=== PATIENT | female | born 1940 | race Caucasian/White ===

== ENCOUNTER 2016-10-21 21:56 | Inpatient (IN) | payer BC, MEDICARE ==
[2016-10-21] MEDS ORDERED: NITROGLYCERIN OINT 1 INCH/GM PACKET TOPICAL STA (22:16)
[2016-10-21] MEDS ORDERED: ASPIRIN 81 MG PO STA (22:16)
--- NOTE | 2016-10-21 22:20 | ED ---
General Adult HPI - General Chief complaint: Chest Pain Stated complaint: Chest Pressure/SOB Time Seen by Provider: 10/21/16 22:11 Source: patient, family, RN notes reviewed Mode of arrival: ambulatory - History of Present Illness Initial comments: Patient is a pleasant 76-year-old female presenting to the emergency Department with chest discomfort. Onset was a few hours ago while at rest. Patient has tightness in her chest with radiation to the left arm. Patient does feel somewhat short of breath. No diaphoresis. No nausea. Patient does have history of cardiac disease and hypertension previously. Patient is unclear she had similar symptoms to this previously or not. Discomfort was somewhat severe however is mild at this time. - Related Data Home Medications Medication Instructions Recorded Confirmed Clopidogrel Bisulfate [Plavix] 75 mg PO DAILY 10/21/16 10/21/16 HYDROcodone/APAP 7.5-325MG [[place] 1 tab PO BID PRN 10/21/16 10/21/16 7.5-325] LORazepam [Ativan] 0.5 mg PO BID PRN 10/21/16 10/21/16 Lisinopril [Zestril] 10 mg PO DAILY PRN 10/21/16 10/21/16 Metoprolol Tartrate [Lopressor] 12.5 mg PO BID 10/21/16 10/21/16 Simvastatin [Zocor] 40 mg PO HS 10/21/16 10/21/16 Allergies Allergy/AdvReac Type Severity Reaction Status Date / Time No Known Allergies Allergy Verified 10/21/16 22:27 Review of Systems ROS Statement: Those systems with pertinent positive or pertinent negative responses have been documented in the HPI. ROS Other: All systems not noted in ROS Statement are negative. Constitutional: Denies: fever Eyes: Denies: eye pain ENT: Denies: ear pain Respiratory: Reports: dyspnea. Denies: cough Cardiovascular: Reports: chest pain Endocrine: Denies: fatigue Gastrointestinal: Denies: abdominal pain Genitourinary: Denies: dysuria Musculoskeletal: Denies: back pain Skin: Denies: rash Neurological: Denies: weakness Past Medical History Past Medical History: Hyperlipidemia, Hypertension, Myocardial Infarction ([place]) History of Any Multi-Drug Resistant Organisms: None Reported Past Surgical History: Hysterectomy Additional Past Surgical History / Comment(s): cardiac cath w/ stent Past Psychological History: No Psychological Hx Reported Smoking Status: Current every day smoker Past Alcohol Use History: None Reported Past Drug Use History: None Reported General Exam Limitations: no limitations General appearance: alert, in no apparent distress Head exam: Present: atraumatic Eye exam: Present: normal appearance, PERRL ENT exam: Present: normal oropharynx Neck exam: Present: normal inspection Respiratory exam: Present: normal lung sounds bilaterally. Absent: chest wall tenderness Cardiovascular Exam: Present: regular rate, normal rhythm Expanded Peripheral pulses: 2+: Radial (R), Radial (L), Dorsalis Pedis (R), Dorsalis Pedis (L) GI/Abdominal exam: Present: soft. Absent: tenderness Neurological exam: Present: alert Psychiatric exam: Present: normal affect, normal mood Skin exam: Present: normal color Course Vital Signs 10/21/16 10/21/16 10/21/16 22:09 22:22 22:33 Temperature 98.1 F 98.1 F Pulse Rate 81 73 77 Respiratory 18 16 18 Rate Blood Pressure 234/102 195/84 185/81 O2 Sat by Pulse 95 99 99 Oximetry - Reevaluation(s) Reevaluation #1: 10/21/16 22:[address] Fofana, who will review EKGs. 10/21/16 22:19 EKG #2 shows normal sinus rhythm at 78. IN 198. QRS 118. QT 404. QTC 460. Normal axis. Normal QRS. Borderline ST elevation in inferior. ST depression in lead aVL and V4 through V6. 10/21/16 22:24 Case again discussed with Dr. Fofana and STEMI alert was called. 10/21/16 22:28 Patient was reexamined and updated. 10/21/16 22:35 Case was discussed with practitioner Raina, who will admit for Dr. victor, covering for Dr. giron 10/21/16 22:55 Dr. Fofana is present. Patient is heading to [facility]. EKG Findings - EKG Comments: EKG Findings:: EKG shows sinus rhythm at 82. For screening AV block with a IN of 212. QRS 116. QT 394. QTC 460. Normal axis. Borderline inferior ST elevation. ST depression in lead aVL and V4 through V6. No old EKG present. Medical Decision Making - Lab Data Result diagrams: 10/21/16 20:17 09/05/17 20:17 Lab Results 10/21/16 10/21/16 10/21/16 Range/Units 20:17 20:17 20:17 WBC 8.3 (3.8-10.6) k/uL RBC 4.61 (3.80-5.40) m/uL Hgb 14.4 (11.4-16.0) gm/dL Hct 41.6 (34.0-46.0) % MCV 90.1 (80.0-100.0) fL MCH 31.2 (25.0-35.0) pg MCHC 34.6 (31.0-37.0) g/dL RDW 15.4 (11.5-15.5) % Plt Count 264 (150-450) k/uL Neutrophils % 61 % Lymphocytes % 27 % Monocytes % 4 % Eosinophils % 6 % Basophils % 1 % Neutrophils # 5.0 (1.3-7.7) k/uL Lymphocytes # 2.3 (1.0-4.8) k/uL Monocytes # 0.3 (0-1.0) k/uL Eosinophils # 0.5 (0-0.7) k/uL Basophils # 0.0 (0-0.2) k/uL PT (9.0-12.0) sec INR (<1.2) APTT (22.0-30.0) sec Sodium 141 (137-145) mmol/L Potassium 4.1 (3.5-5.1) mmol/L Chloride 106 (98-107) mmol/L Carbon Dioxide 26 (22-30) mmol/L Anion Gap 9 mmol/L BUN 13 (7-17) mg/dL Creatinine 0.72 (0.52-1.04) mg/dL Est GFR (MDRD) Af Amer >60 (>60 ml/min/1.73 sqM) Est GFR (MDRD) Non-Af >60 (>60 ml/min/1.73 sqM) Glucose 135 H (74-99) mg/dL Calcium 9.4 (8.4-10.2) mg/dL Magnesium 2.0 (1.6-2.3) mg/dL Total Bilirubin 0.4 (0.2-1.3) mg/dL AST 25 (14-36) U/L ALT 32 (9-52) U/L Alkaline Phosphatase 142 H (38-126) U/L Total Creatine Kinase 27 L (30-135) U/L CK-MB (CK-2) 0.6 (0.0-2.4) ng/mL CK-MB (CK-2) Rel Index 2.2 Troponin I 0.047 H* (0.000-0.034) ng/mL Total Protein 7.5 (6.3-8.2) g/dL Albumin 3.7 (3.5-5.0) g/dL 10/21/16 Range/Units 20:17 WBC (3.8-10.6) k/uL RBC (3.80-5.40) m/uL Hgb (11.4-16.0) gm/dL Hct (34.0-46.0) % MCV (80.0-100.0) fL MCH (25.0-35.0) pg MCHC (31.0-37.0) g/dL RDW (11.5-15.5) % Plt Count (150-450) k/uL Neutrophils % % Lymphocytes % % Monocytes % % Eosinophils % % Basophils % % Neutrophils # (1.3-7.7) k/uL Lymphocytes # (1.0-4.8) k/uL Monocytes # (0-1.0) k/uL Eosinophils # (0-0.7) k/uL Basophils # (0-0.2) k/uL PT 9.9 (9.0-12.0) sec INR 1.0 (<1.2) APTT 22.3 (22.0-30.0) sec Sodium (137-145) mmol/L Potassium (3.5-5.1) mmol/L Chloride (98-107) mmol/L Carbon Dioxide (22-30) mmol/L Anion Gap mmol/L BUN (7-17) mg/dL Creatinine (0.52-1.04) mg/dL Est GFR (MDRD) Af Amer (>60 ml/min/1.73 sqM) Est GFR (MDRD) Non-Af (>60 ml/min/1.73 sqM) Glucose (74-99) mg/dL Calcium (8.4-10.2) mg/dL Magnesium (1.6-2.3) mg/dL Total Bilirubin (0.2-1.3) mg/dL AST (14-36) U/L ALT (9-52) U/L Alkaline Phosphatase (38-126) U/L Total Creatine Kinase (30-135) U/L CK-MB (CK-2) (0.0-2.4) ng/mL CK-MB (CK-2) Rel Index Troponin I (0.000-0.034) ng/mL Total Protein (6.3-8.2) g/dL Albumin (3.5-5.0) g/dL - Radiology Data Interpreted by me: Chest x-ray shows cardiomegaly Critical Care Time Critical Care Time: Yes Total Critical Care Time: 33 Disposition Clinical Impression: ST elevation myocardial infarction (STEMI) Disposition: ADMITTED IP TO THIS HOSP Condition: Serious Referrals: Lukas Mcdaniels MD [Primary Care Provider] - 1-2 days Decision Time: 22:55
[2016-10-21 22:26] LABS: Basophils % (A) 1 %; CH 31.7; CHCM 35.4; Eosinophils # (A) 0.5 k/uL (0-0.7); Eosinophils % (A) 6 %; HCT 41.6 % (34.0-46.0); HDW 2.93; HGB 14.4 gm/dL (11.4-16.0); Luc # (Auto) 0.18; Luc % (Auto) 2; Lymphocytes # (A) 2.3 k/uL (1.0-4.8); Lymphocytes % (A) 27 %; MCH 31.2 pg (25.0-35.0); MCHC 34.6 g/dL (31.0-37.0); MCV 90.1 fL (80.0-100.0); Mean Platelet Volume 8.5; Monocytes # (A) 0.3 k/uL (0-1.0); Monocytes % (A) 4 %; Neutrophils % (A) 61 %; RBC 4.61 m/uL (3.80-5.40); RDW 15.4 % (11.5-15.5); WBC 8.3 k/uL (3.8-10.6); WBC (Perox) 8.34
[2016-10-21] MEDS ORDERED: HEPARIN SODIUM,PORCINE 5,000 UNIT/ML 1 ML VIAL IV ONE (22:27)
[2016-10-21] MEDS ORDERED: HEPARIN SODIUM,PORCINE 5,000 UNIT/ML 1 ML VIAL IV PRN (22:27)
[2016-10-21] MEDS ORDERED: HEPARIN SODIUM,PORCINE/D5W PMX 25,000 UNIT in DEXTROSE/WATER 1 500ML.BAG IV SCH (22:30)
[2016-10-21 22:35] LABS: ALT 32 U/L (9-52); AST 25 U/L (14-36); Alkaline Phosphatase 142 U/L (38-126); Anion Gap 9 mmol/L; Blood Urea Nitrogen 13 mg/dL (7-17); Calcium 9.4 mg/dL (8.4-10.2); Carbon Dioxide 26 mmol/L (22-30); Chloride 106 mmol/L (98-107); Glucose 135 mg/dL (74-99); Non-African American GFR(MDRD) >60 (>60 ml/min/1.73 sqM); Potassium 4.1 mmol/L (3.5-5.1); Sodium 141 mmol/L (137-145); Total Bilirubin 0.4 mg/dL (0.2-1.3); Total Protein 7.5 g/dL (6.3-8.2)
[2016-10-21 22:38] LABS: Partial Thromboplastin Time 22.3 sec (22.0-30.0); Prothrombin Time 9.9 sec (9.0-12.0)
[2016-10-21] MEDS ORDERED: ATORVASTATIN 80 MG TAB PO STA (22:41)
--- NOTE | 2016-10-21 22:49 | XR ---
PROCEDURE: FILM CXR 1 VIEW HISTORY: 76-year-old female with chest pain. COMPARISON: Chest radiograph 08/02/2012 TECHNIQUE: Frontal view of the chest was obtained. FINDINGS: Limited by technique. Enlarged cardiac silhouette, may be due to cardiomegaly or pericardial effusion. Pulmonary vascular congestion and mild to moderate pulmonary edema. Left basilar atelectasis/consolidation. Questionable small left pleural effusion. Dextroconvex curvature of the thoracic spine. IMPRESSION: Enlarged cardiac silhouette, may be due to cardiomegaly or pericardial effusion. Pulmonary vascular congestion and mild to moderate pulmonary edema. Left basilar atelectasis/consolidation. Questionable small left pleural effusion.
[2016-10-21 22:51] LABS: Creatine Kinase MB 0.6 ng/mL (0.0-2.4)
[2016-10-21 22:52] LABS: Troponin I 0.047 ng/mL (0.000-0.034)
[2016-10-21] MEDS ORDERED: LIDOCAINE 2% INJ 20 MG/ML (20 ML MDV) ONE (22:55)
[2016-10-21] MEDS ORDERED: IV FLUID CONTINUATION 1,000 ML IV ONE (23:03)
[2016-10-21] MEDS ORDERED: NITROGLYCERIN SL TABS 0.4 MG TAB SUBLINGUAL ONE (23:13)
[2016-10-21] MEDS ORDERED: LIDOCAINE 2% INJ 20 MG/ML SQ ONE (23:16)
[2016-10-21] MEDS ORDERED: BIVALIRUDIN BOLUS 250 MG/50 ML IV ONE (23:26)
[2016-10-21] MEDS ORDERED: BIVALIRUDIN 250 MG in SODIUM CHLORIDE 0.9% 50 ML IV ONE (23:27)
[2016-10-21] MEDS ORDERED: NITROGLYCERIN 1000MCG/10ML SYRINGE INTRACORON ONE (23:27)
[2016-10-21] MEDS ORDERED: SODIUM CHLORIDE 0.9% 1,000 ML IV SCH (23:45)
[2016-10-21] MEDS ORDERED: IOHEXOL 350 MG/ML 125ML BOTTLE INJ ONE (23:46)
[2016-10-21] MEDS ORDERED: NITROGLYCERIN SL TABS 0.4 MG TAB SUBLINGUAL PRN (23:59)
[2016-10-21] MEDS ORDERED: RX INFO: IV CONTRAST WAS GIVEN 1 EACH MISC MISCELLANE PRN (23:59)
[2016-10-21] MEDS ORDERED: ATROPINE SULFATE 0.1 MG/ML 10ML SYRINGE IV PRN (23:59)
[2016-10-21] MEDS ORDERED: MAG HYDROX/AL HYDROX/SIMETH 30 ML CUP PO PRN (23:59)
[2016-10-21] MEDS ORDERED: ZOLPIDEM 5 MG TAB PO PRN (23:59)
[2016-10-22 00:17] LABS: Glucose,Whole Blood 139 mg/dL (75-99)
[2016-10-22 00:54] VITALS: BMI 24.7
[2016-10-22 04:50] LABS: Non-African American GFR(MDRD) >60 (>60 ml/min/1.73 sqM)
[2016-10-22] MEDS: LISINOPRIL 10 MG TAB PO SCH ×2 (06:57→21:57)
--- NOTE | 2016-10-22 08:53 | CONS ---
CONSULTATION Mrs. Jarrett is a 76-year-old female, known history of coronary artery disease, history of chronic tobacco use, hypertension, who presented to the emergency room with symptoms of chest discomfort. The discomfort started after an argument with her grandson, was substernal. She was dyspneic at that time, came into the emergency room and her EKG showed mild ST elevation in the inferior leads with ST-segment depression in the lateral precordial leads. The patient has underwent percutaneous revascularization in the past. She cannot recall how long ago and has not been followed by Cardiology. She denies any recent episodes of chest pain until today. She was quite hypertensive on presentation. She has no clear PND or orthopnea, but she has peripheral edema. She has no dizziness, palpitation, or syncope. CORONARY RISK FACTORS: Her coronary risk factors are remarkable for smoking a pack and half a day, hypertension. She is nondiabetic. REVIEW OF SYSTEMS: Respiratory: She had dyspnea on exertion. Symptoms of cough. GI system: No recent GI bleed. No peptic ulcer disease. : No dysuria or hematuria. Central nervous system: No history of stroke or seizure. PHYSICAL EXAMINATION: She is a 76-year-old female, alert and oriented. No apparent distress. Blood pressure 170/90 with a heart rate in the 80s. On presentation, blood pressure was 210. HEAD: Normocephalic. Eyes sclerae anicteric. Neck: Good carotid upstroke. No bruit. LUNGS: With severe decrease in exchange bilaterally. Heart: Regular rate and rhythm, S1, S2. No S3 with soft systolic murmur. No diastolic murmur. No rub. ABDOMEN: Soft, nontender. Positive bowel sounds. No organomegaly. Extremities are +1 edema. +1 distal pulses. LAB DATA: EKG reveals sinus mechanism, rate of [address]-segment elevation in leads 2, 3, AVF with [address] depression in the Lead 2, 3 and V6. IMPRESSION: 1. Inferior wall myocardial infarction. 2. History for chronic tobacco use. 3. History of coronary artery disease. 4. Hypertension. 5. History of chronic obstructive lung disease. RECOMMENDATION: Recommend to proceed with coronary angiography to assess her status and guide her treatment. Depending on the results of testing, further recommendations will be made. Thank you for this consult. We will follow with you. MMODL / IJN: [id number] /
[2016-10-22] MEDS: HYDROCHLOROTHIAZIDE 25 MG TAB PO SCH (08:55)
[2016-10-22] MEDS: METOPROLOL TARTRATE 25 MG TAB PO SCH ×2 (08:55→21:57)
[2016-10-22] MEDS: CLOPIDOGREL 75 MG TAB PO SCH (08:55)
[2016-10-22] MEDS: ASPIRIN 81 MG PO SCH (08:55)
[2016-10-22] MEDS: SPIRONOLACTONE 25 MG TAB PO SCH (08:56)
[2016-10-22] MEDS ORDERED: LISINOPRIL 10 MG TAB PO SCH (09:00)
--- NOTE | 2016-10-22 09:11 | EEG ---
ELECTROENCEPHALOGRAM REPORT PROCEDURE: Angioplasty procedure note MMODL / IJN: [id number] /
--- NOTE | 2016-10-22 09:17 | EEG ---
Dear Dr. Mcdaniels: I had the pleasure of performing cardiac catheterization and coronary angioplasty and stenting on Mrs. Jarrett at [facility] on October 21 and a full copy of procedure note will be forwarded to you. In brief, she was found to have significant stenosis involving the mid LAD and received a drug eluting stent. At the same time, she was found to have severely impaired left ventricular systolic function with segmental wall motion abnormality involving the inferior wall suggestive of remote myocardial infarction. At this time, I will maximize her medical therapy. Depending on her progress, further recommendations will be made. Thank you again for allowing me to participate in her care. Please feel free to call for any questions. Sincerely yours, MMODL / IJN: [id number] / PAUL
--- NOTE | 2016-10-22 10:32 | CC ---
CARDIAC CATHETERIZATION REPORT Mrs. Jarrett is a 76-year-old female with known history of coronary artery disease, history of chronic tobacco use, history of hypertension, who presented to the emergency room with symptoms of chest discomfort. She had borderline EKG changes, but in view of her persistent symptoms and her history, recommendation regarding cardiac catheterization, the procedure as well as risks, and complication were discussed with the patient who is in full understanding and agreement. PROCEDURE: Patient was patient was brought to the labor and delivery nurse. She received after fentanyl and Benadryl after achieving moderate conscious sedative state. Using Xylocaine anesthesia, in the Seldinger technique, a 6-Liberian sheath was introduced in the right femoral artery. Selective right and left coronary angiography performed using 6- Liberian, 4 Bend left Valente catheter and a 4 Bend FR4 guiding catheter. After obtaining images of the coronary arteries, a 6-Liberian FR4 guiding catheter introduced in the system and angioplasty stenting of the LAD was performed. Following that, a 6- Liberian tight pigtail catheter introduced in the left left ventricle and a 30-degree PRADO view of the left ventricle was obtained. Following that catheter and sheaths were removed. Hemostasis was obtained with deployment of an Angio-Seal. There was no immediate complication. The patient was returned to her room in stable condition. FINDINGS: LEFT MAIN: This is a large-sized vessel, bifurcates in the left circumflex and left anterior descending artery. Left main coronary artery is without any obstructive coronary artery disease. LEFT ANTERIOR DESCENDING ARTERY: This is a large size vessel, reaching toward the apex with a wrap around apex segment giving rise to a large diagonal branch. The left anterior descending artery, mid segment after the takeoff of the first diagonal branch has a 70% lesion. There is another plaque of 40% to 50% distal to it. The diagonal branch has an intimal disease with area of stenosis up to 60%. The rest of the vessel has no high-degree stenosis. LEFT CIRCUMFLEX: This is a nondominant vessel giving rise to obtuse marginal branch. The proximal segment of the left circumflex is stented. It has a 40% in-stent restenosis. RIGHT CORONARY ARTERY: This is a dominant vessel, large in caliber bifurcating distally to PDA and posterolateral segment and branches. The right coronary artery mid segment has a mild intimal disease of 20% to 30%. The very distal PDA is very small in caliber and has an area of stenosis of about 95%. LEFT VENTRICULOGRAM: The left ventriculogram was performed in 30-degree PRADO view and revealed inferior wall severe hypokinesis to akinesis with a 2 to 3+ mitral regurgitation. Ejection fraction estimated at 35%. HEMODYNAMICS: There is no gradient across the aortic valve. The left ventricular end- diastolic pressure was 22 mmHg. CONCLUSION: 1. Significant stenosis in the mid left anterior descending artery. 2. Mild disease in the stented segment of the left circumflex. 3. Mild disease in the mid right coronary artery with significant stenosis in the distal segment of the right PDA. 4. Severely impaired left ventricular systolic function. RECOMMENDATION: In view of finding anatomy, I recommend proceeding with angioplasty and stenting of the LAD. The segmental wall motion of the inferior wall could represent a remote myocardial infarction. Those findings and recommendations were discussed with the patient who is in full understanding and agreement. MMMARCIANOL / KASIA: [id number] /
[2016-10-22 11:57] VITALS: RESP 18
[2016-10-22 14:44] LABS: Hemoglobin A1C 6.5 % (4.2-6.1)
--- NOTE | 2016-10-22 17:08 | LTR ---
Date: Mrs. Jarrett is 76 -year-old female who presented with symptoms of chest discomfort. She had borderline EKG changes with ST-segment depression in the lateral precordial leads with minimal ST-segment changes in the inferior leads. She underwent cardiac catheterization and was found to have significant stenosis involving the mid LAD. In view of that, recommendation was made regarding angioplasty and stenting. The procedure as well as risks and complications were discussed with the patient, who was in full understanding and agreement. DESCRIPTION OF PROCEDURE: Using 6 Tajik FR4 guiding catheter, images of the left coronary system were obtained. Following that, a 0.014 balanced medium weight J-wire was advanced across the lesion and positioned distally. Then a 2.75 x 12 mm Xience Alpine stent was deployed. It was post dilated at 14 atmospheres. After the last inflation, after appropriate wait, the balloon and the guidewire were withdrawn back into the guiding catheter. Images were obtained and repeated. Those images revealed stable successful stenting. At that point, the guiding catheter, the balloon and the guidewire were removed and a 6 Tajik FL4 guiding catheter was introduced into the left ventricle and a left ventriculogram was performed in the PRADO view. Following that, catheter and sheath were removed. Hemostasis was obtained with deployment of an Angio-Seal. There were no immediate complications. The patient was returned to her room in stable condition. Of note, the patient received Angiomax per protocol and she was continued on Plavix. She had EKG changes with the inflation but no significant chest pain. RESULTS: Successful stenting of the mid LAD with reduction of stenosis from 70% to 0%. RECOMMENDATIONS: The patient will be continued on aspirin, Plavix, beta blockers, LADI inhibitors, statin. The importance of dual antiplatelet treatment was discussed with the patient and her family, and they are in full understanding and agreement. Duration of the procedure was 30 minutes. MMODL / IJN: [id number] /
[2016-10-22] MEDS: IPRATROPIUM-ALBUTEROL 3 ML NEB INHALATION SCH ×2 (17:41→20:09)
[2016-10-22] MEDS: NICOTINE 21MG/24HR PATCH TRANSDERM SCH (18:09)
[2016-10-22] MEDS: BUDESONIDE 1 MG/2 ML NEBU INHALATION SCH (20:10)
[2016-10-22] MEDS: ATORVASTATIN 80 MG TAB PO SCH (21:57)
--- NOTE | 2016-10-22 23:19 | HP ---
HISTORY AND PHYSICAL DATE OF ADMISSION: 10/21/2016 PRESENTING COMPLAINT: Chest pain. HISTORY OF PRESENTING COMPLAINT: This is a 76-year-old patient of Dr. Mcdaniels whose chronic stable medical conditions include hyperlipidemia, hypertension, anxiety and rheumatoid arthritis. Around 8 p.m. last night the patient developed central chest pressure, shortness of breath, felt lightheaded and tired. Pain progressed. Patient presented to the ER, was felt to have acute ST-elevation myocardial infarction. She went to the cardiac lift slab operator and had a stent to the LAD. The patient is a smoker. REVIEW OF SYSTEMS: CONSTITUTIONAL: Tired. HEENT: None. RESPIRATORY: Baseline shortness of breath, wheezing. CARDIOVASCULAR: As above. GASTROINTESTINAL: None. : None. MUSCULOSKELETAL: Aches and pains in multiple joints. DERMATOLOGIC: None. HEMATOLOGIC: None. LYMPHATIC: None. PSYCHIATRY: Anxiety. NEUROLOGIC: None. PAST HISTORY: 1. Hyperlipidemia. 2. Hypertension. 3. MN. 4. Anxiety. PAST SURGICAL HISTORY: Hysterectomy. SOCIAL HISTORY: Patient lives alone. She has smoked a pack a day for over 60 years. No alcohol. FAMILY HISTORY: Reviewed; non-contributory to presentation. HOME MEDICATIONS: 1. Zestril 10 mg daily p.r.n. 2. Zocor 40 mg at bedtime. 3. Lopressor 12.5 p.o. b.i.d. 4. Ativan 0.5 mg p.o. b.i.d. p.r.n. 5. Sharon 7.5 one tablet p.o. b.i.d. p.r.n. 6. Plavix 75 mg p.o. daily. ALLERGIES: NONE. PHYSICAL EXAMINATION: Temperature 97, pulse 80, respiration 18, blood pressure 157/74, pulse ox 97% room air. GENERAL APPEARANCE: Sitting up. Not in distress. EYES: Pupils equal. Conjunctivae normal. HEENT: Oral cavity normal. NECK: JVD not raised. Mass not palpable. RESPIRATORY: Effort normal. LUNGS: Diminished breath sounds. Prolonged expiration. CARDIOVASCULAR: First and second sounds normal. No edema. ABDOMEN: Soft, non-tender. Liver and spleen not palpable. LYMPHATICS: No lymph node palpable in neck or axillae. PSYCHIATRY: Alert and oriented x3. Mood and affect slightly anxious-appearing. NEUROLOGICAL: Pupils equal. Cranial nerves grossly intact. Power and sensation grossly intact. MUSCULOSKELETAL: Ulnar division of the fingers. Prominent metacarpal/phalangeal joints and rheumatoid nodules, especially on the first MCV joint on both sides. INVESTIGATIONS: White count 8.3, hemoglobin 14.4, potassium 4.1. Troponin 0.047, 3.4 and 12.6. EKG: possible ST elevation in inferior leads. ASSESSMENT: 1. Acute ST-elevation myocardial infarction with stent to the LAD. 2. Chronic obstructive pulmonary disease in a current smoker. 3. Advanced rheumatoid arthritis, bilateral. 4. Hyperlipidemia. 5. Essential hypertension. 6. Anxiety not otherwise specified. 7. Chronic nicotine dependence. Patient is a smoker. PLAN: Patient is currently on aspirin, Plavix, Zestril, Lipitor and Aldactone. Will add DuoNeb, nicotine patch. Care was discussed with the patient. Questions were answered. MMMARCIANOL / CHIKAN: [id number] /
[2016-10-23 06:52] LABS: Anion Gap 4 mmol/L; Blood Urea Nitrogen 11 mg/dL (7-17); Calcium 9.1 mg/dL (8.4-10.2); Carbon Dioxide 28 mmol/L (22-30); Chloride 105 mmol/L (98-107); Cholesterol 149 mg/dL (<200); Glucose 93 mg/dL (74-99); HDL Cholesterol 47 mg/dL (40-60); Non-African American GFR(MDRD) >60 (>60 ml/min/1.73 sqM); Potassium 3.8 mmol/L (3.5-5.1); Sodium 137 mmol/L (137-145)
--- NOTE | 2016-10-23 07:17 | ECHOF ---
Referral Reason:cad MEASUREMENTS -------- HEIGHT: 154.9 cm WEIGHT: 54.4 kg BP: 183/81 IVSd: 1.2 cm (0.6 - 1.1) LVIDd: 5.2 cm (3.9 - 5.3) LVPWd: 1.2 cm (0.6 - 1.1) IVSs: 1.5 cm LVIDs: 4.4 cm LVPWs: 1.1 cm Ao Diam: 2.6 cm (2.0 - 3.7) AV Cusp: 1.4 cm (1.5 - 2.6) LA Diam: 3.6 cm (2.7 - 3.8) MV EXCURSION: 11.236 mm (> 18.000) MV EF SLOPE: 39 mm/s (70 - 150) EPSS: 2.3 cm MV E Cale: 1.19 m/s MV DecT: 193 ms MV A Cale: 0.78 m/s MV E/A Ratio: 1.52 AR PHT: 265 ms RAP: 5.00 mmHg RVSP: 9.06 mmHg FINDINGS -------- Sinus rhythm. This was a technically adequate study. There is mild concentric left ventricular hypertrophy. Overall left ventricular systolic function is mild-moderately impaired with, an EF between 40 - 45 %. Apical lateral LV wall motion is hypokinetic. Inferiorlateral Hypokinesis The right ventricle is normal in size and function. The left atrium is normal in size. The right atrium is normal in size. There is mild aortic regurgitation. The mitral valve leaflets are mildly thickened. Moderate mitral regurgitation is present. Mild tricuspid regurgitation present. The right ventricular systolic pressure, as measured by Doppler, is 9.06mmHg. Pulmonic valve appears structurally normal. The aortic root size is normal. The pericardium is normal. CONCLUSIONS -------- 1. Sinus rhythm. 2. The mitral valve leaflets are mildly thickened. 3. Moderate mitral regurgitation is present. 4. Mild tricuspid regurgitation present. 5. The right ventricular systolic pressure, as measured by Doppler, is 9.06mmHg. 6. Pulmonic valve appears structurally normal. 7. The aortic root size is normal. 8. The pericardium is normal. 9. This was a technically adequate study. 10. There is mild concentric left ventricular hypertrophy. 11. Apical lateral LV wall motion is hypokinetic. 12. Inferiorlateral Hypokinesis 13. The right ventricle is normal in size and function. 14. The left atrium is normal in size. 15. The right atrium is normal in size. 16. There is mild aortic regurgitation. SINGER SONGWRITER: Sapna Choi RDCS
[2016-10-23] MEDS: BUDESONIDE 1 MG/2 ML NEBU INHALATION SCH ×2 (07:55→20:41)
[2016-10-23] MEDS: IPRATROPIUM-ALBUTEROL 3 ML NEB INHALATION SCH ×4 (07:55→20:41)
[2016-10-23] MEDS: ASPIRIN 81 MG PO SCH (09:18)
[2016-10-23] MEDS: HYDROCHLOROTHIAZIDE 25 MG TAB PO SCH (09:18)
[2016-10-23] MEDS: CLOPIDOGREL 75 MG TAB PO SCH (09:18)
[2016-10-23] MEDS: METOPROLOL TARTRATE 25 MG TAB PO SCH ×2 (09:18→21:35)
[2016-10-23] MEDS: LISINOPRIL 10 MG TAB PO SCH ×2 (09:19→21:35)
[2016-10-23] MEDS: NICOTINE 21MG/24HR PATCH TRANSDERM SCH (09:19)
[2016-10-23] MEDS: SPIRONOLACTONE 25 MG TAB PO SCH (09:19)
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
--- NOTE | 2016-10-23 12:28 | P.PN ---
Progress Note - Text DATE OF SERVICE: 10/23/2016 PRESENTING COMPLAINT: Chest pain HISTORY OF PRESENT ILLNESS: 76-year-old female presented with central chest pressure shortness of breath and lightheadedness and tired. Pain increased presented with acute ST elevated PA was taken to the cardiac quality assurance lab technician and a stent to the LAD was placed. Patient is a current smoker. INTERVAL HISTORY: 10/23/2016: Lying in bed appears comfortable in good spirits. No further episodes of chest pain or pressure, no shortness of breath, ambulatory in the room and raines with no assistance. Tolerating her diet and 75% or more, last BM 10/22/2016. REVIEW OF SYSTEMS: Done for constitutional ,cardiovascular, GI, pulmonary with relevant findings as above. CURRENT MEDICATIONS Aspirin 81 mg by mouth daily, Lipitor 80 mg by mouth at at bedtime, Plavix 75 mg by mouth daily hydrochlorothiazide 25 mg by mouth daily, lisinopril 10 mg by mouth twice a day, metoprolol 25 mg by mouth twice a day, nicotine patch 21 mg daily, spironolactone 25 mg by mouth daily. PHYSICAL EXAM VITAL SIGNS: Temperature 97.0, pulse 64, respiratory rate 18, blood pressure 153/64, oxygen saturation 95% on room air. GENERAL APPEARANCE: Lying in bed, not in distress. EYES: Pupils equal. Conjunctiva normal. NECK: JVD not raised. Mass not palpable. RESPIRATORY: Respiratory effort normal. Lungs prolonged expiration. CARDIOVASCULAR: First and second sounds normal. No edema. ABDOMEN: Soft. Liver and spleen not palpable. No tenderness. No mass palpable. PSYCHIATRY: Alert and oriented x3. Mood and affect normal. MUSCULOSKELETAL: Ulnar deviation of the fingers, prominent metacarpal/don't she' ll joints rheumatoid nodules, especially on the first MCV joint on both sides. INTEGUMENT: Right groin site clean dry and intact open air INVESTIGATIONS: BMP unremarkable, triglycerides 118, cholesterol 149, LDL cholesterol 78, HDL cholesterol 47. ASSESSMENT: -Acute ST elevation PA with stent to the LAD. -Ischemic cardiomyopathy in a patient with an EF of 40-45% -Chronic obstructive pulmonary disease in a current smoker. -Advance rheumatoid arthritis, bilateral. -Hyperlipidemia. -Essential hypertension. -Anxiety not otherwise specified. -Chronic nicotine dependence. Patient is a smoker. PLAN: Continue current medication and treatment plan, possible discharge tomorrow per cardiology. Plan of care discussed with the patient she is in agreement. 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 Victor
[2016-10-23] MEDS: ATORVASTATIN 80 MG TAB PO SCH (21:35)
--- NOTE | 2016-10-23 22:02 | PN ---
PROGRESS NOTE DATE OF SERVICE: 10/23/2016 ATTENDING NOTE: This patient was seen and examined by me. I discussed with my nurse practitioner, Ms. Lynch. This is a patient who is status post cardiac catheterization. No chest pain. Breathing is stable. Up to the bathroom. PHYSICAL EXAMINATION: Blood pressure 126/58. Decreased breath sounds. CARDIOVASCULAR: First and second sounds normal. INVESTIGATIONS: Troponin peaked at 12.6. ASSESSMENT: 1. Acute ST-elevation myocardial infarction with stent to the LAD. 2. Ischemic cardiomyopathy; ejection fraction 40% to 45%. 3. Chronic obstructive pulmonary disease in a current smoker. PLAN: Care was discussed with the patient. Continue current medication and treatment plan. Will follow. MMODL / IJN: [id number] /
[2016-10-23] MEDS ORDERED: diphenhydrAMINE 25 MG CAP PO PRN (22:51)
[2016-10-24 07:17] LABS: Anion Gap 7 mmol/L; Blood Urea Nitrogen 12 mg/dL (7-17); Calcium 9.5 mg/dL (8.4-10.2); Carbon Dioxide 30 mmol/L (22-30); Chloride 104 mmol/L (98-107); Glucose 94 mg/dL (74-99); Non-African American GFR(MDRD) >60 (>60 ml/min/1.73 sqM); Potassium 4.1 mmol/L (3.5-5.1); Sodium 141 mmol/L (137-145)
[2016-10-24] MEDS: BUDESONIDE 1 MG/2 ML NEBU INHALATION SCH (09:09)
[2016-10-24] MEDS: IPRATROPIUM-ALBUTEROL 3 ML NEB INHALATION SCH (09:09)
[2016-10-24] MEDS: NICOTINE 21MG/24HR PATCH TRANSDERM SCH (09:28)
[2016-10-24] MEDS: HYDROCHLOROTHIAZIDE 25 MG TAB PO SCH (09:28)
[2016-10-24] MEDS: ASPIRIN 81 MG PO SCH (09:28)
[2016-10-24] MEDS: SPIRONOLACTONE 25 MG TAB PO SCH (09:29)
[2016-10-24] MEDS: LISINOPRIL 10 MG TAB PO SCH (09:29)
[2016-10-24] MEDS: METOPROLOL TARTRATE 25 MG TAB PO SCH (09:29)
[2016-10-24 09:39] VITALS: BP 137/72; PULSE 67; TEMP 96.7
[2016-10-24] MEDS: CLOPIDOGREL 75 MG TAB PO SCH (10:00)
--- NOTE | 2016-10-24 12:33 | P.DS ---
Providers Date of admission: 10/21/16 22:36 Expected date of discharge: 10/24/16 Attending physician: Wali Victor Consults: 10/21/16 22:36 Consult Physician Stat Consulting Provider: Dany Fofana Consult Reason/Comments: stemi Do you want consulting provider notified?: Already Contacted 10/21/16 23:59 Consult Physician Routine Consulting Provider: [facility] Consult Reason/Comments: Post Interventional patient Do you want consulting provider notified?: Already Contacted Primary care physician: [facility] Course: FINAL DIAGNOSES: -Acute ST elevation [place] with stent to the LAD. -Ischemic cardiomyopathy in a patient with an EF of 40-45% -Chronic obstructive pulmonary disease in a current smoker. -Advance rheumatoid arthritis, bilateral. -Hyperlipidemia. -Essential hypertension. -Anxiety not otherwise specified. -Chronic nicotine dependence. Patient is a smoker. HOSPTIAL COURSE: 76-year-old female who developed chest pressure shortness of breath lightheadedness and feeling tired. Pain progressed presented to the emergency department, cardiology consulted, diagnostics revealed acute ST elevation myocardial infarction, patient was taken immediately to the labor economics professor and a stent was placed to the LAD vessel. Admitted to the ICU, no further episodes of chest pain, patient's medication adjusted to include a beta cherry, antiplatelet medication for the stent, and lipid-lowering agent. Patient transferred to [address] [place] [address] and no further episodes of chest pain more had continued on current medication and treatment plan, ambulatory in the room and raines's, tolerating her diet, moving her bowels. Discussion had on multiple occasions with patient regarding smoking cessation and the need for her to quit smoking altogether. Nicotine patches provided through the course of her stay as well as education and resources on smoking cessation. Patient's anxious to go home and overall condition is stabilized and is appropriate for discharge. PHYSICAL EXAM: CARDIOVASCULAR: First and second sound noted no edema RESPIRATORY: Effort normal, transient cough production,lungs diminished bilaterally. PSYCHIATRY: Alert and oriented 3 mood and affect normal. Patient was seen and examined by nurse practitioner Raina Lynch in all elements of the case discussed with attending Dr. Victor DISPOSITION: Home to the care of her family Patient Condition at Discharge: Serious Plan - Discharge Summary New Discharge Prescriptions: New Aspirin 81 mg PO DAILY #30 Atorvastatin [Lipitor] 80 mg PO HS #30 tab Clopidogrel [Plavix] 75 mg PO DAILY tab Metoprolol Tartrate [Lopressor] 25 mg PO BID #60 tab Nicotine 21Mg/24Hr Patch [Habitrol] 1 patch TRANSDERM DAILY #30 patch Nitroglycerin Sl Tabs [Nitrostat] 0.4 mg SUBLINGUAL Q5M PRN #25 tab PRN Reason: Chest Pain Spironolactone [Aldactone] 25 mg PO DAILY #30 tab Mag Hydrox/Al Hydrox/Simeth [Maalox] 30 ml PO Q4HR PRN dose PRN Reason: Heartburn diphenhydrAMINE [Benadryl] 25 mg PO DAILY PRN cap PRN Reason: Congestion Albuterol Inhaler [Ventolin Hfa Inhaler] 1 - 2 puff INHALATION Q6HR PRN #1 inhaler PRN Reason: Shortness Of Breath Or Wheezing Continue LORazepam [Ativan] 0.5 mg PO BID PRN PRN Reason: Anxiety HYDROcodone/APAP 7.5-325MG [[place] 7.5-325] 1 tab PO BID PRN PRN Reason: Pain Lisinopril [Zestril] 10 mg PO DAILY PRN PRN Reason: Blood Pressure - High Discontinued Simvastatin [Zocor] 40 mg PO HS Metoprolol Tartrate [Lopressor] 12.5 mg PO BID Clopidogrel Bisulfate [Plavix] 75 mg PO DAILY Discharge Medication List HYDROcodone/APAP 7.5-325MG [[place] 7.5-325] 1 tab PO BID PRN 10/21/16 [History] LORazepam [Ativan] 0.5 mg PO BID PRN 10/21/16 [History] Lisinopril [Zestril] 10 mg PO DAILY PRN 10/21/16 [History] Aspirin 81 mg PO DAILY #30 10/23/16 [Rx] Atorvastatin [Lipitor] 80 mg PO HS #30 tab 10/23/16 [Rx] Clopidogrel [Plavix] 75 mg PO DAILY tab 10/23/16 [Rx] Metoprolol Tartrate [Lopressor] 25 mg PO BID #60 tab 10/23/16 [Rx] Nicotine 21Mg/24Hr Patch [Habitrol] 1 patch TRANSDERM DAILY #30 patch 10/23/16 [ Rx] Nitroglycerin Sl Tabs [Nitrostat] 0.4 mg SUBLINGUAL Q5M PRN #25 tab 10/23/16 [Rx ] Spironolactone [Aldactone] 25 mg PO DAILY #30 tab 10/23/16 [Rx] Albuterol Inhaler [Ventolin Hfa Inhaler] 1 - 2 puff INHALATION Q6HR PRN #1 inhaler 10/24/16 [Rx] Mag Hydrox/Al Hydrox/Simeth [Maalox] 30 ml PO Q4HR PRN dose 10/24/16 [Rx] diphenhydrAMINE [Benadryl] 25 mg PO DAILY PRN cap 10/24/16 [Rx] Follow up Appointment(s)/Referral(s): Dany Fofana MD [STAFF PHYSICIAN] - 10/27/16 9:00 am Lukas Mcdaniels MD [Primary Care Provider] - 11/06/16 1:20 pm () Ambulatory/Diagnostic Orders: Basic Metabolic Panel [LAB.AMB] Location: Determined By Patient Complete Blood Count w/diff [LAB.AMB] Location: Determined By Patient Patient Instructions/Handouts: *[facility] - After Heart Catheterization - Felt Coverer Instructions, How to Stop Smoking (DC), Cigarette Smoking and Your Health (GEN) Discharge Disposition: HOME SELF-CARE
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
--- NOTE | 2016-10-26 11:01 | DS ---
DISCHARGE SUMMARY ADDENDUM: DATE OF SERVICE: 10/24/2016 ATTENDING NOTE: This patient is seen and examined bye . I discussed this with my nurse practitioner Ms. Lynch. The patient was seen by me yesterday on 10/24/16. No chest pain. Doing better. Up and about. EXAM: Lungs fair air entry. Cardiovascular first and second sounds normal. Stable for DC home. Followup was arranged. Care was discussed with the patient. Questions were answered. MMODL / IJN: [id number] /
--- NOTE | 2016-10-27 14:55 | LTR ---
Date: RE: Shira Jarrett Dear Dr. Mcdaniels; I had the opportunity to perform a cardiac catheterization, coronary angioplasty and stenting on Mrs. Jarrett at [facility] on the 21 of October and a full copy of the procedure note will be forwarded to you. In brief, she was found to have a significant stenosis involving the mid LAD and received a drug eluding stent. At the same time, she was found to have severely impaired left ventricular systolic function with segmental wall motion abnormality involving the inferior wall suggestive of a remote myocardial infarction. At this time, I will maximumize her medical therapy, and depending on her progress, recommendations will be made. Thank you again for allowing me to participate in her care. Please feel free to call if you have any questions. Sincerely yours, MMKANDACE / IJN: [id number] /
== END 2016-10-24 11:30 | disposition home or self-care (01) | DRG 249 ==
LOC: EC 21:56 → 6ICU 22:36 → 6SEL 10-22 10:05
PROVIDERS: ADMIT Hospitalist; ATTEND Hospitalist
PROC: B2111ZZ Fluoroscopy of Multiple Coronary Arteries using Low Osmolar Contrast (ICD-10-PCS; 2016-10-21)
PROC: B2151ZZ Fluoroscopy of Left Heart using Low Osmolar Contrast (ICD-10-PCS; 2016-10-21)
PROC: 02703DZ Dilation of Coronary Artery, One Artery with Intraluminal Device, Percutaneous Approach (ICD-10-PCS; principal; 2016-10-21 22:56)
PROC: 4A023N7 Measurement of Cardiac Sampling and Pressure, Left Heart, Percutaneous Approach (ICD-10-PCS; 2016-10-21 22:56)
DX: I21.19 ST elevation (STEMI) myocardial infarction involving other coronary artery of inferior wall (principal); T82.855A Stenosis of coronary artery stent, initial encounter; J44.9 Chronic obstructive pulmonary disease, unspecified; I34.0 Nonrheumatic mitral (valve) insufficiency; M06.9 Rheumatoid arthritis, unspecified; I10 Essential (primary) hypertension; E78.5 Hyperlipidemia, unspecified; F17.210 Nicotine dependence, cigarettes, uncomplicated; F41.9 Anxiety disorder, unspecified; I25.10 Atherosclerotic heart disease of native coronary artery without angina pectoris; I25.2 Old myocardial infarction; I25.5 Ischemic cardiomyopathy; Z79.02 Long term (current) use of antithrombotics/antiplatelets; Z79.899 Other long term (current) drug therapy; Y71.8 Miscellaneous cardiovascular devices associated with adverse incidents, not elsewhere classified; Y92.9 Unspecified place or not applicable
CPT/HCPCS: 36415; 71010; 80048; 80053; 80061; 82550; 82553; 82565; 83036; 83735; 84484; 85025; 85610; 85730; 93005; 93306; 93458; 94640; 96374; 99291

== ENCOUNTER 2018-12-06 17:27 | Observation (INO) | payer MEDICARE ==
--- NOTE | 2018-12-06 18:30 | ED ---
Lower Extremity Injury HPI - General Chief Complaint: Neuro Symptoms/Deficit Stated Complaint: HTN Time Seen by Provider: 12/06/18 17:49 Source: EMS Mode of arrival: EMS Limitations: no limitations - History of Present Illness Initial Comments: 78-year-old with history of hypertension, coronary artery disease on plavix, rheumatoid arthritis female presenting for elevated blood pressure, weakness and sensation deficit of the left leg that has been ongoing since 3 PM. Patient states around 3 PM she felt as though she had a numb sensation tingling sens ation in the left leg. She noticed that is weaker in comparison with the right. Patient states she has never experienced this previously. Patient denies any speech changes headache nausea vomiting dizziness weakness or sensation deficits of the upper extremities or right lower extremity. Patient denies any swelling of the extremities or pain. Patient denies any visual changes or double vision she doesn't for culture articulating [place] or thoughts. Denies neck pain or recent falls/head trauma. Patient states she is compliant with her plavix. Patient denies any history of previous CVA or brain aneurysm. Patient states that she did note that her blood pressure was elevated today. Removal of systems negative. Upon arrival patient states that her symptoms seem to dissipate, at time of patient evaluation/history taking patient - Related Data Home Medications Medication Instructions Recorded Confirmed LORazepam [Ativan] 0.5 - 1 mg PO Q8H PRN 10/21/16 12/06/18 Lisinopril [Zestril] 10 mg PO DAILY 10/21/16 12/06/18 Previous Rx's Medication Instructions Recorded Aspirin 81 mg PO DAILY #30 10/23/16 Atorvastatin [Lipitor] 80 mg PO HS #30 tab 10/23/16 Clopidogrel [Plavix] 75 mg PO DAILY tab 10/23/16 Metoprolol Tartrate [Lopressor] 25 mg PO BID #60 tab 10/23/16 Nitroglycerin Sl Tabs [Nitrostat] 0.4 mg SUBLINGUAL Q5M PRN #25 tab 10/23/16 Spironolactone [Aldactone] 25 mg PO DAILY #30 tab 10/23/16 Albuterol Inhaler [Ventolin Hfa 1 - 2 puff INHALATION Q6HR PRN #1 10/24/16 Inhaler] inhaler Allergies Allergy/AdvReac Type Severity Reaction Status Date / Time No Known Allergies Allergy Verified 12/06/18 18:38 Review of Systems ROS Statement: Those systems with pertinent positive or pertinent negative responses have been documented in the HPI. ROS Other: All systems not noted in ROS Statement are negative. Past Medical History Past Medical History: Hyperlipidemia, Hypertension, Myocardial Infarction (DC) Last Myocardial Infarction Date:: 2006 History of Any Multi-Drug Resistant Organisms: None Reported Past Surgical History: Hysterectomy Additional Past Surgical History / Comment(s): cardiac cath w/ stent Past Psychological History: No Psychological Hx Reported Smoking Status: Current every day smoker Past Alcohol Use History: None Reported Past Drug Use History: None Reported General Exam - General Exam Comments Initial Comments: General: The patient is awake and alert, in no distress, and does not appear acutely ill. Eye: +3 mm pupils are equal, round and reactive to light, extra-ocular movements are intact. No nystagmus. There is normal conjunctiva bilaterally. No signs of icterus. Ears, nose, mouth and throat: There are moist mucous membranes and no oral lesions. Neck: The neck is supple, there is no tenderness or JVD. Cardiovascular: There is a regular rate and rhythm. No murmur, rub or gallop is appreciated. Respiratory: Lungs are clear to auscultation, respirations are non-labored, breath sounds are equal. No wheezes, stridor, rales, or rhonchi. Gastrointestinal: Soft, non-distended, non-tender abdomen without masses or organomegaly noted. There is no rebound or guarding present. No CVA tenderness. Bowel sounds are unremarkable. No pulsatile masses. Musculoskeletal: Normal ROM, no tenderness. Strength 5/5. Sensation intact. Radial +2 equal comparison b/l, unable to obtain DP pulses b/l however popliteal and femoral are present equal on doppler-strong. No coolness or pallor of the LE. No pain. Equal warmth capillary refill 4-5 seconds of the great toe b/l. Contracture deformity noted of the toes b/l. Neurological: A&O x 3. CN II-XII intact, speech is normal no dysarthria or aphasia noted. Patient is no pronator drift of the upper extremity bilaterally. Sensation and strength is intact and equal bilaterally. Patient has some strength against gravity of the left leg however significantly weaker than that of the right lower extremity. Patient states that the sensation appears diminished in the left leg and comparison with the right. Drift noted of the left LE. Skin: Skin is warm and dry and no rashes or lesions are noted. Psychiatric: Cooperative, appropriate mood & affect, normal judgment. NIH 3. Limitations: no limitations Course Vital Signs 12/06/18 12/06/18 12/06/18 17:36 18:28 18:30 Temperature 98.0 F 98.0 F Pulse Rate 61 63 64 Pulse Rate [ Pulse Oximetery ] Respiratory 16 16 16 Rate Blood Pressure 145/58 161/76 163/59 Blood Pressure [Left Arm] O2 Sat by Pulse 99 99 99 Oximetry 12/06/18 12/06/18 12/06/18 18:45 19:00 19:15 Temperature 98.2 F Pulse Rate 65 76 72 Pulse Rate [ Pulse Oximetery ] Respiratory 16 16 18 Rate Blood Pressure 162/67 138/69 166/66 Blood Pressure [Left Arm] O2 Sat by Pulse 99 99 97 Oximetry 12/06/18 12/06/18 12/06/18 19:30 20:00 20:30 Temperature Pulse Rate 78 74 74 Pulse Rate [ Pulse Oximetery ] Respiratory 18 19 18 Rate Blood Pressure 172/55 165/68 164/60 Blood Pressure [Left Arm] O2 Sat by Pulse 98 98 98 Oximetry 12/06/18 12/06/18 12/06/18 21:00 21:30 22:00 Temperature Pulse Rate 60 62 58 L Pulse Rate [ Pulse Oximetery ] Respiratory 17 18 17 Rate Blood Pressure 159/70 143/50 167/73 Blood Pressure [Left Arm] O2 Sat by Pulse 97 97 98 Oximetry 12/06/18 12/06/18 12/07/18 22:42 23:00 00:00 Temperature 98.4 F Pulse Rate 56 L Pulse Rate [ 68 Pulse Oximetery ] Respiratory 18 18 Rate Blood Pressure 149/50 137/43 Blood Pressure 141/53 [Left Arm] O2 Sat by Pulse 97 98 Oximetry 12/07/18 12/07/18 12/07/18 01:00 02:00 03:00 Temperature Pulse Rate Pulse Rate [ Pulse Oximetery ] Respiratory Rate Blood Pressure 136/52 141/53 134/90 Blood Pressure [Left Arm] O2 Sat by Pulse Oximetry - Reevaluation(s) Reevaluation #1: Upon reevaluation patient is able to lift the left leg high against gravity states sensation is coming back Medical Decision Making - Medical Decision Making 78-year-old female presenting for left leg weakness sensation deficit paresthesia. Immediately consulted attending Dr. Awan after evaluation of patinet. Upon arrival patient NIH3. Patient CT wo contrast (-). Patient was evaluated bedside by a chief engineering division interventional neurologist. Shared decision making with patient was utilized and it was decided given patient NIH and risk of bleeding to avoid TPA. Patient symptoms resolved during visit upon re-eev aluation. Labs drawn revealing mild elevation of troponin patient denies chest pain or SOB. EKG no ST elevation depression. Will trend. Discussed case labs with Dr. Pavon as Dr. Awan shift ended, she recommended holding heparin for serial troponins. no significant elevation of troponin on second draw. Will tend third. Patient on tele. CTA of head neck (-) for acute process, aneursym. Patient will be admitted for further medical management and evaluation. Cardiology and neurology on consultation. Dr. Pavon spoke with admitting provider. Patient remains a hold in the ER. She is agreeable with admission for further evaluation. - Lab Data Result diagrams: 12/06/18 18:38 12/06/18 18:38 Lab Results 12/06/18 12/06/18 12/06/18 Range/Units 18:38 18:38 18:38 WBC 11.2 H (3.8-10.6) k/uL RBC 3.96 (3.80-5.40) m/uL Hgb 12.0 (11.4-16.0) gm/dL Hct 36.7 (34.0-46.0) % MCV 92.8 (80.0-100.0) fL MCH 30.4 (25.0-35.0) pg MCHC 32.8 (31.0-37.0) g/dL RDW 14.6 (11.5-15.5) % Plt Count 271 (150-450) k/uL Neutrophils % 79 % Lymphocytes % 13 % Monocytes % 4 % Eosinophils % 2 % Basophils % 0 % Neutrophils # 8.9 H (1.3-7.7) k/uL Lymphocytes # 1.5 (1.0-4.8) k/uL Monocytes # 0.5 (0-1.0) k/uL Eosinophils # 0.3 (0-0.7) k/uL Basophils # 0.0 (0-0.2) k/uL PT 9.5 (9.0-12.0) sec INR 0.9 (<1.2) APTT 19.8 L (22.0-30.0) sec Sodium 136 L (137-145) mmol/L Potassium 5.0 (3.5-5.1) mmol/L Chloride 107 (98-107) mmol/L Carbon Dioxide 22 (22-30) mmol/L Anion Gap 7 mmol/L BUN 18 H (7-17) mg/dL Creatinine 0.75 (0.52-1.04) mg/dL Est GFR (CKD-EPI)AfAm 88 (>60 ml/min/1.73 sqM) Est GFR (CKD-EPI)NonAf 77 (>60 ml/min/1.73 sqM) Glucose 130 H (74-99) mg/dL Calcium 8.8 (8.4-10.2) mg/dL Total Bilirubin 0.5 (0.2-1.3) mg/dL AST 29 (14-36) U/L ALT 18 (9-52) U/L Alkaline Phosphatase 131 H (38-126) U/L Troponin I (0.000-0.034) ng/mL Total Protein 6.8 (6.3-8.2) g/dL Albumin 3.5 (3.5-5.0) g/dL 12/06/18 Range/Units 18:38 WBC (3.8-10.6) k/uL RBC (3.80-5.40) m/uL Hgb (11.4-16.0) gm/dL Hct (34.0-46.0) % MCV (80.0-100.0) fL MCH (25.0-35.0) pg MCHC (31.0-37.0) g/dL RDW (11.5-15.5) % Plt Count (150-450) k/uL Neutrophils % % Lymphocytes % % Monocytes % % Eosinophils % % Basophils % % Neutrophils # (1.3-7.7) k/uL Lymphocytes # (1.0-4.8) k/uL Monocytes # (0-1.0) k/uL Eosinophils # (0-0.7) k/uL Basophils # (0-0.2) k/uL PT (9.0-12.0) sec INR (<1.2) APTT (22.0-30.0) sec Sodium (137-145) mmol/L Potassium (3.5-5.1) mmol/L Chloride (98-107) mmol/L Carbon Dioxide (22-30) mmol/L Anion Gap mmol/L BUN (7-17) mg/dL Creatinine (0.52-1.04) mg/dL Est GFR (CKD-EPI)AfAm (>60 ml/min/1.73 sqM) Est GFR (CKD-EPI)NonAf (>60 ml/min/1.73 sqM) Glucose (74-99) mg/dL Calcium (8.4-10.2) mg/dL Total Bilirubin (0.2-1.3) mg/dL AST (14-36) U/L ALT (9-52) U/L Alkaline Phosphatase (38-126) U/L Troponin I 0.046 H* (0.000-0.034) ng/mL Total Protein (6.3-8.2) g/dL Albumin (3.5-5.0) g/dL - EKG Data EKG Comments: 78-year-old female presenting for left leg weakness and paresthesia. Ventricular rate 72 beats minute, KS interval 168 ms, QRS duration 104 ms, QT/QTc 412/451 ms. Normal sinus rhythm. Left axis noted. No ST elevation or depression. Artifact appreciated. Disposition Clinical Impression: Left leg weakness, TIA (transient ischemic attack), Elevated troponin Disposition: ADMITTED IP TO THIS HOSP Condition: Stable Is patient prescribed a controlled substance at d/c from ED?: No Time of Disposition: 22:28 Decision to Admit Reason: Admit from EC Decision Date: 12/06/18 Decision Time: 22:28
[2018-12-06 18:52] LABS: Basophils % (A) 0 %; Eosinophils # (A) 0.3 k/uL (0-0.7); Eosinophils % (A) 2 %; HCT 36.7 % (34.0-46.0); Lymphocytes # (A) 1.5 k/uL (1.0-4.8); Lymphocytes % (A) 13 %; MCH 30.4 pg (25.0-35.0); MCHC 32.8 g/dL (31.0-37.0); MCV 92.8 fL (80.0-100.0); Mean Platelet Volume 8.1; Monocytes # (A) 0.5 k/uL (0-1.0); Monocytes % (A) 4 %; Neutrophils # (A) 8.9 k/uL (1.3-7.7); Neutrophils % (A) 79 %; Platelet Count 271 k/uL (150-450); RBC 3.96 m/uL (3.80-5.40); RDW 14.6 % (11.5-15.5); WBC 11.2 k/uL (3.8-10.6)
[2018-12-06 19:03] LABS: Albumin 3.5 g/dL (3.5-5.0); Calcium 8.8 mg/dL (8.4-10.2); Total Bilirubin 0.5 mg/dL (0.2-1.3); Total Protein 6.8 g/dL (6.3-8.2)
--- NOTE | 2018-12-06 19:10 | CT ---
EXAMINATION TYPE: CT brain wo con for TPA DATE OF EXAM: 12/06/2018 COMPARISON: None INDICATION: Neuro deficits. DLP: 1099.4. mGycm, Automated exposure control for dose reduction was used. CONTRAST: None CT of the brain is performed utilizing 3 mm thick sections through the posterior fossa and 3 mm thick sections through the remaining calvarium. Study is performed within 24 hours of arrival to the hosp ital. No abnormal hyperdensity is present to suggest an acute intracranial hemorrhage. No mass lesion is evident. No acute infarcts are evident. There is some mild periventricular white matter hypodensity, likely on the basis of chronic white matter ischemic changes. Ventricles and sulci are appropriate for the patient age. Paranasal sinuses and mastoid air cells within the [id number] are clear. IMPRESSIONS: 1. Mild appearing periventricular white matter ischemic changes.
[2018-12-06 19:14] LABS: INR 0.9 (<1.2); Prothrombin Time 9.5 sec (9.0-12.0)
[2018-12-06 19:20] LABS: Partial Thromboplastin Time 19.8 sec (22.0-30.0)
--- NOTE | 2018-12-06 19:42 | CT ---
EXAMINATION TYPE: CODE STROKE: CTA head neck DATE OF EXAM: 12/06/2018 HISTORY: Neuro deficits. COMPARISON: None CT DLP: 326.3 mGycm. Automated Exposure Control for Dose Reduction was Utilized. TECHNIQUE: CTA scan of the neck is performed with IV Contrast, patient injected with 65ml mL of Isov ue 370, axial images are obtained, coronal and sagittal reformatted images are reviewed. Three-D vimal nstructed images are created on an independent workstation and reviewed. Source images are reviewed. FINDINGS: Carotid/Vascular Structures: Ascending thoracic aorta measures 3.2 cm. The main bifurcation pulmonary artery measures 2.6 cm. Common carotid arteries bifurcate into internal and external carotid arterie s. There is atheromatous plaquing present greater on the left than the right. No significant stenosis is evident. Vertebral arteries are codominant. Cervical of Ngo: Vertebral basilar system appears normal. Posterior cerebral vasculature is unrema rkable. Internal carotid arteries bifurcate normally into A1 and M1 segments. A2 segments are normal. The anterior communicating artery is patent. Left Posterior communicating artery is patent. Right po sterior communicating artery is patent. IMPRESSION: 1. Mild narrowing of less than 50% the left internal carotid artery origin due to atheromatous plaqui ng. Mild plaquing less than 50% is present in the right internal carotid artery origin. 2. Normal yocha dehe of Ngo
[2018-12-06] MEDS ORDERED: ASPIRIN 325 MG TAB PO STA (20:24)
--- NOTE | 2018-12-06 21:33 | XR ---
EXAMINATION TYPE: XR chest 2V DATE OF EXAM: 12/06/2018 COMPARISON: 10/21/2016 INDICATION: Altered mental status TECHNIQUE: Frontal and lateral views of the chest are obtained. FINDINGS: The heart size is there is mild to moderate cardiomegaly.. The pulmonary vasculature is prominent. No suspicious focal consolidations are evident.. Small posterior pleural effusions are present. IMPRESSION: 1. Clinical correlation recommended for early congestive heart failure.
[2018-12-06] MEDS: SODIUM CHLORIDE 0.9% 1,000 ML IV SCH (22:56)
[2018-12-07 03:27] VITALS: BMI 18.1
[2018-12-07 05:05] LABS: Cholesterol 121 mg/dL (<200); HDL Cholesterol 36 mg/dL (40-60); LDL Cholesterol,Calculated 70 mg/dL (0-99); Triglycerides 73 mg/dL (<150)
[2018-12-07] MEDS ORDERED: CLOPIDOGREL 75 MG TAB PO SCH (09:00)
[2018-12-07] MEDS ORDERED: ASPIRIN 81 MG PO SCH (09:00)
[2018-12-07] MEDS ORDERED: SPIRONOLACTONE 25 MG TAB PO SCH (09:00)
[2018-12-07] MEDS ORDERED: METOPROLOL TARTRATE 25 MG TAB PO SCH (09:00)
[2018-12-07] MEDS ORDERED: LISINOPRIL 20 MG TAB PO SCH (09:30)
[2018-12-07] MEDS: SODIUM CHLORIDE 0.9% 1,000 ML IV SCH (09:35)
[2018-12-07 10:14] VITALS: RESP 20; TEMP 98.7
--- NOTE | 2018-12-07 11:46 | P.CNNES ---
History of Present Illness Consult date: 12/07/18 Requesting physician: Alisia Jasmine Reason for Consult: Left leg weakness, CT negative. History of Present Illness: Patient is a 78-year-old female, who has rheumatoid arthritis, chronic tobacco user, coronary artery disease, states that yesterday at 3 PM she was laying the couch for 20 minutes. She fell pins and needle sensation in the left leg. She got up and felt weakness of the left leg. She has to hang onto the couch and the counter to walk. Patient came to the ER at 5:27 PM. Patient was noted to have left leg weakness with an NIH stroke scale of 3. There was no associated slurred speech, facial droop, visual issues, symptoms in the upper extremities or the right lower limb. TPA was considered as per ED notes, but not given because of low NIH stroke scale. Patient's symptoms subsequently resolved. Patient states by 11 to 11:30 PM, her left leg weakness has resolved. At present she denies any focal symptoms. Patient denies history of diabetes. She does have hypertension. She has marks ry artery disease, and SC 4 years ago. She has smoked 1 pack per day since age 15, currently smoking. Patient's EKG shows normal sinus rhythm. Left axis deviation. Chest x-ray showed clinical correlation for early CHF. Patient had a CTA head and neck, which was reported as mild narrowing of less than 50% stenosis of left ICA origin due to atheromatous plaquing. Mild plaquing less than 50% is present in the right internal carotid artery origin. Normal sokaogon of Ngo. Review of Systems Arthritis. Other review of systems as per HPI. All other review of systems are unremarkable. Past Medical History Past Medical History: Hyperlipidemia, Hypertension, Myocardial Infarction (SC) Last Myocardial Infarction Date:: 2006 History of Any Multi-Drug Resistant Organisms: None Reported Past Surgical History: Hysterectomy Additional Past Surgical History / Comment(s): cardiac cath w/ stent Past Psychological History: No Psychological Hx Reported Smoking Status: Current every day smoker Past Alcohol Use History: None Reported Past Drug Use History: None Reported Medications and Allergies Home Medications Medication Instructions Recorded Confirmed Type LORazepam [Ativan] 0.5 - 1 mg PO Q8H PRN 10/21/16 12/06/18 History Lisinopril [Zestril] 10 mg PO DAILY 10/21/16 12/06/18 History Aspirin 81 mg PO DAILY #30 10/23/16 12/06/18 Rx Atorvastatin [Lipitor] 80 mg PO HS #30 tab 10/23/16 12/06/18 Rx Clopidogrel [Plavix] 75 mg PO DAILY tab 10/23/16 12/06/18 Rx Metoprolol Tartrate [Lopressor] 25 mg PO BID #60 tab 10/23/16 12/06/18 Rx Nitroglycerin Sl Tabs [Nitrostat] 0.4 mg SUBLINGUAL Q5M PRN #25 tab 10/23/16 12/06/18 Rx Spironolactone [Aldactone] 25 mg PO DAILY #30 tab 10/23/16 12/06/18 Rx Albuterol Inhaler [Ventolin Hfa 1 - 2 puff INHALATION Q6HR PRN #1 10/24/16 12/06/18 Rx Inhaler] inhaler Allergies Allergy/AdvReac Type Severity Reaction Status Date / Time No Known Allergies Allergy Verified 12/06/18 18:38 Physical Examination - Vital Signs Vital Signs: Vital Signs Temp Pulse Pulse Resp BP BP Pulse Ox 12/07/18 08:00 98.7 F 70 20 163/57 95 12/07/18 04:00 98.4 F 68 18 141/53 97 12/07/18 03:00 134/90 12/07/18 02:00 141/53 12/07/18 01:00 136/52 12/07/18 00:00 137/43 12/06/18 23:00 56 L 18 149/50 98 12/06/18 22:42 98.4 F 68 18 141/53 97 12/06/18 22:00 58 L 17 167/73 98 12/06/18 21:30 62 18 143/50 97 12/06/18 21:00 60 17 159/70 97 12/06/18 20:30 74 18 164/60 98 12/06/18 20:00 74 19 165/68 98 12/06/18 19:30 78 18 172/55 98 12/06/18 19:15 98.2 F 72 18 166/66 97 12/06/18 19:00 76 16 138/69 99 12/06/18 18:45 65 16 162/67 99 12/06/18 18:30 64 16 163/59 99 12/06/18 18:28 98.0 F 63 16 161/76 99 12/06/18 17:36 98.0 F 61 16 145/58 99 Intake and Output 12/06/18 12/07/18 12/07/18 22:59 06:59 14:59 Intake Total 300 Output Total 300 Balance 0 Intake: Intake, IV Titration 300 Amount Sodium Chloride 0.9% 1, 300 000 ml @ 100 mls/hr IV . Q10H SALVATORE Rx#:[id number] Output: Urine 300 Other: # Voids 2 Weight 44.906 kg On examination patient is an elderly female very pleasant in no acute distress. Patient is alert and awake oriented times place and person. Speech and language functions are normal. Attention and concentration fund of knowledge is adequate. On cranial examination pupils are round and reactive to light, visual trevino are full on confrontation. Extra muscles are intact. Face is symmetric and tongue protrudes the midline. Palatal elevation and sensation normal. On muscle strength testing there is no pronator drift and the strength is normal in arms and legs distally and proximally including detailed testing of the left leg. Reflexes are 2+ all over and plantars are downgoing. Patient has disfigured joints of the hands and feet from rheumatoid arthritis. Sensations to touch is equal in the arms and legs. Temperature is slightly decreased in the left leg. Patient states that she walk to the bathroom and was back to normal. Results Patient's last hemoglobin A1c 6.5 on 10/22/2016. Troponin is mildly elevated 0.049. Her total cholesterol is 121, LDL 70, HDL 36. TSH normal 2.95. - Laboratory Findings CBC and BMP: 12/06/18 18:38 12/06/18 18:38 Abnormal Lab Findings: Abnormal Labs 12/06/18 12/06/18 12/06/18 18:38 18:38 18:38 WBC 11.2 H Neutrophils # 8.9 H APTT 19.8 L Sodium 136 L BUN 18 H Glucose 130 H Alkaline Phosphatase 131 H Troponin I HDL Cholesterol 12/06/18 12/06/18 12/07/18 18:38 23:04 03:05 WBC Neutrophils # APTT Sodium BUN Glucose Alkaline Phosphatase Troponin I 0.046 H* 0.049 H* HDL Cholesterol 36 L 12/07/18 03:05 WBC Neutrophils # APTT Sodium BUN Glucose Alkaline Phosphatase Troponin I 0.049 H* HDL Cholesterol Assessment and Plan Assessment: * Bubble TIA manifesting with transient weakness and numbness of the left leg, which resolved in 8 hours. At present her NIH stroke scale is 0. * Hypertension * Tobacco user of 60 pack years. * Coronary artery disease. * Borderline cardiac enzymes. Plan: * Patient had a TIA, with symptoms completely resolved now. * Patient had a 2-D echo performed, results are pending. Cardiology to evaluate for elevated cardiac enzymes. Consider KORI to rule out embolic source, as patient is already on dual antiplatelet medication, and high-dose statins. Her TIA could potentially be embolic in nature. * No significant stenosis noted on the CTA of head and neck. * Patient will be continued on aspirin 81 mg, Plavix 75 mg and Lipitor 80 mg. * Strongly recommended tobacco cessation. * We will check hemoglobin A1c. * Thank you very much for allowing me to participate in care of your patient.
--- NOTE | 2018-12-07 12:17 | P.CRDCN ---
History of Present Illness History of present illness: This is Doris Sanches PA-C dictating a consult on this patient The patient was interviewed and examined by me as well as by Dr. Romeo Case discussed with Dr. Romeo and he agrees with the plan of care IMPRESSION / ASSESSMENT: Numbness and weakness in the left leg possibly secondary to TIA Abnormal troponins, stable, likely secondary to TIA, patient completely asymptomatic, no ST or T-wave abnormalities on EKG CAD status post stenting Dyslipidemia Bilateral carotid atherosclerosis Hypertension Previous echocardiogram showed EF 40-45% PLAN: Obtain 2-D echo and Doppler to assess cardiac structure and function Monitor telemetry for atrial fibrillation Continue aspirin and atorvastatin and Plavix Continue current cardiac medications regimen HPI Patient is a 78-year-old female with a past medical history significant for hypertension, dyslipidemia and CAD status post stenting who presented with stroke like symptoms. Patient states that yesterday her left foot was numb in the morning and the numbness progressed up her left leg to her hip. She also had weakness in that leg. She has no other symptoms. no weakness in her arms, no dysarthria, no headache, no difficulty swallowing. She had no dizziness, chest pain, palpitations or shortness of breath. No syncope. No falls. No neck pain or back pain. She presented to the emergency department for further evaluation. Brain CT showed mild periventricular white matter ischemic changes, no acute infarcts evident.CTA of the neck showed mild narrowing less than 50% and bilateral internal carotid arteries. Labs are significant for borderline abnormal troponin. Chest x-ray showed small posterior pleural effusions. EKG showed sinus rhythm with no acute ST or T-wave abnormalities. Patient seen and examined resting comfortably in bed in the emergency department. States her numbness and weakness has completely resolved. Denies any chest pain, chest pressure, neck pain, back pain, shortness of breath, palpitations or dizziness. ROS: No fevers, chills or rigors, no cough, phlegm or expectoration, no nausea, vomiting or diarrhea, no hematuria, dysuria, Positive for arthritis Positive for TIA no skin lesions. EXAMINATION: Patient is afebrile, pulse 70, respirations 20, blood pressure 163/57, oxygen saturation 95% on room air Patient seen and examined resting comfortably in bed, in no acute distress Lungs clear to auscultation bilaterally Heart is regular, normal S1-S2, no murmurs noted No carotid bruits No elevated JVD No lower extremity edema She is able to move both legs REVIEW OF LABS, ECG & MEDICAL DATA WBC 11.2, hemoglobin 12, platelets 271, potassium 5, BUN 18, creatinine 0.75 LDL 70 Troponin 0.049, 0.0.9, 0.046 Echo in 2017 showed EF 40-45% Past Medical History Past Medical History: Hyperlipidemia, Hypertension, Myocardial Infarction ([place]) Last Myocardial Infarction Date:: 2006 History of Any Multi-Drug Resistant Organisms: None Reported Past Surgical History: Hysterectomy Additional Past Surgical History / Comment(s): cardiac cath w/ stent Past Psychological History: No Psychological Hx Reported Smoking Status: Current every day smoker Past Alcohol Use History: None Reported Past Drug Use History: None Reported Medications and Allergies Home Medications Medication Instructions Recorded Confirmed Type LORazepam [Ativan] 0.5 - 1 mg PO Q8H PRN 10/21/16 12/06/18 History Lisinopril [Zestril] 10 mg PO DAILY 10/21/16 12/06/18 History Aspirin 81 mg PO DAILY #30 10/23/16 12/06/18 Rx Atorvastatin [Lipitor] 80 mg PO HS #30 tab 10/23/16 12/06/18 Rx Clopidogrel [Plavix] 75 mg PO DAILY tab 10/23/16 12/06/18 Rx Metoprolol Tartrate [Lopressor] 25 mg PO BID #60 tab 10/23/16 12/06/18 Rx Nitroglycerin Sl Tabs [Nitrostat] 0.4 mg SUBLINGUAL Q5M PRN #25 tab 10/23/16 12/06/18 Rx Spironolactone [Aldactone] 25 mg PO DAILY #30 tab 10/23/16 12/06/18 Rx Albuterol Inhaler [Ventolin Hfa 1 - 2 puff INHALATION Q6HR PRN #1 10/24/16 12/06/18 Rx Inhaler] inhaler Allergies Allergy/AdvReac Type Severity Reaction Status Date / Time No Known Allergies Allergy Verified 12/06/18 18:38 Physical Exam Vitals: Vital Signs Temp Pulse Pulse Resp BP BP Pulse Ox 12/07/18 08:00 98.7 F 70 20 163/57 95 12/07/18 04:00 98.4 F 68 18 141/53 97 12/07/18 03:00 134/90 12/07/18 02:00 141/53 12/07/18 01:00 136/52 12/07/18 00:00 137/43 12/06/18 23:00 56 L 18 149/50 98 12/06/18 22:42 98.4 F 68 18 141/53 97 12/06/18 22:00 58 L 17 167/73 98 12/06/18 21:30 62 18 143/50 97 12/06/18 21:00 60 17 159/70 97 12/06/18 20:30 74 18 164/60 98 12/06/18 20:00 74 19 165/68 98 12/06/18 19:30 78 18 172/55 98 12/06/18 19:15 98.2 F 72 18 166/66 97 12/06/18 19:00 76 16 138/69 99 12/06/18 18:45 65 16 162/67 99 12/06/18 18:30 64 16 163/59 99 12/06/18 18:28 98.0 F 63 16 161/76 99 12/06/18 17:36 98.0 F 61 16 145/58 99 Intake and Output 12/06/18 12/07/18 12/07/18 22:59 06:59 14:59 Intake Total 300 Output Total 300 Balance 0 Intake: Intake, IV Titration 300 Amount Sodium Chloride 0.9% 1, 300 000 ml @ 100 mls/hr IV . Q10H [facility] Rx#:[id number] Output: Urine 300 Other: # Voids 2 Weight 44.906 kg Results 12/06/18 18:38 12/06/18 18:38 Cardiac Enzymes 12/06/18 12/06/18 12/06/18 Range/Units 18:38 18:38 23:04 AST 29 (14-36) U/L Troponin I 0.046 H* 0.049 H* (0.000-0.034) ng/mL 12/07/18 Range/Units 03:05 AST (14-36) U/L Troponin I 0.049 H* (0.000-0.034) ng/mL Coagulation 12/06/18 Range/Units 18:38 PT 9.5 (9.0-12.0) sec APTT 19.8 L (22.0-30.0) sec Lipids 12/07/18 Range/Units 03:05 Triglycerides 73 (<150) mg/dL Cholesterol 121 (<200) mg/dL HDL Cholesterol 36 L (40-60) mg/dL CBC 12/06/18 Range/Units 18:38 WBC 11.2 H (3.8-10.6) k/uL RBC 3.96 (3.80-5.40) m/uL Hgb 12.0 (11.4-16.0) gm/dL Hct 36.7 (34.0-46.0) % Plt Count 271 (150-450) k/uL Comprehensive Metabolic Panel 12/06/18 Range/Units 18:38 Sodium 136 L (137-145) mmol/L Potassium 5.0 (3.5-5.1) mmol/L Chloride 107 (98-107) mmol/L Carbon Dioxide 22 (22-30) mmol/L BUN 18 H (7-17) mg/dL Creatinine 0.75 (0.52-1.04) mg/dL Glucose 130 H (74-99) mg/dL Calcium 8.8 (8.4-10.2) mg/dL AST 29 (14-36) U/L ALT 18 (9-52) U/L Alkaline Phosphatase 131 H (38-126) U/L Total Protein 6.8 (6.3-8.2) g/dL Albumin 3.5 (3.5-5.0) g/dL Current Medications Generic Name Dose Route Start Last Admin Trade Name Freq PRN Reason Stop Dose Admin Aspirin 81 mg 12/07/18 09:00 12/07/18 09:37 Aspirin PO 81 mg DAILY [facility] Administration Atorvastatin Calcium 80 mg 12/07/18 21:00 Lipitor PO HS [facility] Clopidogrel Bisulfate 75 mg 12/07/18 09:00 12/07/18 09:37 Plavix PO 75 mg DAILY [facility] Administration Sodium Chloride 1,000 mls @ 100 mls/hr 12/06/18 22:30 12/07/18 09:35 Saline 0.9% IV 100 mls/hr .Q10H [facility] Administration Lisinopril 20 mg 12/07/18 09:30 12/07/18 10:15 Zestril PO 20 mg DAILY [facility] Administration Metoprolol Tartrate 25 mg 12/07/18 09:00 12/07/18 09:37 Lopressor PO 25 mg BID [facility] Administration Spironolactone 25 mg 12/07/18 09:00 12/07/18 09:37 Aldactone PO 25 mg DAILY [facility] Administration Intake and Output 12/06/18 12/07/18 12/07/18 22:59 06:59 14:59 Intake Total 300 Output Total 300 Balance 0 Intake: Intake, IV Titration 300 Amount Sodium Chloride 0.9% 1, 300 000 ml @ 100 mls/hr IV . Q10H [facility] Rx#:[id number] Output: Urine 300 Other: # Voids 2 Weight 44.906 kg 12/06/18 18:38 12/06/18 18:38
[2018-12-07 12:32] VITALS: BP 139/46; PULSE 60
--- NOTE | 2018-12-07 17:22 | ECHOF ---
Referral Reason:Cardiac workup MEASUREMENTS -------- HEIGHT: 157.5 cm WEIGHT: 44.9 kg BP: 141/53 RVIDd: 2.6 cm (< 3.3) IVSd: 1.2 cm (0.6 - 1.1) LVIDd: 4.8 cm (3.9 - 5.3) LVPWd: 1.1 cm (0.6 - 1.1) IVSs: 1.5 cm LVIDs: 3.0 cm LVPWs: 1.6 cm LA Diam: 3.2 cm (2.7 - 3.8) LAESV Index (A-L): 34.07 ml/m Ao Diam: 2.7 cm (2.0 - 3.7) AV Cusp: 1.6 cm (1.5 - 2.6) MV EXCURSION: 12.690 mm (> 18.000) MV EF SLOPE: 26 mm/s (70 - 150) EPSS: 0.9 cm MV E Cale: 1.30 m/s MV DecT: 464 ms MV A Cale: 0.40 m/s MV E/A Ratio: 3.25 AR PHT: 553 ms RAP: 5.00 mmHg RVSP: 43.37 mmHg FINDINGS -------- Resting bradycardia (HR<60bpm). This was a technically adequate study. The left ventricular size is normal. There is borderline concentric left ventricular hypertrophy. Overall left ventricular systolic function is low-normal with, an EF between 50 - 55 %. The right ventricle is normal in size. LA is moderately dilated 34-39 ml/m2 The right atrium is normal in size. Interatrial and interventricular septum intact. There is mild aortic valve sclerosis. There is [id number] aortic regurgitation. Mild mitral regurgitation is present. Mild tricuspid regurgitation present. There is mild pulmonary hypertension. The right ventricular systolic pressure, as measured by Doppler, is 43.37mmHg. Trace/mild (physiologic) pulmonic regurgitation. The aortic root size is normal. Normal inferior vena cava with normal inspiratory collapse consistent with estimated right atrial pre ssure of 5 mmHg. There is no pericardial effusion. CONCLUSIONS -------- 1. Resting bradycardia (HR<60bpm). 2. This was a technically adequate study. 3. The left ventricular size is normal. 4. There is borderline concentric left ventricular hypertrophy. 5. The right ventricle is normal in size. 6. LA is moderately dilated 34-39 ml/m2 7. The right atrium is normal in size. 8. Interatrial and interventricular septum intact. 9. There is mild aortic valve sclerosis. 10. There is pvra-[id number]-ppzsyzxc aortic regurgitation. 11. Mild mitral regurgitation is present. 12. Mild tricuspid regurgitation present. 13. There is mild pulmonary hypertension. 14. The right ventricular systolic pressure, as measured by Doppler, is 43.37mmHg. 15. Trace/mild (physiologic) pulmonic regurgitation. 16. The aortic root size is normal. 17. Normal inferior vena cava with normal inspiratory collapse consistent with estimated right atrial pressure of 5 mmHg. 18. There is no pericardial effusion. GLASS FINISHER: Manisha Guardado RDCS
[2018-12-07] MEDS ORDERED: ATORVASTATIN 80 MG TAB PO SCH (21:00)
[2018-12-07] MEDS ORDERED: ASPIRIN 325 MG TAB PO SCH (22:26)
--- NOTE | 2018-12-12 01:23 | P.HPIM ---
History of Present Illness H&P Date: 12/07/18 Chief Complaint: Left leg weakness History of present complaint: This is a pleasant 78-year-old patient of Dr. Mcdaniels. Chronic stable medical conditions include hypertension, hyperlipidemia, coronary artery disease with stent. History being she lying in the couch. They noticed numbness tingling of the left leg. That became rather weak. Patient's symptoms last for good every 4-5 hours. Does no back pain. She had no central symptoms. No dizziness no lightheadedness, no change in vision or speech or swallowing. Symptoms better normal following day. No chest pain or shortness of breath. No chills. Denied any back injury. Review of systems: GEN.: None EYES: None HEENT: None NECK: None RESPIRATORY: None CARDIOVASCULAR: None GASTROINTESTINAL: None GENITOURINARY: None MUSCULOSKELETAL: None LYMPHATICS: None HEMATOLOGICAL: None PSYCHIATRY: None NEUROLOGICAL: As above Past medical history to include: Hypertension, hyperlipidemia, coronary artery disease with stent Social history: Patient smoker. Lives alone. Family history: Reviewed, noncontributory to presentation Physical examination: VITAL SIGNS: 98, 61, 16, 145/58, 99% room air] GENERAL: BMI 18.1, laying in bed comfortable. EYES: Pupils equal. Conjunctiva normal. HEENT: External appearance of nose and ears normal, oral cavity grossly normal. NECK: JVD not raised; masses not palpable. HEART: First and second heart sounds are normal; no edema. LUNGS: Respiratory rate normal; clear to auscultation. ABDOMEN: Soft, nontender, liver spleen not palpable, no masses palpable. PSYCH: Alert and oriented x3; mood and affect normal. NEUROLOGICAL: Cranial nerves grossly intact; no facial asymmetry, power and sensation grossly intact. LYMPHATICS: No lymph nodes palpable in the axilla and neck INVESTIGATIONS, reviewed in the clinical context:: White count 7.2 hemoglobin 12 pressure 5 bun 18 creatinine 0.75 Troponin I 0.046, 0.049, 0.049 and LDL 70 TSH normal EKG tracing personally reviewed by me-some Q waves in 1 aVL and V6 Chest x-ray film personally reviewed by me-questionable vascular problems CT angiogram of the head and neck-no significant stenosis Assessment: -Possible TIA affecting the left leg for about 6 hours, likely ischemic in nature -Positive troponin, with no cardiac symptoms,. -Essential hypertension -Hyperlipidemia -Coronary artery disease with stent Plan: Cardiology and neurology were consulted. Neuro checks were done. Home medications were resumed. Patient is on antiplatelet agents. Past Medical History Past Medical History: Hyperlipidemia, Hypertension, Myocardial Infarction ([place]) Last Myocardial Infarction Date:: 2006 History of Any Multi-Drug Resistant Organisms: None Reported Past Surgical History: Hysterectomy Additional Past Surgical History / Comment(s): cardiac cath w/ stent Past Psychological History: No Psychological Hx Reported Smoking Status: Current every day smoker Past Alcohol Use History: None Reported Past Drug Use History: None Reported Medications and Allergies Home Medications Medication Instructions Recorded Confirmed Type LORazepam [Ativan] 0.5 - 1 mg PO Q8H PRN 10/21/16 12/06/18 History Aspirin 81 mg PO DAILY #30 10/23/16 12/06/18 Rx Atorvastatin [Lipitor] 80 mg PO HS #30 tab 10/23/16 12/06/18 Rx Clopidogrel [Plavix] 75 mg PO DAILY tab 10/23/16 12/06/18 Rx Metoprolol Tartrate [Lopressor] 25 mg PO BID #60 tab 10/23/16 12/06/18 Rx Nitroglycerin Sl Tabs [Nitrostat] 0.4 mg SUBLINGUAL Q5M PRN #25 tab 10/23/16 12/06/18 Rx Spironolactone [Aldactone] 25 mg PO DAILY #30 tab 10/23/16 12/06/18 Rx Albuterol Inhaler [Ventolin Hfa 1 - 2 puff INHALATION Q6HR PRN #1 10/24/16 12/06/18 Rx Inhaler] inhaler Lisinopril-Hctz 10-12.5 mg 1 tab PO BID #60 tab 12/07/18 Rx [Zestoretic 10-12.5] Allergies Allergy/AdvReac Type Severity Reaction Status Date / Time No Known Allergies Allergy Verified 12/06/18 18:38 Physical Exam Vitals: Vital Signs Temp Pulse Pulse Resp BP BP Pulse Ox 12/07/18 08:00 98.7 F 70 20 163/57 95 12/07/18 04:00 98.4 F 68 18 141/53 97 12/07/18 03:00 134/90 12/07/18 02:00 141/53 12/07/18 01:00 136/52 12/07/18 00:00 137/43 12/06/18 23:00 56 L 18 149/50 98 12/06/18 22:42 98.4 F 68 18 141/53 97 12/06/18 22:00 58 L 17 167/73 98 12/06/18 21:30 62 18 143/50 97 12/06/18 21:00 60 17 159/70 97 12/06/18 20:30 74 18 164/60 98 12/06/18 20:00 74 19 165/68 98 12/06/18 19:30 78 18 172/55 98 12/06/18 19:15 98.2 F 72 18 166/66 97 12/06/18 19:00 76 16 138/69 99 12/06/18 18:45 65 16 162/67 99 12/06/18 18:30 64 16 163/59 99 12/06/18 18:28 98.0 F 63 16 161/76 99 12/06/18 17:36 98.0 F 61 16 145/58 99 Intake and Output 12/06/18 12/07/18 12/07/18 22:59 06:59 14:59 Intake Total 300 Output Total 300 Balance 0 Intake: Intake, IV Titration 300 Amount Sodium Chloride 0.9% 1, 300 000 ml @ 100 mls/hr IV . Q10H [facility] Rx#:[id number] Output: Urine 300 Other: # Voids 2 Weight 44.906 kg Results CBC & Chem 7: 12/06/18 18:38 12/06/18 18:38 Labs: Abnormal Lab Results - Last 24 Hours (Table) 12/06/18 12/06/18 12/06/18 Range/Units 18:38 18:38 18:38 WBC 11.2 H (3.8-10.6) k/uL Neutrophils # 8.9 H (1.3-7.7) k/uL APTT 19.8 L (22.0-30.0) sec Sodium 136 L (137-145) mmol/L BUN 18 H (7-17) mg/dL Glucose 130 H (74-99) mg/dL Alkaline Phosphatase 131 H (38-126) U/L Troponin I (0.000-0.034) ng/mL HDL Cholesterol (40-60) mg/dL 12/06/18 12/06/1819 Range/Units 18:38 23:04 03:05 WBC (3.8-10.6) k/uL Neutrophils # (1.3-7.7) k/uL APTT (22.0-30.0) sec Sodium (137-145) mmol/L BUN (7-17) mg/dL Glucose (74-99) mg/dL Alkaline Phosphatase (38-126) U/L Troponin I 0.046 H* 0.049 H* (0.000-0.034) ng/mL HDL Cholesterol 36 L (40-60) mg/dL 12/07/18 Range/Units 03:05 WBC (3.8-10.6) k/uL Neutrophils # (1.3-7.7) k/uL APTT (22.0-30.0) sec Sodium (137-145) mmol/L BUN (7-17) mg/dL Glucose (74-99) mg/dL Alkaline Phosphatase (38-126) U/L Troponin I 0.049 H* (0.000-0.034) ng/mL HDL Cholesterol (40-60) mg/dL
--- NOTE | 2018-12-12 01:26 | P.DS ---
Providers Date of admission: 12/06/18 22:28 Expected date of discharge: 12/07/18 Attending physician: Wali Victor Consults: 12/06/18 22:25 Consult Physician Routine Consulting Provider: Remington Mike Consult Reason/Comments: elevated trop Do you want consulting provider notified?: Yes Consult Physician Urgent Consulting Provider: Chetan Meraz Consult Reason/Comments: left leg weakness, (-) CT Do you want consulting provider notified?: Yes Primary care physician: Josias Mcdaniels [facility] Course: Chief Complaint: Left leg weakness Hospital course: This is a pleasant 78-year-old patient of Dr. Mcdaniels. Chronic stable medical conditions include hypertension, hyperlipidemia, coronary artery disease with stent. History being she lying in the couch. They noticed numbness tingling of the left leg. That became rather weak. Patient's symptoms last for good every 4-5 hours. Does no back pain. She had no central symptoms. No dizziness no lightheadedness, no change in vision or speech or swallowing. Symptoms better normal following day. No chest pain or shortness of breath. No chills. Denied any back injury. [place] to be TIA. CT angiogram head and neck was negative. Also seen by cardiology. Okay to be discharged. Consultation: Dr. Segovia from neurology Dr. Fercho Romeo from cardiology Physical examination: VITAL SIGNS: 76, 16, 138/69, 99% room air GENERAL: Sitting up, comfortable EYES: Pupils equal. Conjunctiva normal. HEENT: External appearance of nose and ears normal, oral cavity grossly normal. NECK: JVD not raised; masses not palpable. HEART: First and second heart sounds are normal; no edema. LUNGS: Respiratory rate normal; clear to auscultation. ABDOMEN: Soft, nontender, liver spleen not palpable, no masses palpable. PSYCH: Alert and oriented x3; mood and affect normal. NEUROLOGICAL: Cranial nerves grossly intact; no facial asymmetry, power and sensation grossly intact. INVESTIGATIONS, reviewed in the clinical context:: White count 7.2 hemoglobin 12 pressure 5 bun 18 creatinine 0.75 Troponin I 0.046, 0.049, 0.049 and LDL 70 TSH normal EKG tracing personally reviewed by me-some Q waves in 1 aVL and V6 Chest x-ray film personally reviewed by me-questionable vascular problems CT angiogram of the head and neck-no significant stenosis 2-D echo-no wall motion abnormality reported Assessment: -Possible TIA affecting the left leg for about 6 hours, likely ischemic in nature -Positive troponin, with no cardiac symptoms,. -Essential hypertension -Hyperlipidemia -Coronary artery disease with stent Plan: Discharged home Patient Condition at Discharge: Stable Plan - Discharge Summary Discharge Rx Participant: No New Discharge Prescriptions: New Lisinopril-Hctz 10-12.5 mg [Zestoretic 10-12.5] 1 tab PO BID #60 tab Continue LORazepam [Ativan] 0.5 - 1 mg PO Q8H PRN PRN Reason: Anxiety Aspirin 81 mg PO DAILY #30 Atorvastatin [Lipitor] 80 mg PO HS #30 tab Clopidogrel [Plavix] 75 mg PO DAILY tab Metoprolol Tartrate [Lopressor] 25 mg PO BID #60 tab Nitroglycerin Sl Tabs [Nitrostat] 0.4 mg SUBLINGUAL Q5M PRN #25 tab PRN Reason: Chest Pain Spironolactone [Aldactone] 25 mg PO DAILY #30 tab Albuterol Inhaler [Ventolin Hfa Inhaler] 1 - 2 puff INHALATION Q6HR PRN #1 inhaler PRN Reason: Shortness Of Breath Or Wheezing Discontinued Lisinopril [Zestril] 10 mg PO DAILY Discharge Medication List LORazepam [Ativan] 0.5 - 1 mg PO Q8H PRN 10/21/16 [History] Aspirin 81 mg PO DAILY #30 10/23/16 [Rx] Atorvastatin [Lipitor] 80 mg PO HS #30 tab 10/23/16 [Rx] Clopidogrel [Plavix] 75 mg PO DAILY tab 10/23/16 [Rx] Metoprolol Tartrate [Lopressor] 25 mg PO BID #60 tab 10/23/16 [Rx] Nitroglycerin Sl Tabs [Nitrostat] 0.4 mg SUBLINGUAL Q5M PRN #25 tab 10/23/16 [Rx] Spironolactone [Aldactone] 25 mg PO DAILY #30 tab 10/23/16 [Rx] Albuterol Inhaler [Ventolin Hfa Inhaler] 1 - 2 puff INHALATION Q6HR PRN #1 inhaler 10/24/16 [Rx] Lisinopril-Hctz 10-12.5 mg [Zestoretic 10-12.5] 1 tab PO BID #60 tab 12/07/18 [Rx] Follow up Appointment(s)/Referral(s): Jairo Romeo MD [STAFF PHYSICIAN] - 2 Weeks Lukas Mcdaniels MD [Primary Care Provider] - 1 Week Patient Instructions/Handouts: Transient Ischemic Attack (ED), Ischemic Stroke (DC), Stroke (DC) Activity/Diet/Wound Care/Special Instructions: dc if ok with cardiology Discharge Disposition: Left Against Medical Advice
== END 2018-12-07 17:30 | disposition left against medical advice (07) ==
LOC: EC 17:27 → 3SCARD 22:28
PROVIDERS: ADMIT Hospitalist; ATTEND Hospitalist
DX: R53.1 Weakness (principal); R79.89 Other specified abnormal findings of blood chemistry; R20.0 Anesthesia of skin; R20.2 Paresthesia of skin; I65.23 Occlusion and stenosis of bilateral carotid arteries; F17.210 Nicotine dependence, cigarettes, uncomplicated; I10 Essential (primary) hypertension; E78.5 Hyperlipidemia, unspecified; M06.9 Rheumatoid arthritis, unspecified; I25.10 Atherosclerotic heart disease of native coronary artery without angina pectoris; Z79.82 Long term (current) use of aspirin; Z79.899 Other long term (current) drug therapy; Z79.02 Long term (current) use of antithrombotics/antiplatelets; I25.2 Old myocardial infarction; Z95.5 Presence of coronary angioplasty implant and graft; Z90.710 Acquired absence of both cervix and uterus
CPT/HCPCS: 36415; 93005; 93306; 80061; 80053; 84443; 84484 ×2; 85025; 85610; 85730; 71046; 70496; 70450; 70498; G0378 ×2; Q9967

== ENCOUNTER 2018-12-16 10:12 | Inpatient (IN) | payer MEDICARE ==
[2018-12-16] MEDS ORDERED: Acetaminophen-Codeine 300-30mg TAB PO STA (10:36)
--- NOTE | 2018-12-16 10:50 | ED ---
Fall HPI <Adeel Leon - Last Filed: 12/16/18 14:54> - General Source: patient, EMS Mode of arrival: EMS <Basil Simons - Last Filed: 12/16/18 20:56> - General Chief Complaint: Fall Stated Complaint: weakness & leg pain Time Seen by Provider: 12/16/18 10:28 - History of Present Illness Initial Comments: Patient is a 78-year-old female with history of anxiety, myocardial infarction and hyperlipidemia is presenting to the emergency department with chief complaint of leg pain and generalized weakness. Patient reports last night she was attempting to grab her cane when she tripped and injured her left leg. Patient reports pain in the left foot that is radiating to the knee. Patient reports the leg pain started about a week ago and it gradually resolved however this started again after she fell last night. Her daughter reports the patient was in the ED last week with similar symptoms and she was evaluated for a stroke. The patient was admitted however she signed AGAINST MEDICAL ADVICE because her leg pain was not addressed. Patient reports changes in her temperature but denies any changes in skin color. Patient is a smoker. Patient is also complaining of generalized weakness that is normal for the last 2-3 days. Patient does report increased frequency and urgency but denies any dysuria. Patient denies any lightheadedness dizziness or headaches chest pain or shortness of breath. (Basil Simons) - Related Data Home Medications Medication Instructions Recorded Confirmed LORazepam [Ativan] 0.5 - 1 mg PO Q8H PRN 10/21/16 12/16/18 Acetaminophen-Codeine 300-30mg 1 tab PO Q6H PRN 12/16/18 12/16/18 [Tylenol w/codeine #3] Albuterol Inhaler [Ventolin Hfa 2 puff INHALATION RT-Q6H PRN 12/16/18 12/16/18 Inhaler] Biotin 5,000 mcg PO DAILY 12/16/18 12/16/18 Ipratropium/Albuterol Sulfate 1 puff INHALATION RT-DAILY 12/16/18 12/16/18 [Combivent Respimat Inhaler] Naproxen Sodium [Aleve] 220 mg PO BID PRN 12/16/18 12/16/18 Pnv No.95/Ferrous Fum/Folic AC 1 tab PO DAILY 12/16/18 12/16/18 [ Multivitamin Tablet] diphenhydrAMINE [Benadryl] 25 mg PO HS PRN 12/16/18 12/16/18 Previous Rx's Medication Instructions Recorded Aspirin 81 mg PO DAILY #30 10/23/16 Atorvastatin [Lipitor] 80 mg PO HS #30 tab 10/23/16 Clopidogrel [Plavix] 75 mg PO DAILY tab 10/23/16 Metoprolol Tartrate [Lopressor] 25 mg PO BID #60 tab 10/23/16 Nitroglycerin Sl Tabs [Nitrostat] 0.4 mg SUBLINGUAL Q5M PRN #25 tab 10/23/16 Spironolactone [Aldactone] 25 mg PO DAILY #30 tab 10/23/16 Lisinopril-Hctz 10-12.5 mg 1 tab PO BID #60 tab 12/07/18 [Zestoretic 10-12.5] Allergies Allergy/AdvReac Type Severity Reaction Status Date / Time No Known Allergies Allergy Verified 12/16/18 10:35 Review of Systems ROS Other: All systems not noted in ROS Statement are negative. <Adeel Leon - Last Filed: 12/16/18 14:54> ROS Other: All systems not noted in ROS Statement are negative. <Basil Simons - Last Filed: 12/16/18 20:56> ROS Statement: Those systems with pertinent positive or pertinent negative responses have been documented in the HPI. Past Medical History Past Medical History: CVA/TIA, Hyperlipidemia, Hypertension, Myocardial Infarction ([place]) Last Myocardial Infarction Date:: 2006 History of Any Multi-Drug Resistant Organisms: None Reported Past Surgical History: Hysterectomy Additional Past Surgical History / Comment(s): cardiac cath w/ stent Past Psychological History: No Psychological Hx Reported Smoking Status: Current some day smoker Past Alcohol Use History: None Reported Past Drug Use History: None Reported <Basil Simons - Last Filed: 12/16/18 20:56> General Exam Limitations: no limitations General appearance: alert, in no apparent distress Head exam: Present: atraumatic, normocephalic, normal inspection Eye exam: Present: normal appearance Pupils: Present: normal accommodation ENT exam: Present: normal exam, mucous membranes moist, normal external ear exam Neck exam: Present: normal inspection, full ROM Respiratory exam: Present: normal lung sounds bilaterally Cardiovascular Exam: Present: regular rate, normal rhythm, normal heart sounds Extremities exam: Present: full ROM, tenderness, other (Unable to detect pulses on the left foot with ultrasound.). Absent: normal inspection (Mild skin pallor from the midfoot distally. Temperature difference left versus right foot. Callus formation on the plantar aspect of left foot.), pedal edema, joint swell ing Back exam: Present: normal inspection, full ROM Neurological exam: Present: alert, oriented X3 Psychiatric exam: Present: normal affect, normal mood Skin exam: Present: warm, intact, normal color <Basil Simons - Last Filed: 12/16/18 20:56> Course Vital Signs 12/16/18 12/16/18 12/16/18 10:20 10:21 11:00 Temperature 98.3 F Pulse Rate 80 84 Respiratory 20 18 Rate Blood Pressure 167/99 187/72 O2 Sat by Pulse 86 L 99 100 Oximetry 12/16/18 12/16/18 12/16/18 12:00 12:18 13:00 Temperature Pulse Rate 85 64 Respiratory 16 16 18 Rate Blood Pressure 179/72 120/68 142/61 O2 Sat by Pulse 98 98 Oximetry 12/16/18 14:00 Temperature Pulse Rate 71 Respiratory 18 Rate Blood Pressure 167/70 O2 Sat by Pulse 97 Oximetry Medical Decision Making - Lab Data Result diagrams: 12/16/18 10:35 12/16/18 10:35 <Adeel Leon - Last Filed: 12/16/18 14:54> - Lab Data Result diagrams: 12/16/18 10:35 12/16/18 10:35 <Basil Simons - Last Filed: 12/16/18 20:56> - Medical Decision Making PA attestation: I, Dr. Adeel Leon, personally saw and examined the patient. I have reviewed and agree with the resident/PA findings, including all diagnostic interpretations and treatment plans as written unless otherwise stated. I was present for the watts portions of any procedures performed and inclusive time noted for any critical care statement. Discussed patient case in depth with Dr. Evans Alvarado. They monitored in abdominal aortic CT to be added to her CT angios the leg. They report that there is no acute emergency to perform surgical intervention at this time. They do recommend doing half dose of heparin bolus and started heparin drip. There is findings for possible surgical intervention tomorrow. They requested patient be admitted to medicine. (Adeel Leon) - Lab Data Lab Results 12/16/18 12/16/18 12/16/18 Range/Units 10:35 10:35 10:35 WBC 20.7 H (3.8-10.6) k/uL RBC 3.67 L (3.80-5.40) m/uL Hgb 11.6 (11.4-16.0) gm/dL Hct 32.3 L (34.0-46.0) % MCV 87.9 (80.0-100.0) fL MCH 31.5 (25.0-35.0) pg MCHC 35.8 (31.0-37.0) g/dL RDW 14.0 (11.5-15.5) % Plt Count 338 (150-450) k/uL Neutrophils % 87 % Lymphocytes % 5 % Monocytes % 6 % Eosinophils % 0 % Basophils % 0 % Neutrophils # 18.0 H (1.3-7.7) k/uL Lymphocytes # 1.1 (1.0-4.8) k/uL Monocytes # 1.2 H (0-1.0) k/uL Eosinophils # 0.1 (0-0.7) k/uL Basophils # 0.0 (0-0.2) k/uL PT (9.0-12.0) sec INR (<1.2) APTT (22.0-30.0) sec Sodium 123 L (137-145) mmol/L Potassium 4.2 (3.5-5.1) mmol/L Chloride 87 L (98-107) mmol/L Carbon Dioxide 22 (22-30) mmol/L Anion Gap 14 mmol/L BUN 19 H (7-17) mg/dL Creatinine 0.68 (0.52-1.04) mg/dL Est GFR (CKD-EPI)AfAm >90 (>60 ml/min/1.73 sqM) Est GFR (CKD-EPI)NonAf 84 (>60 ml/min/1.73 sqM) Glucose 145 H (74-99) mg/dL Lactic Ac Sepsis Rflx Plasma Lactic Acid Jonnie (0.7-2.0) mmol/L Calcium 9.2 (8.4-10.2) mg/dL Total Bilirubin 1.0 (0.2-1.3) mg/dL AST 77 H (14-36) U/L ALT 27 (9-52) U/L Alkaline Phosphatase 169 H (38-126) U/L Total Protein 7.7 (6.3-8.2) g/dL Albumin 3.6 (3.5-5.0) g/dL Urine Color Urine Appearance (Clear) Urine pH (5.0-8.0) Ur Specific [place] (1.001-1.035) Urine Protein (Negative) Urine Glucose (UA) (Negative) Urine Ketones (Negative) Urine Blood (Negative) Urine Nitrite (Negative) Urine Bilirubin (Negative) Urine Urobilinogen (<2.0) mg/dL Ur Leukocyte Esterase (Negative) Urine RBC (0-5) /hpf Urine WBC (0-5) /hpf Hyaline Casts (0-2) /lpf Urine Mucus (None) /hpf Blood Type O Negative Blood Type Confirm Blood Type Recheck No Previous Record Bld Type Recheck Status CABO Indicated Antibody Screen NEGATIVE Spec Expiration Date 12/19/2018 - 233412/16/18 12/16/18 12/16/18 Range/Units 10:35 10:35 12:06 WBC (3.8-10.6) k/uL RBC (3.80-5.40) m/uL Hgb (11.4-16.0) gm/dL Hct (34.0-46.0) % MCV (80.0-100.0) fL MCH (25.0-35.0) pg MCHC (31.0-37.0) g/dL RDW (11.5-15.5) % Plt Count (150-450) k/uL Neutrophils % % Lymphocytes % % Monocytes % % Eosinophils % % Basophils % % Neutrophils # (1.3-7.7) k/uL Lymphocytes # (1.0-4.8) k/uL Monocytes # (0-1.0) k/uL Eosinophils # (0-0.7) k/uL Basophils # (0-0.2) k/uL PT 9.7 (9.0-12.0) sec INR 0.9 (<1.2) APTT 23.9 (22.0-30.0) sec Sodium (137-145) mmol/L Potassium (3.5-5.1) mmol/L Chloride (98-107) mmol/L Carbon Dioxide (22-30) mmol/L Anion Gap mmol/L BUN (7-17) mg/dL Creatinine (0.52-1.04) mg/dL Est GFR (CKD-EPI)AfAm (>60 ml/min/1.73 sqM) Est GFR (CKD-EPI)NonAf (>60 ml/min/1.73 sqM) Glucose (74-99) mg/dL Lactic Ac Sepsis Rflx Plasma Lactic Acid Jonnie 3.0 H* (0.7-2.0) mmol/L Calcium (8.4-10.2) mg/dL Total Bilirubin (0.2-1.3) mg/dL AST (14-36) U/L ALT (9-52) U/L Alkaline Phosphatase (38-126) U/L Total Protein (6.3-8.2) g/dL Albumin (3.5-5.0) g/dL Urine Color Yellow Urine Appearance Clear (Clear) Urine pH 6.5 (5.0-8.0) Ur Specific [place] 1.047 H (1.001-1.035) Urine Protein 1+ H (Negative) Urine Glucose (UA) Negative (Negative) Urine Ketones 2+ H (Negative) Urine Blood Trace H (Negative) Urine Nitrite Negative (Negative) Urine Bilirubin Negative (Negative) Urine Urobilinogen <2.0 (<2.0) mg/dL Ur Leukocyte Esterase Negative (Negative) Urine RBC 4 (0-5) /hpf Urine WBC 1 (0-5) /hpf Hyaline Casts 3 H (0-2) /lpf Urine Mucus Rare H (None) /hpf Blood Type Blood Type Confirm Blood Type Recheck Bld Type Recheck Status Antibody Screen Spec Expiration Date 12/16/18 12/16/18 Range/Units 12:36 13:35 WBC (3.8-10.6) k/uL RBC (3.80-5.40) m/uL Hgb (11.4-16.0) gm/dL Hct (34.0-46.0) % MCV (80.0-100.0) fL MCH (25.0-35.0) pg MCHC (31.0-37.0) g/dL RDW (11.5-15.5) % Plt Count (150-450) k/uL Neutrophils % % Lymphocytes % % Monocytes % % Eosinophils % % Basophils % % Neutrophils # (1.3-7.7) k/uL Lymphocytes # (1.0-4.8) k/uL Monocytes # (0-1.0) k/uL Eosinophils # (0-0.7) k/uL Basophils # (0-0.2) k/uL PT (9.0-12.0) sec INR (<1.2) APTT (22.0-30.0) sec Sodium (137-145) mmol/L Potassium (3.5-5.1) mmol/L Chloride (98-107) mmol/L Carbon Dioxide (22-30) mmol/L Anion Gap mmol/L BUN (7-17) mg/dL Creatinine (0.52-1.04) mg/dL Est GFR (CKD-EPI)AfAm (>60 ml/min/1.73 sqM) Est GFR (CKD-EPI)NonAf (>60 ml/min/1.73 sqM) Glucose (74-99) mg/dL Lactic Ac Sepsis Rflx Y Plasma Lactic Acid Jonnie (0.7-2.0) mmol/L Calcium (8.4-10.2) mg/dL Total Bilirubin (0.2-1.3) mg/dL AST (14-36) U/L ALT (9-52) U/L Alkaline Phosphatase (38-126) U/L Total Protein (6.3-8.2) g/dL Albumin (3.5-5.0) g/dL Urine Color Urine Appearance (Clear) Urine pH (5.0-8.0) Ur Specific [place] (1.001-1.035) Urine Protein (Negative) Urine Glucose (UA) (Negative) Urine Ketones (Negative) Urine Blood (Negative) Urine Nitrite (Negative) Urine Bilirubin (Negative) Urine Urobilinogen (<2.0) mg/dL Ur Leukocyte Esterase (Negative) Urine RBC (0-5) /hpf Urine WBC (0-5) /hpf Hyaline Casts (0-2) /lpf Urine Mucus (None) /hpf Blood Type Blood Type Confirm O Negative Blood Type Recheck Bld Type Recheck Status Antibody Screen Spec Expiration Date Disposition <Adeel Leon - Last Filed: 12/16/18 14:54> Is patient prescribed a controlled substance at d/c from ED?: No Time of Disposition: 20:56 <Basil Simons - Last Filed: 12/16/18 20:56> Clinical Impression: PVD (peripheral vascular disease), Fall Disposition: ADMITTED IP TO THIS HOSP Condition: Stable
[2018-12-16] MEDS ORDERED: METOPROLOL TARTRATE 25 MG TAB PO STA (10:53)
[2018-12-16 11:25] LABS: African American GFR (CKD) >90 (>60 ml/min/1.73 sqM); Albumin 3.6 g/dL (3.5-5.0); Anion Gap 14 mmol/L; Basophils % (A) 0 %; Blood Urea Nitrogen 19 mg/dL (7-17); Calcium 9.2 mg/dL (8.4-10.2); Carbon Dioxide 22 mmol/L (22-30); Chloride 87 mmol/L (98-107); Eosinophils # (A) 0.1 k/uL (0-0.7); Eosinophils % (A) 0 %; Glucose 145 mg/dL (74-99); HCT 32.3 % (34.0-46.0); HGB 11.6 gm/dL (11.4-16.0); Lymphocytes # (A) 1.1 k/uL (1.0-4.8); Lymphocytes % (A) 5 %; MCH 31.5 pg (25.0-35.0); MCHC 35.8 g/dL (31.0-37.0); MCV 87.9 fL (80.0-100.0); Mean Platelet Volume 7.8; Monocytes # (A) 1.2 k/uL (0-1.0); Monocytes % (A) 6 %; Neutrophils % (A) 87 %; Platelet Count 338 k/uL (150-450); RBC 3.67 m/uL (3.80-5.40); Sodium 123 mmol/L (137-145); Total Protein 7.7 g/dL (6.3-8.2); WBC 20.7 k/uL (3.8-10.6)
[2018-12-16 11:31] LABS: AST 77 U/L (14-36); Potassium 4.2 mmol/L (3.5-5.1)
[2018-12-16 11:32] LABS: ALT 27 U/L (9-52); Alkaline Phosphatase 169 U/L (38-126)
[2018-12-16] MEDS ORDERED: MORPHINE SULFATE 4 MG/ML SYRINGE IVP STA (12:19)
[2018-12-16] MEDS ORDERED: HYDROcodone/APAP 5-325MG 1 EACH TAB PO STA (12:22)
[2018-12-16 12:33] LABS: Appearance,Urine Clear (Clear); Bilirubin,Urine Negative (Negative); Blood,Urine Trace (Negative); Color,Urine Yellow; Glucose,Urine (UA) Negative (Negative); Hyaline Casts,Urine 3 /lpf (0-2); Ketones,Urine 2+ (Negative); Leukocyte Esterase,Urine Negative (Negative); Mucus,Urine Rare /hpf; Nitrite,Urine Negative (Negative); PH, Urine 6.5 (5.0-8.0); Protein,Urine 1+ (Negative); RBC,Urine 4 /hpf (0-5); Specific Gravity,Urine 1.047 (1.001-1.035); Urobilinogen,Urine <2.0 mg/dL (<2.0)
[2018-12-16] MEDS ORDERED: SODIUM CHLORIDE 0.9% 1,000 ML IV STA (12:36)
--- NOTE | 2018-12-16 13:19 | CT ---
EXAMINATION TYPE: CT angio lower extremity LT DATE OF EXAM: 12/16/2018 COMPARISON: None HISTORY: Lt leg pain, swelling CT DLP: 383.4 mGycm CONTRAST: CTA lower extremity with 3-D reconstruction is performed and with IV Contrast, patient injected with 100 mL of Isovue 300. Contrast CTA of the distal abdominal aorta with runoff of the left lower extremity arterial system wa s performed through the ankles and feet. 3-D reconstruction imaging obtained at a separate workstatio n. The distal abdominal aorta is imaged to the level of the bifurcation. Distal abdominal aorta demonstrates atheromatous plaque. There is occlusion of the left common iliac artery with the right common iliac artery being patent. There is also occlusion of the left external iliac artery. The Left internal iliac artery reconstitutes from collaterals. There is reconstitution at the level of the left common femoral artery/superficial femoral artery. The left superficial femo ral artery demonstrates multifocal disease with severe stenosis distally estimated at greater than 90 %. Popliteal artery demonstrates multifocal disease as well with the degree of stenosis less than 50% . Mild disease is seen at the tibial peroneal trunk with the posterior tibial artery, peroneal artery and inferior tibial artery being diminutive in size with limited distal filling. Osseous structures are intact. No evidence for fracture or dislocation. No soft tissue masses seen. IMPRESSION- 1. Occlusion of the left common iliac artery as well as the left external iliac artery with reconstit ution at the level of the left common femoral artery/superficial femoral artery. This is indeterminan t. 2. Multifocal disease involving the superficial femoral artery with distal stenosis estimated at leas t 90%. 3. Vessels below the knee are limited although the tibioperoneal trunk as well as the tibial arteries and peroneal arteries are diminutive in size with limited distal flow.
[2018-12-16] MEDS ORDERED: NALOXONE 0.4 MG/ML 1 ML VIAL IV PRN (13:32)
[2018-12-16] MEDS ORDERED: IBUPROFEN 400 MG TAB PO PRN (13:32)
[2018-12-16] MEDS ORDERED: ACETAMINOPHEN TAB 325 MG TAB PO PRN (13:32)
[2018-12-16 14:05] LABS: INR 0.9 (<1.2); Partial Thromboplastin Time 23.9 sec (22.0-30.0); Prothrombin Time 9.7 sec (9.0-12.0)
[2018-12-16] MEDS: SODIUM CHLORIDE 0.9% 1,000 ML IV SCH ×2 (14:23→16:31)
[2018-12-16] MEDS ORDERED: HEPARIN SODIUM,PORCINE 5,000 UNIT/ML 1 ML VIAL IV PRN (14:53)
[2018-12-16] MEDS ORDERED: HEPARIN SODIUM,PORCINE 5,000 UNIT/ML 1 ML VIAL IV ONE (14:53)
[2018-12-16] MEDS ORDERED: HEPARIN SOD,PORK IN 0.45% NACL 25,000 UNIT in 0.45% NACL 1 250ML.BAG IV SCH (15:00)
--- NOTE | 2018-12-16 15:24 | P.PN ---
Subjective Progress Note Date: 12/16/18 Principal diagnosis: Left leg pain The patient tells me that she has had pain in her left leg off and on for months. The worst is been the last several weeks. She was seen in the ER a week or so ago but left AGAINST MEDICAL ADVICE. She says her pain comes and goes on a daily basis. Significant comorbidities include: #1 arthritis, for which he takes Aleve #2 atherosclerotic heart disease, status post stent, currently on Plavix which she took yesterday. #3 ongoing cigarette smoker Objective - Vital Signs Vital signs: Vital Signs Temp 98.3 F 12/16/18 10:21 Pulse 71 12/16/18 14:00 Resp 18 12/16/18 14:00 BP 167/70 12/16/18 14:00 Pulse Ox 97 12/16/18 14:00 Intake & Output 12/15/18 12/16/18 12/16/18 18:59 06:59 18:59 Weight 44.906 kg - Constitutional General appearance: Present: average body habitus - Respiratory Respiratory: bilateral: CTA - Cardiovascular Rhythm: regular - Gastrointestinal General gastrointestinal: Present: soft - Musculoskeletal Musculoskeletal Comment(s): Left leg slightly cyanotic but has normal motor function compared to the right. - Additional findings Additional findings: She has a bounding right femoral pulse with no pulses distinct Bobby below. She has no pulse in the left femoral or below. - Labs CBC & Chem 7: 12/16/18 10:35 12/16/18 10:35 Labs: Abnormal Lab Results - Last 24 Hours (Table) 12/16/18 12/16/18 12/16/18 Range/Units 10:35 10:35 10:35 WBC 20.7 H (3.8-10.6) k/uL RBC 3.67 L (3.80-5.40) m/uL Hct 32.3 L (34.0-46.0) % Neutrophils # 18.0 H (1.3-7.7) k/uL Monocytes # 1.2 H (0-1.0) k/uL Sodium 123 L (137-145) mmol/L Chloride 87 L (98-107) mmol/L BUN 19 H (7-17) mg/dL Glucose 145 H (74-99) mg/dL Plasma Lactic Acid Jonnie 3.0 H* (0.7-2.0) mmol/L AST 77 H (14-36) U/L Alkaline Phosphatase 169 H (38-126) U/L Ur Specific [place] (1.001-1.035) Urine Protein (Negative) Urine Ketones (Negative) Urine Blood (Negative) Hyaline Casts (0-2) /lpf Urine Mucus (None) /hpf 12/16/18 Range/Units 12:06 WBC (3.8-10.6) k/uL RBC (3.80-5.40) m/uL Hct (34.0-46.0) % Neutrophils # (1.3-7.7) k/uL Monocytes # (0-1.0) k/uL Sodium (137-145) mmol/L Chloride (98-107) mmol/L BUN (7-17) mg/dL Glucose (74-99) mg/dL Plasma Lactic Acid Jonnie (0.7-2.0) mmol/L AST (14-36) U/L Alkaline Phosphatase (38-126) U/L Ur Specific [place] 1.047 H (1.001-1.035) Urine Protein 1+ H (Negative) Urine Ketones 2+ H (Negative) Urine Blood Trace H (Negative) Hyaline Casts 3 H (0-2) /lpf Urine Mucus Rare H (None) /hpf - Imaging and Cardiology CT angios shows total occlusion of the left proximal iliac just off the bifurcation. She reconstitutes at the distal femoral, just above the bifurcation. Assessment and Plan (1) Occlusion of left iliac artery Current Visit: Yes Status: Acute Code(s): I74.5 - EMBOLISM AND THROMBOSIS OF ILIAC ARTERY SNOMED Code(s): 547294442 (2) Atherosclerosis of [place] artery of left lower extremity with rest pain Current Visit: Yes Status: Acute Code(s): I70.222 - ATHSCL [place] ARTERIES OF EXTREMITIES W REST PAIN, LEFT LEG SNOMED Code(s): 675600032847251 Plan: I discussed the case with Dr. Martin. 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 Dr. Krueger or Dr. Rondon will be seeing the patient tomorrow with either percutaneous intervention or fem-fem bypass Thursday or Thursday. I discussed the plan with the patient and her family. I discussed the significant risks of limb loss and mortality given her general health and the extent of her occlusive disease. They verbalize an understanding of the disease process and plan as well as agreement with that.
--- NOTE | 2018-12-16 15:30 | CT ---
EXAMINATION TYPE: CT angio thor/abd pel aorta DATE OF EXAM: 12/16/2018 COMPARISON: CTA left lower extremity performed earlier in the day. HISTORY: Follow up scan CT DLP: 516.3 mGycm CONTRAST: CTA thoracic and abdominal aorta with 3-D reconstruction is performed and with IV Contrast, patient i njected with 80 mL of Isovue 370. Contrast CTA of the thoracic and abdominal aorta was performed from the lung apex through the base of the pelvis. 3-D reconstruction imaging obtained at a separate workstation. CT Chest: THORACIC AORTA: There is no evidence for aneurysm. No dissection or mediastinal hematoma. Mild ath eromatous changes are seen. LUNGS: The lungs are clear and free of infiltrate or atelectasis. No pulmonary nodule or mass is det ected. No pleural effusion or CT evidence of interstitial lung disease. MEDIASTINUM: The heart is enlarged. No evidence for mediastinal mass or adenopathy. HILAR STRUCTURES: No evidence for mass. No hilar adenopathy is appreciated. OTHER: No significant abnormality. CONTRAST CT ABDOMEN AND PELVIS ABDOMINAL AORTA: Diffuse atheromatous changes noted. No evidence for abdominal aortic aneurysm. No d issection. Occlusion left common iliac artery and left external iliac artery as described on examinat ion from earlier in the day. The right common iliac artery as well as the right internal and external iliac arteries are patent with diffuse atheromatous change noted and no significant stenosis appreci ated. LIVER/GB- No significant abnormality is seen. PANCREAS- No significant abnormality is seen. SPLEEN- No significant abnormality is seen. ADRENALS- No significant abnormality is seen. KIDNEYS/BLADDER- No significant abnormality is seen. BOWEL- No Significant abnormality GENITAL ORGANS: No gross abnormality seen. LYMPH NODES- No greater than 1cm abdominal or pelvic lymph nodes are appreciated. OSSEOUS STRUCTURES- No significant abnormality is seen. OTHER- No significant abnormality is seen. IMPRESSION- 1. No evidence for thoracoabdominal aortic aneurysm. 2. Occlusion left common iliac artery and left external iliac artery. See detailed report from prior study performed earlier in the day.
[2018-12-16] MEDS: HYDROcodone/APAP 5-325MG 1 EACH TAB PO PRN (16:29)
[2018-12-16] MEDS ORDERED: diphenhydrAMINE 25 MG CAP PO PRN (17:19)
[2018-12-16] MEDS ORDERED: NITROGLYCERIN SL TABS 0.4 MG TAB SUBLINGUAL PRN (17:19)
[2018-12-16] MEDS ORDERED: LORazepam 0.5 MG TAB PO PRN (17:19)
[2018-12-16] MEDS ORDERED: ALBUTEROL NEBULIZED 2.5 MG/3 ML INHALATION PRN (17:24)
[2018-12-16] MEDS: NICOTINE 21MG/24HR PATCH TRANSDERM SCH (18:09)
[2018-12-16] MEDS: ATORVASTATIN 80 MG TAB PO SCH (20:14)
[2018-12-16] MEDS: METOPROLOL TARTRATE 25 MG TAB PO SCH (20:14)
[2018-12-16] MEDS: LISINOPRIL-HCTZ 10-12.5 MG 1 EACH TAB PO SCH (20:14)
[2018-12-16] MEDS: MORPHINE SULFATE 4 MG/ML SYRINGE IV PRN (20:30)
--- NOTE | 2018-12-16 22:31 | P.HPIM ---
History of Present Illness H&P Date: 12/16/18 Chief Complaint: Left leg cold History of present complaint: This is a pleasant 78-year-old patient of Dr. Mcdaniels. Chronic stable medical conditions include hypertension, hyperlipidemia, coronary artery disease with stent. Patient was here in the hospital on December 07 2 diagnosis of TIA. Patient then had a CT angiogram of the head and neck that was negative. 2-D echocardiogram was unremarkable. Was felt of a diagnosis of TIA. Patient only this morning noticed some numbness in the left foot. She often does notice that. Numbness then slowly progressed to go more proximally up it came up to the hip and also the lower part of the abdomen. The leg also felt cold. The foot was painful. Patient also has a corn/callus that does bother her. There is no fever no chills. Patient presented to the ER. Restless surgery Dr. Alvarado was called. CT angiogram demonstrated acute vascular findings. Dr. Alvarado requested the patient be admitted to the medical service he does speak to Dr. Krueger from the vascular team. Patient was put on IV heparin. And adm itted to the medical floor. Review of systems: GEN.: None EYES: None HEENT: None NECK: None RESPIRATORY: None CARDIOVASCULAR: None GASTROINTESTINAL: None GENITOURINARY: None MUSCULOSKELETAL: Occasional joint pains, rest as above LYMPHATICS: None HEMATOLOGICAL: None PSYCHIATRY: None NEUROLOGICAL: As above Past medical history to include: Hypertension, hyperlipidemia, coronary artery disease with stent, TIA Social history: Patient smoker. Lives alone. Family history: Reviewed, noncontributory to presentation Physical examination: VITAL SIGNS: 98.3, 18, 20, 167/99, 99% room air GENERAL: BMI 19.3, laying in bed, not in distress EYES: Pupils equal. Conjunctiva normal. HEENT: External appearance of nose and ears normal, oral cavity grossly normal. NECK: JVD not raised; masses not palpable. HEART: First and second heart sounds are normal; no edema. LUNGS: Respiratory rate normal; clear to auscultation. ABDOMEN: Soft, nontender, liver spleen not palpable, no masses palpable. PSYCH: Alert and oriented x3; mood and affect normal. NEUROLOGICAL: Cranial nerves grossly intact; no facial asymmetry, power and sensation grossly intact. EXTREMITIES: Patient's left leg is cooler compared to the right. Absent dorsalis pedis pulse. Some discoloration of the tip of the toes. MUSCULOSKELETAL: Evidence of significant evidence of RA in the hands INVESTIGATIONS, reviewed in the clinical context:: White count 20.7 hemoglobin 11.6 sodium 123 potassium 4.2 bun 19 crit 0.68 Lactic acid 3.0 troponin I 0.[address] [place] lower extremity left leg-occlusion of the left common iliac artery with the right common iliac artery being patent. There is also occlusion of the left external iliac artery. The left and internal iliac artery reconstitutes from collaterals. There is reconstitution at the level of the left common femoral artery, superficial femoral artery. The left superficial femoral artery demonstrates multifocal disease with severe stenosis distally estimated at greater than 90%. Popliteal artery demonstrates multifocal disease as well as degree of stenosis less than 50%. Mild disease is seen at the tibial peroneal trunk with the posterior tibial artery, peroneal artery and inferior tibial artery being diminutive in size but limited distal filling. 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 Likely from hemodynamic mismatch -Lactic acidosis type II -Essential hypertension -Hyperlipidemia -Coronary artery disease with stent -IV heparin monitoring Plan: Patient was started on IV heparin the ER. Patient [facility] who did speak to Dr. Krueger. Plan is for surgical intervention tomorrow. Other home medications to continue. Care was discussed with the patient and [id number] at the bedside. Past Medical History Past Medical History: CVA/TIA, Hyperlipidemia, Hypertension, Myocardial Infarction ([place]) Last Myocardial Infarction Date:: 2006 History of Any Multi-Drug Resistant Organisms: None Reported Past Surgical History: Hysterectomy Additional Past Surgical History / Comment(s): cardiac cath w/ stent Past Psychological History: No Psychological Hx Reported Smoking Status: Current some day smoker Past Alcohol Use History: None Reported Past Drug Use History: None Reported - Past Family History Daughter(s) Family Medical History: Diabetes Mellitus Son(s) Family Medical History: Hyperlipidemia, Hypertension Medications and Allergies Home Medications Medication Instructions Recorded Confirmed Type LORazepam [Ativan] 0.5 - 1 mg PO Q8H PRN 10/21/16 12/16/18 History Aspirin 81 mg PO DAILY #30 10/23/16 12/16/18 Rx Atorvastatin [Lipitor] 80 mg PO HS #30 tab 10/23/16 12/16/18 Rx Clopidogrel [Plavix] 75 mg PO DAILY tab 10/23/16 12/16/18 Rx Metoprolol Tartrate [Lopressor] 25 mg PO BID #60 tab 10/23/16 12/16/18 Rx Nitroglycerin Sl Tabs [Nitrostat] 0.4 mg SUBLINGUAL Q5M PRN #25 tab 10/23/16 12/16/18 Rx Spironolactone [Aldactone] 25 mg PO DAILY #30 tab 10/23/16 12/16/18 Rx Lisinopril-Hctz 10-12.5 mg 1 tab PO BID #60 tab 12/07/18 12/16/18 Rx [Zestoretic 10-12.5] Acetaminophen-Codeine 300-30mg 1 tab PO Q6H PRN 12/16/18 12/16/18 History [Tylenol w/codeine #3] Albuterol Inhaler [Ventolin Hfa 2 puff INHALATION RT-Q6H PRN 12/16/18 12/16/18 History Inhaler] Biotin 5,000 mcg PO DAILY 12/16/18 12/16/18 History Ipratropium/Albuterol Sulfate 1 puff INHALATION RT-DAILY 12/16/18 12/16/18 His tory [Combivent Respimat Inhaler] Naproxen Sodium [Aleve] 220 mg PO BID PRN 12/16/18 12/16/18 History Pnv No.95/Ferrous Fum/Folic AC 1 tab PO DAILY 12/16/18 12/16/18 History [ Multivitamin Tablet] diphenhydrAMINE [Benadryl] 25 mg PO HS PRN 12/16/18 12/16/18 History Allergies Allergy/AdvReac Type Severity Reaction Status Date / Time No Known Allergies Allergy Verified 12/16/18 10:35 Physical Exam Vitals: Vital Signs Temp Pulse Pulse Resp BP BP Pulse Ox 12/16/18 15:43 97.6 F 75 17 170/71 97 12/16/18 14:00 71 18 167/70 97 12/16/18 13:00 64 18 142/61 98 12/16/18 12:18 16 120/68 12/16/18 12:00 85 16 179/72 98 12/16/18 11:00 84 18 187/72 100 12/16/18 10:21 98.3 F 80 20 167/99 99 12/16/18 10:20 86 L Intake and Output 12/16/18 12/16/18 12/16/18 06:59 14:59 22:59 Other: # Voids 2 Weight 44.906 kg Results CBC & Chem 7: 12/16/18 10:35 12/16/18 10:35 Labs: Abnormal Lab Results - Last 24 Hours (Table) 12/16/18 12/16/18 12/16/18 Range/Units 10:35 10:35 10:35 WBC 20.7 H (3.8-10.6) k/uL RBC 3.67 L (3.80-5.40) m/uL Hct 32.3 L (34.0-46.0) % Neutrophils # 18.0 H (1.3-7.7) k/uL Monocytes # 1.2 H (0-1.0) k/uL Sodium 123 L (137-145) mmol/L Chloride 87 L (98-107) mmol/L BUN 19 H (7-17) mg/dL Glucose 145 H (74-99) mg/dL Plasma Lactic Acid Jonnie 3.0 H* (0.7-2.0) mmol/L AST 77 H (14-36) U/L Alkaline Phosphatase 169 H (38-126) U/L Ur Specific [place] (1.001-1.035) Urine Protein (Negative) Urine Ketones (Negative) Urine Blood (Negative) Hyaline Casts (0-2) /lpf Urine Mucus (None) /hpf 12/16/18 Range/Units 12:06 WBC (3.8-10.6) k/uL RBC (3.80-5.40) m/uL Hct (34.0-46.0) % Neutrophils # (1.3-7.7) k/uL Monocytes # (0-1.0) k/uL Sodium (137-145) mmol/L Chloride (98-107) mmol/L BUN (7-17) mg/dL Glucose (74-99) mg/dL Plasma Lactic Acid Jonnie (0.7-2.0) mmol/L AST (14-36) U/L Alkaline Phosphatase (38-126) U/L Ur Specific [place] 1.047 H (1.001-1.035) Urine Protein 1+ H (Negative) Urine Ketones 2+ H (Negative) Urine Blood Trace H (Negative) Hyaline Casts 3 H (0-2) /lpf Urine Mucus Rare H (None) /hpf Thrombosis Risk Factor Assmnt - Choose All That Apply Any of the Below Risk Factors Present?: Yes Other Risk Factors: Yes Each Risk Factor Represents 3 Points: Age 75 years or older Thrombosis Risk Factor Assessment Total Risk Factor Score: 3 Thrombosis Risk Factor Assessment Level: Moderate Risk
[2018-12-17] MEDS: SODIUM CHLORIDE 0.9% 1,000 ML IV SCH ×4 (00:37→21:04)
[2018-12-17] MEDS: HYDROcodone/APAP 5-325MG 1 EACH TAB PO PRN ×3 (00:45→23:12)
[2018-12-17] MEDS: ASPIRIN 81 MG PO SCH (08:12)
[2018-12-17] MEDS: CLOPIDOGREL 75 MG TAB PO SCH (08:12)
[2018-12-17] MEDS: LISINOPRIL-HCTZ 10-12.5 MG 1 EACH TAB PO SCH ×2 (08:13→22:59)
[2018-12-17] MEDS: SPIRONOLACTONE 25 MG TAB PO SCH (08:13)
[2018-12-17] MEDS: METOPROLOL TARTRATE 25 MG TAB PO SCH ×3 (08:13→23:00)
[2018-12-17] MEDS: NICOTINE 21MG/24HR PATCH TRANSDERM SCH (08:13)
[2018-12-17] MEDS: IPRATROPIUM-ALBUTEROL 3 ML NEB INHALATION SCH (08:31)
[2018-12-17] MEDS: MORPHINE SULFATE 4 MG/ML SYRINGE IV PRN (08:49)
[2018-12-17 10:58] LABS: HCT 31.1 % (34.0-46.0); HGB 10.3 gm/dL (11.4-16.0); MCH 30.4 pg (25.0-35.0); MCV 92.2 fL (80.0-100.0); Mean Platelet Volume 8.8; Platelet Count 322 k/uL (150-450); RBC 3.38 m/uL (3.80-5.40); RDW 14.3 % (11.5-15.5); WBC 23.1 k/uL (3.8-10.6)
--- NOTE | 2018-12-17 11:00 | P.GSCN ---
History of Present Illness Consult date: 12/17/18 History of present illness: The patient is a 78-year-old female who came in last night with worsening pain of her left lower extremity. She states overall she's had pain in her left leg off and on for a long period of time, last week she began having significantly more pain and did bring herself to the ER. She left prior to formal treatment. She was initially seen in evaluation and imaging was performed. She was started on a heparin drip and admitted to the floor. She has never had wounds on her feet. She does have a history of peripheral arterial disease with intermittent claudication, she is not certain how long she is able to walk prior to the tiredness and cramping coming on. She denies any headaches, vision changes, fever, chills, nausea, vomiting or diarrhea. She denies any history of a head bleed or metastatic disease and she is aware of. Upon my evaluation of imaging does appear that there is some more acute appearing thrombus in the left iliac system along with acute and chronic disease in the infrapopliteal segments. Review of Systems 14 point review of systems performed. Pertinent positives and negatives per the HPI Past Medical History Past Medical History: CVA/TIA, Hyperlipidemia, Hypertension, Myocardial Infarction ([place]) Last Myocardial Infarction Date:: 2006 History of Any Multi-Drug Resistant Organisms: None Reported Past Surgical History: Hysterectomy Additional Past Surgical History / Comment(s): cardiac cath w/ stent Past Psychological History: No Psychological Hx Reported Smoking Status: Current some day smoker Past Alcohol Use History: None Reported Past Drug Use History: None Reported - Past Family History Daughter(s) Family Medical History: Diabetes Mellitus Son(s) Family Medical History: Hyperlipidemia, Hypertension Medications and Allergies Home Medications Medication Instructions Recorded Confirmed Type LORazepam [Ativan] 0.5 - 1 mg PO Q8H PRN 10/21/16 12/16/18 History Aspirin 81 mg PO DAILY #30 10/23/16 12/16/18 Rx Atorvastatin [Lipitor] 80 mg PO HS #30 tab 10/23/16 12/16/18 Rx Clopidogrel [Plavix] 75 mg PO DAILY tab 10/23/16 12/16/18 Rx Metoprolol Tartrate [Lopressor] 25 mg PO BID #60 tab 10/23/16 12/16/18 Rx Nitroglycerin Sl Tabs [Nitrostat] 0.4 mg SUBLINGUAL Q5M PRN #25 tab 10/23/16 12/16/18 Rx Spironolactone [Aldactone] 25 mg PO DAILY #30 tab 10/23/16 12/16/18 Rx Lisinopril-Hctz 10-12.5 mg 1 tab PO BID #60 tab 12/07/18 12/16/18 Rx [Zestoretic 10-12.5] Acetaminophen-Codeine 300-30mg 1 tab PO Q6H PRN 12/16/18 12/16/18 History [Tylenol w/codeine #3] Albuterol Inhaler [Ventolin Hfa 2 puff INHALATION RT-Q6H PRN 12/16/18 12/16/18 History Inhaler] Biotin 5,000 mcg PO DAILY 12/16/18 12/16/18 History Ipratropium/Albuterol Sulfate 1 puff INHALATION RT-DAILY 12/16/18 12/16/18 History [Combivent Respimat Inhaler] Naproxen Sodium [Aleve] 220 mg PO BID PRN 12/16/18 12/16/18 History Pnv No.95/Ferrous Fum/Folic AC 1 tab PO DAILY 12/16/18 12/16/18 History [ Multivitamin Tablet] diphenhydrAMINE [Benadryl] 25 mg PO HS PRN 12/16/18 12/16/18 History Allergies Allergy/AdvReac Type Severity Reaction Status Date / Time No Known Allergies Allergy Verified 12/16/18 10:35 Surgical - Exam Vital Signs Pulse Ox 86 L 12/16/18 10:20 Gen. is a pleasant cooperative thin female in no acute distress. HEENT is normal cephalic, atraumatic, excellent motion intact. Heart is regular in rate and rhythm. Lungs are clear bilaterally. Abdomen soft, nontender, appropriate previous scarring well-healed. Right lower extremity no clubbing, cyanosis or edema. Left lower extremity with pallor and mottling changes. Sensory and motor intact although diminished. Palpable radial pulses bilaterally. Palpable right femoral and popliteal pulse. Adequate capillary refill the right lower extremity. Nonpalpable left femoral pulse, no capillary refill. Normal mood and affect. Cranial nerves II through XII grossly intact. Results Computed tomography scan imaging are reviewed. There is acute on chronic changes with likely acute thrombus in the left iliac system - Labs 12/16/18 10:35 12/16/18 10:35 Abnormal Lab Results - Last 24 Hours (Table) 12/16/18 12/16/18 12/16/18 Range/Units 10:35 10:35 10:35 WBC 20.7 H (3.8-10.6) k/uL RBC 3.67 L (3.80-5.40) m/uL Hct 32.3 L (34.0-46.0) % Neutrophils # 18.0 H (1.3-7.7) k/uL Monocytes # 1.2 H (0-1.0) k/uL APTT (22.0-30.0) sec Sodium 123 L (137-145) mmol/L Chloride 87 L (98-107) mmol/L BUN 19 H (7-17) mg/dL Glucose 145 H (74-99) mg/dL Plasma Lactic Acid Jonnie 3.0 H* (0.7-2.0) mmol/L AST 77 H (14-36) U/L Alkaline Phosphatase 169 H (38-126) U/L Ur Specific [place] (1.001-1.035) Urine Protein (Negative) Urine Ketones (Negative) Urine Blood (Negative) Hyaline Casts (0-2) /lpf Urine Mucus (None) /hpf 12/16/18 12/16/18 12/17/18 Range/Units 12:06 22:30 06:47 WBC (3.8-10.6) k/uL RBC (3.80-5.40) m/uL Hct (34.0-46.0) % Neutrophils # (1.3-7.7) k/uL Monocytes # (0-1.0) k/uL APTT 39.4 H 60.4 H (22.0-30.0) sec Sodium (137-145) mmol/L Chloride (98-107) mmol/L BUN (7-17) mg/dL Glucose (74-99) mg/dL Plasma Lactic Acid Jonnie (0.7-2.0) mmol/L AST (14-36) U/L Alkaline Phosphatase (38-126) U/L Ur Specific [place] 1.047 H (1.001-1.035) Urine Protein 1+ H (Negative) Urine Ketones 2+ H (Negative) Urine Blood Trace H (Negative) Hyaline Casts 3 H (0-2) /lpf Urine Mucus Rare H (None) /hpf Diabetes panel 12/16/18 Range/Units 10:35 Sodium 123 L (137-145) mmol/L Potassium 4.2 (3.5-5.1) mmol/L Chloride 87 L (98-107) mmol/L Carbon Dioxide 22 (22-30) mmol/L BUN 19 H (7-17) mg/dL Creatinine 0.68 (0.52-1.04) mg/dL Glucose 145 H (74-99) mg/dL Calcium 9.2 (8.4-10.2) mg/dL AST 77 H (14-36) U/L ALT 27 (9-52) U/L Alkaline Phosphatase 169 H (38-126) U/L Total Protein 7.7 (6.3-8.2) g/dL Albumin 3.6 (3.5-5.0) g/dL Calcium panel 12/16/18 Range/Units 10:35 Calcium 9.2 (8.4-10.2) mg/dL Albumin 3.6 (3.5-5.0) g/dL Pituitary panel 12/16/18 Range/Units 10:35 Sodium 123 L (137-145) mmol/L Potassium 4.2 (3.5-5.1) mmol/L Chloride 87 L (98-107) mmol/L Carbon Dioxide 22 (22-30) mmol/L BUN 19 H (7-17) mg/dL Creatinine 0.68 (0.52-1.04) mg/dL Glucose 145 H (74-99) mg/dL Calcium 9.2 (8.4-10.2) mg/dL Adrenal panel 12/16/18 Range/Units 10:35 Sodium 123 L (137-145) mmol/L Potassium 4.2 (3.5-5.1) mmol/L Chloride 87 L (98-107) mmol/L Carbon Dioxide 22 (22-30) mmol/L BUN 19 H (7-17) mg/dL Creatinine 0.68 (0.52-1.04) mg/dL Glucose 145 H (74-99) mg/dL Calcium 9.2 (8.4-10.2) mg/dL Total Bilirubin 1.0 (0.2-1.3) mg/dL AST 77 H (14-36) U/L ALT 27 (9-52) U/L Alkaline Phosphatase 169 H (38-126) U/L Total Protein 7.7 (6.3-8.2) g/dL Albumin 3.6 (3.5-5.0) g/dL Assessment and Plan Assessment: #1 [place] 2a left lower extremity acute limb ischemia #2 chronic peripheral arterial disease with claudication #3 tobacco abuse #4 lactic acidosis, resolved #5 leukocytosis, likely partially reactive with limb ischemia. No obvious evidence of infectious process #6 hypertension Plan: Discussion was had with the patient and the family at the bedside regarding the need for intervention to attempt limb salvage. We will plan to take her to the [facility] today for thrombolytics, in the event that this is more of a chronic appearing picture, the patient may need a femoral to femoral bypass. We will initially attempt to obtain in-line flow. Risks and benefits of going forward with the proposed procedure were discussed including but not limited to sign ificant life-threatening bleeding, infection, injury to the vessel. The patient seemingly understands and is willing to proceed. She will be monitored in the ICU postprocedure if a family catheter is placed. I will obtain a stat CBC and fibrinogen at this time. We also discussed the threat of limb loss due to her currently inadequate blood supply. All hopes and attempts will be made for limb salvage at this time.
[2018-12-17] MEDS ORDERED: ALTEPLASE 2 MG VIAL (CATHFLO) IV STA (12:07)
[2018-12-17] MEDS ORDERED: fentaNYL (PF) 50 MCG/ML 2 ML AMP IV ONE (12:12)
[2018-12-17] MEDS ORDERED: LIDOCAINE 1% INJ 10MG/ML (20 ML MDV) SQ ONE (12:14)
[2018-12-17] MEDS ORDERED: IV FLUID CONTINUATION 800 ML IV ONE (12:18)
[2018-12-17] MEDS ORDERED: ONDANSETRON 4 MG/2 ML VIAL IVP ONE (12:18)
[2018-12-17] MEDS ORDERED: IOPAMIDOL-250 100ML BTL INTRAARTER ONE (12:44)
--- NOTE | 2018-12-17 12:57 | P.OP ---
Date of Procedure: 12/17/18 Description of Procedure: Preoperative diagnosis: Acute limb ischemia left lower extremity, [place] 2a Postoperative diagnosis: Same, left iliac occlusion, left popliteal occlusion Procedure: Ultrasound-guided right common femoral artery access, iliofemoral angiogram, second order left lower extremity angiogram, initiation of thrombolysis[] Surgeon: Nancy Pace D.O. EBL: Minimal IV fluids: []See records Urine output: [] See records Complications: []None immediately apparent Condition: []Stable, patient tolerated the procedure well. To ICU Operative indication and findings: The patient is a 78-year-old female who presented with acute worsening of her left lower extremity pain. She was found to have arterial occlusion on her left iliofemoral system with reconstitution at the femoral head. Risks and benefits going forward with thrombolytics were discussed with the patient, she seemingly understood and was willing to proceed. Procedure in detail: [The patient was taken to the procedural suite and placed in supine position. The bilateral groins are prepped and draped in usual sterile fashion. A preprocedure timeout was performed, all parties are in agreement. The ultrasound was utilized in the right common femoral artery was identified. The skin overlying was anesthetized. A micropuncture needle was utilized access the artery utilizing Seldinger technique a sheath was placed and a small gena in the skin was made and a 5-[place] catheter was then placed over the guidewire. A Glidewire was paced followed by Up & Over catheter. A iliofemoral angiogram was performed revealing occlusion of the entire iliac system with reconstitution of the common femoral artery at the inguinal ligament. Wires and catheters were utilized to cross this lesion, there was some areas of resistance but overall it traversed smoothly. A left lower extremity angiogram was performed. There was significant superficial femoral artery disease diffusely, there was occlusion of the popliteal artery at the level abductor canal with very delayed reconstitution of the anterior tibial artery and nonvisualization of other arteries. Likely due to low flow. The [place] Blazer catheter was removed, a glide advantage was placed and a 20 cm infusion catheter was placed. The sheath was sutured in place and 2 mg of TPA was initiated. The patient was sent to the ICU in stable condition having tolerated her procedure well. Serial labs will be followed.]
[2018-12-17] MEDS: SODIUM CHLORIDE 0.9% 100 ML with ALTEPLASE 10 MG IV ONE ×4 (12:58→21:05)
[2018-12-17] MEDS ORDERED: HEPARIN SOD,PORK IN 0.45% NACL 25,000 UNIT in 0.45% NACL 1 250ML.BAG IV ONE (12:59)
[2018-12-17] MEDS: HEPARIN SOD,PORK IN 0.45% NACL 25,000 UNIT in 0.45% NACL 1 250ML.BAG IV SCH (13:45)
[2018-12-17 14:06] LABS: Glucose,Whole Blood 94 mg/dL (75-99)
--- NOTE | 2018-12-17 15:16 | P.CNPUL ---
History of Present Illness Consult date: 12/17/18 Requesting physician: Wali Victor Reason for consult: other Chief complaint: Left leg numbness, and pain History of present illness: This is a 78-year-old white female patient of Dr. Mcdaniels, with past medical history of hypertension, hyperlipidemia, coronary artery disease with stent placement, previous history of TIA, chronic and ongoing history of smoking, up to a pack a day, currently down to three quarters of a pack a day, a total of 63 years. She denies any chronic lung disease, although she was prescribed Combivent and rescue inhaler which she does not use, not normally on oxygen. Patient came into the hospital on 12/16/2018 for evaluation of left leg numbness and pain from the left knee down to her foot. She complained of generalized weakness, and reports that injury to her left leg after tripping episode. Patient reports left leg pain starting a week ago and getting progressively worse. Patient had previously been in the ED last week with similar symptoms she was evaluated for stroke however she had signed out AGAINST MEDICAL ADVICE that this her left leg pain was not addressed. No difficulty breathing, no chest pain. Physical exam revealed slightly cyanotic left leg, without palpable pulses in the left femoral artery or below. CT angiogram of the left lower extremity was completed showing occlusion of the left common iliac artery as well as the left external iliac artery with reconstitution at the level of the left common femoral artery/superficial femoral artery. There was multifocal disease involving the superficial femoral artery with distal stenosis estimated at 90%. Patient has been having pain in her left leg on and off since summer 2018. CT angios of the thoracic, femoral and pelvic aorta showed no evidence of thoracoabdominal aortic aneurysm, and showed occlusion of left common iliac artery and left external iliac artery. Patient was taken to the dental laboratory technician and right femoral sheath has been inserted, with TPA infusion. We're seeing this patient in the intensive care unit following her procedure, and we're consulted for critical care management. Review of Systems All systems: negative Constitutional: Denies chills, Denies fever Eyes: denies blurred vision, denies pain Ears, nose, mouth and throat: Denies headache, Denies sore throat Cardiovascular: Denies chest pain, Denies shortness of breath Respiratory: Denies cough Gastrointestinal: Denies abdominal pain, Denies diarrhea, Denies nausea, Denies vomiting Genitourinary: Denies dysuria, Denies hematuria Musculoskeletal: Reports leg numbness/tingling, Denies myalgias Integumentary: Denies pruritus, Denies rash Neurological: Reports tingling, Reports weakness, Denies numbness Psychiatric: Denies anxiety, Denies depression Endocrine: Denies fatigue, Denies weight change Past Medical History Past Medical History: CVA/TIA, Hyperlipidemia, Hypertension, Myocardial Infarction ([place]) Last Myocardial Infarction Date:: 2006 History of Any Multi-Drug Resistant Organisms: None Reported Past Surgical History: Hysterectomy Additional Past Surgical History / Comment(s): cardiac cath w/ stent Past Psychological History: No Psychological Hx Reported Smoking Status: Current some day smoker Past Alcohol Use History: None Reported Past Drug Use History: None Reported - Past Family History Daughter(s) Family Medical History: Diabetes Mellitus Son(s) Family Medical History: Hyperlipidemia, Hypertension Medications and Allergies Home Medications Medication Instructions Recorded Confirmed Type LORazepam [Ativan] 0.5 - 1 mg PO Q8H PRN 10/21/16 12/16/18 History Aspirin 81 mg PO DAILY #30 10/23/16 12/16/18 Rx Atorvastatin [Lipitor] 80 mg PO HS #30 tab 10/23/16 12/16/18 Rx Clopidogrel [Plavix] 75 mg PO DAILY tab 10/23/16 12/16/18 Rx Metoprolol Tartrate [Lopressor] 25 mg PO BID #60 tab 10/23/16 12/16/18 Rx Nitroglycerin Sl Tabs [Nitrostat] 0.4 mg SUBLINGUAL Q5M PRN #25 tab 10/23/16 12/16/18 Rx Spironolactone [Aldactone] 25 mg PO DAILY #30 tab 10/23/16 12/16/18 Rx Lisinopril-Hctz 10-12.5 mg 1 tab PO BID #60 tab 12/07/18 12/16/18 Rx [Zestoretic 10-12.5] Acetaminophen-Codeine 300-30mg 1 tab PO Q6H PRN 12/16/18 12/16/18 History [Tylenol w/codeine #3] Albuterol Inhaler [Ventolin Hfa 2 puff INHALATION RT-Q6H PRN 12/16/18 12/16/18 History Inhaler] Biotin 5,000 mcg PO DAILY 12/16/18 12/16/18 History Ipratropium/Albuterol Sulfate 1 puff INHALATION RT-DAILY 12/16/18 12/16/18 History [Combivent Respimat Inhaler] Naproxen Sodium [Aleve] 220 mg PO BID PRN 12/16/18 12/16/18 History Pnv No.95/Ferrous Fum/Folic AC 1 tab PO DAILY 12/16/18 12/16/18 History [ Multivitamin Tablet] diphenhydrAMINE [Benadryl] 25 mg PO HS PRN 12/16/18 12/16/18 History Allergies Allergy/AdvReac Type Severity Reaction Status Date / Time No Known Allergies Allergy Verified 12/16/18 10:35 Physical Exam Vitals: Vital Signs Temp Pulse Pulse Resp BP BP Pulse Ox 12/17/18 14:00 70 9 L 161/60 94 L 12/17/18 13:11 97.7 F 74 22 174/68 94 L 12/17/18 08:41 76 12/17/18 08:33 68 12/17/18 07:50 98.1 F 82 16 148/70 98 12/17/18 04:55 97.8 F 69 16 147/50 96 12/17/18 00:25 98.1 F 74 16 165/72 97 12/16/18 20:00 98.8 F 78 18 177/74 97 12/16/18 15:43 97.6 F 75 17 170/71 97 Intake and Output 12/16/18 12/17/18 12/17/18 22:59 06:59 14:59 Intake Total 42.843 100 Balance 42.843 100 Intake: IV 100 Intake, IV Titration 42.843 Amount Heparin Sod,Pork in 0.45% 42.843 NaCl 25,000 unit In 0.45 % NaCl 1 250ml.bag @ 12 UNITS/KG/HR 5.389 mls/hr IV .Q24H [facility] Rx#: [id number] Other: Voiding Method Toilet Toilet # Voids 2 1 1 Weight 45.8 kg GENERAL EXAM: Alert, pleasant, 70-year-old white female, with a room air pulse ox of 98%, comfortable in no apparent distress. HEAD: Normocephalic/atraumatic. EYES: Normal reaction of pupils, equal size. Conjunctiva pink, sclera white. NOSE: Clear with pink turbinates. THROAT: No erythema or exudates. NECK: No masses, no JVD, no thyroid enlargement, no adenopathy. CHEST: No chest wall deformity. Symmetrical expansion. LUNGS: Equal air entry with no crackles, wheeze, rhonchi or dullness. CVS: Regular rate and rhythm, normal S1 and S2, no gallops, no murmurs, no rubs ABDOMEN: Soft, nontender. No hepatosplenomegaly, normal bowel sounds, no guarding or rigidity. EXTREMITIES: No clubbing, no edema, cyanosis of the left lower extremity noted, with coolness to touch, no palpable pulses up to the left femoral area, right groin vascular sheath in with TPA infusion MUSCULOSKELETAL: Muscle strength and tone normal. SPINE: No scoliosis or deformity SKIN: No rashes CENTRAL NERVOUS SYSTEM: Alert and oriented -3. No focal deficits, tone is normal in all 4 extremities. PSYCHIATRIC: Alert and oriented -3. Appropriate affect. Intact judgment and insight. Results - Laboratory Findings CBC and BMP: 12/17/18 06:47 12/16/18 10:35 PT/INR, D-dimer PT 9.7 sec (9.0-12.0) 12/16/18 10:35 INR 0.9 (<1.2) 12/16/18 10:35 Abnormal lab findings: Abnormal Labs 12/16/18 12/16/18 12/16/18 10:35 10:35 10:35 WBC 20.7 H RBC 3.67 L Hgb Hct 32.3 L Neutrophils # 18.0 H Monocytes # 1.2 H APTT Fibrinogen Sodium 123 L Chloride 87 L BUN 19 H Glucose 145 H Plasma Lactic Acid Jonnie 3.0 H* AST 77 H Alkaline Phosphatase 169 H Ur Specific [place] Urine Protein Urine Ketones Urine Blood Hyaline Casts Urine Mucus 12/16/18 12/16/18 12/17/18 12:06 22:30 06:47 WBC RBC Hgb Hct Neutrophils # Monocytes # APTT 39.4 H 60.4 H Fibrinogen Sodium Chloride BUN Glucose Plasma Lactic Acid Jonnie AST Alkaline Phosphatase Ur Specific [place] 1.047 H Urine Protein 1+ H Urine Ketones 2+ H Urine Blood Trace H Hyaline Casts 3 H Urine Mucus Rare H 12/17/18 12/17/18 06:47 06:47 WBC 23.1 H RBC 3.38 L Hgb 10.3 L Hct 31.1 L Neutrophils # Monocytes # APTT Fibrinogen 999 H Sodium Chloride BUN Glucose Plasma Lactic Acid Jonnie AST Alkaline Phosphatase Ur Specific [place] Urine Protein Urine Ketones Urine Blood Hyaline Casts Urine Mucus - Diagnostic Findings Additional studies: CT of the left lower extremity, and CT of the thoracic, abdominal and pelvic aorta reviewed Assessment and Plan Plan: Assessment: #1. Acute limb ischemia involving the left lower extremity, left iliac and left popliteal occlusion, status post right femoral arterial access, iliofemoral angiogram, left lower extremity angiogram, and infusion of TPA, operative day 0 #2. Left lower extremity numbness, and pain related to the above #3. Leukocytosis likely reactive #4. Hyponatremia #5. Previous ER visit on 12/12/2018 for left leg weakness, sensation deficit and paresthesia, patient was worked up for possibility of CVA, and CT of the head and neck was negative for acute process or aneurysm. Patient's symptoms had resolved, and it was decided that this was probably related to possibility o f TIA. Patient had left the emergency department AGAINST MEDICAL ADVICE at that time. She had a mild elevation of troponins #6. Hypertension #7. Hyperlipidemia #8. Coronary artery disease with previous stenting #9. Chronic and ongoing history of smoking, 63 years, less than a pack a day, c urrently down to three quarters of a pack #10. Mild lactic acidosis, hemodynamically related to acute limb ischemia improved Plan: Patient is hemodynamically stable, TPA's infusing through the right groin sheath, no palpable pulses in left pedal or popliteal area, vascular surgery is closely monitoring. We will continue to follow with the vascular surgery. Pulmonary status is stable. Heparin and TPA per vascular surgery. Maintain pain control. Will continue to follow I performed a history & physical examination of the patient and discussed their management with my nurse practitioner, Sulma Schilling. I reviewed the nurse practitioner's note and agree with the documented findings and plan of care. Lung sounds are clear breath sounds. The findings and the impression was discussed with the patient. I attest to the documentation by the nurse practitioner. Time with Patient: Greater than 30
[2018-12-17 15:21] LABS: Basophils # (A) 0.1 k/uL (0-0.2); Basophils % (A) 0 %; Eosinophils % (A) 0 %; HCT 33.8 % (34.0-46.0); HGB 11.1 gm/dL (11.4-16.0); Lymphocytes % (A) 4 %; MCH 30.2 pg (25.0-35.0); MCHC 32.8 g/dL (31.0-37.0); Mean Platelet Volume 7.7; Monocytes # (A) 0.8 k/uL (0-1.0); Monocytes % (A) 3 %; Neutrophils % (A) 91 %; Platelet Count 328 k/uL (150-450); RBC 3.67 m/uL (3.80-5.40); RDW 14.4 % (11.5-15.5); WBC 23.2 k/uL (3.8-10.6)
[2018-12-17 15:47] LABS: INR 0.9 (<1.2); Partial Thromboplastin Time 49.4 sec (22.0-30.0)
[2018-12-17 19:41] LABS: Basophils # (A) 0.1 k/uL (0-0.2); Basophils % (A) 0 %; Eosinophils % (A) 0 %; HGB 10.8 gm/dL (11.4-16.0); Hypochromasia Slight; Lymphocytes # (A) 1.3 k/uL (1.0-4.8); Lymphocytes % (A) 6 %; MCH 30.4 pg (25.0-35.0); MCHC 32.8 g/dL (31.0-37.0); MCV 92.6 fL (80.0-100.0); Mean Platelet Volume 7.1; Monocytes # (A) 0.9 k/uL (0-1.0); Monocytes % (A) 4 %; Neutrophils # (A) 19.5 k/uL (1.3-7.7); Neutrophils % (A) 88 %; Platelet Count 343 k/uL (150-450); RBC 3.57 m/uL (3.80-5.40); RDW 14.3 % (11.5-15.5); WBC 22.1 k/uL (3.8-10.6)
--- NOTE | 2018-12-17 20:11 | P.PN ---
Progress Note - Text Progress Note Date: 12/17/18 Chief Complaint: Left leg cold History of present complaint: This is a pleasant 78-year-old patient of Dr. Mcdaniels. Chronic stable medical conditions include hypertension, hyperlipidemia, coronary artery disease with stent. Patient was here in the hospital on December 07 2 diagnosis of TIA. Patient then had a CT angiogram of the head and neck that was negative. 2-D echocardiogram was unremarkable. Was felt of a diagnosis of TIA. Patient only this morning noticed some numbness in the left foot. She often does notice that. Numbness then slowly progressed to go more proximally up it came up to the hip and also the lower part of the abdomen. The leg also felt cold. The foot was painful. Patient also has a corn/callus that does bother her. There is no fever no chills. Patient presented to the ER. Restless surgery Dr. Alvarado was called. CT angiogram demonstrated acute vascular findings. Dr. Alvarado requested the patient be admitted to the medical service he does speak to Dr. Krueger from the vascular team. Patient was put on IV heparin. And admitted to the medical floor. Today-patient had worsening sleep make changes of the left lower extremity this morning. Patient was moved to the ICU. Patient was seen by Dr. Pace from vascular. Taken down to the operating room. Intravascular thrombolysis ago started with TPA. Review of systems: Was done for constitutional, cardiovascular, GI, pulmonary. Musculoskeletal relevant finding as above Active Medications Acetaminophen (Tylenol Tab) 650 mg PO Q6HR PRN PRN Reason: Mild Pain or Fever > 100.5 Hydrocodone Bitart/Acetaminophen ([place] 5-325) 1 each PO Q4HR PRN PRN Reason: Moderate Pain Last Admin: 12/17/18 10:24 Dose: 1 each Documented by: Albuterol Sulfate (Ventolin Nebulized) 2.5 mg INHALATION RT-Q6H PRN PRN Reason: Shortness Of Breath Albuterol/Ipratropium (Duoneb 0.5 Mg-3 Mg/3 Ml Soln) 3 ml INHALATION RT-DAILY [facility] Last Admin: 12/17/18 08:31 Dose: 3 ml Documented by: Aspirin (Aspirin) 81 mg PO DAILY [facility] Last Admin: 12/17/18 08:12 Dose: 81 mg Documented by: Atorvastatin Calcium (Lipitor) 80 mg PO HS [facility] Last Admin: 12/16/18 20:14 Dose: 80 mg Documented by: Clopidogrel Bisulfate (Plavix) 75 mg PO DAILY [facility] Last Admin: 12/17/18 08:12 Dose: 75 mg Documented by: Diphenhydramine HCl (Benadryl) 25 mg PO HS PRN PRN Reason: Nasal Congestion Lisinopril/HCTZ (Zestoretic 10-12.5) 1 each PO BID [facility] Last Admin: 12/17/18 08:13 Dose: 1 each Documented by: Sodium Chloride (Saline 0.9%) 1,000 mls @ 100 mls/hr IV .Q10H [facility] Last Admin: 12/17/18 10:28 Dose: 100 mls/hr Documented by: Alteplase, Recombinant 10 mg/ (Sodium Chloride) 100 mls @ 10 mls/hr IV .Q10H ONE Stop: 12/17/18 22:44 Last Admin: 12/17/18 12:58 Dose: 0 mls Documented by: Heparin Sodium/Sodium Chloride (25,000 unit/ Sodium Chloride) 250 mls @ 5 mls/hr IV .Q24H [facility]; Protocol Last Admin: 12/17/18 13:45 Dose: 5 ml/hr, 5 mls/hr Documented by: Ibuprofen (Motrin) 400 mg PO Q6HR PRN PRN Reason: Mild Pain or Fever > 100.5 Lorazepam (Ativan) 0.5 mg PO Q8H PRN PRN Reason: Anxiety Metoprolol Tartrate (Lopressor) 25 mg PO TID [facility] Last Admin: 12/17/18 15:24 Dose: 25 mg Documented by: Morphine Sulfate (Morphine Sulfate (Inj)) 4 mg IV Q4HR PRN PRN Reason: Severe Pain Last Admin: 12/17/18 08:49 Dose: 4 mg Documented by: Naloxone HCl (Narcan) 0.2 mg IV Q2M PRN PRN Reason: Opioid Reversal Nicotine (Habitrol 21mg/24hr Patch) 1 patch TRANSDERM DAILY [facility] Last Admin: 12/17/18 08:13 Dose: 1 patch Documented by: Nitroglycerin (Nitrostat) 0.4 mg SUBLINGUAL Q5M PRN PRN Reason: Chest Pain Spironolactone (Aldactone) 25 mg PO DAILY [facility] Last Admin: 12/17/18 08:13 Dose: 25 mg Documented by: Physical examination: VITAL SIGNS: 97.7, 74, 22, 174/68, 94% GENERAL: Laying in bed, tired EYES: Pupils equal. Conjunctiva normal. HEENT: External appearance of nose and ears normal, oral cavity grossly normal. NECK: JVD not raised; masses not palpable. HEART: First and second heart sounds are normal; no edema. LUNGS: Respiratory rate normal; clear to auscultation. ABDOMEN: Soft, nontender, liver spleen not palpable, no masses palpable. PSYCH: Tired, answering questions. EXTREMITIES: Patient's left leg is cooler compared to the right. Absent dorsalis pedis pulse. Some discoloration of the tip of the toes. MUSCULOSKELETAL: Evidence of significant evidence of RA in the hands INVESTIGATIONS, reviewed in the clinical context:: White count 23.1 hemoglobin 10.3 Previous testing White count 20.7 hemoglobin 11.6 sodium 123 potassium 4.2 bun 19 crit 0.68 Lactic acid 3.0 troponin I 0.[address] [place] lower extremity left leg-occlusion of the left common iliac artery with the right common iliac artery being patent. There is also occlusion of the left external iliac artery. The left and internal iliac artery reconstitutes from collaterals. There is reconstitution at the level of the left common femoral artery, superficial femoral artery. The left superficial femoral artery demonstrates multifocal disease with severe stenosis distally estimated at greater than 90%. Popliteal artery demonstrates multifocal disease as well as degree of stenosis less than 50%. Mild disease is seen at the tibial peroneal trunk with the posterior tibial artery, peroneal artery and inferior tibial artery being diminutive in size but limited distal filling. 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 Likely from hemodynamic mismatch -Lactic acidosis type II -Essential hypertension, uncontrolled -Hyperlipidemia -Coronary artery disease with stent -IV heparin monitoring Plan: Jonatan this patient earlier today patient is getting IV thrombolysis. In the ICU. We'll increase the Lopressor to 25 mg 3 times a day. Other medications to continue. Patient had earlier gone to the operating room. Process guarded follow with restless surgery. Wheel And Caster Repairer Dr. Arce was consulted.
[2018-12-17 20:12] LABS: INR 0.9 (<1.2); Partial Thromboplastin Time 49.1 sec (22.0-30.0); Prothrombin Time 9.9 sec (9.0-12.0)
[2018-12-17 22:56] LABS: Basophils # (A) 0.1 k/uL (0-0.2); Basophils % (A) 0 %; Eosinophils # (A) 0.1 k/uL (0-0.7); Eosinophils % (A) 0 %; HCT 31.4 % (34.0-46.0); HGB 10.5 gm/dL (11.4-16.0); Lymphocytes # (A) 1.7 k/uL (1.0-4.8); Lymphocytes % (A) 8 %; MCH 30.2 pg (25.0-35.0); MCHC 33.4 g/dL (31.0-37.0); MCV 90.6 fL (80.0-100.0); Mean Platelet Volume 7.7; Monocytes # (A) 1.1 k/uL (0-1.0); Monocytes % (A) 5 %; Neutrophils # (A) 18.7 k/uL (1.3-7.7); Neutrophils % (A) 85 %; Platelet Count 341 k/uL (150-450); RBC 3.46 m/uL (3.80-5.40); RDW 14.4 % (11.5-15.5); WBC 22.1 k/uL (3.8-10.6)
[2018-12-17] MEDS: ATORVASTATIN 80 MG TAB PO SCH (22:59)
[2018-12-17 23:10] LABS: Partial Thromboplastin Time 39.8 sec (22.0-30.0)
[2018-12-17 23:49] LABS: African American GFR (CKD) >90 (>60 ml/min/1.73 sqM); Anion Gap 12 mmol/L; Blood Urea Nitrogen 11 mg/dL (7-17); Calcium 8.8 mg/dL (8.4-10.2); Carbon Dioxide 18 mmol/L (22-30); Chloride 100 mmol/L (98-107); Glucose 79 mg/dL (74-99); Potassium 4.2 mmol/L (3.5-5.1); Sodium 130 mmol/L (137-145)
[2018-12-18 03:20] LABS: Basophils # (A) 0.1 k/uL (0-0.2); Basophils % (A) 0 %; Eosinophils % (A) 0 %; HCT 29.6 % (34.0-46.0); Lymphocytes # (A) 1.6 k/uL (1.0-4.8); Lymphocytes % (A) 7 %; MCH 30.9 pg (25.0-35.0); MCHC 33.8 g/dL (31.0-37.0); MCV 91.3 fL (80.0-100.0); Mean Platelet Volume 7.1; Monocytes # (A) 1.1 k/uL (0-1.0); Monocytes % (A) 5 %; Neutrophils # (A) 20.1 k/uL (1.3-7.7); Neutrophils % (A) 86 %; Platelet Count 342 k/uL (150-450); RBC 3.24 m/uL (3.80-5.40); RDW 14.3 % (11.5-15.5); WBC 23.4 k/uL (3.8-10.6)
[2018-12-18 03:26] LABS: Prothrombin Time 10.4 sec (9.0-12.0)
[2018-12-18] MEDS: HYDROcodone/APAP 5-325MG 1 EACH TAB PO PRN (04:21)
[2018-12-18] MEDS ORDERED: LORazepam 1 MG TAB PO PRN (04:48)
[2018-12-18] MEDS ORDERED: SODIUM CHLORIDE 0.9% 100 ML with ALTEPLASE 10 MG IV ONE ×4 (05:00→06:00)
[2018-12-18] MEDS: MORPHINE SULFATE 2 MG/ML SYRINGE IVP PRN ×4 (05:00→23:24)
[2018-12-18 07:08] LABS: Basophils # (A) 0.1 k/uL (0-0.2); Basophils % (A) 0 %; Eosinophils % (A) 0 %; HCT 27.4 % (34.0-46.0); Lymphocytes # (A) 1.4 k/uL (1.0-4.8); Lymphocytes % (A) 6 %; MCH 30.3 pg (25.0-35.0); MCHC 32.9 g/dL (31.0-37.0); Mean Platelet Volume 8.5; Monocytes # (A) 0.9 k/uL (0-1.0); Monocytes % (A) 4 %; Neutrophils # (A) 23.3 k/uL (1.3-7.7); Neutrophils % (A) 89 %; Platelet Count 361 k/uL (150-450); RBC 2.98 m/uL (3.80-5.40); RDW 14.6 % (11.5-15.5); WBC 26.2 k/uL (3.8-10.6)
[2018-12-18] MEDS: SODIUM CHLORIDE 0.9% 1,000 ML IV SCH ×4 (07:09→23:00)
[2018-12-18] MEDS: HEPARIN SOD,PORK IN 0.45% NACL 25,000 UNIT in 0.45% NACL 1 250ML.BAG IV SCH ×2 (07:10→17:14)
[2018-12-18 07:16] LABS: Prothrombin Time 10.6 sec (9.0-12.0)
[2018-12-18] MEDS: IPRATROPIUM-ALBUTEROL 3 ML NEB INHALATION SCH (07:54)
[2018-12-18] MEDS: SPIRONOLACTONE 25 MG TAB PO SCH (08:30)
[2018-12-18] MEDS: LISINOPRIL-HCTZ 10-12.5 MG 1 EACH TAB PO SCH ×2 (08:30→21:30)
[2018-12-18] MEDS: NICOTINE 21MG/24HR PATCH TRANSDERM SCH (08:30)
[2018-12-18] MEDS: METOPROLOL TARTRATE 25 MG TAB PO SCH ×3 (08:30→22:13)
[2018-12-18] MEDS: ASPIRIN 81 MG PO SCH (08:30)
[2018-12-18] MEDS: CLOPIDOGREL 75 MG TAB PO SCH (08:30)
--- NOTE | 2018-12-18 09:30 | P.PN ---
Subjective Progress Note Date: 12/18/18 Principal diagnosis: Left leg pain and numbness This is a 78-year-old white female patient of Dr. Mcdaniels, with past medical history of hypertension, hyperlipidemia, coronary artery disease with stent placement, previous history of TIA, chronic and ongoing history of smoking, up to a pack a day, currently down to three quarters of a pack a day, a total of 63 years. She denies any chronic lung disease, although she was prescribed Combivent and rescue inhaler which she does not use, not normally on oxygen. Patient came into the hospital on 12/16/2018 for evaluation of left leg numbness and pain from the left knee down to her foot. She complained of generalized weakness, and reports that injury to her left leg after tripping episode. Patient reports left leg pain starting a week ago and getting progressively worse. Patient had previously been in the ED last week with similar symptoms she was evaluated for stroke however she had signed out AGAINST MEDICAL ADVICE t hat this her left leg pain was not addressed. No difficulty breathing, no chest pain. Physical exam revealed slightly cyanotic left leg, without palpable pulses in the left femoral artery or below. CT angiogram of the left lower extremity was completed showing occlusion of the left common iliac artery as well as the left external iliac artery with reconstitution at the level of the left common femoral artery/superficial femoral artery. There was multifocal disease involving the superficial femoral artery with distal stenosis estimated at 90%. Patient has been having pain in her left leg on and off since summer 2018. CT angios of the thoracic, femoral and pelvic aorta showed no evidence of thoracoabdominal aortic aneurysm, and showed occlusion of left common iliac artery and left external iliac artery. Patient was taken to the laboratory chemist and right femoral sheath has been inserted, with TPA infusion. We're seeing this patient in the intensive care unit following her procedure, and we're consulted for critical care management. The patient is seen today 12/18/2018 in follow-up in the intensive care unit. She is currently awake and alert in no acute distress. She's on room air and maintaining O2 saturation in the 90s. She is still having ongoing left lower extremity pain and numbness. She is receiving heparin at 500 units per hour. TPA is infusing into the right groin catheter at 1 mg per hour. There is a hematoma around the catheter site. There is no pulse in the left lower extremity. The leg is mottled. Plan is to return to surgery with vascular surgeon today. Objective - Vital Signs Vital signs: Vital Signs Temp 97.7 F 12/18/18 04:00 Pulse 92 12/18/18 08:08 Resp 12 12/18/18 07:00 BP 146/49 12/18/18 07:00 Pulse Ox 97 12/18/18 07:00 Intake & Output 12/17/18 12/18/18 12/18/18 18:59 06:59 18:59 Intake Total 1025 1231.25 165.833 Output Total 320 560 45 Balance 705 671.25 120.833 Weight 47 kg Intake: IV 100 Intake, IV Titration 525 1231.25 165.833 Amount Heparin Sod,Pork in 0.45% 500 100 NaCl 25,000 unit In 0.45 % NaCl 1 250ml.bag @ 0 mls/hr IV .[facility] Rx #:[id number] Heparin Sod,Pork in 0.45% 25 41.25 55.833 NaCl 25,000 unit In 0.45 % NaCl 1 250ml.bag @ 5 mls/hr IV .Q24H [facility] Rx#: [id number] Sodium Chloride 0.9% 1, 1000 100 000 ml @ 100 mls/hr IV . Q10H [facility] Rx#:[id number] Sodium Chloride 0.9% 100 90 10 ml @ 1 MG/HR 10 mls/hr IV .Q10H ONE with Alteplase 10 mg Rx#:[id number] Oral 400 Output: Urine 320 560 45 Other: Voiding Method Indwelling Catheter Indwelling Catheter # Voids 1 - Exam GENERAL EXAM: Alert, pleasant, 78-year-old female patient, with a room air pulse ox of 97%, comfortable in no apparent distress. HEAD: Normocephalic/atraumatic. EYES: Normal reaction of pupils, equal size. Conjunctiva pink, sclera white. NOSE: Clear with pink turbinates. THROAT: No erythema or exudates. NECK: No masses, no JVD, no thyroid enlargement, no adenopathy. CHEST: No chest wall deformity. Symmetrical expansion. LUNGS: Equal air entry with no crackles, wheeze, rhonchi or dullness. CVS: Regular rate and rhythm, normal S1 and S2, no gallops, no murmurs, no rubs ABDOMEN: Soft, nontender. No hepatosplenomegaly, normal bowel sounds, no guarding or rigidity. EXTREMITIES: No clubbing, no edema, cyanosis of the left lower extremity noted, with coolness to touch, no palpable pulses up to the left femoral area, right groin vascular sheath in with TPA infusion MUSCULOSKELETAL: Muscle strength and tone normal. SPINE: No scoliosis or deformity SKIN: No rashes CENTRAL NERVOUS SYSTEM: No focal deficits, tone is normal in all 4 extremities. PSYCHIATRIC: Alert and oriented -3. Appropriate affect. Intact judgment and i nsight. - Labs CBC & Chem 7: 12/18/18 06:10 12/17/18 22:47 Labs: Abnormal Lab Results - Last 24 Hours (Table) 12/17/18 12/17/18 12/17/18 Range/Units 06:47 06:47 15:00 WBC 23.1 H 23.2 H (3.8-10.6) k/uL RBC 3.38 L 3.67 L (3.80-5.40) m/uL Hgb 10.3 L 11.1 L (11.4-16.0) gm/dL Hct 31.1 L 33.8 L (34.0-46.0) % Neutrophils # 21.0 H (1.3-7.7) k/uL Monocytes # (0-1.0) k/uL APTT (22.0-30.0) sec Fibrinogen 999 H (200-500) mg/dL Sodium (137-145) mmol/L Carbon Dioxide (22-30) mmol/L 12/17/18 12/17/18 12/17/18 Range/Units 15:00 18:53 18:53 WBC 22.1 H (3.8-10.6) k/uL RBC 3.57 L (3.80-5.40) m/uL Hgb 10.8 L (11.4-16.0) gm/dL Hct 33.0 L (34.0-46.0) % Neutrophils # 19.5 H (1.3-7.7) k/uL Monocytes # (0-1.0) k/uL APTT 49.4 H 49.1 H (22.0-30.0) sec Fibrinogen 1117 H 1007 H (200-500) mg/dL Sodium (137-145) mmol/L Carbon Dioxide (22-30) mmol/L 12/17/18 12/17/18 12/17/18 Range/Units 22:47 22:47 22:47 WBC 22.1 H (3.8-10.6) k/uL RBC 3.46 L (3.80-5.40) m/uL Hgb 10.5 L (11.4-16.0) gm/dL Hct 31.4 L (34.0-46.0) % Neutrophils # 18.7 H (1.3-7.7) k/uL Monocytes # 1.1 H (0-1.0) k/uL APTT 39.8 H (22.0-30.0) sec Fibrinogen 1015 H (200-500) mg/dL Sodium 130 L (137-145) mmol/L Carbon Dioxide 18 L (22-30) mmol/L 12/18/18 12/18/18 12/18/18 Range/Units 02:47 02:47 06:10 WBC 23.4 H (3.8-10.6) k/uL RBC 3.24 L (3.80-5.40) m/uL Hgb 10.0 L (11.4-16.0) gm/dL Hct 29.6 L (34.0-46.0) % Neutrophils # 20.1 H (1.3-7.7) k/uL Monocytes # 1.1 H (0-1.0) k/uL APTT 46.0 H 36.0 H (22.0-30.0) sec Fibrinogen 902 H 896 H (200-500) mg/dL Sodium (137-145) mmol/L Carbon Dioxide (22-30) mmol/L 12/18/18 Range/Units 06:10 WBC 26.2 H (3.8-10.6) k/uL RBC 2.98 L (3.80-5.40) m/uL Hgb 9.0 L (11.4-16.0) gm/dL Hct 27.4 L (34.0-46.0) % Neutrophils # 23.3 H (1.3-7.7) k/uL Monocytes # (0-1.0) k/uL APTT (22.0-30.0) sec Fibrinogen (200-500) mg/dL Sodium (137-145) mmol/L Carbon Dioxide (22-30) mmol/L Assessment and Plan Assessment: Assessment: #1. Acute limb ischemia involving the left lower extremity, left iliac and left popliteal occlusion, status post right femoral arterial access, iliofemoral angiogram, left lower extremity angiogram, and infusion of TPA, operative day 1 #2. Left lower extremity numbness, and pain related to the above #3. Leukocytosis likely reactive #4. Hyponatremia #5. Previous ER visit on 12/12/2018 for left leg weakness, sensation deficit and paresthesia, patient was worked up for possibility of CVA, and CT of the head and neck was negative for acute process or aneurysm. Patient's symptoms had resolved, and it was decided that this was probably related to possibility of TIA. Patient had left the emergency department AGAINST MEDICAL ADVICE at that time. She had a mild elevation of troponins #6. Hypertension #7. Hyperlipidemia #8. Coronary artery disease with previous stenting #9. Chronic and ongoing history of smoking, 63 years, less than a pack a day, currently down to three quarters of a pack #10. Mild lactic acidosis, hemodynamically related to acute limb ischemia improved Plan: The patient was seen and evaluated by Dr. Galicia. Left lower extremity remains cool, mottled, pulseless. TPA is infusing via right groin catheter. Hematoma noted. The plan is to return to surgery with vascular surgeon today. We'll continue to follow make further recommendations based on her clinical status. I, the cosigning physician, performed a history & physical examination of the patient. Lungs sounds are clear. Maintaining good O2 saturations in the 90s on room air. I discussed the assessment and plan of care with my nurse practitioner, Mary Blake. I attest to the above note as dictated by her.
--- NOTE | 2018-12-18 10:48 | P.PN ---
Progress Note - Text Progress Note Date: 12/18/18 Patient seen and examined the bedside. I reviewed overnight notes as well as evaluations throughout the night and this morning. Patient started to develop a hematoma last night and pressure was placed on the right groin. After that time she was having some increase blood flow to the left lower leg per the notes she had a thready PT signal. She then developed a worsening expanding hematoma the right groin around 4 AM at which point the surgeon on-call held the TPA. Within the next hour per the nurse the left leg became more mottled and patient was having difficulty moving her foot. The surgeon on-call was once again informed at this time the TPA was reinstated at the previous dosage. Since that time the left leg at the thigh has been somewhat warm according to the nurse but the lower leg is still cool and mottling extends from the toes to the thigh. At this time patient states her leg is insensate at the calf and foot. She is able to bend her knee but cannot wiggle her toes or move her left foot. There is no tenderness to palpation at the cath. Her right femoral sheath is intact with a large hematoma which is soft surrounding the sheath. Upon physical examination there is no palpable femoral, popliteal, DP or PT pulses in the left lower extremity. She does have flow to the right lower extremity. Her left thigh is warm to the touch but mottled and her left calf is cool as well as her foot. No femoral, popliteal, DP or PT signals noted. Family is at bedside and a long discussion was had about possibility for revascularization of the left lower extremity. Due to the sudden change and mottling of the left lower extremity she will be taken to the Angio-[facility] suite for an angiogram and possible thrombectomy. I did discuss with them the risk and benefits as well as possibility of patient needing further surgery including an open thrombectomy, bypass and ultimately if unable to reinstitute blood flow possible amputation. Patient as well as the family are in full understanding and are agreeable to attempt at revascularization as well as to fem-fem bypass and all other bypasses required.
[2018-12-18] MEDS ORDERED: SODIUM CHLORIDE 0.9% 1,000 ML IV ONE ×2 (10:59→18:35)
[2018-12-18] MEDS ORDERED: HEPARIN SODIUM 1,000 UN/ML (10ML VL) IV ONE ×2 (11:42→12:12)
[2018-12-18 11:44] LABS: African American GFR (CKD) >90 (>60 ml/min/1.73 sqM); Anion Gap 17 mmol/L; Blood Urea Nitrogen 14 mg/dL (7-17); Calcium 8.6 mg/dL (8.4-10.2); Carbon Dioxide 14 mmol/L (22-30); Chloride 100 mmol/L (98-107); Glucose 108 mg/dL (74-99); Potassium 4.3 mmol/L (3.5-5.1); Sodium 131 mmol/L (137-145)
[2018-12-18] MEDS ORDERED: IOPAMIDOL-250 100ML BTL INTRAARTER ONE ×2 (11:48→12:46)
[2018-12-18] MEDS ORDERED: NITROGLYCERIN 1000MCG/10ML SYRINGE INTRAARTER ONE ×2 (11:52→12:07)
--- NOTE | 2018-12-18 13:14 | P.OP ---
Description of Procedure: Indications: 78-year-old female initially presented to the hospital secondary to left lower extremity pain and weakness. Was diagnosed with critical limb ischemia of the left lower extremity and was taken yesterday to the [facility] Supervisor for initiation of thrombolysis. Patient underwent thrombolytic therapy overnight and developed a hematoma of the right groin area around the sheath. At that time the TPA was discontinued and her left lower extremity became mottled and cold. She presents today for reevaluation and left lower extremity angiogram with possible percutaneous thrombectomy, balloon angioplasty and stenting. Patient was unable to move her left lower extremity below the knee. She did have some movement at the knee and her thigh was warmer than her lower leg. Preoperative diagnosis: 1. Left lower extremity critical limb ischemia with occlusion of the left common and external iliac artery. 2. Focal occlusion of popliteal artery and tibioperoneal trunk. 3. Multiple areas of stenosis with worse stenosis measuring approximately 90% of the superficial femoral artery. 4. Anterior tibial, posterior tibial and peroneal artery occlusions just after takeoff. 5. Right groin hematoma Postoperative diagnosis: 1. Left lower extremity critical limb ischemia with resolved occlusion of the left common and external iliac artery status post stenting 2. Resolved left popliteal artery and tibioperoneal trunk occlusion status post balloon angioplasty 3. One-vessel (peroneal artery ) runoff to the ankle. 4. Anterior tibial and posterior tibial artery occlusions at the mid tibial region. 5. Right groin hematoma- stable Procedure: 1. Left lower extremity selective iliofemoral angiogram via existing sheath 2. Aortoiliac angiogram 3. Selective left femoral popliteal, tibial peroneal angiogram 4. Percutaneous transluminal balloon angioplasty of the left common iliac artery with 7 x 80 mm Spencer balloon 5. Percutaneous transluminal balloon angioplasty of the left popliteal artery with a 4 x 80 mm Spencer balloon 6. Percutaneous transluminal balloon angioplasty of the left tibioperoneal trunk with 2.5 x 20 mm Trek balloon 7. Percutaneous transluminal balloon angioplasty of the left superficial femoral artery with 4 x 80 mm Spencer balloon times multiple 8. Percutaneous transluminal balloon angioplasty of the left external iliac artery with 4 x 80 mm Spencer balloon. 9. Infusion of thrombolytic therapy utilizing 4 mg of TPA of the left femoral popliteal and tibioperoneal arterial system. 10. Percutaneous transluminal balloon expandable stent placement across the common iliac artery on the left utilizing a 7 x 39 mm Omnilink stent. 11. Placement of 6-Cameroonian Angio-Seal in the right common femoral artery. Surgeon: Nela Estimated blood loss: 20 mL Contrast: 110 mL of Isovue 250 Complications: None Condition: Stable Disposition: Palpable femoral, popliteal pulse on the left with multiphasic signal of the popliteal artery. Operative narrative: After written informed consent was obtained the patient and her daughters the patient was brought to the [facility] Services Supervisor and laid in a supine posi tion. The area of the existing sheath was prepped and draped in usual sterile fashion. Utilizing the existing unit diffuse catheter left lower extremity angiogram was obtained demonstrating significant narrowing of the common iliac artery as well as multiple areas of narrowing in the external iliac, superficial femoral artery. 035 Glidewire was then placed across the lesion and a balloon angioplasty with a 7 x 80 mm Spencer balloon was performed at the common iliac after patient was administered heparin. Once improved blood flow was noted at the common iliac artery distal angiograms were obtained demonstrating occlusions of the distal SFA and popliteal artery as well as the tibioperoneal trunk. Utilizing 035 Glidewire and quick cross catheter both lesions were crossed and distal angiograms were obtained demonstrating good intraluminal crossing. 014 wires were then placed and balloon angioplasty was performed of the tibioperoneal trunk with a 2.5 x 20 mm balloon. A 4 x 80 mm Spencer balloon was then placed in the distal popliteal above the tibioperoneal trunk and balloon angioplasty was performed at this site as well as the proximal popliteal artery and superficial femoral artery. Multiple angiograms were obtained throughout the entirety of this procedure demonstrating good improvement of the flow to the ankle. A further angioplasties were then performed at the SFA as well as the external iliac artery. Brisk flow was noted to the peroneal vessel and therefore attention was then placed to the common iliac artery stenting. A 7 x 39 mm Omnilink stent was then placed at the common iliac artery. Final angiogram was obtained demonstrating resolution of the stenosis and occlusion of the common iliac artery on the left with improved brisk blood flow down the entirety of the leg as well as greater than 6070% improvement of stenosis at the external iliac, distal superficial femoral, popliteal and tibial peroneal trunk on the left. There was one-vessel runoff to the ankle which was brisk. Patient's leg was improving mottling was resolved and the thigh was warm extending down to the knee and lower leg. All sheaths and guidewires were removed and a 6-Cam[place]onian Angio-Seal was placed in the right common femoral artery. Pressure dressing was then placed and patient was sent back to the ICU for recovery. Patient tolerated procedure well and had a palpable femoral pulses bilaterally, popliteal pulse on the left with multiphasic signal of the popliteal artery on the left.
[2018-12-18 14:10] LABS: Glucose,Whole Blood 191 mg/dL (75-99)
--- NOTE | 2018-12-18 14:20 | CT ---
EXAMINATION TYPE: CT brain wo con DATE OF EXAM: 12/18/2018 COMPARISON: 12/06/2018 HISTORY: confusion CT DLP: 1072.4 mGycm Automated exposure control for dose reduction was used. FINDINGS: There is cerebral cortical atrophy. There is no mass effect nor midline shift. There is no sign of in tracranial hemorrhage. The calvarium is intact. IMPRESSION: CEREBRAL ATROPHY. NO ACUTE INTRACRANIAL ABNORMALITY. NO CHANGE.
[2018-12-18 14:55] LABS: HCT 26.5 % (34.0-46.0); HGB 8.2 gm/dL (11.4-16.0); Hypochromasia Marked; MCH 30.5 pg (25.0-35.0); MCHC 30.9 g/dL (31.0-37.0); Mean Platelet Volume 7.9; Platelet Count 306 k/uL (150-450); RBC 2.69 m/uL (3.80-5.40); RDW 14.6 % (11.5-15.5); WBC 29.1 k/uL (3.8-10.6)
[2018-12-18 14:57] LABS: MCV 98.7 fL (80.0-100.0)
[2018-12-18 15:02] LABS: INR 1.1 (<1.2); Prothrombin Time 11.9 sec (9.0-12.0)
[2018-12-18] MEDS: NITROGLYCERIN 0.4MG/HR PATCH TRANSDERM SCH (15:36)
[2018-12-18] MEDS ORDERED: HEPARIN SODIUM,PORCINE 5,000 UNIT/ML 1 ML VIAL IV PRN (15:43)
[2018-12-18] MEDS ORDERED: HEPARIN SODIUM,PORCINE 10,000 UNIT/ML 1 ML VIAL IV ONE (16:00)
[2018-12-18] MEDS ORDERED: HEPARIN SODIUM,PORCINE 5,000 UNIT/ML 1 ML VIAL IV ONE (16:15)
[2018-12-18 20:55] LABS: HCT 20.3 % (34.0-46.0); Hypochromasia Slight; MCH 30.7 pg (25.0-35.0); MCHC 32.4 g/dL (31.0-37.0); MCV 94.7 fL (80.0-100.0); Mean Platelet Volume 7.4; Platelet Count 280 k/uL (150-450); RBC 2.14 m/uL (3.80-5.40); RDW 14.4 % (11.5-15.5); WBC 26.4 k/uL (3.8-10.6)
[2018-12-18 21:01] LABS: HGB 6.6 gm/dL (11.4-16.0)
[2018-12-18] MEDS: ATORVASTATIN 80 MG TAB PO SCH (21:30)
[2018-12-19] MEDS: SODIUM CHLORIDE 0.9% 1,000 ML IV SCH ×3 (02:48→14:16)
[2018-12-19 03:21] LABS: Basophils # (A) 0.1 k/uL (0-0.2); Basophils % (A) 0 %; Eosinophils % (A) 0 %; HCT 21.2 % (34.0-46.0); Lymphocytes # (A) 1.5 k/uL (1.0-4.8); Lymphocytes % (A) 7 %; MCH 30.6 pg (25.0-35.0); MCHC 33.2 g/dL (31.0-37.0); MCV 92.2 fL (80.0-100.0); Mean Platelet Volume 6.9; Monocytes # (A) 0.7 k/uL (0-1.0); Monocytes % (A) 3 %; Neutrophils # (A) 20.6 k/uL (1.3-7.7); Neutrophils % (A) 89 %; Platelet Count 213 k/uL (150-450); RDW 14.1 % (11.5-15.5); WBC 23.1 k/uL (3.8-10.6)
[2018-12-19 04:02] LABS: African American GFR (CKD) >90 (>60 ml/min/1.73 sqM); Anion Gap 5 mmol/L; Blood Urea Nitrogen 16 mg/dL (7-17); Carbon Dioxide 17 mmol/L (22-30); Chloride 113 mmol/L (98-107); Glucose 120 mg/dL (74-99); Sodium 135 mmol/L (137-145)
[2018-12-19] MEDS: IPRATROPIUM-ALBUTEROL 3 ML NEB INHALATION SCH (07:40)
--- NOTE | 2018-12-19 08:08 | P.PN ---
Subjective Progress Note Date: 12/19/18 Principal diagnosis: Left leg pain and numbness This is a 78-year-old white female patient of Dr. Mcdaniels, with past medical history of hypertension, hyperlipidemia, coronary artery disease with stent placement, previous history of TIA, chronic and ongoing history of smoking, up to a pack a day, currently down to three quarters of a pack a day, a total of 63 years. She denies any chronic lung disease, although she was prescribed Combivent and rescue inhaler which she does not use, not normally on oxygen. Patient came into the hospital on 12/16/2018 for evaluation of left leg numbness and pain from the left knee down to her foot. She complained of generalized weakness, and reports that injury to her left leg after tripping episode. Patient reports left leg pain starting a week ago and getting progressively worse. Patient had previously been in the ED last week with similar symptoms she was evaluated for stroke however she had signed out AGAINST MEDICAL ADVICE that this her left leg pain was not addressed. No difficulty breathing, no chest pain. Physical exam revealed slightly cyanotic left leg, without palpable pulses in the left femoral artery or below. CT angiogram of the left lower extremity was completed showing occlusion of the left common iliac artery as well as the left external iliac artery with reconstitution at the level of the left common femoral artery/superficial femoral artery. There was multifocal disease involving the superficial femoral artery with distal stenosis estimated at 90%. Patient has been having pain in her left leg on and off since summer 2018. CT angios of the thoracic, femoral and pelvic aorta showed no evidence of thoracoabdominal aortic aneurysm, and showed occlusion of left common iliac artery and left external iliac artery. Patient was taken to the general labor and right femoral sheath has been inserted, with TPA infusion. We're seeing this patient in the intensive care unit following her procedure, and we're consulted for critical care management. The patient is seen today 12/18/2018 in follow-up in the intensive care unit. She is currently awake and alert in no acute distress. She's on room air and maintaining O2 saturation in the 90s. She is still having ongoing left lower extremity pain and numbness. She is receiving heparin at 500 units per hour. TPA is infusing into the right groin catheter at 1 mg per hour. There is a hematoma around the catheter site. There is no pulse in the left lower extremity. The leg is mottled. Plan is to return to surgery with vascular surgeon today. On 12/19/2018 patient is seen in follow-up in the intensive care unit. Patient went back to or yesterday, and had done left lower extremity selective iliofemoral angiograms, percutaneous transluminal balloon angioplasty of the left common iliac artery, left popliteal artery, left tibial peroneal trunk and percutaneous expandable stent placement across the common iliac artery. This is postoperative day 1. Patient developed a hematoma in the right groin, which was manually controlled, and this morning right groin is bruised and swollen, however the hematoma has not expanded. TPA drip has been discontinued, patient remains on heparin drip at weight-based protocol, and IV 0.9 normal saline at a rate of 100, patient had an episode of hypotension yesterday, she was given a liter of IV fluids and boluses, and received 1 unit of packed red blood cells for hemoglobin of 6.6. 's morning's hemoglobin is 7.0, white blood cell count was 23.1, sodium is 135, potassium is 4.0, chloride is 113, CO2 17, BUN is 16, creatinine 0.57. He is awake and alert, in no acute distress, she has a Doppler left femoral pulse, however no palpable pedal or popliteal pulse, but extremity on the left is less cyanotic, still cool to touch, and patient does have paresthesias and numbness. Denies any shortness of breath, denies any chest pain, this morning his vitals are stable, she is on 4 L of oxygen with a pulse ox of 97%, blood pressures 111/49, sinus rhythm with a rate of 90, she is afebrile. Brain CT was completed for the reason of episode of confusion, and showed cerebral atrophy, no acute intracranial process. Objective - Vital Signs Vital signs: Vital Signs Temp 97.8 F 12/19/18 04:00 Pulse 100 12/19/18 07:50 Resp 16 12/19/18 06:00 BP 111/49 12/19/18 06:00 Pulse Ox 97 12/19/18 06:00 Intake & Output 12/18/18 12/19/18 12/19/18 19:59 06:59 18:59 Intake Total Output Total Balance Weight Intake: IV Intake, IV Titration Amount Sodium Chloride 0.9% 1, 000 ml @ 100 mls/hr IV . Q10H SALVATORE Rx#:[id number] Sodium Chloride 0.9% 1, 000 ml @ 999 mls/hr IV . Q1H1M ONE Rx#:[id number] Sodium Chloride 0.9% 100 ml @ 1 MG/HR 10 mls/hr IV .Q10H ONE with Alteplase 10 mg Rx#:[id number] Blood Product Rc As-1 Unit [id number] Output: Urine Other: Voiding Method - Exam GENERAL EXAM: Alert, pleasant, 70-year-old white female, with a room air pulse ox of 98%, comfortable in no apparent distress. HEAD: Normocephalic/atraumatic. EYES: Normal reaction of pupils, equal size. Conjunctiva pink, sclera white. NOSE: Clear with pink turbinates. THROAT: No erythema or exudates. NECK: No masses, no JVD, no thyroid enlargement, no adenopathy. CHEST: No chest wall deformity. Symmetrical expansion. LUNGS: Equal air entry with no crackles, wheeze, rhonchi or dullness. CVS: Regular rate and rhythm, normal S1 and S2, no gallops, no murmurs, no rubs ABDOMEN: Soft, nontender. No hepatosplenomegaly, normal bowel sounds, no guarding or rigidity. EXTREMITIES: No clubbing, no edema, cyanosis of the left lower extremity improved, with coolness to touch, no palpable pulses up to the left femoral area. Right groin hematoma, with a pressure dressing on it MUSCULOSKELETAL: Muscle strength and tone normal. SPINE: No scoliosis or deformity SKIN: No rashes CENTRAL NERVOUS SYSTEM: Alert and oriented -3. No focal deficits, tone is normal in all 4 extremities. PSYCHIATRIC: Alert and oriented -3. Appropriate affect. Intact judgment and insight. - Labs CBC & Chem 7: 12/19/18 03:06 12/19/18 03:06 Labs: Abnormal Lab Results - Last 24 Hours (Table) 12/16/18 12/18/18 12/18/18 Range/Units 10:35 06:10 13:58 WBC (3.8-10.6) k/uL RBC (3.80-5.40) m/uL Hgb (11.4-16.0) gm/dL Hct (34.0-46.0) % MCHC (31.0-37.0) g/dL Neutrophils # (1.3-7.7) k/uL APTT (22.0-30.0) sec Fibrinogen (200-500) mg/dL Sodium 131 L (137-145) mmol/L Chloride (98-107) mmol/L Carbon Dioxide 14 L (22-30) mmol/L Glucose 108 H (74-99) mg/dL POC Glucose (mg/dL) 191 H (75-99) mg/dL Calcium (8.4-10.2) mg/dL Crossmatch See Detail 12/18/18 12/18/18 12/18/18 Range/Units 14:43 14:43 14:43 WBC 29.1 H (3.8-10.6) k/uL RBC 2.69 L (3.80-5.40) m/uL Hgb 8.2 L (11.4-16.0) gm/dL Hct 26.5 L (34.0-46.0) % MCHC 30.9 L (31.0-37.0) g/dL Neutrophils # (1.3-7.7) k/uL APTT >200.0 H* (22.0-30.0) sec Fibrinogen 605 H (200-500) mg/dL Sodium (137-145) mmol/L Chloride (98-107) mmol/L Carbon Dioxide (22-30) mmol/L Glucose (74-99) mg/dL POC Glucose (mg/dL) (75-99) mg/dL Calcium (8.4-10.2) mg/dL Crossmatch 12/18/18 12/19/18 12/19/18 Range/Units 20:10 03:06 03:06 WBC 26.4 H (3.8-10.6) k/uL RBC 2.14 L (3.80-5.40) m/uL Hgb 6.6 L* D (11.4-16.0) gm/dL Hct 20.3 L (34.0-46.0) % MCHC (31.0-37.0) g/dL Neutrophils # (1.3-7.7) k/uL APTT 66.6 H (22.0-30.0) sec Fibrinogen (200-500) mg/dL Sodium 135 L (137-145) mmol/L Chloride 113 H (98-107) mmol/L Carbon Dioxide 17 L (22-30) mmol/L Glucose 120 H (74-99) mg/dL POC Glucose (mg/dL) (75-99) mg/dL Calcium 7.0 L (8.4-10.2) mg/dL Crossmatch 12/19/18 Range/Units 03:06 WBC 23.1 H (3.8-10.6) k/uL RBC 2.30 L (3.80-5.40) m/uL Hgb 7.0 L (11.4-16.0) gm/dL Hct 21.2 L (34.0-46.0) % MCHC (31.0-37.0) g/dL Neutrophils # 20.6 H (1.3-7.7) k/uL APTT (22.0-30.0) sec Fibrinogen (200-500) mg/dL Sodium (137-145) mmol/L Chloride (98-107) mmol/L Carbon Dioxide (22-30) mmol/L Glucose (74-99) mg/dL POC Glucose (mg/dL) (75-99) mg/dL Calcium (8.4-10.2) mg/dL Crossmatch Assessment and Plan Plan: Assessment: #1. Acute limb ischemia involving the left lower extremity, left iliac and left popliteal occlusion, status post right femoral arterial access, iliofemoral angiogram, left lower extremity angiogram, and infusion of TPA, operative day 2. On 12/18/2018 patient was taken back to the OR in view of absent pulses in the left extremity, and underwent percutaneous thrombectomy, balloon angioplasty and stenting. This is postoperative day one #2. Left lower extremity numbness, and pain related to the above #3. Leukocytosis likely reactive #4. Hyponatremia, improved #5. Previous ER visit on 12/12/2018 for left leg weakness, sensation deficit and paresthesia, patient was worked up for possibility of CVA, and CT of the head and neck was negative for acute process or aneurysm. Patient's symptoms had resolved, and it was decided that this was probably related to possibility of TIA. Patient had left the emergency department AGAINST MEDICAL ADVICE at that time. She had a mild elevation of troponins #6. Hypertension #7. Hyperlipidemia #8. Coronary artery disease with previous stenting #9. Chronic and ongoing history of smoking, 63 years, less than a pack a day, currently down to three quarters of a pack #10. Mild lactic acidosis, hemodynamically related to acute limb ischemia improved #11. Acute blood loss anemia, related to right groin hematoma, requiring transfusion of one unit of packed red blood cells Plan: Continue current management, this morning's hemoglobin is 7.0, patient is hemodynamically stable, nonoliguric, no altered mentation, serum sodium has improved, let us signs are stable, no difficulty breathing, no chest pain. We'll continue to follow. I performed a history & physical examination of the patient and discussed their management with my nurse practitioner, Sulma Schilling. I reviewed the nurse practitioner's note and agree with the documented findings and plan of care. Lung sounds are clear breath sounds. The findings and the impression was discussed with the patient. I attest to the documentation by the nurse practitioner. Time with Patient: Less than 30
[2018-12-19] MEDS ORDERED: NITROGLYCERIN 0.4MG/HR PATCH TRANSDERM SCH (09:00)
[2018-12-19] MEDS: NICOTINE 21MG/24HR PATCH TRANSDERM SCH (09:04)
[2018-12-19] MEDS: CLOPIDOGREL 75 MG TAB PO SCH (09:05)
[2018-12-19] MEDS: SPIRONOLACTONE 25 MG TAB PO SCH (09:05)
[2018-12-19] MEDS: NITROGLYCERIN 0.4MG/HR PATCH TRANSDERM SCH (09:05)
[2018-12-19] MEDS: METOPROLOL TARTRATE 25 MG TAB PO SCH ×3 (09:05→22:20)
[2018-12-19] MEDS: ASPIRIN 81 MG PO SCH (09:06)
[2018-12-19] MEDS: MORPHINE SULFATE 2 MG/ML SYRINGE IVP PRN ×2 (09:11→16:44)
--- NOTE | 2018-12-19 09:25 | P.PN ---
Progress Note - Text Progress Note Date: 12/19/18 Summary patient this morning for Dr. Cottrell. Patient is alert and oriented. Vital signs are stable with good urine output. Blood pressure is on the lower side with a systolic of 98 and a mean of 83. Her hemoglobin was in the sevens this morning. The right foot is somewhat cool but normal color. The left foot has duskiness of just the toes. She has a weak but audible Doppler signal at the posterior tibial on the left. She has a large area of hematoma and contusion on the right groin. Overall condition is somewhat guarded. In view of the low blood pressure I did order a unit of packed RBCs. Also ordered an ultrasound to rule out pseudoaneurysm of the right groin. Dr. Cottrell will be up later today.
--- NOTE | 2018-12-19 10:17 | US ---
EXAMINATION TYPE: US lower ext pseudo artery RT DATE OF EXAM: 12/19/2018 COMPARISON: NONE CLINICAL HISTORY: large hematoma. Patient has history of two separate arterial access procedures yest erday and has extensive bruising encompassing RLQ/ groin area. EXAM PERFORMED: Grayscale and color Doppler duplex imaging performed of the groin, SIDE PERFORMED: Right Color and Waveform Doppler performed to assess for the presence of pseudoaneurysm; Is there ultrasound evidence of a pseudoaneurysm: no Is there evidence of AV shunting: no Is there a fluid collection present: no Initial imaging was performed around compression bandage while waiting for permission for bandage to be removed. There is extensive edema noted. Pressure bandage was removed and vessels were imaged. The CFV [employer]ER are patent with doppler waveforms obtained. There is no evidence of pseudoaneurysm or of f luid collection. IMPRESSION: THERE IS NO EVIDENCE OF PSEUDOANEURYSM AT THIS TIME.
--- NOTE | 2018-12-19 12:21 | P.PN ---
Progress Note - Text Progress Note Date: 12/19/18 Patient is evaluated today status post percutaneous revascularization of the left lower extremity for critical limb ischemia. All the patient indicates she fills markedly improved and that her pain is well controlled. She is eating without issue. She denies any abdominal pain. The right groin has a area of ecchymosis. Duplex ultrasound of this performed earlier today demonstrated no evidence of pseudoaneurysm. A good femoral pulses noted on the left. The left leg is warm to the midfoot. The patient has decreased sensation of the toes on the left. Some ischemia of the toes is noted involving all 5 toes of the left foot. Patient does have movement of the forefoot. Labs are reviewed. Patient is currently scheduled for an additional one unit of packed red blood cells to be administered. We will discontinue her Pace catheter today and allow the patient to use a bedside commode. I will start administration of Neurontin. We will request physical therapy evaluation and treatment.
[2018-12-19] MEDS: LISINOPRIL-HCTZ 10-12.5 MG 1 EACH TAB PO SCH ×2 (14:16→21:21)
[2018-12-19] MEDS: GABAPENTIN 300 MG CAP PO SCH ×2 (16:46→21:23)
--- NOTE | 2018-12-19 17:46 | P.PN ---
Progress Note - Text Progress Note Date: 12/18/18 Chief Complaint: Left leg cold History of present complaint: This is a pleasant 78-year-old patient of Dr. Mcdaniels. Chronic stable medical conditions include hypertension, hyperlipidemia, coronary artery disease with stent. Patient was here in the hospital on December 07 2 diagnosis of TIA. Patient then had a CT angiogram of the head and neck that was negative. 2-D echocardiogram was unremarkable. Was felt of a diagnosis of TIA. Patient only this morning noticed some numbness in the left foot. She often does notice that. Numbness then slowly progressed to go more proximally up it came up to the hip and also the lower part of the abdomen. The leg also felt cold. The foot was painful. Patient also has a corn/callus that does bother her. There is no fever no chills. Patient presented to the ER. Restless surgery Dr. Alvarado was called. CT angiogram demonstrated acute vascular findings. Dr. Alvarado requested the patient be admitted to the medical service he does speak to Dr. Krueger from the vascular team. Patient was put on IV heparin. And admitted to the medical floor. Following morning left lower extremity was becoming more cold and mottled. Patient was moved to the ICU. Patient was seen by Dr. Pace from vascular. Taken down to the operating room. Intravascular thrombolysis ago started with TPA. Today-so the patient after she came back from the OR. Discuss results in detail with Dr. Rondon from vascular. Patient is getting IV heparin started. Family the bedside. Pains controlled. Patient also noted to have a hematoma in the right groin. Vascular surgery is following. Review of systems: Was done for constitutional, cardiovascular, GI, pulmonary. Musculoskeletal relevant finding as above Active Medications Acetaminophen (Tylenol Tab) 650 mg PO Q6HR PRN PRN Reason: Mild Pain or Fever > 100.5 Hydrocodone Bitart/Acetaminophen ([place] 5-325) 1 each PO Q4HR PRN PRN Reason: Moderate Pain Last Admin: 12/18/18 04:21 Dose: 1 each Documented by: Albuterol Sulfate (Ventolin Nebulized) 2.5 mg INHALATION RT-Q6H PRN PRN Reason: Shortness Of Breath Albuterol/Ipratropium (Duoneb 0.5 Mg-3 Mg/3 Ml Soln) 3 ml INHALATION RT-DAILY [facility] Last Admin: 12/19/18 07:40 Dose: 3 ml Documented by: Aspirin (Aspirin) 81 mg PO DAILY [facility] Last Admin: 12/19/18 09:06 Dose: 81 mg Documented by: Atorvastatin Calcium (Lipitor) 80 mg PO HS [facility] Last Admin: 12/18/18 21:30 Dose: 80 mg Documented by: Clopidogrel Bisulfate (Plavix) 75 mg PO DAILY [facility] Last Admin: 12/19/18 09:05 Dose: 75 mg Documented by: Diphenhydramine HCl (Benadryl) 25 mg PO HS PRN PRN Reason: Nasal Congestion Gabapentin (Neurontin) 300 mg PO TID [facility] Last Admin: 12/19/18 16:46 Dose: 300 mg Documented by: Lisinopril/HCTZ (Zestoretic 10-12.5) 1 each PO BID [facility] Last Admin: 12/19/18 14:16 Dose: Not Given Documented by: Heparin Sodium (Porcine) (Heparin) 0 unit IV PER PROTOCOL PRN; Protocol PRN Reason: Low PTT Heparin Sodium/Sodium Chloride (25,000 unit/ Sodium Chloride) 250 mls @ 8.46 mls/hr IV .Q24H [facility]; Protocol Last Admin: 12/18/18 17:14 Dose: 15 units/kg/hr, 7.05 mls/hr Documented by: Ibuprofen (Motrin) 400 mg PO Q6HR PRN PRN Reason: Mild Pain or Fever > 100.5 Lorazepam (Ativan) 0.5 mg PO Q8H PRN PRN Reason: Anxiety Metoprolol Tartrate (Lopressor) 25 mg PO TID [facility] Last Admin: 12/19/18 16:46 Dose: 25 mg Documented by: Morphine Sulfate (Morphine Sulfate (Inj)) 4 mg IV Q4HR PRN PRN Reason: Severe Pain Last Admin: 12/17/18 08:49 Dose: 4 mg Documented by: Morphine Sulfate (Morphine Sulfate (Inj)) 2 mg IVP Q1H PRN PRN Reason: Pain/Discomfort Last Admin: 12/19/18 16:44 Dose: 2 mg Documented by: Naloxone HCl (Narcan) 0.2 mg IV Q2M PRN PRN Reason: Opioid Reversal Nicotine (Habitrol 21mg/24hr Patch) 1 patch TRANSDERM DAILY [facility] Last Admin: 11/03/19 09:04 Dose: 1 patch Documented by: Nitroglycerin (Nitrostat) 0.4 mg SUBLINGUAL Q5M PRN PRN Reason: Chest Pain Nitroglycerin (Nitro-Dur 0.4mg/Hr Patch) 1 patch TRANSDERM DAILY [facility] Last Admin: 12/19/18 09:05 Dose: 1 patch Documented by: Spironolactone (Aldactone) 25 mg PO DAILY [facility] Last Admin: 12/19/18 09:05 Dose: 25 mg Documented by: Physical examination: VITAL SIGNS: 99, 101, 16, 11 2/42, 95% room air GENERAL: Laying in bed, awake EYES: Pupils equal. Conjunctiva normal. HEENT: External appearance of nose and ears normal, oral cavity grossly normal. NECK: JVD not raised; masses not palpable. HEART: First and second heart sounds are normal; no edema. LUNGS: Respiratory rate normal; clear to auscultation. ABDOMEN: Soft, nontender, liver spleen not palpable, no masses palpable. PSYCH: Tired, answering questions. EXTREMITIES: Patient's left leg is cooler compared to the right. Bluish discoloration of the distal toe and the plantar surface of the feet MUSCULOSKELETAL: Evidence of significant evidence of RA in the hands INVESTIGATIONS, reviewed in the clinical context:: White count was 6.2 hemoglobin 9 potassium 4.3 creatinine 0.61 Vascular procedure- Postoperative diagnosis: 1. Left lower extremity critical limb ischemia with resolved occlusion of the left common and external iliac artery status post stenting 2. Resolved left popliteal artery and tibioperoneal trunk occlusion status post balloon angioplasty 3. One-vessel (peroneal artery ) runoff to the ankle. 4. Anterior tibial and posterior tibial artery occlusions at the mid tibial region. 5. Right groin hematoma- stable Procedure: 1. Left lower extremity selective iliofemoral angiogram via existing sheath 2. Aortoiliac angiogram 3. Selective left femoral popliteal, tibial peroneal angiogram 4. Percutaneous transluminal balloon angioplasty of the left common iliac artery with 7 x 80 mm [place] balloon 5. Percutaneous transluminal balloon angioplasty of the left popliteal artery with a 4 x 80 mm [place] balloon 6. Percutaneous transluminal balloon angioplasty of the left tibioperoneal trunk with 2.5 x 20 mm [place] balloon 7. Percutaneous transluminal balloon angioplasty of the left superficial femoral artery with 4 x 80 mm [place] balloon times multiple 8. Percutaneous transluminal balloon angioplasty of the left external iliac artery with 4 x 80 mm [place] balloon. 9. Infusion of thrombolytic therapy utilizing 4 mg of TPA of the left femoral popliteal and tibioperoneal arterial system. 10. Percutaneous transluminal balloon expandable stent placement across the common iliac artery on the left utilizing a 7 x 39 mm Omnilink stent. 11. Placement of 6-[place] Angio-Seal in the right common femoral artery. Previous testing White count 20.7 hemoglobin 11.6 sodium 123 potassium 4.2 bun 19 crit 0.68 Lactic acid 3.0 troponin I 0.[address] [place] lower extremity left leg-occlusion of the left common iliac artery with the right common iliac artery being patent. There is also occlusion of the left external iliac artery. The left and internal iliac artery reconstitutes from collaterals. There is reconstitution at the level of the left common femoral artery, superficial femoral artery. The left superficial femoral artery demonstrates multifocal disease with severe stenosis distally estimated at greater than 90%. Popliteal artery demonstrates multifocal disease as well as degree of stenosis less than 50%. Mild disease is seen at the tibial peroneal trunk with the posterior tibial artery, peroneal artery and inferior tibial artery being diminutive in size but limited distal filling. Assessment: -Acute on chronic occlusive disease arterial of the left lower extremity. With multiple angioplasties and local thrombolytic therapy. -Right groin acute hematoma -Positive troponin, with no cardiac symptoms,. Likely from hemodynamic mismatch -Lactic acidosis type II -Essential hypertension, uncontrolled -Hyperlipidemia -Coronary artery disease with stent Plan: Care was discussed with Dr. Rondon at length. He also reviewed the films with me. Also spoke to the patient and the family the bedside. Patient will starting on IV heparin. Other medications to continue. Pain is controlled. Prognosis guarded. Total time spent today was 45 minutes with over 30 minutes of discussion
--- NOTE | 2018-12-19 17:55 | P.PN ---
Progress Note - Text Progress Note Date: 12/19/18 Chief Complaint: Left leg cold History of present complaint: This is a pleasant 78-year-old patient of Dr. Mcdaniels. Chronic stable medical conditions include hypertension, hyperlipidemia, coronary artery disease with stent. Patient was here in the hospital on December 07 2 diagnosis of TIA. Patient then had a CT angiogram of the head and neck that was negative. 2-D echocardiogram was unremarkable. Was felt of a diagnosis of TIA. Patient only this morning noticed some numbness in the left foot. She often does notice that. Numbness then slowly progressed to go more proximally up it came up to the hip and also the lower part of the abdomen. The leg also felt cold. The foot was painful. Patient also has a corn/callus that does bother her. There is no fever no chills. Patient presented to the ER. Restless surgery Dr. Alvarado was called. CT angiogram demonstrated acute vascular findings. Dr. Alvarado requested the patient be admitted to the medical service he does speak to Dr. Kreuger from the vascular team. Patient was put on IV heparin. And admitted to the medical floor. Following morning left lower extremity was becoming more cold and mottled. Patient was moved to the ICU. Patient was seen by Dr. Pace from vascular. Taken down to the operating room. Intravascular thrombolysis ago started with TPA. Next day on December 18-patient's left leg became mottled and patient is taking normal to ordered. Per Dr. Rondon. Several angioplasties were carried out in the left lower extremity and local thrombolytic was given. Today-yesterday after coming from the or patient was started on IV heparin. Patient hemoglobin did drop. I did order unit of blood. Did tell the nurse to call the vascular team. This morning his second unit of blood has been ordered. Laying in bed. Awake. Some discomfort in the left foot. Review of systems: Was done for constitutional, cardiovascular, GI, pulmonary. Musculoskeletal relevant finding as above Active Medications Acetaminophen (Tylenol Tab) 650 mg PO Q6HR PRN PRN Reason: Mild Pain or Fever > 100.5 Hydrocodone Bitart/Acetaminophen (Rodney 5-325) 1 each PO Q4HR PRN PRN Reason: Moderate Pain Last Admin: 12/18/18 04:21 Dose: 1 each Documented by: Albuterol Sulfate (Ventolin Nebulized) 2.5 mg INHALATION RT-Q6H PRN PRN Reason: Shortness Of Breath Albuterol/Ipratropium (Duoneb 0.5 Mg-3 Mg/3 Ml Soln) 3 ml INHALATION RT-DAILY [facility] Last Admin: 12/19/18 07:40 Dose: 3 ml Documented by: Aspirin (Aspirin) 81 mg PO DAILY [facility] Last Admin: 12/19/18 09:06 Dose: 81 mg Documented by: Atorvastatin Calcium (Lipitor) 80 mg PO HS [facility] Last Admin: 12/18/18 21:30 Dose: 80 mg Documented by: Clopidogrel Bisulfate (Plavix) 75 mg PO DAILY [facility] Last Admin: 12/19/18 09:05 Dose: 75 mg Documented by: Diphenhydramine HCl (Benadryl) 25 mg PO HS PRN PRN Reason: Nasal Congestion Gabapentin (Neurontin) 300 mg PO TID [facility] Last Admin: 12/19/18 16:46 Dose: 300 mg Documented by: Lisinopril/HCTZ (Zestoretic 10-12.5) 1 each PO BID [facility] Last Admin: 12/19/18 14:16 Dose: Not Given Documented by: Heparin Sodium (Porcine) (Heparin) 0 unit IV PER PROTOCOL PRN; Protocol PRN Reason: Low PTT Heparin Sodium/Sodium Chloride (25,000 unit/ Sodium Chloride) 250 mls @ 8.46 mls/hr IV .Q24H [facility]; Protocol Last Admin: 12/18/18 17:14 Dose: 15 units/kg/hr, 7.05 mls/hr Documented by: Ibuprofen (Motrin) 400 mg PO Q6HR PRN PRN Reason: Mild Pain or Fever > 100.5 Lorazepam (Ativan) 0.5 mg PO Q8H PRN PRN Reason: Anxiety Metoprolol Tartrate (Lopressor) 25 mg PO TID [facility] Last Admin: 12/19/18 16:46 Dose: 25 mg Documented by: Morphine Sulfate (Morphine Sulfate (Inj)) 4 mg IV Q4HR PRN PRN Reason: Severe Pain Last Admin: 12/17/18 08:49 Dose: 4 mg Documented by: Morphine Sulfate (Morphine Sulfate (Inj)) 2 mg IVP Q1H PRN PRN Reason: Pain/Discomfort Last Admin: 12/19/18 16:44 Dose: 2 mg Documented by: Naloxone HCl (Narcan) 0.2 mg IV Q2M PRN PRN Reason: Opioid Reversal Nicotine (Habitrol 21mg/24hr Patch) 1 patch TRANSDERM DAILY [facility] Last Admin: 12/19/18 09:04 Dose: 1 patch Documented by: Nitroglycerin (Nitrostat) 0.4 mg SUBLINGUAL Q5M PRN PRN Reason: Chest Pain Nitroglycerin (Nitro-Dur 0.4mg/Hr Patch) 1 patch TRANSDERM DAILY [facility] Last Admin: 12/19/18 09:05 Dose: 1 patch Documented by: Spironolactone (Aldactone) 25 mg PO DAILY [facility] Last Admin: 12/19/18 09:05 Dose: 25 mg Documented by: Physical examination: VITAL SIGNS: 99, 101, 16, 11 2/42, 95% room air GENERAL: Laying in bed, awake EYES: Pupils equal. Conjunctiva normal. HEENT: External appearance of nose and ears normal, oral cavity grossly normal. NECK: JVD not raised; masses not palpable. HEART: First and second heart sounds are normal; no edema. LUNGS: Respiratory rate normal; clear to auscultation. ABDOMEN: Soft, nontender, liver spleen not palpable, no masses palpable. PSYCH: Tired, answering questions. EXTREMITIES: Patient's left leg is cooler compared to the right. Bluish discoloration of the distal toe and the plantar surface of the feet MUSCULOSKELETAL: Evidence of significant evidence of RA in the hands INVESTIGATIONS, reviewed in the clinical context:: White count 23 hemoglobin 6.6 last night and 7 this morning, creatinine 0.57 Previous testing White count 20.7 hemoglobin 11.6 sodium 123 potassium 4.2 bun 19 crit 0.68 Lactic acid 3.0 troponin I 0.[address] [place] lower extremity left leg-occlusion of the left common iliac artery with the right common iliac artery being patent. There is also occlusion of the left external iliac artery. The left and internal iliac artery reconstitutes from collaterals. There is reconstitution at the level of the left common femoral artery, superficial femoral artery. The left superficial femoral artery demonstrates multifocal disease with severe stenosis distally estimated at greater than 90%. Popliteal artery demonstrates multifocal disease as well as degree of stenosis less than 50%. Mild disease is seen at the tibial peroneal trunk with the posterior tibial artery, peroneal artery and inferior tibial artery being diminutive in size but limited distal filling. Vascular procedure- Postoperative diagnosis: 1. Left lower extremity critical limb ischemia with resolved occlusion of the left common and external iliac artery status post stenting 2. Resolved left popliteal artery and tibioperoneal trunk occlusion status post balloon angioplasty 3. One-vessel (peroneal artery ) runoff to the ankle. 4. Anterior tibial and posterior tibial artery occlusions at the mid tibial region. 5. Right groin hematoma- stable Procedure: - Left lower extremity selective iliofemoral angiogram via existing sheath - Aortoiliac angiogram - Selective left femoral popliteal, tibial peroneal angiogram - Percutaneous transluminal balloon angioplasty of the left common iliac artery with 7 x 80 mm Rosebud balloon, left popliteal artery with a 4 x 80 mm Rosebud balloon, left tibioperoneal trunk with 2.5 x 20 mm Trek balloon the left superficial femoral artery with 4 x 80 mm Rosebud balloon times multiple the left external iliac artery with 4 x 80 mm Rosebud balloon., Infusion of thrombolytic therapy utilizing 4 mg of TPA of the left femoral popliteal and tibioperoneal arterial system. Percutaneous transluminal balloon expandable stent placement across the common iliac artery on the left utilizing a 7 x 39 mm Omnilink stent. Placement of 6-Mongolian Angio-Seal in the right common femoral artery. Assessment: -Acute on chronic occlusive disease arterial of the left lower extremity. With multiple angioplasties and local thrombolytic therapy. -Right groin acute hematoma -Acute postop blood loss anemia, as expected from surgery -Positive troponin, with no cardiac symptoms,. Likely from hemodynamic mismatch -Lactic acidosis type II -Essential hypertension, -Hyperlipidemia -Coronary artery disease with stent Plan: Family the bedside. Continue current medication treatment plan. Patient be getting a second unit of blood this morning. Keep a close and hemodynamics.
[2018-12-19 20:22] LABS: HCT 25.4 % (34.0-46.0); MCV 91.2 fL (80.0-100.0); Mean Platelet Volume 7.1; Platelet Count 210 k/uL (150-450); RBC 2.78 m/uL (3.80-5.40); RDW 14.6 % (11.5-15.5); WBC 26.6 k/uL (3.8-10.6)
[2018-12-19 20:27] LABS: HGB 8.6 gm/dL (11.4-16.0)
[2018-12-19] MEDS: ATORVASTATIN 80 MG TAB PO SCH (21:23)
[2018-12-19] MEDS: HYDROcodone/APAP 5-325MG 1 EACH TAB PO PRN (22:36)
[2018-12-20 03:35] LABS: Basophils # (A) 0.1 k/uL (0-0.2); Basophils % (A) 0 %; Eosinophils % (A) 0 %; HCT 24.6 % (34.0-46.0); HGB 8.3 gm/dL (11.4-16.0); Lymphocytes # (A) 1.8 k/uL (1.0-4.8); Lymphocytes % (A) 7 %; MCHC 33.7 g/dL (31.0-37.0); MCV 91.9 fL (80.0-100.0); Mean Platelet Volume 7.1; Monocytes # (A) 0.9 k/uL (0-1.0); Monocytes % (A) 3 %; Neutrophils # (A) 22.7 k/uL (1.3-7.7); Neutrophils % (A) 88 %; Platelet Count 202 k/uL (150-450); RBC 2.68 m/uL (3.80-5.40); RDW 14.9 % (11.5-15.5); WBC 25.7 k/uL (3.8-10.6)
[2018-12-20] MEDS: HEPARIN SOD,PORK IN 0.45% NACL 25,000 UNIT in 0.45% NACL 1 250ML.BAG IV SCH ×2 (04:14→17:09)
[2018-12-20] MEDS: ASPIRIN 81 MG PO SCH (08:14)
[2018-12-20] MEDS: METOPROLOL TARTRATE 25 MG TAB PO SCH ×3 (08:15→20:33)
[2018-12-20] MEDS: GABAPENTIN 300 MG CAP PO SCH ×3 (08:15→20:32)
[2018-12-20] MEDS: NICOTINE 21MG/24HR PATCH TRANSDERM SCH (08:15)
[2018-12-20] MEDS: SPIRONOLACTONE 25 MG TAB PO SCH (08:15)
[2018-12-20] MEDS: LISINOPRIL-HCTZ 10-12.5 MG 1 EACH TAB PO SCH ×2 (08:15→20:32)
[2018-12-20] MEDS: NITROGLYCERIN 0.4MG/HR PATCH TRANSDERM SCH (08:15)
[2018-12-20] MEDS: CLOPIDOGREL 75 MG TAB PO SCH (08:15)
[2018-12-20] MEDS: IPRATROPIUM-ALBUTEROL 3 ML NEB INHALATION SCH (08:38)
--- NOTE | 2018-12-20 11:26 | CDI ---
Yes, hematoma is a result of thrombolytic procedure. Documentation Clarification Form Date: 12/20/2018 11:16:57 AM From: Gracia Perez CCS, CCDS Admit Date: 12/16/2018 2:04:00 PM Patient Name: Betty Jarrett Visit Number: [id number] Discharge Date: ATTENTION: The Clinical Documentation Specialists (CDI) and [facility] Coding Staff appreciate your assistance in clarifying documentation. Please respond to the clarification below the line at the bottom and electronically sign. The CDI & [facility] Coding staff will review the response and follow-up if needed. Please note: Queries are made part of the Legal Health Record. If you have any questions, please contact the author of this message via ITS. Dr. Wali Victor: Per the 12/18 Vascular Surgery progress note postoperatively: "Patient started to develop a hematoma last night and pressure was placed on the right groin. After that time she was having some increase blood flow to the left lower leg per the notes she had a thread PT signal. She then developed a worsening expanding hematoma the right groin around 4 AM at which point the surgeon on-call held the TPA. Within the next hour per the nurse the left leg became more mottled and patient was having difficulty moving her foot. The surgeon on-call was once again informed at this time the TPA was reinstated at the previous dosage." Patients Postoperative Diagnosis: Left lower extremity critical limb ischemia with resolved occlusion of the left common & external iliac artery status post stenting. Resolved left popliteal artery & tibioperoneal trunk occlusion status post balloon angioplasty. One vessel peroneal artery runoff to ankle. Anterior tibial & posterior tibial artery occlusions at the mid tibial region. *Right groin hematoma stable. Procedure performed: As above. History/Risk Factors: Recent TIA, Hypertension, Hyperlipidemia, CAD with coronary stent. [place] 2007. Smoker. Clinical Indicators: Presented as above. Treatment: IV Morphine, IV fluid bolus, IV Heparin drip, TPA. In order to accurately reflect this patients severity of illness, please clarify if the patient's right groin hematoma is the result of the surgical procedure? Yes No Other, please specify Unable to determine (Last Revision: May 2017) MTDD
[2018-12-20] MEDS: HYDROcodone/APAP 5-325MG 1 EACH TAB PO PRN (12:49)
--- NOTE | 2018-12-20 14:45 | P.PN ---
Progress Note - Text Progress Note Date: 12/20/18 Patient is evaluated today status post percutaneous revascularization of the left iliofemoral and popliteal segments. The patient feels somewhat fatigued. She denies any foot pain although she states that there is some numbness of her toes and distal segment of her forefoot. Nursing reports the patient is able to eat well. She has not yet gotten out of bed. The patient remains on a heparin drip. Physical examination revealed the right femoral puncture site to be clean and dry. Resolving ecchymotic reaction is noted. Femoral and popliteal pulses are noted on the left. Modest leg edema is noted bilaterally. Ischemic changes of the all 5 digits of the left foot are identified. The toes remain relatively insensate on the left. There is no evidence of compartment syndrome either lower extremity. Impression: #1. Status post percutaneous revascularization of the left lower extremity. #2. 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 #3. Right femoral hematoma, stable to slightly improved. #4. Currently therapeutically anticoagulated. Recommendations/plan: #1. Continue anticoagulation. I believe the patient is in a position where she can be switched from IV heparin to novel oral anticoagulants such as Eliquis or Xarelto. The patient would benefit from lifetime anticoagulation. #2. Would place MITCHELL hose on both lower extremities to help control any dependent edema. #3. Begin physical therapy with nonweightbearing of the the left forefoot/toe area. #4. I believe the patient would benefit from subacute rehab. I await recommendation of physical therapy.
--- NOTE | 2018-12-20 14:54 | P.PN ---
Subjective Progress Note Date: 12/20/18 On today's evaluation of 12/20/2018 I'm seeing this patient for a follow-up. This patient has history of coronary artery disease with previous coronary stenting, hypertension, hyperlipidemia, peripheral vascular disease, and the patient came in with an ischemic left foot and the patient was found to have an acute occlusion of the left common iliac. The patient is status post percutaneous anesthetization of the left lower extremity. The patient has digital ischemic the left foot with secondary neuropathy. Note that the patient received intra-arterial thrombolytics and the patient developed a right femoral hematoma the site of the catheter insertion without evidence of any any pseudoaneurysm. Hemoglobin has been stable. The perfusion to the left lower extremity is improved and the patient has no pain at this point in time in the left lower extremity. She does have some ongoing numbness and tingling in the toes and distal segment of the forefoot. The patient remains on IV heparin. Th e patient has some edema in all 4 extremities. Ischemic changes in the left fifth digits on the foot has been noted. No evidence of any compartmental syndrome at this point in time. She is awake and alert and she is following commands and answering questions. She remains on IV heparin. She is tolerating her diet. No nausea. No vomiting. No abdominal pain. No other complaints otherwise for now. As mentioned, hemoglobin is stable. Hematoma in the right femoral area remains stable and probably somewhat improved. Objective - Vital Signs Vital signs: Vital Signs Temp 97.8 F 12/20/18 12:00 Pulse 96 12/20/18 13:30 Resp 21 12/20/18 13:30 BP 120/64 12/20/18 13:30 Pulse Ox 98 12/20/18 12:00 Intake & Output 12/19/18 12/20/18 12/20/18 18:59 06:59 18:59 Intake Total 1350 525 197.037 Output Total 530 350 Balance 820 525 -152.963 Weight 58.7 kg Intake: IV 560 275 145 0.9% Sodium Chloride 275 145 Sodium Chloride 0.9% 1, 560 000 ml @ 100 mls/hr IV . Q10H [facility] Rx#:[id number] Intake, IV Titration 300 250 52.037 Amount Heparin Sod,Pork in 0.45% 250 52.037 NaCl 25,000 unit In 0.45 % NaCl 1 250ml.bag @ 18 UNITS/KG/HR 8.46 mls/hr IV .Q24H [facility] Rx#: [id number] Sodium Chloride 0.9% 1, 300 000 ml @ 100 mls/hr IV . Q10H [facility] Rx#:[id number] Oral 180 Blood Product 310 Rc As-1 Unit 310 [id number] Output: Urine 530 350 Other: Voiding Method Indwelling Catheter Bedpan # Voids 1 - Exam GENERAL EXAM: Alert, pleasant, 70-year-old white female, with a room air pulse ox of 98%, comfortable in no apparent distress. HEAD: Normocephalic/atraumatic. EYES: Normal reaction of pupils, equal size. Conjunctiva pink, sclera white. NOSE: Clear with pink turbinates. THROAT: No erythema or exudates. NECK: No masses, no JVD, no thyroid enlargement, no adenopathy. CHEST: No chest wall deformity. Symmetrical expansion. LUNGS: Equal air entry with no crackles, wheeze, rhonchi or dullness. CVS: Regular rate and rhythm, normal S1 and S2, no gallops, no murmurs, no rubs ABDOMEN: Soft, nontender. No hepatosplenomegaly, normal bowel sounds, no guarding or rigidity. EXTREMITIES: There is edema in all 4 extremities. The patient has changes related to rheumatoid arthritis and deformities specially in her hands bilaterally. Pulses in the lower extremities are palpable. The patient has femoral and popliteal pulses on the left. There are some ischemic changes in the toes in the left foot post revascularization. Told to remain relatively insensate on the left. As for the right side, the right femoral puncture site hematoma is stable and probably somewhat improved. Adequate pulses. There is a stable ecchymosis in that area. MUSCULOSKELETAL: Muscle strength and tone normal. SPINE: No scoliosis or deformity SKIN: No rashes, stable ecchymosis in the right femoral area and chronic ischemic changes in the left foot toes. CENTRAL NERVOUS SYSTEM: Alert and oriented -3. No focal deficits, tone is normal in all 4 extremities. PSYCHIATRIC: Alert and oriented -3. Appropriate affect. Intact judgment and insight. - Labs CBC & Chem 7: 12/20/18 03:02 12/19/18 03:06 Labs: Abnormal Lab Results - Last 24 Hours (Table) 12/16/18 12/19/1819 Range/Units 10:35 20:06 02:57 WBC 26.6 H (3.8-10.6) k/uL RBC 2.78 L (3.80-5.40) m/uL Hgb 8.6 L D (11.4-16.0) gm/dL Hct 25.4 L (34.0-46.0) % Neutrophils # (1.3-7.7) k/uL APTT 80.5 H (22.0-30.0) sec Crossmatch See Detail 12/20/18 12/20/18 Range/Units 03:02 10:52 WBC 25.7 H (3.8-10.6) k/uL RBC 2.68 L (3.80-5.40) m/uL Hgb 8.3 L (11.4-16.0) gm/dL Hct 24.6 L (34.0-46.0) % Neutrophils # 22.7 H (1.3-7.7) k/uL APTT 48.7 H (22.0-30.0) sec Crossmatch Assessment and Plan Plan: 1 status post percutaneous revascularization of the left lower extremity. The patient has adequate pulses in the left neck and there are some ischemic changes and left toe involving the skin. The patient also has some sensitivity change s/neuropathy related to digital ischemia in the left foot. Otherwise, the patient has adequate revascularization left foot. 2 right femoral hematoma, stable, improved 3 acute anemia, related to blood loss and the patient's hemoglobin stable at 8.3. The patient is post transfusion with a total of 2 units of packed RBC during this current hospitalization 4 hyponatremia, improved 5 hypertension 6 hyperlipidemia 7 coronary disease previous coronary stenting 8 history of smoking and the patient carries 60-[id number]-fcua smoking history and she continues to smoke around 15 cigarettes a daily basis 9 lactic acidosis, improved 10 rheumatoid arthritis with secondary deformities in the upper extremities Plan Monitor hemoglobin. Monitor the pulses in the left lower extremity. Monitor the right femoral area hematoma. The patient is on IV heparin. The patient on oral aspirin and Plavix. We'll treatments will be continued for now. Hemodynamic monitoring. Nitropatch left lower extremity. Smoking cessation counseling was done. We'll continue to follow and keep the patient ICU for a nother 24 hours. Vascular surgery is also following the case.
[2018-12-20] MEDS: DOCUSATE 100 MG CAP PO SCH (15:23)
--- NOTE | 2018-12-20 15:58 | IR ---
EXAMINATION TYPE: IR angio lower extremity LT DATE OF EXAM: 12/17/2018 COMPARISON: NONE HISTORY: Fluoroscopy time. Fluoroscopy was provided to the referring clinician.
[2018-12-20] MEDS: RIVAROXABAN 15 MG TAB PO SCH (17:13)
[2018-12-20] MEDS: ATORVASTATIN 80 MG TAB PO SCH (20:32)
--- NOTE | 2018-12-20 20:47 | P.PN ---
Progress Note - Text Progress Note Date: 12/20/18 Chief Complaint: Left leg cold Interval history: This is a pleasant 78-year-old patient of Dr. Mcdaniels. Chronic stable medical conditions include hypertension, hyperlipidemia, coronary artery disease with stent. Patient was here in the hospital on December 07 2 diagnosis of TIA. Patient then had a CT angiogram of the head and neck that was negative. 2-D echocardiogram was unremarkable. Was felt of a diagnosis of TIA. Patient only this morning noticed some numbness in the left foot. She often does notice that. Numbness then slowly progressed to go more proximally up it came up to the hip and also the lower part of the abdomen. The leg also felt cold. The foot was painful. Patient also has a corn/callus that does bother her. There is no fever no chills. Patient presented to the ER. Restless surgery Dr. Alvarado was called. CT angiogram demonstrated acute vascular findings. Dr. Alvarado requested the patient be admitted to the medical service he does speak to Dr. Krueger from the vascular team. Patient was put on IV heparin. And admitted to the medical floor. Following morning left lower extremity was becoming more cold and mottled. Patient was moved to the ICU. Patient was seen by Dr. Pace from vascular. Taken down to the operating room. Intravascular thrombolysis ago started with TPA. Next day on December 18-patient's left leg became mottled and patient is taking normal to ordered. Per Dr. Rondon. Several angioplasties were carried out in the left lower extremity and local thrombolytic was given. Patient has received 2 units of blood. Today-in the ICU. Been on IV heparin. Some pain in the left leg. Eating some food. No other new issues. Review of systems: Was done for constitutional, cardiovascular, GI, pulmonary. Musculoskeletal relevant finding as above Active Medications Acetaminophen (Tylenol Tab) 650 mg PO Q6HR PRN PRN Reason: Mild Pain or Fever > 100.5 Hydrocodone Bitart/Acetaminophen (Amory 5-325) 1 each PO Q4HR PRN PRN Reason: Moderate Pain Last Admin: 12/20/18 12:49 Dose: 1 each Documented by: Albuterol Sulfate (Ventolin Nebulized) 2.5 mg INHALATION RT-Q6H PRN PRN Reason: Shortness Of Breath Albuterol/Ipratropium (Duoneb 0.5 Mg-3 Mg/3 Ml Soln) 3 ml INHALATION RT-DAILY [facility] Last Admin: 12/20/18 08:38 Dose: 3 ml Documented by: Aspirin (Aspirin) 81 mg PO DAILY [facility] Last Admin: 12/20/18 08:14 Dose: 81 mg Documented by: Atorvastatin Calcium (Lipitor) 80 mg PO HS [facility] Last Admin: 12/20/18 20:32 Dose: 80 mg Documented by: Clopidogrel Bisulfate (Plavix) 75 mg PO DAILY [facility] Last Admin: 12/20/18 08:15 Dose: 75 mg Documented by: Diphenhydramine HCl (Benadryl) 25 mg PO HS PRN PRN Reason: Nasal Congestion Docusate Sodium (Colace) 100 mg PO DAILY [facility] Last Admin: 12/20/18 15:23 Dose: 100 mg Documented by: Gabapentin (Neurontin) 300 mg PO TID [facility] Last Admin: 12/20/18 20:32 Dose: 300 mg Documented by: Lisinopril/HCTZ (Zestoretic 10-12.5) 1 each PO BID [facility] Last Admin: 12/20/18 20:32 Dose: 1 each Documented by: Ibuprofen (Motrin) 400 mg PO Q6HR PRN PRN Reason: Mild Pain or Fever > 100.5 Lorazepam (Ativan) 0.5 mg PO Q8H PRN PRN Reason: Anxiety Metoprolol Tartrate (Lopressor) 25 mg PO TID [facility] Last Admin: 12/20/18 20:33 Dose: 25 mg Documented by: Morphine Sulfate (Morphine Sulfate (Inj)) 4 mg IV Q4HR PRN PRN Reason: Severe Pain Last Admin: 12/17/18 08:49 Dose: 4 mg Documented by: Morphine Sulfate (Morphine Sulfate (Inj)) 2 mg IVP Q1H PRN PRN Reason: Pain/Discomfort Last Admin: 12/19/18 16:44 Dose: 2 mg Documented by: Naloxone HCl (Narcan) 0.2 mg IV Q2M PRN PRN Reason: Opioid Reversal Nicotine (Habitrol 21mg/24hr Patch) 1 patch TRANSDERM DAILY [facility] Last Admin: 12/20/18 08:15 Dose: 1 patch Documented by: Nitroglycerin (Nitrostat) 0.4 mg SUBLINGUAL Q5M PRN PRN Reason: Chest Pain Nitroglycerin (Nitro-Dur 0.4mg/Hr Patch) 1 patch TRANSDERM DAILY [facility] Last Admin: 12/20/18 08:15 Dose: 1 patch Documented by: Rivaroxaban (Xarelto) 15 mg PO BID-W/MEALS [facility] Last Admin: 12/20/18 17:13 Dose: 15 mg Documented by: Spironolactone (Aldactone) 25 mg PO DAILY [facility] Last Admin: 12/20/18 08:15 Dose: 25 mg Documented by: Physical examination: VITAL SIGNS: 97.8, 94, 23, 123/54, 98% on 2 L GENERAL: Laying in bed, awake EYES: Pupils equal. Conjunctiva normal. HEENT: External appearance of nose and ears normal, oral cavity grossly normal. NECK: JVD not raised; masses not palpable. HEART: First and second heart sounds are normal; no edema. LUNGS: Respiratory rate normal; clear to auscultation. ABDOMEN: Soft, nontender, liver spleen not palpable, no masses palpable. Right groin hematoma stable PSYCH: Tired, answering questions. EXTREMITIES: Patient's left leg is cooler compared to the right. Bluish discoloration of the distal toe and the plantar surface of the feet MUSCULOSKELETAL: Evidence of significant evidence of RA in the hands INVESTIGATIONS, reviewed in the clinical context:: White count 5.7 hemoglobin 8.3 Previous testing White count 20.7 hemoglobin 11.6 sodium 123 potassium 4.2 bun 19 crit 0.68 Lactic acid 3.0 troponin I 0.[address] [place] lower extremity left leg-occlusion of the left common iliac artery with the right common iliac artery being patent. There is also occlusion of the left external iliac artery. The left and internal iliac artery reconstitutes from collaterals. There is reconstitution at the level of the left common fem oral artery, superficial femoral artery. The left superficial femoral artery demonstrates multifocal disease with severe stenosis distally estimated at greater than 90%. Popliteal artery demonstrates multifocal disease as well as degree of stenosis less than 50%. Mild disease is seen at the tibial peroneal trunk with the posterior tibial artery, peroneal artery and inferior tibial artery being diminutive in size but limited distal filling. Vascular procedure- Postoperative diagnosis: 1. Left lower extremity critical limb ischemia with resolved occlusion of the left common and external iliac artery status post stenting 2. Resolved left popliteal artery and tibioperoneal trunk occlusion status post balloon angioplasty 3. One-vessel (peroneal artery ) runoff to the ankle. 4. Anterior tibial and posterior tibial artery occlusions at the mid tibial region. 5. Right groin hematoma- stable Procedure: - Left lower extremity selective iliofemoral angiogram via existing sheath - Aortoiliac angiogram - Selective left femoral popliteal, tibial peroneal angiogram - Percutaneous transluminal balloon angioplasty of the left common iliac artery with 7 x 80 mm [place] balloon, left popliteal artery with a 4 x 80 mm [place] balloon, left tibioperoneal trunk with 2.5 x 20 mm Trek balloon the left superficial femoral artery with 4 x 80 mm [place] balloon times multiple the left external iliac artery with 4 x 80 mm [place] balloon., Infusion of thrombolytic therapy utilizing 4 mg of TPA of the left femoral popliteal and tibioperoneal arterial system. Percutaneous transluminal balloon expandable stent placement across the common iliac artery on the left utilizing a 7 x 39 mm Omnilink stent. Placement of 6-Chinese Angio-Seal in the right common femoral artery. Assessment: -Acute on chronic occlusive disease arterial of the left lower extremity. With multiple angioplasties and local thrombolytic therapy. -Right groin acute hematoma, stable -Acute postop blood loss anemia, as expected from surgery. Status post 2 units of blood -Positive troponin, with no cardiac symptoms,. Likely from hemodynamic mismatch -Lactic acidosis type II -Essential hypertension, -Hyperlipidemia -Coronary artery disease with stent Plan: Patient does monitor was IV heparin. Plan is for us to get discontinued and patient will be started Xarelto this evening.. Other medications to continue. Follow with vascular.
[2018-12-21 05:45] LABS: African American GFR (CKD) >90 (>60 ml/min/1.73 sqM); Anion Gap 8 mmol/L; Blood Urea Nitrogen 10 mg/dL (7-17); Calcium 8.2 mg/dL (8.4-10.2); Carbon Dioxide 22 mmol/L (22-30); Chloride 104 mmol/L (98-107); Glucose 115 mg/dL (74-99); Potassium 3.2 mmol/L (3.5-5.1); Sodium 134 mmol/L (137-145)
[2018-12-21] MEDS: IPRATROPIUM-ALBUTEROL 3 ML NEB INHALATION SCH (05:52)
[2018-12-21] MEDS ORDERED: Potassium Replacement Protocol 1 EACH MISC MISCELLANE PRN (05:57)
[2018-12-21] MEDS: POTASSIUM CHLORIDE ER 20 MEQ TAB.ER PO SCH ×4 (06:03→16:33)
[2018-12-21 06:26] LABS: HCT 26.1 % (34.0-46.0); HGB 8.8 gm/dL (11.4-16.0); MCH 30.3 pg (25.0-35.0); MCHC 33.7 g/dL (31.0-37.0); MCV 90.1 fL (80.0-100.0); Platelet Count 243 k/uL (150-450); RBC 2.89 m/uL (3.80-5.40)
[2018-12-21] MEDS: RIVAROXABAN 15 MG TAB PO SCH ×2 (07:05→18:20)
[2018-12-21 07:12] LABS: Band Neutrophils % 6 %; Lymphocytes # (M) 1.96 k/uL (1.0-4.8); Metamyelocytes # (M) 0.65 k/uL (0); Metamyelocytes % 2 %; Monocytes # (M) 0.98 k/uL (0-1.0); Neutrophils % (M) 84 %; Nucleated Red Blood Cells 1 /100 WBC (0-0); Total Cells Counted 200; WBC 32.7 k/uL (3.8-10.6)
[2018-12-21 07:13] LABS: Anisocytosis (M) Present; Large Platelets Present; Polychromasia Present
[2018-12-21 07:15] LABS: Poikilocytosis (M) Present
--- NOTE | 2018-12-21 08:33 | IR ---
Fluoroscopy HISTORY: Pain 19.6 minutes fluoroscopy time supplied to the referring clinician. 4306 intraoperative C-arm images document the procedure. See dictated report from vascular surgery.
--- NOTE | 2018-12-21 09:02 | P.PN ---
Subjective Progress Note Date: 12/21/18 On today's evaluation of 12/20/2018 I'm seeing this patient for a follow-up. This patient has history of coronary artery disease with previous coronary stenting, hypertension, hyperlipidemia, peripheral vascular disease, and the patient came in with an ischemic left foot and the patient was found to have an acute occlusion of the left common iliac. The patient is status post percutaneous anesthetization of the left lower extremity. The patient has digital ischemic the left foot with secondary neuropathy. Note that the patient received intra-arterial thrombolytics and the patient developed a right femoral hematoma the site of the catheter insertion without evidence of any any pseudoaneurysm. Hemoglobin has been stable. The perfusion to the left lower extremity is improved and the patient has no pain at this point in time in the left lower extremity. She does have some ongoing numbness and tingling in the toes and distal segment of the forefoot. The patient remains on IV heparin. Th e patient has some edema in all 4 extremities. Ischemic changes in the left fifth digits on the foot has been noted. No evidence of any compartmental syndrome at this point in time. She is awake and alert and she is following commands and answering questions. She remains on IV heparin. She is tolerating her diet. No nausea. No vomiting. No abdominal pain. No other complaints otherwise for now. As mentioned, hemoglobin is stable. Hematoma in the right femoral area remains stable and probably somewhat improved. On today's evaluation of 12/21/2018, the patient is awake and alert. She still having some ischemic changes in her left lower extremity mainly in the toes and the dorsal aspect of her foot. She does have some numbness and tingling and diminished sensation. Doppler signals are present in the femoral, popliteal and dorsalis pedis area and the left lower extremity. The patient was taken off IV heparin and she was placed on a combination of aspirin, Plavix and she is also on Xarelto. Hemoglobin is stable and is still above 8. White cell count is up to 32. No fever or chills. Right femoral area hematoma is currently soft and has not changed since yesterday. She is tolerating her diet. She is hemodynamically stable. No fever. No tachycardia. The daughter was updated on her condition Objective - Vital Signs Vital signs: Vital Signs Temp 97.8 F 12/21/18 08:00 Pulse 86 12/21/18 08:00 Resp 14 12/21/18 08:00 BP 108/48 12/21/18 08:00 Pulse Ox 94 L 12/21/18 08:00 Intake & Output 12/20/18 12/21/18 12/21/18 18:59 06:59 18:59 Intake Total 437.037 0 Output Total 600 100 150 Balance -162.963 -100 -150 Weight 56.9 kg Intake: IV 185 0 0.9% Sodium Chloride 185 0 Intake, IV Titration 52.037 Amount Heparin Sod,Pork in 0.45% 52.037 NaCl 25,000 unit In 0.45 % NaCl 1 250ml.bag @ 18 UNITS/KG/HR 8.46 mls/hr IV .Q24H [facility] Rx#: [id number] Oral 200 Output: Urine 600 100 150 Other: Voiding Method Bedpan Bedpan # Voids 0 # Bowel Movements 1 - Exam GENERAL EXAM: Alert, pleasant, 70-year-old white female, with a room air pulse ox of 98%, comfortable in no apparent distress. HEAD: Normocephalic/atraumatic. EYES: Normal reaction of pupils, equal size. Conjunctiva pink, sclera white. NOSE: Clear with pink turbinates. THROAT: No erythema or exudates. NECK: No masses, no JVD, no thyroid enlargement, no adenopathy. CHEST: No chest wall deformity. Symmetrical expansion. LUNGS: Equal air entry with no crackles, wheeze, rhonchi or dullness. CVS: Regular rate and rhythm, normal S1 and S2, no gallops, no murmurs, no rubs ABDOMEN: Soft, nontender. No hepatosplenomegaly, normal bowel sounds, no guarding or rigidity. EXTREMITIES: There is edema in all 4 extremities. The patient has changes related to rheumatoid arthritis and deformities specially in her hands bilaterally. Pulses in the lower extremities are palpable. The patient has femoral and popliteal pulses on the left. There are some ischemic changes in the toes in the left foot post revascularization. Told to remain relatively insensate on the left. As for the right side, the right femoral puncture site hematoma is stable and probably somewhat improved. Adequate pulses. There is a stable ecchymosis in that area. MUSCULOSKELETAL: Muscle strength and tone normal. SPINE: No scoliosis or deformity SKIN: No rashes, stable ecchymosis in the right femoral area and chronic ischemic changes in the left foot toes. Overall examination is unchanged compared to yesterday. His Doppler signal in the left lower extremity and the foot area involving the CENTRAL NERVOUS SYSTEM: Alert and oriented -3. No focal deficits, tone is normal in all 4 extremities. PSYCHIATRIC: Alert and oriented -3. Appropriate affect. Intact judgment and insight. - Labs CBC & Chem 7: 12/21/18 04:51 12/21/18 04:51 Labs: Abnormal Lab Results - Last 24 Hours (Table) 12/20/18 12/21/18 12/21/18 Range/Units 10:52 04:51 04:51 WBC 32.7 H (3.8-10.6) k/uL RBC 2.89 L (3.80-5.40) m/uL Hgb 8.8 L (11.4-16.0) gm/dL Hct 26.1 L (34.0-46.0) % Neutrophils # (Manual) 29.40 H (1.3-7.7) k/uL Metamyelocytes # (Man) 0.65 H (0) k/uL Nucleated RBCs 1 H (0-0) /100 WBC APTT 48.7 H (22.0-30.0) sec Sodium 134 L (137-145) mmol/L Potassium 3.2 L (3.5-5.1) mmol/L Creatinine 0.42 L (0.52-1.04) mg/dL Glucose 115 H (74-99) mg/dL Calcium 8.2 L (8.4-10.2) mg/dL Assessment and Plan Plan: 1 status post percutaneous revascularization of the left lower extremity. The patient has adequate pulses in the left neck and there are some ischemic changes and left toe involving the skin. The patient also has some sensitivity changes/neuropathy related to digital ischemia in the left foot. Otherwise, the patient has adequate revascularization left foot. There is evaluation, the left lower extremity and the foot area and the toes are unchanged compared to yesterday. She is having Doppler signals in the femoral, popliteal and foot area including the dorsalis pedis. 2 right femoral hematoma, stable, improved unchanged compared to yesterday 3 acute anemia, related to blood loss and the patient's hemoglobin stable at 8.8 . The patient is post transfusion with a total of 2 units of packed RBC during this current hospitalization 4 hyponatremia, improved 5 hypertension 6 hyperlipidemia 7 coronary disease previous coronary stenting 8 history of smoking and the patient carries [id number] smoking history and she continues to smoke around 15 cigarettes a daily basis 9 lactic acidosis, improved 10 rheumatoid arthritis with secondary deformities in the upper extremities Plan Additional stable. Hemoglobin is stable. White cell count is higher, probably reactive. The right femoral hematoma is stable. Doppler signals are obtained and left lower extremity. No open wounds or sores. Some ischemic changes and neuropathic changes and skin changes related to ischemia and the left foot distally and the toes. No open wounds or sores. Hemodynamically stable. We'll continue to follow. After surgery is on the case.
[2018-12-21] MEDS: NICOTINE 21MG/24HR PATCH TRANSDERM SCH (10:41)
[2018-12-21] MEDS: DOCUSATE 100 MG CAP PO SCH (10:42)
[2018-12-21] MEDS: ASPIRIN 81 MG PO SCH (10:42)
[2018-12-21] MEDS: GABAPENTIN 300 MG CAP PO SCH ×3 (10:42→20:58)
[2018-12-21] MEDS: LISINOPRIL-HCTZ 10-12.5 MG 1 EACH TAB PO SCH ×2 (10:42→21:35)
[2018-12-21] MEDS: CLOPIDOGREL 75 MG TAB PO SCH (10:43)
[2018-12-21] MEDS: METOPROLOL TARTRATE 25 MG TAB PO SCH ×3 (10:43→20:58)
[2018-12-21] MEDS: NITROGLYCERIN 0.4MG/HR PATCH TRANSDERM SCH (10:43)
--- NOTE | 2018-12-21 10:47 | ECHOF ---
Referral Reason:new onset afib MEASUREMENTS -------- HEIGHT: 152.4 cm WEIGHT: 57.0 kg BP: 107/83 IVSd: 1.0 cm (0.6 - 1.1) LVIDd: 5.1 cm (3.9 - 5.3) LVPWd: 1.2 cm (0.6 - 1.1) IVSs: 1.7 cm LVIDs: 3.8 cm LVPWs: 1.6 cm FINDINGS -------- Atrial fibrillation with RVR. This was a technically adequate study. Limited Study The left ventricular size is normal. There is borderline concentric left ventricular hypertrophy. Overall left ventricular systolic function is mildly impaired with, an EF between 45 - 50 %. CONCLUSIONS -------- 1. Atrial fibrillation with RVR. 2. This was a technically adequate study. 3. Limited Study 4. The left ventricular size is normal. 5. There is borderline concentric left ventricular hypertrophy. 6. Overall left ventricular systolic function is mildly impaired with, an EF between 45 - 50 %. [employer]: [place] [facility]
[2018-12-21] MEDS: SPIRONOLACTONE 25 MG TAB PO SCH (11:40)
--- NOTE | 2018-12-21 16:12 | CONS ---
CONSULTATION CHIEF COMPLAINT: Atrial fibrillation. This is a 78-year-old gentleman lady who has been in the hospital for a long time with peripheral vascular disease, hematoma and surgical intervention. Cardiology had been consulted for new-onset atrial fibrillation. The patient is already on multiple anticoagulants, including Xarelto, aspirin, Plavix. She developed an episode of atrial fibrillation. Denies chest pain or difficulty in breathing. Her history significant for hypertension, dyslipidemia, CAD, status post angioplasty, and current smoking. At the time of my evaluation she does not have any chest pain or difficulty in breathing. Patient initially underwent CT of the abdominal aorta that showed thoracoabdominal aortic aneurysm, occlusion of the left common iliac artery and left external iliac artery. She underwent tPA infusion and subsequently had a hematoma. She underwent intervention for the same. We have been consulted because of an episode of atrial fibrillation. At the time of my evaluation she is in atrial fibrillation with controlled ventricular rate. PAST MEDICAL HISTORY: Past medical history is significant for: 1. COPD. 2. Hypertension. 3. CAD, status post angioplasty. 4. Peripheral vascular disease. CURRENT MEDICATIONS: Current medications include: 1. Albuterol. 2. Aldactone. 3. Lopressor 25 b.i.d. 4. Zestoretic. 5. Ativan. 6. Benadryl. 7. Plavix. 8. Biotin. 9. Lipitor. 10.Aspirin. ALLERGIES: There are NO KNOWN DRUG ALLERGIES. FAMILY HISTORY: Negative for premature coronary artery disease. SOCIAL HISTORY: Significant for smoking. There is no history of EtOH abuse or drug abuse. REVIEW OF SYSTEMS: HEENT is unremarkable. CARDIAC: As described above. RESPIRATORY: As described above. GI: Negative. GENITOURINARY: Negative. ALLERGY: Negative. IMMUNOLOGY: Negative. SKIN: Negative. MUSCULOSKELETAL: Significant for arthritis. PSYCHOSOCIAL: Negative. ENDOCRINE: Negative. DERMATOLOGY: Negative. CONSTITUTIONAL: Negative. ONCOLOGICAL: Negative. Rest of the system review is not relevant. PHYSICAL EXAMINATION: Comfortable at rest. Vital signs are stable. Chest exam reveals good air entry bilaterally. Heart exam reveals first and second heart sounds, irregular rhythm, and a systolic murmur at the left lower sternal border. Abdomen is soft. Examination of extremities reveals diminished but palpable pulses. LABS: Labs show a hemoglobin of 8.8. Potassium is 3.3. Creatinine is 0.4. ASSESSMENT: 1. Persistent atrial fibrillation. 2. Peripheral vascular disease, status post surgical intervention. 3. Coronary artery disease, status post angioplasty. 4. History of groin hematoma. PLAN: Patient will continue with current medications. An echocardiogram shows mild LV dysfunction. I will adjust her therapies as patient tolerates. BAKARI / KASIA: [id number] /
--- NOTE | 2018-12-21 20:55 | P.PN ---
Progress Note - Text Progress Note Date: 12/21/18 Chief Complaint: Left leg cold Interval history: This is a pleasant 78-year-old patient of Dr. Mcdaniels. Chronic stable medical conditions include hypertension, hyperlipidemia, coronary artery disease with stent. Patient was here in the hospital on December 07 2 diagnosis of TIA. Patient then had a CT angiogram of the head and neck that was negative. 2-D echocardiogram was unremarkable. Was felt of a diagnosis of TIA. Patient only this morning noticed some numbness in the left foot. She often does notice that. Numbness then slowly progressed to go more proximally up it came up to the hip and also the lower part of the abdomen. The leg also felt cold. The foot was painful. Patient also has a corn/callus that does bother her. There is no fever no chills. Patient presented to the ER. Restless surgery Dr. Alvarado was called. CT angiogram demonstrated acute vascular findings. Dr. Alvarado requested the patient be admitted to the medical service he does speak to Dr. Krueger from the vascular team. Patient was put on IV heparin. And admitted to the medical floor. Following morning left lower extremity was becoming more cold and mottled. Patient was moved to the ICU. Patient was seen by Dr. Pace from vascular. Taken down to the operating room. Intravascular thrombolysis ago started with TPA. Next day on December 18-patient's left leg became mottled and patient is taking normal to ordered. Per Dr. Rondon. Several angioplasties were carried out in the left lower extremity and local thrombolytic was given. Patient has received 2 units of blood. Today-in the ICU. Xarelto was started last night. Some pain in the left foot. Eating small amounts. Breathing stable. Some discoloration of the left toes at baseline.. Review of systems: Was done for constitutional, cardiovascular, GI, pulmonary. Musculoskeletal relevant finding as above Active Medications Acetaminophen (Tylenol Tab) 650 mg PO Q6HR PRN PRN Reason: Mild Pain or Fever > 100.5 Hydrocodone Bitart/Acetaminophen ([place] 5-325) 1 each PO Q4HR PRN PRN Reason: Moderate Pain Last Admin: 12/20/18 12:49 Dose: 1 each Documented by: Albuterol Sulfate (Ventolin Nebulized) 2.5 mg INHALATION RT-Q6H PRN PRN Reason: Shortness Of Breath Albuterol/Ipratropium (Duoneb 0.5 Mg-3 Mg/3 Ml Soln) 3 ml INHALATION RT-DAILY [facility] Last Admin: 12/21/18 05:52 Dose: 3 ml Documented by: Aspirin (Aspirin) 81 mg PO DAILY [facility] Last Admin: 12/21/18 10:42 Dose: 81 mg Documented by: Atorvastatin Calcium (Lipitor) 80 mg PO HS [facility] Last Admin: 12/20/18 20:32 Dose: 80 mg Documented by: Clopidogrel Bisulfate (Plavix) 75 mg PO DAILY [facility] Last Admin: 12/21/18 10:43 Dose: 75 mg Documented by: Diphenhydramine HCl (Benadryl) 25 mg PO HS PRN PRN Reason: Nasal Congestion Docusate Sodium (Colace) 100 mg PO DAILY [facility] Last Admin: 12/21/18 10:42 Dose: 100 mg Documented by: Gabapentin (Neurontin) 300 mg PO TID [facility] Last Admin: 12/21/18 16:34 Dose: 300 mg Documented by: Lisinopril/HCTZ (Zestoretic 10-12.5) 1 each PO BID [facility] Last Admin: 12/21/18 10:42 Dose: 1 each Documented by: Ibuprofen (Motrin) 400 mg PO Q6HR PRN PRN Reason: Mild Pain or Fever > 100.5 Lorazepam (Ativan) 0.5 mg PO Q8H PRN PRN Reason: Anxiety Metoprolol Tartrate (Lopressor) 25 mg PO TID [facility] Last Admin: 12/21/18 16:42 Dose: 25 mg Documented by: Miscellaneous Information (Potassium Per Protocol) 1 each MISCELLANE DAILY PRN; Protocol PRN Reason: Per Protocol Morphine Sulfate (Morphine Sulfate (Inj)) 4 mg IV Q4HR PRN PRN Reason: Severe Pain Last Admin: 12/17/18 08:49 Dose: 4 mg Documented by: Morphine Sulfate (Morphine Sulfate (Inj)) 2 mg IVP Q1H PRN PRN Reason: Pain/Discomfort Last Admin: 12/19/18 16:44 Dose: 2 mg Documented by: Naloxone HCl (Narcan) 0.2 mg IV Q2M PRN PRN Reason: Opioid Reversal Nicotine (Habitrol 21mg/24hr Patch) 1 patch TRANSDERM DAILY [facility] Last Admin: 12/21/18 10:41 Dose: 1 patch Documented by: Nitroglycerin (Nitrostat) 0.4 mg SUBLINGUAL Q5M PRN PRN Reason: Chest Pain Nitroglycerin (Nitro-Dur 0.4mg/Hr Patch) 1 patch TRANSDERM DAILY [facility] Last Admin: 12/21/18 10:43 Dose: 1 patch Documented by: Rivaroxaban (Xarelto) 15 mg PO BID-W/MEALS [facility] Last Admin: 12/21/18 18:20 Dose: 15 mg Documented by: Spironolactone (Aldactone) 25 mg PO DAILY [facility] Last Admin: 12/21/18 11:40 Dose: 25 mg Documented by: Physical examination: VITAL SIGNS: 98.2, 18, 14, 106/53, 96% room air GENERAL: Laying in bed, awake EYES: Pupils equal. Conjunctiva normal. HEENT: External appearance of nose and ears normal, oral cavity grossly normal. NECK: JVD not raised; masses not palpable. HEART: First and second heart sounds are normal; no edema. LUNGS: Respiratory rate normal; clear to auscultation. ABDOMEN: Soft, nontender, liver spleen not palpable, no masses palpable. Right groin hematoma stable PSYCH: Tired, answering questions. EXTREMITIES: Bluish discoloration of the distal toes and the plantar surface of the feet MUSCULOSKELETAL: Evidence of significant evidence of RA in the hands INVESTIGATIONS, reviewed in the clinical context:: White count 22.7 hemoglobin 8.8 potassium 3.2 creatinine 0.4 to Previous testing White count 20.7 hemoglobin 11.6 sodium 123 potassium 4.2 bun 19 crit 0.68 Lactic acid 3.0 troponin I 0.[address] [place] lower extremity left leg-occlusion of the left common iliac artery with the right common iliac artery being patent. There is also occlusion of the left external iliac artery. The left and internal iliac artery reconstitutes from collaterals. There is reconstitution at the level of the left common femoral artery, superficial femoral artery. The left superficial femoral artery demonstrates multifocal disease with severe stenosis distally estimated at greater than 90%. Popliteal artery demonstrates multifocal disease as well as degree of stenosis less than 50%. Mild disease is seen at the tibial peroneal trunk with the posterior tibial artery, peroneal artery and inferior tibial artery being diminutive in size but limited distal filling. Vascular procedure- Postoperative diagnosis: 1. Left lower extremity critical limb ischemia with resolved occlusion of the left common and external iliac artery status post stenting 2. Resolved left popliteal artery and tibioperoneal trunk occlusion status post balloon angioplasty 3. One-vessel (peroneal artery ) runoff to the ankle. 4. Anterior tibial and posterior tibial artery occlusions at the mid tibial region. 5. Right groin hematoma- stable Procedure: - Left lower extremity selective iliofemoral angiogram via existing sheath - Aortoiliac angiogram - Selective left femoral popliteal, tibial peroneal angiogram - Percutaneous transluminal balloon angioplasty of the left common iliac artery with 7 x 80 mm Poyen balloon, left popliteal artery with a 4 x 80 mm Poyen balloon, left tibioperoneal trunk with 2.5 x 20 mm Trek balloon the left superficial femoral artery with 4 x 80 mm Poyen balloon times multiple the left external iliac artery with 4 x 80 mm Poyen balloon., Infusion of thrombolytic therapy utilizing 4 mg of TPA of the left femoral popliteal and tibioperoneal arterial system. Percutaneous transluminal balloon expandable stent placement across the common iliac artery on the left utilizing a 7 x 39 mm Omnilink stent. Placement of 6-[place] Angio-Seal in the right common femoral artery. Assessment: -Acute on chronic occlusive disease arterial of the left lower extremity. With multiple angioplasties and local thrombolytic therapy. -Right groin acute hematoma, stable -Acute postop blood loss anemia, as expected from surgery. Status post 2 units of blood -Positive troponin, with no cardiac symptoms,. Likely from hemodynamic mismatch -Lactic acidosis type II -Essential hypertension, -Hyperlipidemia -Coronary artery disease with stent -Persistent leukocytosis, wondering if this is due to inflammation 3 response to the acute on chronic thrombosis. No obvious source of infection. Plan: Patient started on Xarelto yesterday evening. We'll get ID opinion. Did discuss with Dr. Rondon daily. Patient should be room to go to the F.
[2018-12-21] MEDS: ATORVASTATIN 80 MG TAB PO SCH (20:58)
--- NOTE | 2018-12-22 04:21 | P.PN ---
Subjective Progress Note Date: 12/21/18 Principal diagnosis: left lower extremity arterial occlusion Patient seen and examined. Doing well. States having more feeling in left foot. Pain is better controlled today. Still having some numbness but more movement in foot and toes noted. Denies any fevers, chills, nausea or vomiting. Objective - Vital Signs Vital signs: Vital Signs Temp 98 F 12/22/18 00:00 Pulse 80 12/22/18 03:00 Resp 11 L 12/22/18 03:00 BP 116/53 12/22/18 03:00 Pulse Ox 94 L 12/22/18 03:00 Intake & Output 12/21/18 12/21/18 12/22/18 06:59 18:59 06:59 Intake Total 0 0 Output Total 100 150 250 Balance -100 -150 -250 Weight 56.9 kg Intake: IV 0 0 0.9% Sodium Chloride 0 0 Output: Urine 100 150 250 Other: Voiding Method Bedpan Bedpan Bedpan # Voids 0 1 # Bowel Movements 1 1 1 - Exam palpable femoral pulses bilaterally. right groin echymosis noted with stable large hematoma multiphasic dp signal left lower extremity. Ischemic changes stable at left toes. Calf is soft without evidence of compartment syndrome. palpable dp pulse right lower extremity - Labs CBC & Chem 7: 12/21/18 04:51 12/21/18 11:11 Labs: Abnormal Lab Results - Last 24 Hours (Table) 12/21/18 12/21/18 12/21/18 Range/Units 04:51 04:51 11:11 WBC 32.7 H (3.8-10.6) k/uL RBC 2.89 L (3.80-5.40) m/uL Hgb 8.8 L (11.4-16.0) gm/dL Hct 26.1 L (34.0-46.0) % Neutrophils # (Manual) 29.40 H (1.3-7.7) k/uL Metamyelocytes # (Man) 0.65 H (0) k/uL Nucleated RBCs 1 H (0-0) /100 WBC Sodium 134 L (137-145) mmol/L Potassium 3.2 L 3.3 L (3.5-5.1) mmol/L Creatinine 0.42 L (0.52-1.04) mg/dL Glucose 115 H (74-99) mg/dL Calcium 8.2 L (8.4-10.2) mg/dL Assessment and Plan Assessment: 1. Left lower extremity acute on chronic occlusive disease s/p percutaneous thrombolysis with revascularization 2. S/P left iliac artery stenting 3. Leukocytosis without any infectious source 4. Right groin hematoma- stable 5. Lactic acidosis Plan: Continue oral anticoagulation increase activity- ok to ambulate with assistance we will continue to monitor left foot and toes and wait for demarcation. No further surgical intervention anticipated at this time
[2018-12-22 06:14] LABS: HCT 24.8 % (34.0-46.0); HGB 8.8 gm/dL (11.4-16.0); MCH 30.9 pg (25.0-35.0); MCHC 35.3 g/dL (31.0-37.0); MCV 87.7 fL (80.0-100.0); Platelet Count 242 k/uL (150-450); Poikilocytosis Slight; RBC 2.83 m/uL (3.80-5.40); RDW 15.1 % (11.5-15.5); WBC 36.7 k/uL (3.8-10.6)
[2018-12-22 06:32] LABS: African American GFR (CKD) >90 (>60 ml/min/1.73 sqM); Anion Gap 6 mmol/L; Blood Urea Nitrogen 9 mg/dL (7-17); Calcium 8.3 mg/dL (8.4-10.2); Carbon Dioxide 25 mmol/L (22-30); Chloride 103 mmol/L (98-107); Glucose 128 mg/dL (74-99); Sodium 134 mmol/L (137-145)
[2018-12-22] MEDS: RIVAROXABAN 15 MG TAB PO SCH ×2 (07:30→17:34)
[2018-12-22] MEDS: IPRATROPIUM-ALBUTEROL 3 ML NEB INHALATION SCH (07:59)
[2018-12-22] MEDS: METOPROLOL TARTRATE 25 MG TAB PO SCH ×2 (08:28→15:32)
[2018-12-22] MEDS: LISINOPRIL-HCTZ 10-12.5 MG 1 EACH TAB PO SCH ×2 (08:28→20:20)
[2018-12-22] MEDS: DOCUSATE 100 MG CAP PO SCH (08:29)
[2018-12-22] MEDS: NITROGLYCERIN 0.4MG/HR PATCH TRANSDERM SCH (08:29)
[2018-12-22] MEDS: SPIRONOLACTONE 25 MG TAB PO SCH (08:29)
[2018-12-22] MEDS: GABAPENTIN 300 MG CAP PO SCH ×3 (08:29→20:20)
[2018-12-22] MEDS: CLOPIDOGREL 75 MG TAB PO SCH (08:30)
[2018-12-22] MEDS: ASPIRIN 81 MG PO SCH (08:30)
[2018-12-22] MEDS: NICOTINE 21MG/24HR PATCH TRANSDERM SCH (08:31)
[2018-12-22 12:02] LABS: ALT 68 U/L (9-52); AST 129 U/L (14-36); Alkaline Phosphatase 156 U/L (38-126)
--- NOTE | 2018-12-22 13:47 | PN ---
PROGRESS NOTE Betty is feeling better today. Continues to have intermittent episodes of atrial fibrillation; when I am evaluating her she is in sinus rhythm. She is on aspirin, Lipitor, Plavix and Lopressor 25 mg t.i.d. I was thinking of starting her on amiodarone. However, her liver enzymes are elevated, hence we will hold off on it for now. On exam, heart rate is 80 beats per minute. Blood pressure is 108/52. Respiratory rate is 18. Chest exam reveals diminished air entry at the bases. Heart exam reveals first and second heart sounds, irregular rhythm. Examination of extremities reveal 1+ edema. Peripheral pulses are felt. ASSESSMENT: Paroxysmal atrial fibrillation. PLAN: We will continue with current medications. MMODL / IJN: [id number] /
--- NOTE | 2018-12-22 16:22 | P.PN ---
Subjective Progress Note Date: 12/22/18 On today's evaluation of 12/20/2018 I'm seeing this patient for a follow-up. This patient has history of coronary artery disease with previous coronary stenting, hypertension, hyperlipidemia, peripheral vascular disease, and the patient came in with an ischemic left foot and the patient was found to have an acute occlusion of the left common iliac. The patient is status post percutaneous anesthetization of the left lower extremity. The patient has digital ischemic the left foot with secondary neuropathy. Note that the patient received intra-arterial thrombolytics and the patient developed a right femoral hematoma the site of the catheter insertion without evidence of any any pseudoaneurysm. Hemoglobin has been stable. The perfusion to the left lower extremity is improved and the patient has no pain at this point in time in the left lower extremity. She does have some ongoing numbness and tingling in the toes and distal segment of the forefoot. The patient remains on IV heparin. Th e patient has some edema in all 4 extremities. Ischemic changes in the left fifth digits on the foot has been noted. No evidence of any compartmental syndrome at this point in time. She is awake and alert and she is following commands and answering questions. She remains on IV heparin. She is tolerating her diet. No nausea. No vomiting. No abdominal pain. No other complaints otherwise for now. As mentioned, hemoglobin is stable. Hematoma in the right femoral area remains stable and probably somewhat improved. On today's evaluation of 12/21/2018, the patient is awake and alert. She still having some ischemic changes in her left lower extremity mainly in the toes and the dorsal aspect of her foot. She does have some numbness and tingling and diminished sensation. Doppler signals are present in the femoral, popliteal and dorsalis pedis area and the left lower extremity. The patient was taken off IV heparin and she was placed on a combination of aspirin, Plavix and she is also on Xarelto. Hemoglobin is stable and is still above 8. White cell count is up to 32. No fever or chills. Right femoral area hematoma is currently soft and has not changed since yesterday. She is tolerating her diet. She is hemodynamically stable. No fever. No tachycardia. The daughter was updated on her condition. On today's evaluation of 12/22/2018, the patient is doing essentially the same as yesterday. One concern is the rise in the white cell count. Nevertheless there is no signs of any infection. Hemoglobin stable. Right femoral area hematoma stable. There is palpable pulses in the left lower extremity. No open wounds or scars or lesions at this point in time. She is tolerating her diet no nausea. No vomiting. No emesis. No fever. No chills no chest pain. No shortness of breath. She is resting comfortably in bed. She is on Xarelto as long-term medical condition dose of 50 mg by mouth daily. Blood pressures under good control. Objective - Vital Signs Vital signs: Vital Signs Temp 98 F 12/22/18 12:00 Pulse 89 12/22/18 14:00 Resp 19 12/22/18 14:00 BP 106/48 12/22/18 14:00 Pulse Ox 96 12/22/18 14:00 Intake & Output 12/21/18 12/22/18 12/22/18 18:59 06:59 18:59 Intake Total 0 446 Output Total 150 450 200 Balance -150 -450 246 Weight 58.4 kg 58.4 kg Intake: IV 0 0 0.9% Sodium Chloride 0 0 Oral 446 Output: Urine 150 450 200 Other: Voiding Method Bedpan Bedpan Bedpan # Voids 0 1 1 # Bowel Movements 1 1 1 - Exam GENERAL EXAM: Alert, pleasant, 70-year-old white female, with a room air pulse ox of 98%, comfortable in no apparent distress. HEAD: Normocephalic/atraumatic. EYES: Normal reaction of pupils, equal size. Conjunctiva pink, sclera white. NOSE: Clear with pink turbinates. THROAT: No erythema or exudates. NECK: No masses, no JVD, no thyroid enlargement, no adenopathy. CHEST: No chest wall deformity. Symmetrical expansion. LUNGS: Equal air entry with no crackles, wheeze, rhonchi or dullness. CVS: Regular rate and rhythm, normal S1 and S2, no gallops, no murmurs, no rubs ABDOMEN: Soft, nontender. No hepatosplenomegaly, normal bowel sounds, no guarding or rigidity. EXTREMITIES: There is edema in all 4 extremities. The patient has changes related to rheumatoid arthritis and deformities specially in her hands bilaterally. Pulses in the lower extremities are palpable. The patient has femoral and popliteal pulses on the left. There are some ischemic changes in the toes in the left foot post revascularization. Diminished sensory function in the left foot specially in the toe area.. As for the right side, the right femoral puncture site hematoma is stable and probably somewhat improved. Adequate pulses. There is a stable ecchymosis in that area. There are palpable pulses in the left lower extremity today without Dopplers. MUSCULOSKELETAL: Muscle strength and tone normal. SPINE: No scoliosis or deformity SKIN: No rashes, stable ecchymosis in the right femoral area and chronic ischemic changes in the left foot toes. Overall examination is unchanged compared to yesterday. His Doppler signal in the left lower extremity and the foot area involving the CENTRAL NERVOUS SYSTEM: Alert and oriented -3. No focal deficits, tone is normal in all 4 extremities. PSYCHIATRIC: Alert and oriented -3. Appropriate affect. Intact judgment and insight. - Labs CBC & Chem 7: 12/22/18 05:48 12/22/18 05:48 Labs: Abnormal Lab Results - Last 24 Hours (Table) 12/22/18 12/22/18 12/22/18 Range/Units 05:48 05:48 05:48 WBC 36.7 H (3.8-10.6) k/uL RBC 2.83 L (3.80-5.40) m/uL Hgb 8.8 L (11.4-16.0) gm/dL Hct 24.8 L (34.0-46.0) % Sodium 134 L (137-145) mmol/L Creatinine 0.40 L (0.52-1.04) mg/dL Glucose 128 H (74-99) mg/dL Calcium 8.3 L (8.4-10.2) mg/dL AST (14-36) U/L ALT (9-52) U/L Alkaline Phosphatase (38-126) U/L Procalcitonin 0.10 H (0.02-0.09) ng/mL 12/22/18 Range/Units 05:48 WBC (3.8-10.6) k/uL RBC (3.80-5.40) m/uL Hgb (11.4-16.0) gm/dL Hct (34.0-46.0) % Sodium (137-145) mmol/L Creatinine (0.52-1.04) mg/dL Glucose (74-99) mg/dL Calcium (8.4-10.2) mg/dL AST 129 H (14-36) U/L ALT 68 H (9-52) U/L Alkaline Phosphatase 156 H (38-126) U/L Procalcitonin (0.02-0.09) ng/mL Assessment and Plan Plan: 1 status post percutaneous revascularization of the left lower extremity. The patient has adequate pulses in the left neck and there are some ischemic changes and left toe involving the skin. The patient also has some sensitivity changes/neuropathy related to digital ischemia in the left foot. Otherwise, the patient has adequate revascularization left foot. There is evaluation, the left lower extremity and the foot area and the toes are unchanged compared to yesterday. Nevertheless, today's evaluation and there are palpable pulses. 2 right femoral hematoma, stable, improved unchanged compared to yesterday 3 acute anemia, related to blood loss and the patient's hemoglobin stable at 8.8 . The patient is post transfusion with a total of 2 units of packed RBC during this current hospitalization 4 hyponatremia, improved 5 hypertension 6 hyperlipidemia 7 coronary disease previous coronary stenting 8 history of smoking and the patient carries [id number] smoking history and she continues to smoke around 15 cigarettes a daily basis 9 lactic acidosis, improved 10 rheumatoid arthritis with secondary deformities in the upper extremities 11 leukocytosis, likely reactive. Infection is doubtful at this point in time. Plan Condition is stable. Continue anticoagulation. Continue monitoring the white cell count. Doubt any septic event. We'll continue to follow. Increase level of activity as tolerated. We'll continue to monitor the left foot and toes and see if there is any evolution of any limitation. Vascular surgery on the case.
--- NOTE | 2018-12-22 17:18 | P.PN ---
Subjective Progress Note Date: 12/22/18 Principal diagnosis: left lower extremity arterial occlusion Patient seen and examined. Doing well, got to chair yesterday without issue. denies any fevers, chills, nausea, vomiting, chest pain or sob. Objective - Vital Signs Vital signs: Vital Signs Temp 98 F 12/22/18 12:00 Pulse 89 12/22/18 14:00 Resp 19 12/22/18 14:00 BP 106/48 12/22/18 14:00 Pulse Ox 96 12/22/18 14:00 Intake & Output 12/21/18 12/22/18 12/22/18 18:59 06:59 18:59 Intake Total 0 446 Output Total 150 450 200 Balance -150 -450 246 Weight 58.4 kg 58.4 kg Intake: IV 0 0 0.9% Sodium Chloride 0 0 Oral 446 Output: Urine 150 450 200 Other: Voiding Method Bedpan Bedpan Bedpan # Voids 0 1 1 # Bowel Movements 1 1 1 - Exam palpable femoral pulses bilaterally. right groin echymosis noted with stable large hematoma multiphasic dp signal left lower extremity. Ischemic changes stable at left toes. Calf is soft without evidence of compartment syndrome. palpable dp pulse right lower extremity - Labs CBC & Chem 7: 12/22/18 05:48 12/22/18 05:48 Labs: Abnormal Lab Results - Last 24 Hours (Table) 12/22/18 12/22/18 12/22/18 Range/Units 05:48 05:48 05:48 WBC 36.7 H (3.8-10.6) k/uL RBC 2.83 L (3.80-5.40) m/uL Hgb 8.8 L (11.4-16.0) gm/dL Hct 24.8 L (34.0-46.0) % Sodium 134 L (137-145) mmol/L Creatinine 0.40 L (0.52-1.04) mg/dL Glucose 128 H (74-99) mg/dL Calcium 8.3 L (8.4-10.2) mg/dL AST (14-36) U/L ALT (9-52) U/L Alkaline Phosphatase (38-126) U/L Procalcitonin 0.10 H (0.02-0.09) ng/mL 12/22/18 Range/Units 05:48 WBC (3.8-10.6) k/uL RBC (3.80-5.40) m/uL Hgb (11.4-16.0) gm/dL Hct (34.0-46.0) % Sodium (137-145) mmol/L Creatinine (0.52-1.04) mg/dL Glucose (74-99) mg/dL Calcium (8.4-10.2) mg/dL AST 129 H (14-36) U/L ALT 68 H (9-52) U/L Alkaline Phosphatase 156 H (38-126) U/L Procalcitonin (0.02-0.09) ng/mL Assessment and Plan Assessment: 1. Left lower extremity acute on chronic occlusive disease s/p percutaneous thrombolysis with revascularization 2. S/P left iliac artery stenting 3. Leukocytosis without any infectious source 4. Right groin hematoma- stable 5. new onset afib Plan: Continue oral anticoagulation increase activity- ok to ambulate with assistance we will continue to monitor left foot and toes and wait for demarcation. ok for d/c planning if medically stable
[2018-12-22] MEDS: METOPROLOL TARTRATE 50 MG TAB PO SCH (20:20)
[2018-12-22] MEDS: ATORVASTATIN 80 MG TAB PO SCH (20:20)
--- NOTE | 2018-12-22 20:38 | P.CONS ---
History of Present Illness - Reason for Consult Consult date: 12/22/18 - History of Present Illness 78-year-old female who has multiple medical troubles that includes coronary artery disease with prior cardiac catheterization and percutaneous stent, hypertension, hyperlipidemia and obesity. Last month she was hospitalized with difficulties with a TIA. She now presents to hospital with complaints of significant pain and swelling and discomfort to her left leg and was found to be cold. She was seen by vascular surgery and interventions were performed including the imaging studies including CT angiography. She underwent angiography and underwent multiple percutaneous transluminal balloon angioplasties to the left arterial system and underwent thrombolytic therapy also to the left popliteal and tibioperoneal arterial system. She also had a percutaneous expandable stent across the common iliac artery on the left. The patient has had a significant leukocytosis and the consultation was requested. The patient is quite a poor historian but is able to relate that the left leg is still having some pain is less than it was. She does not believe that she's had a fever or chills. She's been eating well per the nursing staff. She is vocalizing no other acute complaints at this point in time. Review of Systems HEENT:Denies headache or acute visual change. Denies sinus or mouth discomforts. Denies neck stiffness or pain. Denies significant oral cavity pain. Denies difficulty on swallowing. Lungs: Denies significant shortness of breath, cough, sputum production, or hemoptysis. Cardiovascular: Denies significant shortness of breath, chest pain, chest wall pain, orthopnea, dyspnea on exertion, syncope Gastrointestinal:Denies nausea, vomiting, diarrhea, constipation, hematemesis, melena, hematochezia. No no significant change of bowel habit noticed. Musculoskeletal: The significant pain and swelling to the left leg is now status post a procedures pain is improved Skin: Denies new rash or lesions. No new ulcers or wounds are related.. Neuro: Denies headache or visual change. Denies any new onset weakness or difficulty with ambulation. Denies falls or seizures. Psychiatric:Denies anxiety or depression. Endocrine: Patient complains of some fatigue and has had weight loss Past Medical History Past Medical History: CVA/TIA, Hyperlipidemia, Hypertension, Myocardial Infarction (CO) Last Myocardial Infarction Date:: 2006 History of Any Multi-Drug Resistant Organisms: None Reported Past Surgical History: Hysterectomy Additional Past Surgical History / Comment(s): cardiac cath w/ stent Past Psychological History: No Psychological Hx Reported Smoking Status: Current some day smoker Past Alcohol Use History: None Reported Past Drug Use History: None Reported - Past Family History Daughter(s) Family Medical History: Diabetes Mellitus Son(s) Family Medical History: Hyperlipidemia, Hypertension Medications and Allergies Home Medications and Allergies Comment(s): Current Medications Acetaminophen (Tylenol Tab) 650 mg PO Q6HR PRN PRN Reason: Mild Pain or Fever > 100.5 Hydrocodone Bitart/Acetaminophen ([place] 5-325) 1 each PO Q4HR PRN PRN Reason: Moderate Pain Last Admin: 12/20/18 12:49 Dose: 1 each Documented by: Albuterol Sulfate (Ventolin Nebulized) 2.5 mg INHALATION RT-Q6H PRN PRN Reason: Shortness Of Breath Albuterol/Ipratropium (Duoneb 0.5 Mg-3 Mg/3 Ml Soln) 3 ml INHALATION RT-DAILY [facility] Last Admin: 12/22/18 07:59 Dose: Not Given Documented by: Aspirin (Aspirin) 81 mg PO DAILY [facility] Last Admin: 12/22/18 08:30 Dose: 81 mg Documented by: Atorvastatin Calcium (Lipitor) 80 mg PO HS [facility] Last Admin: 12/22/18 20:20 Dose: 80 mg Documented by: Clopidogrel Bisulfate (Plavix) 75 mg PO DAILY [facility] Last Admin: 12/22/18 08:30 Dose: 75 mg Documented by: Diphenhydramine HCl (Benadryl) 25 mg PO HS PRN PRN Reason: Nasal Congestion Docusate Sodium (Colace) 100 mg PO DAILY [facility] Last Admin: 12/22/18 08:29 Dose: 100 mg Documented by: Gabapentin (Neurontin) 300 mg PO TID [facility] Last Admin: 12/22/18 20:20 Dose: 300 mg Documented by: Lisinopril/HCTZ (Zestoretic 10-12.5) 1 each PO BID [facility] Last Admin: 12/22/18 20:20 Dose: 1 each Documented by: Ibuprofen (Motrin) 400 mg PO Q6HR PRN PRN Reason: Mild Pain or Fever > 100.5 Lorazepam (Ativan) 0.5 mg PO Q8H PRN PRN Reason: Anxiety Metoprolol Tartrate (Lopressor) 50 mg PO BID [facility] Last Admin: 12/22/18 20:20 Dose: 50 mg Documented by: Miscellaneous Information (Potassium Per Protocol) 1 each MISCELLANE DAILY PRN; Protocol PRN Reason: Per Protocol Morphine Sulfate (Morphine Sulfate (Inj)) 4 mg IV Q4HR PRN PRN Reason: Severe Pain Last Admin: 12/17/18 08:49 Dose: 4 mg Documented by: Morphine Sulfate (Morphine Sulfate (Inj)) 2 mg IVP Q1H PRN PRN Reason: Pain/Discomfort Last Admin: 12/19/18 16:44 Dose: 2 mg Documented by: Naloxone HCl (Narcan) 0.2 mg IV Q2M PRN PRN Reason: Opioid Reversal Nicotine (Habitrol 21mg/24hr Patch) 1 patch TRANSDERM DAILY [facility] Last Admin: 12/22/18 08:31 Dose: 1 patch Documented by: Nitroglycerin (Nitrostat) 0.4 mg SUBLINGUAL Q5M PRN PRN Reason: Chest Pain Rivaroxaban (Xarelto) 15 mg PO BID-W/MEALS [facility] Last Admin: 12/22/18 17:34 Dose: 15 mg Documented by: Spironolactone (Aldactone) 25 mg PO DAILY [facility] Last Admin: 12/22/18 08:29 Dose: 25 mg Documented by: Home Medications Medication Instructions Recorded Confirmed Type LORazepam [Ativan] 0.5 - 1 mg PO Q8H PRN 10/21/16 12/16/18 History Aspirin 81 mg PO DAILY #30 10/23/16 12/16/18 Rx Atorvastatin [Lipitor] 80 mg PO HS #30 tab 10/23/16 12/16/18 Rx Clopidogrel [Plavix] 75 mg PO DAILY tab 10/23/16 12/16/18 Rx Metoprolol Tartrate [Lopressor] 25 mg PO BID #60 tab 10/23/16 12/16/18 Rx Nitroglycerin Sl Tabs [Nitrostat] 0.4 mg SUBLINGUAL Q5M PRN #25 tab 10/23/16 12/16/18 Rx Spironolactone [Aldactone] 25 mg PO DAILY #30 tab 10/23/16 12/16/18 Rx Lisinopril-Hctz 10-12.5 mg 1 tab PO BID #60 tab 12/07/18 12/16/18 Rx [Zestoretic 10-12.5] Acetaminophen-Codeine 300-30mg 1 tab PO Q6H PRN 12/16/18 12/16/18 History [Tylenol w/codeine #3] Albuterol Inhaler [Ventolin Hfa 2 puff INHALATION RT-Q6H PRN 12/16/18 12/16/18 History Inhaler] Biotin 5,000 mcg PO DAILY 12/16/18 12/16/18 History Ipratropium/Albuterol Sulfate 1 puff INHALATION RT-DAILY 12/16/18 12/16/18 Hi story [Combivent Respimat Inhaler] Naproxen Sodium [Aleve] 220 mg PO BID PRN 12/16/18 12/16/18 History Pnv No.95/Ferrous Fum/Folic AC 1 tab PO DAILY 12/16/18 12/16/18 History [ Multivitamin Tablet] diphenhydrAMINE [Benadryl] 25 mg PO HS PRN 12/16/18 12/16/18 History Allergies Allergy/AdvReac Type Severity Reaction Status Date / Time No Known Allergies Allergy Verified 12/16/18 10:35 Physical Exam Vitals: Vital Signs Temp Pulse Resp BP Pulse Ox 12/22/18 20:00 98 F 86 14 111/54 97 12/22/18 19:00 101 H 18 117/43 96 12/22/18 18:00 90 20 109/44 97 12/22/18 17:00 86 17 108/53 95 12/22/18 16:00 98 F 90 16 102/43 97 12/22/18 15:00 89 14 97/64 96 12/22/18 14:00 89 19 106/48 96 12/22/18 13:00 88 22 113/54 96 12/22/18 12:00 98 F 19 108/52 97 12/22/18 11:00 82 13 109/58 98 12/22/18 10:00 86 12 110/55 97 12/22/18 09:00 98 21 100/55 95 12/22/18 08:00 98.1 F 103 H 17 102/88 94 L 12/22/18 07:00 75 12 115/66 95 12/22/18 06:00 84 19 127/52 95 12/22/18 05:00 80 14 94/48 95 12/22/18 04:00 97.8 F 83 18 94/46 94 L 12/22/18 03:00 80 11 L 116/53 94 L 12/22/18 02:00 82 16 103/68 94 L 12/22/18 01:00 71 15 124/59 94 L 12/22/18 00:00 98 F 77 17 119/48 94 L 12/21/18 23:00 82 20 119/48 94 L 12/21/18 22:00 95 13 106/49 94 L 12/21/18 21:00 80 11 L 106/44 94 L Intake and Output 12/22/18 12/22/18 12/22/18 06:59 14:59 22:59 Intake Total 0 446 50 Output Total 450 200 425 Balance -450 246 -375 Intake: IV 0 0 0.9% Sodium Chloride 0 0 Oral 446 50 Output: Urine 450 200 0 Urine/Stool Mix 425 Other: Voiding Method Bedpan Bedpan # Voids 1 # Bowel Movements 1 1 1 Weight 58.4 kg 58.4 kg Elderly 78-year-old woman seems comfortable at this time HEENT: Anicteric conjunctiva are pink and moist nasal mucosa grossly intact without significant lesions, there is no thrush. Neck: The neck is supple without significant lymphadenopathy or thyromegaly. Lungs: They're symmetrical entry basilar crackles no bronchial sounds Heart: Irregular loud S4 no murmur click or rub Abdomen: Minimally obese Positive bowel sounds soft and nontender without palpable masses or organomegaly. There was no guarding or rebound. Extremities: The upper extremities have some areas of ecchymosis from recent interventions. The right leg is evidence of the very extensive ecchymosis around the right groin this lower abdominal wall to about the mid thigh. It is minimally tender and indurated. There is no ascending cellulitis in this region. Left lower extremity shows evidence of the recent interventions. The foot has evidence of the distinct purple discoloration and blistering and is occurring on the great toe and fifth toe. There is the somewhat variegated line of discoloration and there is not much tenderness toes are cool but not frankly cold poor capillary refill overall to toes more adequate at the ankle level Neuro: Awake alert oriented to person place and time. There are no acute new gross focal sensory motor deficits. Results CBC & Chem 7: 12/22/18 05:48 12/22/18 05:48 Labs: Abnormal Lab Results - Last 24 Hours (Table) 12/22/18 12/22/18 12/22/18 Range/Units 05:48 05:48 05:48 WBC 36.7 H (3.8-10.6) k/uL RBC 2.83 L (3.80-5.40) m/uL Hgb 8.8 L (11.4-16.0) gm/dL Hct 24.8 L (34.0-46.0) % Sodium 134 L (137-145) mmol/L Creatinine 0.40 L (0.52-1.04) mg/dL Glucose 128 H (74-99) mg/dL Calcium 8.3 L (8.4-10.2) mg/dL AST (14-36) U/L ALT (9-52) U/L Alkaline Phosphatase (38-126) U/L Procalcitonin 0.10 H (0.02-0.09) ng/mL 12/22/18 Range/Units 05:48 WBC (3.8-10.6) k/uL RBC (3.80-5.40) m/uL Hgb (11.4-16.0) gm/dL Hct (34.0-46.0) % Sodium (137-145) mmol/L Creatinine (0.52-1.04) mg/dL Glucose (74-99) mg/dL Calcium (8.4-10.2) mg/dL AST 129 H (14-36) U/L ALT 68 H (9-52) U/L Alkaline Phosphatase 156 H (38-126) U/L Procalcitonin (0.02-0.09) ng/mL Laboratory Results WBC 36.7 k/uL (3.8-10.6) H 12/22/18 05:48 RBC 2.83 m/uL (3.80-5.40) L 12/22/18 05:48 Hgb 8.8 gm/dL (11.4-16.0) L 12/22/18 05:48 Hct 24.8 % (34.0-46.0) L 12/22/18 05:48 MCV 87.7 fL (80.0-100.0) 12/22/18 05:48 MCH 30.9 pg (25.0-35.0) 12/22/18 05:48 MCHC 35.3 g/dL (31.0-37.0) 12/22/18 05:48 RDW 15.1 % (11.5-15.5) 12/22/18 05:48 Plt Count 242 k/uL (150-450) 12/22/18 05:48 Neutrophils % 88 % 12/20/18 03:02 Neutrophils % (Manual) 84 % 12/21/18 04:51 Band Neutrophils % 6 % 12/21/18 04:51 Lymphocytes % 7 % 12/20/18 03:02 Lymphocytes % (Manual) 6 % 12/21/18 04:51 Monocytes % 3 % 12/20/18 03:02 Monocytes % (Manual) 3 % 12/21/18 04:51 Eosinophils % 0 % 12/20/18 03:02 Basophils % 0 % 12/20/18 03:02 Metamyelocytes % 2 % 12/21/18 04:51 Neutrophils # 22.7 k/uL (1.3-7.7) H 12/20/18 03:02 Neutrophils # (Manual) 29.40 k/uL (1.3-7.7) H 12/21/18 04:51 Lymphocytes # 1.8 k/uL (1.0-4.8) 12/20/18 03:02 Lymphocytes # (Manual) 1.96 k/uL (1.0-4.8) 12/21/18 04:51 Monocytes # 0.9 k/uL (0-1.0) 12/20/18 03:02 Monocytes # (Manual) 0.98 k/uL (0-1.0) 12/21/18 04:51 Eosinophils # 0.0 k/uL (0-0.7) 12/20/18 03:02 Basophils # 0.1 k/uL (0-0.2) 12/20/18 03:02 Metamyelocytes # (Man) 0.65 k/uL (0) H 12/21/18 04:51 Nucleated RBCs 1 /100 WBC (0-0) H 12/21/18 04:51 Manual Slide Review Performed 12/21/18 04:51 Large Platelets Present 12/21/18 04:51 Polychromasia Present 12/21/18 04:51 Hypochromasia Slight 12/18/18 20:10 Poikilocytosis Slight 12/22/18 05:48 Poikilocytosis (manual Present 12/21/18 04:51 Anisocytosis (manual) Present 12/21/18 04:51 PT 11.9 sec (9.0-12.0) 12/18/18 14:43 INR 1.1 (<1.2) 12/18/18 14:43 APTT 25.9 sec (22.0-30.0) 12/21/18 04:51 Fibrinogen 605 mg/dL (200-500) H 12/18/18 14:43 Sodium 134 mmol/L (137-145) L 12/22/18 05:48 Potassium 4.0 mmol/L (3.5-5.1) 12/22/18 05:48 Chloride 103 mmol/L (98-107) 12/22/18 05:48 Carbon Dioxide 25 mmol/L (22-30) 12/22/18 05:48 Anion Gap 6 mmol/L 12/22/18 05:48 BUN 9 mg/dL (7-17) 12/22/18 05:48 Creatinine 0.40 mg/dL (0.52-1.04) L 12/22/18 05:48 Est GFR (CKD-EPI)AfAm >90 (>60 ml/min/1.73 sqM) 12/22/18 05:48 Est GFR (CKD-EPI)NonAf >90 (>60 ml/min/1.73 sqM) 12/22/18 05:48 Glucose 128 mg/dL (74-99) H 12/22/18 05:48 POC Glucose (mg/dL) 191 mg/dL (75-99) H 12/18/18 13:58 POC Glu Grill Attendant ID Raysa Diallo 12/18/18 13:58 Lactic Ac Sepsis Rflx Y 12/16/18 12:36 Plasma Lactic Acid Jonnie 1.5 mmol/L (0.7-2.0) 12/16/18 16:08 Calcium 8.3 mg/dL (8.4-10.2) L 12/22/18 05:48 Total Bilirubin 1.0 mg/dL (0.2-1.3) 12/16/18 10:35 AST 129 U/L (14-36) H 12/22/18 05:48 ALT 68 U/L (9-52) H 12/22/18 05:48 Alkaline Phosphatase 156 U/L (38-126) H 12/22/18 05:48 Total Protein 7.7 g/dL (6.3-8.2) 12/16/18 10:35 Albumin 3.6 g/dL (3.5-5.0) 12/16/18 10:35 Procalcitonin 0.10 ng/mL (0.02-0.09) H 12/22/18 05:48 Urine Color Yellow 12/16/18 12:06 Urine Appearance Clear (Clear) 12/16/18 12:06 Urine pH 6.5 (5.0-8.0) 12/16/18 12:06 Ur Specific Patrick 1.047 (1.001-1.035) H 12/16/18 12:06 Urine Protein 1+ (Negative) H 12/16/18 12:06 Urine Glucose (UA) Negative (Negative) 12/16/18 12:06 Urine Ketones 2+ (Negative) H 12/16/18 12:06 Urine Blood Trace (Negative) H 12/16/18 12:06 Urine Nitrite Negative (Negative) 12/16/18 12:06 Urine Bilirubin Negative (Negative) 12/16/18 12:06 Urine Urobilinogen <2.0 mg/dL (<2.0) 12/16/18 12:06 Ur Leukocyte Esterase Negative (Negative) 12/16/18 12:06 Urine RBC 4 /hpf (0-5) 12/16/18 12:06 Urine WBC 1 /hpf (0-5) 12/16/18 12:06 Hyaline Casts 3 /lpf (0-2) H 12/16/18 12:06 Urine Mucus Rare /hpf (None) H 12/16/18 12:06 Blood Type O Negative 12/16/18 10:35 Blood Type Confirm O Negative 12/16/18 13:35 Blood Type Recheck No Previous Record 12/16/18 10:35 Bld Type Recheck Status CABO Indicated 12/16/18 10:35 Antibody Screen NEGATIVE 12/16/18 10:35 Crossmatch See Detail 12/16/18 10:35 Spec Expiration Date 12/19/2018233412/16/18 10:35 Assessment and Plan (1) Leukocytosis Narrative/Plan: 70-year-old woman presents to Hospital with significant difficulties to her left leg with pain and swelling discomfort and the sudden onset of cold most of the leg. He has noted she has a known history of coronary disease as well as severe peripheral vascular disease. She was evaluated by the vascular surgery team and underwent the interventions that included the angioplasty and stenting to the vasculature in the left lower extremity. They believe there will be some demarcation and dry gangrenous changes to the digits of the left foot. Time will determine an extensive amputation that is required which could be toes, transmetatarsal, revealing a below the knee if it progresses. At this time her leukocytosis. Her related to the tissue loss is occurring to the left foot as well as a very extensive ecchymosis and hematoma to the right groin area. She does not have evidence of pneumonia, urinary tract infection or significant infection at the sites. The increase in leukocytosis is likely on the basis of some reperfusion injury that is occurring to the limb. If the patient develops fever cultures be indicated for potential infection related to the foot as well as other routine infections and a debilitated, bedbound 78-year-old patient who is chronically ill. No antibiotic therapy required at this time. Current Visit: Yes Status: Acute Code(s): D72.829 - ELEVATED WHITE BLOOD CELL COUNT, UNSPECIFIED SNOMED Code(s): 111210362 (2) Atherosclerosis of [place] artery of left lower extremity with rest pain Current Visit: Yes Status: Acute Code(s): I70.222 - ATHSCL [place] ARTERIES OF EXTREMITIES W REST PAIN, LEFT LEG SNOMED Code(s): 799568639831558 (3) Occlusion of left iliac artery Current Visit: Yes Status: Acute Code(s): I74.5 - EMBOLISM AND THROMBOSIS OF ILIAC ARTERY SNOMED Code(s): 696294160 (4) CAD (coronary artery disease) Current Visit: No Status: Acute Code(s): I25.10 - ATHSCL HEART DISEASE OF [place] CORONARY ARTERY W/O ANG PCTRS SNOMED Code(s): 81149383 (5) COPD (chronic obstructive pulmonary disease) Current Visit: No Status: Acute Code(s): J44.9 - CHRONIC OBSTRUCTIVE PULMONARY DISEASE, UNSPECIFIED SNOMED Code(s): 75835581
--- NOTE | 2018-12-22 21:46 | P.PN ---
Progress Note - Text Progress Note Date: 12/22/18 Chief Complaint: Left leg cold Interval history: This is a pleasant 78-year-old patient of Dr. Mcdaniels. Chronic stable medical conditions include hypertension, hyperlipidemia, coronary artery disease with stent. Patient was here in the hospital on December 07 2 diagnosis of TIA. Patient then had a CT angiogram of the head and neck that was negative. 2-D echocardiogram was unremarkable. Was felt of a diagnosis of TIA. Patient only this morning noticed some numbness in the left foot. She often does notice that. Numbness then slowly progressed to go more proximally up it came up to the hip and also the lower part of the abdomen. The leg also felt cold. The foot was painful. Patient also has a corn/callus that does bother her. There is no fever no chills. Patient presented to the ER. Restless surgery Dr. Alvarado was called. CT angiogram demonstrated acute vascular findings. Dr. Alvarado requested the patient be admitted to the medical service he does speak to Dr. Krueger from the vascular team. Patient was put on IV heparin. And admitted to the medical floor. Following morning left lower extremity was becoming more cold and mottled. Patient was moved to the ICU. Patient was seen by Dr. Pace from vascular. Taken down to the operating room. Intravascular thrombolysis ago started with TPA. Next day on December 18-patient's left leg became mottled and patient is taking normal to ordered. Per Dr. Rondon. Several angioplasties were carried out in the left lower extremity and local thrombolytic was given. Patient has received 2 units of blood. Xarelto was started on December 20. Today-in the ICU. Able to sit up in a chair. Can stand up. Remains in A. fib. Heart rate controlled. Does not like hospital food. Seen by Dr. Benítez. Not for any antibiotics. Physical examination: VITAL SIGNS: 98, 90, 16, 102/43, 97% GENERAL: Laying in bed, comfortable EYES: Pupils equal. Conjunctiva normal. HEENT: External appearance of nose and ears normal, oral cavity grossly normal. NECK: JVD not raised; masses not palpable. HEART: First and second heart sounds are normal; no edema. LUNGS: Respiratory rate normal; clear to auscultation. ABDOMEN: Soft, nontender, liver spleen not palpable, no masses palpable. Right groin hematoma stable PSYCH: Tired, answering questions. EXTREMITIES: Bluish discoloration of the distal toes and the plantar surface of the feet MUSCULOSKELETAL: Evidence of significant evidence of RA in the hands INVESTIGATIONS, reviewed in the clinical context:: White count is 6.7 hemoglobin 8.8 potassium 4 creatinine 0.4 Previous testing White count 20.7 hemoglobin 11.6 sodium 123 potassium 4.2 bun 19 crit 0.68 Lactic acid 3.0 troponin I 0.[address] [place] lower extremity left leg-occlusion of the left common iliac artery with the right common iliac artery being patent. There is also occlusion of the left external iliac artery. The left and internal iliac artery reconstitutes from collaterals. There is reconstitution at the level of the left common femoral artery, superficial femoral artery. The left superficial femoral artery demonstrates multifocal disease with severe stenosis distally estimated at greater than 90%. Popliteal artery demonstrates multifocal disease as well as degree of stenosis less than 50%. Mild disease is seen at the tibial peroneal trunk with the posterior tibial artery, peroneal artery and inferior tibial artery being diminutive in size but limited distal filling. Vascular procedure- Postoperative diagnosis: 1. Left lower extremity critical limb ischemia with resolved occlusion of the left common and external iliac artery status post stenting 2. Resolved left popliteal artery and tibioperoneal trunk occlusion status post balloon angioplasty 3. One-vessel (peroneal artery ) runoff to the ankle. 4. Anterior tibial and posterior tibial artery occlusions at the mid tibial region. 5. Right groin hematoma- stable Procedure: - Left lower extremity selective iliofemoral angiogram via existing sheath - Aortoiliac angiogram - Selective left femoral popliteal, tibial peroneal angiogram - Percutaneous transluminal balloon angioplasty of the left common iliac artery with 7 x 80 mm [place] balloon, left popliteal artery with a 4 x 80 mm [place] balloon, left tibioperoneal trunk with 2.5 x 20 mm Trek balloon the left superficial femoral artery with 4 x 80 mm [place] balloon times multiple the left external iliac artery with 4 x 80 mm [place] balloon., Infusion of thrombolytic therapy utilizing 4 mg of TPA of the left femoral popliteal and tibioperoneal arterial system. Percutaneous transluminal balloon expandable stent placement across the common iliac artery on the left utilizing a 7 x 39 mm Omnilink stent. Placement of 6-Beng[place] Angio-Seal in the right common femoral artery. Assessment: -Acute on chronic occlusive disease arterial of the left lower extremity. With multiple angioplasties and local thrombolytic therapy. On Xarelto -Right groin acute hematoma, stable -Acute postop blood loss anemia, as expected from surgery. Status post 2 units of blood -Positive troponin, with no cardiac symptoms,. Likely from hemodynamic mismatch -Lactic acidosis type II -Essential hypertension, -Hyperlipidemia -Persistent atrial fibrillation. Patient is already on Xarelto -Coronary artery disease with stent -Persistent leukocytosis, wondering if this is due to inflammation 3 response to the acute on chronic thrombosis. No obvious source of infection. No antibiotics per Dr. Benítez. Plan: No antibiotics per Dr. Benítez. White count was cleansing. No fever. Repeat CBC in the morning. We'll check for pro calcitonin level
[2018-12-23 06:01] LABS: HCT 23.8 % (34.0-46.0); HGB 8.1 gm/dL (11.4-16.0); MCH 30.8 pg (25.0-35.0); MCHC 34.1 g/dL (31.0-37.0); MCV 90.5 fL (80.0-100.0); Mean Platelet Volume 6.8; Platelet Count 373 k/uL (150-450); RBC 2.63 m/uL (3.80-5.40); RDW 15.4 % (11.5-15.5); WBC 31.6 k/uL (3.8-10.6)
[2018-12-23 06:09] LABS: African American GFR (CKD) >90 (>60 ml/min/1.73 sqM); Anion Gap 5 mmol/L; Blood Urea Nitrogen 10 mg/dL (7-17); Calcium 8.3 mg/dL (8.4-10.2); Carbon Dioxide 31 mmol/L (22-30); Chloride 95 mmol/L (98-107); Glucose 156 mg/dL (74-99); Potassium 3.8 mmol/L (3.5-5.1); Sodium 131 mmol/L (137-145)
[2018-12-23] MEDS: RIVAROXABAN 15 MG TAB PO SCH ×2 (07:03→16:59)
[2018-12-23] MEDS: IPRATROPIUM-ALBUTEROL 3 ML NEB INHALATION SCH (07:26)
[2018-12-23] MEDS: CLOPIDOGREL 75 MG TAB PO SCH (08:45)
[2018-12-23] MEDS: DOCUSATE 100 MG CAP PO SCH (08:45)
[2018-12-23] MEDS: SPIRONOLACTONE 25 MG TAB PO SCH (08:46)
[2018-12-23] MEDS: METOPROLOL TARTRATE 50 MG TAB PO SCH ×2 (08:46→20:23)
[2018-12-23] MEDS: LISINOPRIL-HCTZ 10-12.5 MG 1 EACH TAB PO SCH ×2 (08:46→20:22)
[2018-12-23] MEDS: NICOTINE 21MG/24HR PATCH TRANSDERM SCH (08:46)
[2018-12-23] MEDS: ASPIRIN 81 MG PO SCH (08:46)
[2018-12-23] MEDS: GABAPENTIN 300 MG CAP PO SCH ×3 (08:46→21:28)
--- NOTE | 2018-12-23 09:21 | P.PN ---
Subjective Progress Note Date: 12/23/18 Patient seen and examined. Overall no significant complaints. Resting in bed comfortably although some shaking that is new. She denies any fevers or true chills. She had a bowel movement this morning was easy to go. She had urinated without pain. She denies a chest pains or shortness of breath. Her leg pain feels minimal. Objective - Vital Signs Vital signs: Vital Signs Temp 99.1 F 12/23/18 08:00 Pulse 87 12/23/18 08:00 Resp 26 H 12/23/18 09:00 BP 122/67 12/23/18 09:00 Pulse Ox 97 12/23/18 08:00 Intake & Output 12/22/18 12/23/18 12/23/18 18:59 06:59 18:59 Intake Total 496 Output Total 200 625 100 Balance 296 -625 -100 Weight 58.4 kg 54.3 kg Intake: IV 0 0.9% Sodium Chloride 0 Oral 496 Output: Urine 200 200 100 Urine/Stool Mix 425 Other: Voiding Method Bedpan Bedpan # Voids 1 1 # Bowel Movements 1 1 - Exam Genitals a pleasant cooperative female in no acute distress HEENT is normocephalic, atraumatic, extraocular motion intact Heart is irregularly irregular Lungs are essentially clear bilaterally Abdomen is soft, nontender and nondistended Right groin ecchymosis is significant but per reports not worsening. There is some tenderness to palpation over the right flank in this area. Left lower extremity warm, ischemic changes to the toes, no erythema or drainage. Multiphasic DP on the left. Palpable DP on the right - Labs CBC & Chem 7: 12/23/18 05:26 12/23/18 05:26 Labs: Abnormal Lab Results - Last 24 Hours (Table) 12/22/18 12/22/18 12/23/18 Range/Units 05:48 05:48 05:26 WBC 31.6 H (3.8-10.6) k/uL RBC 2.63 L (3.80-5.40) m/uL Hgb 8.1 L (11.4-16.0) gm/dL Hct 23.8 L (34.0-46.0) % Sodium (137-145) mmol/L Chloride (98-107) mmol/L Carbon Dioxide (22-30) mmol/L Creatinine (0.52-1.04) mg/dL Glucose (74-99) mg/dL Calcium (8.4-10.2) mg/dL AST 129 H (14-36) U/L ALT 68 H (9-52) U/L Alkaline Phosphatase 156 H (38-126) U/L Procalcitonin 0.10 H (0.02-0.09) ng/mL 12/23/18 Range/Units 05:26 WBC (3.8-10.6) k/uL RBC (3.80-5.40) m/uL Hgb (11.4-16.0) gm/dL Hct (34.0-46.0) % Sodium 131 L (137-145) mmol/L Chloride 95 L (98-107) mmol/L Carbon Dioxide 31 H (22-30) mmol/L Creatinine 0.39 L (0.52-1.04) mg/dL Glucose 156 H (74-99) mg/dL Calcium 8.3 L (8.4-10.2) mg/dL AST (14-36) U/L ALT (9-52) U/L Alkaline Phosphatase (38-126) U/L Procalcitonin (0.02-0.09) ng/mL Assessment and Plan Assessment: #1 Prole 2a left lower extremity acute limb ischemia improved status post thrombolysis, angioplasty and stent #2 chronic peripheral arterial disease with claudication #3 tobacco abuse #4 lactic acidosis #5 leukocytosis, likely partially reactive with limb ischemia. No obvious evidence of infectious process at this time. Afebrile. #6 hypertension Plan: No obvious evidence of reason for leukocytosis at this time. Infectious disease consul yesterday. No initiation of new antibiotics currently. We will await further demarcation of the left lower extremity and cyanotic changes to the toes. This will be something that will be addressed as an outpatient basis likely. The patient is currently on anticoagulation for her peripheral arterial occlusion as well as her atrial fibrillation. Her hematoma in her right groin is stable as well as her hemoglobin at this time. Given her overall clinical picture and leukocytosis, would hold off on discharge or downgrading at this point. Up in chair and physical therapy as tolerated.
[2018-12-23] MEDS: HYDROcodone/APAP 5-325MG 1 EACH TAB PO PRN ×2 (13:13→20:23)
--- NOTE | 2018-12-23 15:18 | P.PN ---
Subjective Progress Note Date: 12/23/18 Principal diagnosis: Left leg pain and numbness This is a 78-year-old white female patient of Dr. Mcdaniels, with past medical history of hypertension, hyperlipidemia, coronary artery disease with stent placement, previous history of TIA, chronic and ongoing history of smoking, up to a pack a day, currently down to three quarters of a pack a day, a total of 63 years. She denies any chronic lung disease, although she was prescribed Combivent and rescue inhaler which she does not use, not normally on oxygen. Patient came into the hospital on 12/16/2018 for evaluation of left leg numbness and pain from the left knee down to her foot. She complained of generalized weakness, and reports that injury to her left leg after tripping episode. Patient reports left leg pain starting a week ago and getting progressively worse. Patient had previously been in the ED last week with similar symptoms she was evaluated for stroke however she had signed out AGAINST MEDICAL ADVICE that this her left leg pain was not addressed. No difficulty breathing, no chest pain. Physical exam revealed slightly cyanotic left leg, without palpable pulses in the left femoral artery or below. CT angiogram of the left lower extremity was completed showing occlusion of the left common iliac artery as well as the left external iliac artery with reconstitution at the level of the left common femoral artery/superficial femoral artery. There was multifocal disease involving the superficial femoral artery with distal stenosis estimated at 90%. Patient has been having pain in her left leg on and off since summer 2018. CT angios of the thoracic, femoral and pelvic aorta showed no evidence of thoracoabdominal aortic aneurysm, and showed occlusion of left common iliac artery and left external iliac artery. Patient was taken to the custodial laborer and right femoral sheath has been inserted, with TPA infusion. We're seeing this patient in the intensive care unit following her procedure, and we're consulted for critical care management. The patient is seen today 12/18/2018 in follow-up in the intensive care unit. She is currently awake and alert in no acute distress. She's on room air and maintaining O2 saturation in the 90s. She is still having ongoing left lower extremity pain and numbness. She is receiving heparin at 500 units per hour. TPA is infusing into the right groin catheter at 1 mg per hour. There is a hematoma around the catheter site. There is no pulse in the left lower extremity. The leg is mottled. Plan is to return to surgery with vascular surgeon today. On 12/19/2018 patient is seen in follow-up in the intensive care unit. Patient went back to or yesterday, and had done left lower extremity selective iliofemoral angiograms, percutaneous transluminal balloon angioplasty of the left common iliac artery, left popliteal artery, left tibial peroneal trunk and percutaneous expandable stent placement across the common iliac artery. This is postoperative day 1. Patient developed a hematoma in the right groin, which was manually controlled, and this morning right groin is bruised and swollen, however the hematoma has not expanded. TPA drip has been discontinued, patient remains on heparin drip at weight-based protocol, and IV 0.9 normal saline at a rate of 100, patient had an episode of hypotension yesterday, she was given a liter of IV fluids and boluses, and received 1 unit of packed red blood cells for hemoglobin of 6.6. 's morning's hemoglobin is 7.0, white blood cell count was 23.1, sodium is 135, potassium is 4.0, chloride is 113, CO2 17, BUN is 16, creatinine 0.57. He is awake and alert, in no acute distress, she has a Doppler left femoral pulse, however no palpable pedal or popliteal pulse, but extremity on the left is less cyanotic, still cool to touch, and patient does have paresthesias and numbness. Denies any shortness of breath, denies any chest pain, this morning his vitals are stable, she is on 4 L of oxygen with a pulse ox of 97%, blood pressures 111/49, sinus rhythm with a rate of 90, she is afebrile. Brain CT was completed for the reason of episode of confusion, and showed cerebral atrophy, no acute intracranial process. On 12/23/2018 patient seen in follow-up in the intensive care unit, she is sleeping in bed, in no acute distress, she still has some numbness in her left lower extremity on the bottom of her foot. There is still palpable pulse in the pedal area in the left lower extremity, there are ischemic changes involving the digits on the left lower extremity, and discoloration related to ischemia on the bottom of the left foot, but the foot is warm to touch. Patient is on a combination of Plavix, aspirin, Lipitor. She denies any acute distress, no difficulty breathing, no chest pain, vital signs have been stable. There have been no fever or chills, today's labs have been reviewed, slight downtrend in her white blood cell count, with the white count today is 31.6, hemoglobin is 8.1, serum sodium is 131, potassium 3.8, chloride is 95, CO2 is 31, BUN of 10, creatinine 0.39, pro-calcitonin is negative at 0.08 adjusting absence of infection. Patient has been having difficulty ambulating relating to numbness and pain involving the left lower extremity and the presence of deep tissue injury on her left heel. Less she was up in the chair with physical therapy, and assistance of a walker Objective - Vital Signs Vital signs: Vital Signs Temp 97.7 F 12/23/18 12:00 Pulse 88 12/23/18 12:00 Resp 20 12/23/18 12:00 BP 115/57 12/23/18 12:00 Pulse Ox 94 L 12/23/18 12:00 Intake & Output 12/22/18 12/23/18 12/23/18 18:59 06:59 18:59 Intake Total 496 Output Total 200 625 100 Balance 296 -625 -100 Weight 58.4 kg 54.3 kg Intake: IV 0 0.9% Sodium Chloride 0 Oral 496 Output: Urine 200 200 100 Urine/Stool Mix 425 Other: Voiding Method Bedpan Bedpan Bedside Commode # Voids 1 1 # Bowel Movements 1 1 1 - Exam GENERAL EXAM: Alert, pleasant, 70-year-old white female, with a room air pulse ox of 98%, comfortable in no apparent distress. HEAD: Normocephalic/atraumatic. EYES: Normal reaction of pupils, equal size. Conjunctiva pink, sclera white. NOSE: Clear with pink turbinates. THROAT: No erythema or exudates. NECK: No masses, no JVD, no thyroid enlargement, no adenopathy. CHEST: No chest wall deformity. Symmetrical expansion. LUNGS: Equal air entry with no crackles, wheeze, rhonchi or dullness. CVS: Regular rate and rhythm, normal S1 and S2, no gallops, no murmurs, no rubs ABDOMEN: Soft, nontender. No hepatosplenomegaly, normal bowel sounds, no guarding or rigidity. EXTREMITIES: No clubbing, no edema, cyanosis of the left lower extremity improved, warm to touch, no palpable pulses up to the left femoral area. Right and left groin hematoma, which is slightly extended up the abdomen, and wrapping around the back, is starting to fade MUSCULOSKELETAL: Muscle strength and tone normal. SPINE: No scoliosis or deformity SKIN: No rashes CENTRAL NERVOUS SYSTEM: Alert and oriented -3. No focal deficits, tone is normal in all 4 extremities. PSYCHIATRIC: Alert and oriented -3. Appropriate affect. Intact judgment and insight. - Labs CBC & Chem 7: 12/23/18 05:26 12/23/18 05:26 Labs: Abnormal Lab Results - Last 24 Hours (Table) 12/23/18 12/23/18 Range/Units 05:26 05:26 WBC 31.6 H (3.8-10.6) k/uL RBC 2.63 L (3.80-5.40) m/uL Hgb 8.1 L (11.4-16.0) gm/dL Hct 23.8 L (34.0-46.0) % Sodium 131 L (137-145) mmol/L Chloride 95 L (98-107) mmol/L Carbon Dioxide 31 H (22-30) mmol/L Creatinine 0.39 L (0.52-1.04) mg/dL Glucose 156 H (74-99) mg/dL Calcium 8.3 L (8.4-10.2) mg/dL Assessment and Plan Plan: Assessment: #1. Acute limb ischemia involving the left lower extremity, left iliac and left popliteal occlusion, status post right femoral arterial access, iliofemoral angiogram, left lower extremity angiogram, and infusion of TPA, operative day 6. On 12/18/2018 patient was taken back to the OR in view of absent pulses in the left extremity, and underwent percutaneous thrombectomy, balloon angioplasty and stenting. This is postoperative day 5. #2. Left lower extremity numbness, and pain related to the above, the pain has improved, but the left lower extremity numbness persist in the area of the bottom of the left foot #3. Leukocytosis likely reactive, procalcitonin is negative suggesting absence of infection #4. Hyponatremia, improved #5. Previous ER visit on 12/12/2018 for left leg weakness, sensation deficit and paresthesia, patient was worked up for possibility of CVA, and CT of the head and neck was negative for acute process or aneurysm. Patient's symptoms h ad resolved, and it was decided that this was probably related to possibility of TIA. Patient had left the emergency department AGAINST MEDICAL ADVICE at that time. She had a mild elevation of troponins #6. Hypertension #7. Hyperlipidemia #8. Coronary artery disease with previous stenting #9. Chronic and ongoing history of smoking, 63 years, less than a pack a day, currently down to three quarters of a pack #10. Mild lactic acidosis, hemodynamically related to acute limb ischemia imp roved #11. Acute blood loss anemia, related to right groin hematoma, requiring transfusion of one unit of packed red blood cells #12. Deep tissue injury involving the left heel Plan: Encourage the patient to sit up in the chair, patient is having difficulty with the gait, related to presence of numbness in her left lower extremity, and presence of a DTI injury on her left heel, will likely need a walker and extensive assistance of physical therapy and nursing staff. Encouraged to deep breathe and cough, sit up in the chair, white cell count is improving today, procalcitonin was negative. Vital signs are stable, left foot has a palpable pedal pulse. Bilateral groin hematoma is soft, and is starting to dissipate and fade. From pulmonary/critical care perspective patient is stable to go out of the intensive care unit today. I performed a history & physical examination of the patient and discussed their management with my nurse practitioner, Sulma Schilling. I reviewed the nurse practitioner's note and agree with the documented findings and plan of care. Lung sounds are clear breath sounds. The findings and the impression was discussed with the patient. I attest to the documentation by the nurse practitioner. Time with Patient: Less than 30
[2018-12-23] MEDS: ATORVASTATIN 80 MG TAB PO SCH (20:22)
--- NOTE | 2018-12-23 21:49 | P.PN ---
Progress Note - Text Progress Note Date: 12/23/18 Chief Complaint: Left leg cold Interval history: This is a pleasant 78-year-old patient of Dr. Mcdaniels. Chronic stable medical conditions include hypertension, hyperlipidemia, coronary artery disease with stent. Patient was here in the hospital on December 07 2 diagnosis of TIA. Patient then had a CT angiogram of the head and neck that was negative. 2-D echocardiogram was unremarkable. Was felt of a diagnosis of TIA. Patient only this morning noticed some numbness in the left foot. She often does notice that. Numbness then slowly progressed to go more proximally up it came up to the hip and also the lower part of the abdomen. The leg also felt cold. The foot was painful. Patient also has a corn/callus that does bother her. There is no fever no chills. Patient presented to the ER. Restless surgery Dr. Alvarado was called. CT angiogram demonstrated acute vascular findings. Dr. Alvarado requested the patient be admitted to the medical service he does speak to Dr. Krueger from the vascular team. Patient was put on IV heparin. And admitted to the medical floor. Following morning left lower extremity was becoming more cold and mottled. Patient was moved to the ICU. Patient was seen by Dr. Pace from vascular. Taken down to the operating room. Intravascular thrombolysis ago started with TPA. Next day on December 18-patient's left leg became mottled and patient is taking normal to ordered. Per Dr. Rondon. Several angioplasties were carried out in the left lower extremity and local thrombolytic was given. Patient has received 2 units of blood. Xarelto was started on December 20. Today-in the ICU. Pain better controlled. Patient walked a few steps. Less pain in the foot. Became with food. Daughter the bedside. Sitting up in a chair. Review of systems: Was done for constitutional, cardiovascular, GI, pulmonary. relevant finding as above Active Medications Acetaminophen (Tylenol Tab) 650 mg PO Q6HR PRN PRN Reason: Mild Pain or Fever > 100.5 Hydrocodone Bitart/Acetaminophen ([place] 5-325) 1 each PO Q4HR PRN PRN Reason: Moderate Pain Last Admin: 12/23/18 20:23 Dose: 1 each Documented by: Albuterol Sulfate (Ventolin Nebulized) 2.5 mg INHALATION RT-Q6H PRN PRN Reason: Shortness Of Breath Albuterol/Ipratropium (Duoneb 0.5 Mg-3 Mg/3 Ml Soln) 3 ml INHALATION RT-DAILY [facility] Last Admin: 12/23/18 07:26 Dose: 3 ml Documented by: Aspirin (Aspirin) 81 mg PO DAILY [facility] Last Admin: 12/23/18 08:46 Dose: 81 mg Documented by: Atorvastatin Calcium (Lipitor) 80 mg PO HS [facility] Last Admin: 12/23/18 20:22 Dose: 80 mg Documented by: Clopidogrel Bisulfate (Plavix) 75 mg PO DAILY [facility] Last Admin: 12/23/18 08:45 Dose: 75 mg Documented by: Diphenhydramine HCl (Benadryl) 25 mg PO HS PRN PRN Reason: Nasal Congestion Docusate Sodium (Colace) 100 mg PO DAILY [facility] Last Admin: 12/23/18 08:45 Dose: 100 mg Documented by: Gabapentin (Neurontin) 300 mg PO TID [facility] Last Admin: 12/23/18 21:28 Dose: 300 mg Documented by: Lisinopril/HCTZ (Zestoretic 10-12.5) 1 each PO BID [facility] Last Admin: 12/23/18 20:22 Dose: 1 each Documented by: Lorazepam (Ativan) 0.5 mg PO Q8H PRN PRN Reason: Anxiety Metoprolol Tartrate (Lopressor) 50 mg PO BID [facility] Last Admin: 12/23/18 20:23 Dose: 50 mg Documented by: Miscellaneous Information (Potassium Per Protocol) 1 each MISCELLANE DAILY PRN; Protocol PRN Reason: Per Protocol Morphine Sulfate (Morphine Sulfate (Inj)) 4 mg IV Q4HR PRN PRN Reason: Severe Pain Last Admin: 12/17/18 08:49 Dose: 4 mg Documented by: Morphine Sulfate (Morphine Sulfate (Inj)) 2 mg IVP Q1H PRN PRN Reason: Pain/Discomfort Last Admin: 12/19/18 16:44 Dose: 2 mg Documented by: Naloxone HCl (Narcan) 0.2 mg IV Q2M PRN PRN Reason: Opioid Reversal Nicotine (Habitrol 21mg/24hr Patch) 1 patch TRANSDERM DAILY [facility] Last Admin: 12/23/18 08:46 Dose: 1 patch Documented by: Nitroglycerin (Nitrostat) 0.4 mg SUBLINGUAL Q5M PRN PRN Reason: Chest Pain Rivaroxaban (Xarelto) 15 mg PO BID-W/MEALS [facility] Last Admin: 12/23/18 16:59 Dose: 15 mg Documented by: Spironolactone (Aldactone) 25 mg PO DAILY [facility] Last Admin: 12/23/18 08:46 Dose: 25 mg Documented by: Physical examination: VITAL SIGNS: 97.8, 79, 12, 11 3/68, 96% room air GENERAL: Sitting upon a chair, more comfortable EYES: Pupils equal. Conjunctiva normal. HEENT: External appearance of nose and ears normal, oral cavity grossly normal. NECK: JVD not raised; masses not palpable. HEART: First and second heart sounds are normal; no edema. LUNGS: Respiratory rate normal; clear to auscultation. ABDOMEN: Soft, nontender, liver spleen not palpable, no masses palpable. Right groin hematoma stable PSYCH: Tired, answering questions. EXTREMITIES: Bluish discoloration of the distal toes and the plantar surface of the feet MUSCULOSKELETAL: Evidence of significant evidence of RA in the hands INVESTIGATIONS, reviewed in the clinical context:: White count 20.1.6 hemoglobin 8.1 potassium 3.8 crit 0.39 Protocol calcitonin 0.1-0.08 Previous testing White count 20.7 hemoglobin 11.6 sodium 123 potassium 4.2 bun 19 crit 0.68 Lactic acid 3.0 troponin I 0.[address] [place] lower extremity left leg-occlusion of the left common iliac artery with the right common iliac artery being patent. There is also occlusion of the left external iliac artery. The left and internal iliac artery reconstitutes from collaterals. There is reconstitution at the level of the left common femoral artery, superficial femoral artery. The left superficial femoral artery demonstrates multifocal disease with severe stenosis distally estimated at greater than 90%. Popliteal artery demonstrates multifocal disease as well as degree of stenosis less than 50%. Mild disease is seen at the tibial peroneal trunk with the posterior tibial artery, peroneal artery and inferior tibial artery being diminutive in size but limited distal filling. Vascular procedure- Postoperative diagnosis: 1. Left lower extremity critical limb ischemia with resolved occlusion of the left common and external iliac artery status post stenting 2. Resolved left popliteal artery and tibioperoneal trunk occlusion status post balloon angioplasty 3. One-vessel (peroneal artery ) runoff to the ankle. 4. Anterior tibial and posterior tibial artery occlusions at the mid tibial region. 5. Right groin hematoma- stable Procedure: - Left lower extremity selective iliofemoral angiogram via existing sheath - Aortoiliac angiogram - Selective left femoral popliteal, tibial peroneal angiogram - Percutaneous transluminal balloon angioplasty of the left common iliac artery with 7 x 80 mm [place] balloon, left popliteal artery with a 4 x 80 mm [place] balloon, left tibioperoneal trunk with 2.5 x 20 mm [place] balloon the left superficial femoral artery with 4 x 80 mm [place] balloon times multiple the left external iliac artery with 4 x 80 mm [place] balloon., Infusion of thrombolytic therapy utilizing 4 mg of TPA of the left femoral popliteal and tibioperoneal arterial system. Percutaneous transluminal balloon expandable stent placement across the common iliac artery on the left utilizing a 7 x 39 mm [employer] stent. Placement of 6-[place] Angio-Seal in the right common femoral artery. Assessment: -Acute on chronic occlusive disease arterial of the left lower extremity. With multiple angioplasties and local thrombolytic therapy. On Xarelto -Right groin acute hematoma, stable -Acute postop blood loss anemia, as expected from surgery. Status post 2 units of blood -Positive troponin, with no cardiac symptoms,. Likely from hemodynamic mismatch -Lactic acidosis type II -Essential hypertension, -Hyperlipidemia -Persistent atrial fibrillation. Patient is already on Xarelto -Coronary artery disease with stent -Persistent leukocytosis, probably due to inflammation in response to the acute on chronic thrombosis. No obvious source of infection. No antibiotics per Dr. Benítez. Plan: Patient pro-calcitonin levels come back to be normal. Discussed with the patient. Hopefully patient will be discharged to [facility] tomorrow. Also discussed. To avoid narcotic pain medications.
[2018-12-24 04:25] VITALS: RESP 14
[2018-12-24 05:14] LABS: HCT 22.4 % (34.0-46.0); HGB 7.7 gm/dL (11.4-16.0); MCHC 34.5 g/dL (31.0-37.0); MCV 89.8 fL (80.0-100.0); Mean Platelet Volume 6.7; Platelet Count 384 k/uL (150-450); RBC 2.49 m/uL (3.80-5.40); RDW 15.7 % (11.5-15.5); WBC 21.6 k/uL (3.8-10.6)
[2018-12-24] MEDS: METOPROLOL TARTRATE 50 MG TAB PO SCH (08:23)
[2018-12-24] MEDS: NICOTINE 21MG/24HR PATCH TRANSDERM SCH (08:23)
[2018-12-24] MEDS: GABAPENTIN 300 MG CAP PO SCH (08:23)
[2018-12-24] MEDS: ASPIRIN 81 MG PO SCH (08:23)
[2018-12-24] MEDS: SPIRONOLACTONE 25 MG TAB PO SCH (08:23)
[2018-12-24] MEDS: CLOPIDOGREL 75 MG TAB PO SCH (08:23)
[2018-12-24] MEDS: DOCUSATE 100 MG CAP PO SCH (08:23)
[2018-12-24] MEDS: IPRATROPIUM-ALBUTEROL 3 ML NEB INHALATION SCH (09:12)
[2018-12-24 10:26] VITALS: BMI 23.0
[2018-12-24] MEDS: RIVAROXABAN 15 MG TAB PO SCH (10:43)
[2018-12-24] MEDS: LISINOPRIL-HCTZ 10-12.5 MG 1 EACH TAB PO SCH (10:43)
[2018-12-24 11:31] VITALS: BP 121/65; PULSE 86; TEMP 98.6
--- NOTE | 2018-12-24 14:07 | P.PN ---
Subjective Progress Note Date: 12/24/18 Principal diagnosis: Left lower extremity arterial occlusion Patient seen and examined. PT at that bedside working with patient with walker and postop shoe to the left foot. Patient reports pain to the left lower extremity as well as to the right groin where hematoma is present. She denies any fever or chills shaking has reduced. Hemoglobin 7.7 decreased from 8.1 yesterday, hematocrit 22.4 decreased from 23.8, WBC 21.6 decreased from 31.6 yesterday. Objective - Vital Signs Vital signs: Vital Signs Temp 98.6 F 12/24/18 11:26 Pulse 86 12/24/18 11:26 Resp 14 12/24/18 11:28 BP 121/65 12/24/18 11:26 Pulse Ox 95 12/24/18 11:26 Intake & Output 12/23/18 12/24/18 12/24/18 18:59 06:59 18:59 Intake Total 80 60 Output Total 300 0 Balance -220 60 Weight 53.4 kg 53.4 kg Intake: Oral 80 60 Output: Urine 300 0 Other: Voiding Method Bedside Commode Bedside Commode # Voids 1 1 # Bowel Movements 1 1 - Exam General appearance: The patient is alert, oriented, in no acute distress. HET: Head is normocephalic and atraumatic. Pupils are equal and reactive. Oropharynx is clear without lesions. Neck: Supple without lymphadenopathy. Trachea midline. Heart: S1 S2. Regular rate and rhythm. Lungs: No crackles or wheezes are heard. Abdomen: Soft, nontender, nondistended with bowel sounds. No peritoneal signs. No palpable organomegaly or masses. Extremities: Right groin with ecchymosis extending to lower abdomen and flank but improving, with some mild tenderness with palpation to groin and flank. Left lower extremity warm to touch, with +2 pitting edema, ischemic changes to the toes that have been marked, no erythema or drainage. Left heel with black area marked with no breakdown or drainage. Multiphasic DP on the left. Palpable DP on the right. Neurological: No focal deficits. Strength and sensation are grossly intact. - Labs CBC & Chem 7: 12/24/18 04:52 12/23/18 05:26 Labs: Abnormal Lab Results - Last 24 Hours (Table) 12/24/18 Range/Units 04:52 WBC 21.6 H (3.8-10.6) k/uL RBC 2.49 L (3.80-5.40) m/uL Hgb 7.7 L (11.4-16.0) gm/dL Hct 22.4 L (34.0-46.0) % RDW 15.7 H (11.5-15.5) % Assessment and Plan Assessment: #1 [place] 2a left lower extremity acute limb ischemia improved status post thrombolysis, angioplasty and stent #2 chronic peripheral arterial disease with claudication #3 tobacco abuse #4 lactic acidosis #5 leukocytosis with improvement likely partially reactive with limited ischemia. No obvious evidence of infection process at this time patient remains afebrile at this time #6 hypertension Plan: Continue with physical therapy. No obvious evidence for leukocytosis at this time, infectious disease on consult await their recommendations. No initiation of new antibiotics currently. Will await further demarcation of the left lower extremity. Continue to follow hemoglobin. The above dictated assessment and findings were discussed with [Dr. Rondon]. The impression and plan of care have been directed as dictated. Time with Patient: Less than 30
--- NOTE | 2018-12-24 14:19 | P.DS ---
Providers Date of admission: 12/16/18 14:04 Expected date of discharge: 12/24/18 Attending physician: Wali Victor Consults: 12/16/18 14:00 Consult Physician Routine Consulting Provider: Richy Martin Consult Reason/Comments: ischemic limb Do you want consulting provider notified?: Already Contacted 12/17/18 13:37 Consult Physician Stat Consulting Provider: Jayjay Galicia Consult Reason/Comments: ICU management Do you want consulting provider notified?: Yes 12/21/18 02:40 Consult Physician Routine Consulting Provider: Dany Fofana Consult Reason/Comments: new onset A-Fib Do you want consulting provider notified?: Already Contacted 12/21/18 20:56 Consult Physician Routine Consulting Provider: Milton Benítez Consult Reason/Comments: Leukocytosis Do you want consulting provider notified?: Yes Primary care physician: Josias Mcdaniels [facility] Hospital Course: Chief Complaint: Left leg cold Hospital course: This is a pleasant 78-year-old patient of Dr. Mcdaniels. Chronic stable medical conditions include hypertension, hyperlipidemia, coronary artery disease with stent. Patient was here in the hospital on December 07 2 diagnosis of TIA. Patient then had a CT angiogram of the head and neck that was negative. 2-D echocardiogram was unremarkable. Patient presented with some numbness in the left foot. She often does notice that. Numbness then slowly progressed to go more proximally up it came up to the hip and also the lower part of the abdomen. The leg also felt cold. This happened present course of 24 hours. The foot was painful. Patient also has a corn/callus that does bother her. There is no fever no chills. Patient presented to the ER. Vascular surgery Dr. Alvarado was called. CT angiogram demonstrated acute vascular findings. Dr. Alvarado requested the patient be admitted to the medical service he does speak to Dr. Krueger from the vascular team. Patient was put on IV heparin. And admitted to the medical floor. By the Following morning left lower extremity was becoming more cold and mottled. Patient was moved to the ICU. Patient was seen by Dr. Pace from vascular. Taken down to the operating room. Intravascular thrombolysis was started with TPA. Next day on December 18-patient's left leg became more mottled and patient taken to the operating room by Dr. Rondon. Several angioplasties were carried out in the left lower extremity and local thrombolytic was given. Patient has received 2 units of blood. Xarelto was started on December 20. Patient is of signs of ischemia in the left foot toes with demarcation. Patient has ischemic pain in the same. Patient's white count is elevated felt to be more his inflammatory response approximately infection. Patient also had hematoma of the right groin. Bruising coming down. No need for antibiotics as per Dr. Benítez. Patient's white count started to come down. Care was discussed with the patient at length several times. Today-essential laying in bed. No new issues. Tolerating a diet. Will be going to the rehab. Overall prognosis guarded. Consultations: Vascular surgery team including Dr. Alvarado, Dr. Rondon, Dr. Katelynn Benítez from ID. Dr. Rome Dixon from cardiology Dr. Diaz from critical care Physical examination: VITAL SIGNS: 98.6, 86, 17, 121/65, 95% room air GENERAL: Laying in bed comfortable EYES: Pupils equal. Conjunctiva normal. HEENT: External appearance of nose and ears normal, oral cavity grossly normal. NECK: JVD not raised; masses not palpable. HEART: First and second heart sounds are normal; no edema. LUNGS: Respiratory rate normal; clear to auscultation. ABDOMEN: Soft, nontender, liver spleen not palpable, no masses palpable. Right groin hematoma stable PSYCH: Tired, answering questions. EXTREMITIES: Bluish discoloration of the distal toes and the plantar surface of the feet MUSCULOSKELETAL: Evidence of significant evidence of RA in the hands INVESTIGATIONS, reviewed in the clinical context:: White count 21.6 hemoglobin 7.7 Protocol calcitonin 0.1-0.08 Previous testing White count 20.7 hemoglobin 11.6 sodium 123 potassium 4.2 bun 19 crit 0.68 Lactic acid 3.0 troponin I 0.[address] [place] lower extremity left leg-occlusion of the left common iliac artery with the right common iliac artery being patent. There is also occlusion of the left external iliac artery. The left and internal iliac artery reconstitutes from collaterals. There is reconstitution at the level of the left common femoral artery, superficial femoral artery. The left superficial femoral artery demonstrates multifocal disease with severe stenosis distally estimated at greater than 90%. Popliteal artery demonstrates multifocal disease as well as degree of stenosis less than 50%. Mild disease is seen at the tibial peroneal trunk with the posterior tibial artery, peroneal artery and inferior tibial artery being diminutive in size but limited distal filling. Vascular procedure- Postoperative diagnosis: 1. Left lower extremity critical limb ischemia with resolved occlusion of the left common and external iliac artery status post stenting 2. Resolved left popliteal artery and tibioperoneal trunk occlusion status post balloon angioplasty 3. One-vessel (peroneal artery ) runoff to the ankle. 4. Anterior tibial and posterior tibial artery occlusions at the mid tibial region. 5. Right groin hematoma- stable Procedure: - Left lower extremity selective iliofemoral angiogram via existing sheath - Aortoiliac angiogram - Selective left femoral popliteal, tibial peroneal angiogram - Percutaneous transluminal balloon angioplasty of the left common iliac artery with 7 x 80 mm Rosebud balloon, left popliteal artery with a 4 x 80 mm Rosebud balloon, left tibioperoneal trunk with 2.5 x 20 mm Trek balloon the left superficial femoral artery with 4 x 80 mm Rosebud balloon times multiple the left external iliac artery with 4 x 80 mm Rosebud balloon., Infusion of thrombolytic therapy utilizing 4 mg of TPA of the left femoral popliteal and tibioperoneal arterial system. Percutaneous transluminal balloon expandable stent placement across the common iliac artery on the left utilizing a 7 x 39 mm Omnilink stent. Placement of 6-Togolese Angio-Seal in the right common femoral artery. Assessment: -Acute on chronic occlusive disease arterial of the left lower extremity. With multiple angioplasties and local thrombolytic therapy. On Xarelto -Right groin acute hematoma, improving -Acute postop blood loss anemia, as expected from surgery. Status post 2 units of blood -Positive troponin, with no cardiac symptoms,. Likely from hemodynamic mismatch -Lactic acidosis type II -Essential hypertension, -Hyperlipidemia -Persistent atrial fibrillation. Patient is already on Xarelto -Coronary artery disease with stent -Persistent leukocytosis, probably due to inflammation in response to the acute on chronic thrombosis. No obvious source of infection. No antibiotics per Dr. Benítez. Disposition: [facility] Patient Condition at Discharge: Stable Plan - Discharge Summary Discharge Rx Participant: No New Discharge Prescriptions: New LORazepam [Ativan] 0.5 mg PO Q8H PRN #9 tab PRN Reason: Anxiety Nicotine 21Mg/24Hr Patch [Habitrol] 1 patch TRANSDERM DAILY #14 patch Metoprolol Tartrate [Lopressor] 50 mg PO BID tab Gabapentin [Neurontin] 300 mg PO TID #9 cap Rivaroxaban [Xarelto] 20 mg PO HS #1 tab Continue Aspirin 81 mg PO DAILY #30 Atorvastatin [Lipitor] 80 mg PO HS #30 tab Clopidogrel [Plavix] 75 mg PO DAILY tab Nitroglycerin Sl Tabs [Nitrostat] 0.4 mg SUBLINGUAL Q5M PRN #25 tab PRN Reason: Chest Pain Spironolactone [Aldactone] 25 mg PO DAILY #30 tab Lisinopril-Hctz 10-12.5 mg [Zestoretic 10-12.5] 1 tab PO BID #60 tab Albuterol Inhaler [Ventolin Hfa Inhaler] 2 puff INHALATION RT-Q6H PRN PRN Reason: Shortness Of Breath Pnv No.95/Ferrous Fum/Folic AC [ Multivitamin Tablet] 1 tab PO DAILY Ipratropium/Albuterol Sulfate [Combivent Respimat Inhaler] 1 puff INHALATION RT-DAILY diphenhydrAMINE [Benadryl] 25 mg PO HS PRN PRN Reason: Nasal Congestion Biotin 5,000 mcg PO DAILY Acetaminophen-Codeine 300-30mg [Tylenol w/codeine #3] 1 tab PO Q6H PRN #12 tab PRN Reason: Pain Discontinued LORazepam [Ativan] 0.5 - 1 mg PO Q8H PRN PRN Reason: Anxiety Metoprolol Tartrate [Lopressor] 25 mg PO BID #60 tab Naproxen Sodium [Aleve] 220 mg PO BID PRN PRN Reason: Pain Discharge Medication List Aspirin 81 mg PO DAILY #30 10/23/16 [Rx] Atorvastatin [Lipitor] 80 mg PO HS #30 tab 10/23/16 [Rx] Clopidogrel [Plavix] 75 mg PO DAILY tab 10/23/16 [Rx] Nitroglycerin Sl Tabs [Nitrostat] 0.4 mg SUBLINGUAL Q5M PRN #25 tab 10/23/16 [Rx] Spironolactone [Aldactone] 25 mg PO DAILY #30 tab 10/23/16 [Rx] Lisinopril-Hctz 10-12.5 mg [Zestoretic 10-12.5] 1 tab PO BID #60 tab 12/07/18 [Rx] Albuterol Inhaler [Ventolin Hfa Inhaler] 2 puff INHALATION RT-Q6H PRN 12/16/18 [History] Biotin 5,000 mcg PO DAILY 12/16/18 [History] Ipratropium/Albuterol Sulfate [Combivent Respimat Inhaler] 1 puff INHALATION RT- DAILY 12/16/18 [History] Pnv No.95/Ferrous Fum/Folic AC [ Multivitamin Tablet] 1 tab PO DAILY 12/16/18 [History] diphenhydrAMINE [Benadryl] 25 mg PO HS PRN 12/16/18 [History] Acetaminophen-Codeine 300-30mg [Tylenol w/codeine #3] 1 tab PO Q6H PRN #12 tab 12/24/18 [Rx] Gabapentin [Neurontin] 300 mg PO TID #9 cap 12/24/18 [Rx] LORazepam [Ativan] 0.5 mg PO Q8H PRN #9 tab 12/24/18 [Rx] Metoprolol Tartrate [Lopressor] 50 mg PO BID tab 12/24/18 [Rx] Nicotine 21Mg/24Hr Patch [Habitrol] 1 patch TRANSDERM DAILY #14 patch 12/24/18 [Rx] Rivaroxaban [Xarelto] 20 mg PO HS #1 tab 12/24/18 [Rx] Follow up Appointment(s)/Referral(s): Lukas Mcdaniels MD [Primary Care Provider] - As Needed Gregorio Rondon DO [STAFF PHYSICIAN] - 2 Weeks
--- NOTE | 2018-12-24 14:41 | P.PN ---
Subjective Progress Note Date: 12/24/18 Principal diagnosis: Left leg pain and numbness This is a 78-year-old white female patient of Dr. Mcdaniels, with past medical history of hypertension, hyperlipidemia, coronary artery disease with stent placement, previous history of TIA, chronic and ongoing history of smoking, up to a pack a day, currently down to three quarters of a pack a day, a total of 63 years. She denies any chronic lung disease, although she was prescribed Combivent and rescue inhaler which she does not use, not normally on oxygen. Patient came into the hospital on 12/16/2018 for evaluation of left leg numbness and pain from the left knee down to her foot. She complained of generalized weakness, and reports that injury to her left leg after tripping episode. Patient reports left leg pain starting a week ago and getting progressively worse. Patient had previously been in the ED last week with similar symptoms she was evaluated for stroke however she had signed out AGAINST MEDICAL ADVICE that this her left leg pain was not addressed. No difficulty breathing, no chest pain. Physical exam revealed slightly cyanotic left leg, without palpable pulses in the left femoral artery or below. CT angiogram of the left lower extremity was completed showing occlusion of the left common iliac artery as well as the left external iliac artery with reconstitution at the level of the left common femoral artery/superficial femoral artery. There was multifocal disease involving the superficial femoral artery with distal stenosis estimated at 90%. Patient has been having pain in her left leg on and off since summer 2018. CT angios of the thoracic, femoral and pelvic aorta showed no evidence of thoracoabdominal aortic aneurysm, and showed occlusion of left common iliac artery and left external iliac artery. Patient was taken to the tag and label cutter and right femoral sheath has been inserted, with TPA infusion. We're seeing this patient in the intensive care unit following her procedure, and we're consulted for critical care management. The patient is seen today 12/18/2018 in follow-up in the intensive care unit. She is currently awake and alert in no acute distress. She's on room air and maintaining O2 saturation in the 90s. She is still having ongoing left lower extremity pain and numbness. She is receiving heparin at 500 units per hour. TPA is infusing into the right groin catheter at 1 mg per hour. There is a hematoma around the catheter site. There is no pulse in the left lower extremity. The leg is mottled. Plan is to return to surgery with vascular surgeon today. On 12/19/2018 patient is seen in follow-up in the intensive care unit. Patient went back to or yesterday, and had done left lower extremity selective iliofemoral angiograms, percutaneous transluminal balloon angioplasty of the left common iliac artery, left popliteal artery, left tibial peroneal trunk and percutaneous expandable stent placement across the common iliac artery. This is postoperative day 1. Patient developed a hematoma in the right groin, which was manually controlled, and this morning right groin is bruised and swollen, however the hematoma has not expanded. TPA drip has been discontinued, patient remains on heparin drip at weight-based protocol, and IV 0.9 normal saline at a rate of 100, patient had an episode of hypotension yesterday, she was given a liter of IV fluids and boluses, and received 1 unit of packed red blood cells for hemoglobin of 6.6. 's morning's hemoglobin is 7.0, white blood cell count was 23.1, sodium is 135, potassium is 4.0, chloride is 113, CO2 17, BUN is 16, creatinine 0.57. He is awake and alert, in no acute distress, she has a Doppler left femoral pulse, however no palpable pedal or popliteal pulse, but extremity on the left is less cyanotic, still cool to touch, and patient does have paresthesias and numbness. Denies any shortness of breath, denies any chest pain, this morning his vitals are stable, she is on 4 L of oxygen with a pulse ox of 97%, blood pressures 111/49, sinus rhythm with a rate of 90, she is afebrile. Brain CT was completed for the reason of episode of confusion, and showed cerebral atrophy, no acute intracranial process. On 12/23/2018 patient seen in follow-up in the intensive care unit, she is sleeping in bed, in no acute distress, she still has some numbness in her left lower extremity on the bottom of her foot. There is still palpable pulse in the pedal area in the left lower extremity, there are ischemic changes involving the digits on the left lower extremity, and discoloration related to ischemia on the bottom of the left foot, but the foot is warm to touch. Patient is on a combination of Plavix, aspirin, Lipitor. She denies any acute distress, no difficulty breathing, no chest pain, vital signs have been stable. There have been no fever or chills, today's labs have been reviewed, slight downtrend in her white blood cell count, with the white count today is 31.6, hemoglobin is 8.1, serum sodium is 131, potassium 3.8, chloride is 95, CO2 is 31, BUN of 10, creatinine 0.39, pro-calcitonin is negative at 0.08 adjusting absence of infection. Patient has been having difficulty ambulating relating to numbness and pain involving the left lower extremity and the presence of deep tissue injury on her left heel. Less she was up in the chair with physical therapy, and assistance of a walker On 12/24/2018 patient seen in follow-up on the regular medical surgical floor. She is sleepy, but easily arousable, denies any acute distress, still complaining of some numbness at the bottom of her left foot. There is a palpable left pedal dorsalis pulse, and the left foot is warm to touch. No fever or chills, respirations are nonlabored, she denies any shortness of breath, denies any chest pain, lung sounds are clear to auscultation. Today's labs have been reviewed, and there is further downtrend and her white blood cell count down to 21.6, hemoglobin is 7.7. No BMP was done. No acute events overnight. Patient continues on Lipitor, Plavix and aspirin, vital signs have been stable, physical therapy is working with the patient, and discharge planning is in progress for discharge to subacute rehab possibly today or tomorrow. Objective - Vital Signs Vital signs: Vital Signs Temp 98.6 F 12/24/18 11:26 Pulse 86 12/24/18 11:26 Resp 14 12/24/18 11:28 BP 121/65 12/24/18 11:26 Pulse Ox 95 12/24/18 11:26 Intake & Output 12/23/18 12/24/18 12/24/18 18:59 06:59 18:59 Intake Total 80 60 Output Total 300 0 Balance -220 60 Weight 53.4 kg 53.4 kg Intake: Oral 80 60 Output: Urine 300 0 Other: Voiding Method Bedside Commode Bedside Commode # Voids 1 1 # Bowel Movements 1 1 - Exam GENERAL EXAM: Alert, pleasant, 70-year-old white female, with a room air pulse ox of 98%, comfortable in no apparent distress. HEAD: Normocephalic/atraumatic. EYES: Normal reaction of pupils, equal size. Conjunctiva pink, sclera white. NOSE: Clear with pink turbinates. THROAT: No erythema or exudates. NECK: No masses, no JVD, no thyroid enlargement, no adenopathy. CHEST: No chest wall deformity. Symmetrical expansion. LUNGS: Equal air entry with no crackles, wheeze, rhonchi or dullness. CVS: Regular rate and rhythm, normal S1 and S2, no gallops, no murmurs, no rubs ABDOMEN: Soft, nontender. No hepatosplenomegaly, normal bowel sounds, no guarding or rigidity. EXTREMITIES: No clubbing, no edema, cyanosis of the left lower extremity improved, warm to touch, no palpable pulses up to the left femoral area. Right and left groin hematoma, which is slightly extended up the abdomen, and wrapping around the back, is starting to fade MUSCULOSKELETAL: Muscle strength and tone normal. SPINE: No scoliosis or deformity SKIN: No rashes CENTRAL NERVOUS SYSTEM: Alert and oriented -3. No focal deficits, tone is normal in all 4 extremities. PSYCHIATRIC: Alert and oriented -3. Appropriate affect. Intact judgment and insight. - Labs CBC & Chem 7: 12/24/18 04:52 12/23/18 05:26 Labs: Abnormal Lab Results - Last 24 Hours (Table) 12/24/18 Range/Units 04:52 WBC 21.6 H (3.8-10.6) k/uL RBC 2.49 L (3.80-5.40) m/uL Hgb 7.7 L (11.4-16.0) gm/dL Hct 22.4 L (34.0-46.0) % RDW 15.7 H (11.5-15.5) % Assessment and Plan Plan: Assessment: #1. Acute limb ischemia involving the left lower extremity, left iliac and left popliteal occlusion, status post right femoral arterial access, iliofemoral angiogram, left lower extremity angiogram, and infusion of TPA, operative day 7. On 12/18/2018 patient was taken back to the OR in view of absent pulses in the left extremity, and underwent percutaneous thrombectomy, balloon angioplasty and stenting. This is postoperative day 6. #2. Left lower extremity numbness, and pain related to the above, the pain has improved, but the left lower extremity numbness persist in the area of the bottom of the left foot #3. Leukocytosis likely reactive, procalcitonin is negative suggesting absence of infection. Leukocytosis is improving #4. Hyponatremia, improved #5. Previous ER visit on 12/12/2018 for left leg weakness, sensation deficit and paresthesia, patient was worked up for possibility of CVA, and CT of the h ead and neck was negative for acute process or aneurysm. Patient's symptoms had resolved, and it was decided that this was probably related to possibility of TIA. Patient had left the emergency department AGAINST MEDICAL ADVICE at that time. She had a mild elevation of troponins #6. Hypertension #7. Hyperlipidemia #8. Coronary artery disease with previous stenting #9. Chronic and ongoing history of smoking, 63 years, less than a pack a day, currently down to three quarters of a pack #10. Mild lactic acidosis, hemodynamically related to acute limb ischemia improved #11. Acute blood loss anemia, related to right groin hematoma, requiring transfusion of one unit of packed red blood cells #12. Deep tissue injury involving the left heel Plan: Vital signs remain stable, patient remains stable, no acute events overnight, encourage the patient to sit up in the chair, and a physical therapy consultation. Today's labs have been reviewed, there is further downtrend of her white blood cell count, no fever or chills, procalcitonin was negative. Continue with the aspirin, Plavix and Lipitor, lower extremity dorsalis pedis pulse is palpable. From pulmonary perspective patient is stable, discharge planning is in progress for discharge to subacute rehab possibly today or lisa . We will sign off and follow on as-needed basis. I performed a history & physical examination of the patient and discussed their management with my nurse practitioner, Sulma Schilling. I reviewed the nurse practitioner's note and agree with the documented findings and plan of care. Lung sounds are clear breath sounds. The findings and the impression was discussed with the patient. I attest to the documentation by the nurse practitioner. Time with Patient: Less than 30
== END 2018-12-24 16:55 | DRG 253 ==
LOC: EC 10:12 → 3SCARD 14:04 → 2SICU 12-17 12:57 → 3NMEDONC 12-24 06:27
PROVIDERS: ADMIT Hospitalist; ATTEND Hospitalist
PROC: 047L3ZZ Dilation of Left Femoral Artery, Percutaneous Approach (ICD-10-PCS; 2018-12-17)
PROC: 3E05317 Introduction of Other Thrombolytic into Peripheral Artery, Percutaneous Approach (ICD-10-PCS; principal; 2018-12-17 09:55)
PROC: 047J3ZZ Dilation of Left External Iliac Artery, Percutaneous Approach (ICD-10-PCS; 2018-12-18)
PROC: 047D3DZ Dilation of Left Common Iliac Artery with Intraluminal Device, Percutaneous Approach (ICD-10-PCS; 2018-12-18)
PROC: 047L3ZZ Dilation of Left Femoral Artery, Percutaneous Approach (ICD-10-PCS; 2018-12-18)
PROC: B41G1ZZ Fluoroscopy of Left Lower Extremity Arteries using Low Osmolar Contrast (ICD-10-PCS; 2018-12-18)
PROC: 3E05317 Introduction of Other Thrombolytic into Peripheral Artery, Percutaneous Approach (ICD-10-PCS; 2018-12-18)
PROC: B41D1ZZ Fluoroscopy of Aorta and Bilateral Lower Extremity Arteries using Low Osmolar Contrast (ICD-10-PCS; 2018-12-18)
PROC: 30233N1 Transfusion of Nonautologous Red Blood Cells into Peripheral Vein, Percutaneous Approach (ICD-10-PCS; 2018-12-18)
PROC: 047S3ZZ Dilation of Left Posterior Tibial Artery, Percutaneous Approach (ICD-10-PCS; 2018-12-18)
PROC: 047N3ZZ Dilation of Left Popliteal Artery, Percutaneous Approach (ICD-10-PCS; 2018-12-18 10:45)
PROC: 047D3ZZ Dilation of Left Common Iliac Artery, Percutaneous Approach (ICD-10-PCS; 2018-12-18 10:45)
PROC: 047Q3ZZ Dilation of Left Anterior Tibial Artery, Percutaneous Approach (ICD-10-PCS; 2018-12-18 10:45)
PROC: 047U3ZZ Dilation of Left Peroneal Artery, Percutaneous Approach (ICD-10-PCS; 2018-12-18 10:45)
DX: I70.222 Atherosclerosis of native arteries of extremities with rest pain, left leg (principal); I74.5 Embolism and thrombosis of iliac artery; I74.3 Embolism and thrombosis of arteries of the lower extremities; D62 Acute posthemorrhagic anemia; E87.1 Hypo-osmolality and hyponatremia; E87.2 Acidosis; I48.19 Other persistent atrial fibrillation; I97.638 Postprocedural hematoma of a circulatory system organ or structure following other circulatory system procedure; D72.829 Elevated white blood cell count, unspecified; E78.5 Hyperlipidemia, unspecified; F17.210 Nicotine dependence, cigarettes, uncomplicated; Z86.73 Personal history of transient ischemic attack (TIA), and cerebral infarction without residual deficits; G62.9 Polyneuropathy, unspecified; I10 Essential (primary) hypertension; I25.10 Atherosclerotic heart disease of native coronary artery without angina pectoris; I25.2 Old myocardial infarction; I71.9 Aortic aneurysm of unspecified site, without rupture; J44.9 Chronic obstructive pulmonary disease, unspecified; M19.90 Unspecified osteoarthritis, unspecified site; Y83.8 Other surgical procedures as the cause of abnormal reaction of the patient, or of later complication, without mention of misadventure at the time of the procedure; Z79.02 Long term (current) use of antithrombotics/antiplatelets; Z79.82 Long term (current) use of aspirin; Z79.899 Other long term (current) drug therapy; Z82.49 Family history of ischemic heart disease and other diseases of the circulatory system; Z83.3 Family history of diabetes mellitus; Z90.710 Acquired absence of both cervix and uterus; Z95.5 Presence of coronary angioplasty implant and graft; R79.89 Other specified abnormal findings of blood chemistry
CPT/HCPCS: 36246; 36415; 37211; 37214; 37221; 37222; 37224; 37228; 70450; 71275; 74174; 75710; 76937; 80048; 80053; 81001; 83605; 84075; 84132; 84145; 84450; 84460; 85025; 85027; 85347; 85384; 85610; 85730; 86850; 86900; 86901; 86920; 93308; 93975; 94640; 96360; 96361; 99285

== ENCOUNTER 2019-01-03 11:29 | Inpatient (IN) | payer MEDICARE ==
--- NOTE | 2019-01-03 12:50 | ED ---
General Adult HPI - General Chief complaint: Recheck/Abnormal Lab/Rx Stated complaint: Low Hemoglobin Time Seen by Provider: 01/03/19 11:45 Source: patient, EMS, RN notes reviewed, old records reviewed Mode of arrival: EMS Limitations: no limitations - History of Present Illness Initial comments: This is a 78-year-old female presents emergency Department because she was sent in from the shelter for low hemoglobin is 6.9 prior to draw showed her to be at 8.1. Patient herself says she has no complaints. Patient states she's in the shelter for rehabilitation because she has some gangrene of the toes of her left foot. Patient denies any pain patient denies any shortness of breath patient denies any chest pain patient denies any palpitations patient denies any recent fever chills. Patient denies headache patient denies any numbness we akness. Patient denies any abdominal pain patient denies nausea vomiting diarrhea. Patient denies any recent fall or injury either she has quite a bit of bruising on her right lower back and hip. - Related Data Home Medications Medication Instructions Recorded Confirmed Albuterol Inhaler [Ventolin Hfa 2 puff INHALATION RT-Q6H PRN 12/16/18 01/03/19 Inhaler] Biotin 5,000 mcg PO DAILY 12/16/18 01/03/19 Ipratropium/Albuterol Sulfate 1 puff INHALATION RT-DAILY 12/16/18 01/03/19 [Combivent Respimat Inhaler] diphenhydrAMINE [Benadryl] 25 mg PO HS PRN 12/16/18 01/03/19 Adaptic 1 applic TOPICAL BID 01/03/19 01/03/19 Aspirin 81 mg PO HS 01/03/19 01/03/19 Clopidogrel [Plavix] 75 mg PO HS 01/03/19 01/03/19 Gabapentin [Neurontin] 300 mg PO TID@0700,1300,1900 01/03/19 01/03/19 LORazepam [Ativan] 0.5 mg PO TID PRN 01/03/19 01/03/19 Lisinopril-Hctz 10-12.5 mg 1 tab PO BID@0700,1600 01/03/19 01/03/19 [Zestoretic 10-12.5] Metoprolol Tartrate [Lopressor] 50 mg PO BID@0700,1600 01/03/19 01/03/19 Multivitamins, Thera [Multivitamin 1 tab PO HS 01/03/19 01/03/19 (formulary)] Nicotine 14Mg/24Hr Patch [Habitrol 1 patch TRANSDERM DAILY 01/03/19 01/03/19 14Mg/24Hr Patch] Polyethylene Glycol 3350 [Miralax] 17 gm PO HS 01/03/19 01/03/19 Rivaroxaban [Xarelto] 20 mg PO DAILY@199901/03/19 01/03/19 Saliva Stimulant Agents Comb.3 3 spray MUCOUS MEM 01/03/19 01/03/19 [Biotene Moisturizing Mouth] TID@0700,1300,1900 Spironolactone [Aldactone] 25 mg PO DAILY 01/03/19 01/03/19 Sulfamethoxazole/Trimethoprim 1 tab PO BID 01/03/19 01/03/19 [Bactrim DS 800-160 mg] Previous Rx's Medication Instructions Recorded Atorvastatin [Lipitor] 80 mg PO HS #30 tab 10/23/16 Nitroglycerin Sl Tabs [Nitrostat] 0.4 mg SUBLINGUAL Q5M PRN #25 tab 10/23/16 Acetaminophen-Codeine 300-30mg 1 tab PO Q6H PRN #12 tab 12/24/18 [Tylenol w/codeine #3] Allergies Allergy/AdvReac Type Severity Reaction Status Date / Time No Known Allergies Allergy Verified 01/03/19 11:41 Review of Systems ROS Statement: Those systems with pertinent positive or pertinent negative responses have been documented in the HPI. ROS Other: All systems not noted in ROS Statement are negative. Past Medical History Past Medical History: CVA/TIA, Hyperlipidemia, Hypertension, Myocardial Infarction (DC) Last Myocardial Infarction Date:: 2006 History of Any Multi-Drug Resistant Organisms: None Reported Past Surgical History: Hysterectomy Additional Past Surgical History / Comment(s): cardiac cath w/ stent Past Psychological History: No Psychological Hx Reported Smoking Status: Current some day smoker Past Alcohol Use History: None Reported Past Drug Use History: None Reported - Past Family History Daughter(s) Family Medical History: Diabetes Mellitus Son(s) Family Medical History: Hyperlipidemia, Hypertension General Exam - General Exam Comments Initial Comments: GENERAL: Patient is well-developed and well-nourished. Patient is nontoxic and well- hydrated and is in no acute distress. ENT: Neck is soft and supple. No significant lymphadenopathy is noted. Oropharynx is clear. Moist mucous membranes. Neck has full range of motion without eliciting any pain. EYES: The sclera were anicteric and conjunctiva were pink and moist. Extraocular movements were intact and pupils were equal round and reactive to light. Eyelids were unremarkable. PULMONARY: Unlabored respirations. Good breath sounds bilaterally. No audible rales rhonchi or wheezing was noted. CARDIOVASCULAR: There is a regular rate and rhythm without any murmurs gallops or rubs. ABDOMEN: Soft and nontender with normal bowel sounds. No palpable organomegaly was noted. There is no palpable pulsatile mass. RECTAL: On rectal exam stool was dark but not black. SKIN: Skin is clear with no lesions or rashes and otherwise unremarkable. NEUROLOGIC: Patient is alert and oriented x3. Cranial nerves II through XII are grossly i ntact. Motor and sensory are also intact. Normal speech, volume and content. Symmetrical smile. MUSCULOSKELETAL: Normal extremities with adequate strength and full range of motion. No lower extremity swelling or edema. No calf tenderness. LYMPHATICS: No significant lymphadenopathy is noted PSYCHIATRIC: Normal psychiatric evaluation. Limitations: no limitations Course Vital Signs 01/03/19 11:43 Temperature 98.3 F Pulse Rate 66 Respiratory 16 Rate Blood Pressure 108/44 O2 Sat by Pulse 100 Oximetry Medical Decision Making - Medical Decision Making Patient was called positive from below. Patient had a hemoglobin of 7.[address] Victor agreed to admit the patient admitted the patient I consult the GI. I did serial CBCs. - Lab Data Result diagrams: 01/03/19 12:20 01/03/19 12:20 Lab Results 01/03/19 01/03/19 01/03/19 Range/Units 12:20 12:20 12:20 WBC 7.3 (3.8-10.6) k/uL RBC 2.39 L (3.80-5.40) m/uL Hgb 7.3 L (11.4-16.0) gm/dL Hct 22.5 L (34.0-46.0) % MCV 94.2 (80.0-100.0) fL MCH 30.6 (25.0-35.0) pg MCHC 32.5 (31.0-37.0) g/dL RDW 17.7 H (11.5-15.5) % Plt Count 608 H (150-450) k/uL Neutrophils % 74 % Lymphocytes % 18 % Monocytes % 5 % Eosinophils % 1 % Basophils % 1 % Neutrophils # 5.4 (1.3-7.7) k/uL Lymphocytes # 1.3 (1.0-4.8) k/uL Monocytes # 0.4 (0-1.0) k/uL Eosinophils # 0.1 (0-0.7) k/uL Basophils # 0.1 (0-0.2) k/uL Hypochromasia Slight Anisocytosis Slight Macrocytosis Slight PT (9.0-12.0) sec INR (<1.2) APTT (22.0-30.0) sec Sodium 130 L (137-145) mmol/L Potassium 5.4 H (3.5-5.1) mmol/L Chloride 96 L (98-107) mmol/L Carbon Dioxide 25 (22-30) mmol/L Anion Gap 9 mmol/L BUN 30 H (7-17) mg/dL Creatinine 0.85 (0.52-1.04) mg/dL Est GFR (CKD-EPI)AfAm 76 (>60 ml/min/1.73 sqM) Est GFR (CKD-EPI)NonAf 66 (>60 ml/min/1.73 sqM) Glucose 130 H (74-99) mg/dL Calcium 8.5 (8.4-10.2) mg/dL Total Bilirubin 0.8 (0.2-1.3) mg/dL AST 51 H (14-36) U/L ALT 61 H (9-52) U/L Alkaline Phosphatase 156 H (38-126) U/L Total Protein 6.1 L (6.3-8.2) g/dL Albumin 2.6 L (3.5-5.0) g/dL Stool Occult Blood (Negative) Blood Type O Negative Blood Type Recheck O Neg Bld Type Recheck Status No Antibody Screen NEGATIVE Spec Expiration Date 01/06/2019 - 231901/03/19 01/03/19 Range/Units 12:20 13:10 WBC (3.8-10.6) k/uL RBC (3.80-5.40) m/uL Hgb (11.4-16.0) gm/dL Hct (34.0-46.0) % MCV (80.0-100.0) fL MCH (25.0-35.0) pg MCHC (31.0-37.0) g/dL RDW (11.5-15.5) % Plt Count (150-450) k/uL Neutrophils % % Lymphocytes % % Monocytes % % Eosinophils % % Basophils % % Neutrophils # (1.3-7.7) k/uL Lymphocytes # (1.0-4.8) k/uL Monocytes # (0-1.0) k/uL Eosinophils # (0-0.7) k/uL Basophils # (0-0.2) k/uL Hypochromasia Anisocytosis Macrocytosis PT 11.0 (9.0-12.0) sec INR 1.0 (<1.2) APTT 23.5 (22.0-30.0) sec Sodium (137-145) mmol/L Potassium (3.5-5.1) mmol/L Chloride (98-107) mmol/L Carbon Dioxide (22-30) mmol/L Anion Gap mmol/L BUN (7-17) mg/dL Creatinine (0.52-1.04) mg/dL Est GFR (CKD-EPI)AfAm (>60 ml/min/1.73 sqM) Est GFR (CKD-EPI)NonAf (>60 ml/min/1.73 sqM) Glucose (74-99) mg/dL Calcium (8.4-10.2) mg/dL Total Bilirubin (0.2-1.3) mg/dL AST (14-36) U/L ALT (9-52) U/L Alkaline Phosphatase (38-126) U/L Total Protein (6.3-8.2) g/dL Albumin (3.5-5.0) g/dL Stool Occult Blood Positive H (Negative) Blood Type Blood Type Recheck Bld Type Recheck Status Antibody Screen Spec Expiration Date Disposition Clinical Impression: Anemia, GI bleed Disposition: ADMITTED IP TO THIS [facility] Referrals: Lukas Mcdaniels MD [Primary Care Provider] - 1-2 days Time of Disposition: 14:40
[2019-01-03 13:07] LABS: Albumin 2.6 g/dL (3.5-5.0); Calcium 8.5 mg/dL (8.4-10.2); Potassium 5.4 mmol/L (3.5-5.1); Total Bilirubin 0.8 mg/dL (0.2-1.3); Total Protein 6.1 g/dL (6.3-8.2)
[2019-01-03 13:15] LABS: Partial Thromboplastin Time 23.5 sec (22.0-30.0)
[2019-01-03 13:29] LABS: Anisocytosis Slight; Basophils # (A) 0.1 k/uL (0-0.2); Basophils % (A) 1 %; Eosinophils # (A) 0.1 k/uL (0-0.7); Eosinophils % (A) 1 %; HCT 22.5 % (34.0-46.0); HGB 7.3 gm/dL (11.4-16.0); Hypochromasia Slight; Lymphocytes # (A) 1.3 k/uL (1.0-4.8); Lymphocytes % (A) 18 %; MCH 30.6 pg (25.0-35.0); MCHC 32.5 g/dL (31.0-37.0); MCV 94.2 fL (80.0-100.0); Macrocytosis Slight; Mean Platelet Volume 6.3; Monocytes # (A) 0.4 k/uL (0-1.0); Monocytes % (A) 5 %; Neutrophils # (A) 5.4 k/uL (1.3-7.7); Neutrophils % (A) 74 %; Platelet Count 608 k/uL (150-450); RBC 2.39 m/uL (3.80-5.40); RDW 17.7 % (11.5-15.5); WBC 7.3 k/uL (3.8-10.6)
[2019-01-03] MEDS ORDERED: SODIUM CHLORIDE 0.9% 500 ML 500 ML IV ONE (16:39)
[2019-01-03] MEDS: SODIUM CHLORIDE 0.9% 1,000 ML IV SCH (17:24)
[2019-01-03] MEDS ORDERED: LORazepam 0.5 MG TAB PO PRN (20:45)
[2019-01-03] MEDS ORDERED: diphenhydrAMINE 25 MG CAP PO PRN (20:45)
[2019-01-03] MEDS ORDERED: ALBUTEROL NEBULIZED 2.5 MG/3 ML INHALATION PRN (20:45)
--- NOTE | 2019-01-03 20:59 | P.HPIM ---
History of Present Illness H&P Date: 01/03/19 Chief Complaint: Low hemoglobin History of present complaint: This is a pleasant 78-year-old patient of Dr. Mcdaniels. Chronic stable medical conditions include hypertension, hyperlipidemia, coronary artery disease with stent. Patient was here in the hospital on December 07, 2018 with a diagnosis of TIA. Patient then had a CT angiogram of the head and neck that was negative. 2-D echocardiogram was unremarkable. Patient was then admitted from December 16 through 12/24/2018.. Patient presented with acute on chronic peripheral artery disease with CT angiogram demonstrating acute vascular findings. The following day patient had TPA administered. Likely become: No stigmata the or and several angioplasties and thrombolytic was carried out. Patient was discharged on xarelto. Patient was having, pain in the left foot toes with signs of early gangrene when she left the hospital. She gone to rehab. She sent in today with hemoglobin of 6.9. Blood pressures running low in the 90s. Hemoglobin was 7.3. Patient has been feeling weak and tired. Appetite is starting to tow picker and lost to 3 days. Patient's lung significant pain in the left foot toes. Which have been discolored. Patient was positive for guaiac stool. Review of systems: GEN.: Tired EYES: None HEENT: None NECK: None RESPIRATORY: None CARDIOVASCULAR: None GASTROINTESTINAL: None GENITOURINARY: None MUSCULOSKELETAL: Occasional joint pains, rest as above LYMPHATICS: None HEMATOLOGICAL: None PSYCHIATRY: None NEUROLOGICAL: As above Past medical history to include: Hypertension, hyperlipidemia, coronary artery disease with stent, TIA, acute on chronic lower extremity thrombosis, arterial, with TPA and thrombus extraction and angioplasty. Social history: Patient had been a smoker up to loss admission. Currently for rehab at [facility] Family history: Reviewed, noncontributory to presentation Physical examination: VITAL SIGNS: 98.3, 66, 16, 89/49, 60% on 2 L GENERAL: BMI 23.6, laying in bed, tired EYES: Pupils equal. Conjunctiva pale HEENT: External appearance of nose and ears normal, oral cavity grossly normal. NECK: JVD not raised; masses not palpable. HEART: First and second heart sounds are normal; no edema. LUNGS: Respiratory rate normal; decreased breath sounds ABDOMEN: Soft, nontender, liver spleen not palpable, no masses palpable. PSYCH: Alert and oriented x3; mood and affect normal. NEUROLOGICAL: Cranial nerves grossly intact; no facial asymmetry, power and sensation grossly intact. EXTREMITIES: Dressing over the left foot MUSCULOSKELETAL: Evidence of significant evidence of RA in the hands INVESTIGATIONS, reviewed in the clinical context:: White count 7.3 hemoglobin 7.3 pressure 5.4 creatinine 0.85 Patient's hemoglobin on December 24 was 7.7 Assessment: -Acute symptomatic anemia in a patient whose been on Xarelto with guaiac-positi ve stool -Acute on chronic occlusive disease arterial of the left lower extremity, recently and patient received thrombolytic, angioplasties and thrombus extraction -Hypotension, from recent bleed -Hyperlipidemia -Coronary artery disease with stent -Persistent atrial fibrillation for which patient is on Xarelto -Left toes only gangrene from underlying peripheral artery disease Plan: Patient blood pressures gone down to the 80s. We'll give a unit of blood. Antihypertensive be held. As a result has been held. She has been consulted. Repeat CBC in the morning. Also consult Dr. Rondon from vascular. Care was discussed with the patient. Questions were answered. Past Medical History Past Medical History: Atrial Fibrillation, Coronary Artery Disease (CAD), COPD, CVA/TIA, Hyperlipidemia, Hypertension, Myocardial Infarction (MS), Rheumatoid Arthritis (RA), Vascular Disorder Additional Past Medical History / Comment(s): Pt recently admitted to [facility] on 12/16/18 with L lower extremity critical limb ischemia. She had several angiograms/PTBAs and a stent placed. 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, RA in bilateral hands, incontinent of urine and stool at times, Last Myocardial Infarction Date:: 2016 History of Any Multi-Drug Resistant Organisms: None Reported Past Surgical History: Hysterectomy Additional Past Surgical History / Comment(s): L lower extremity iliofemoral angiogram, aortoiliac angiogram, selective L popliteal tibial peroneal angiogram, multiple PTBAs L leg/thrombolytics and a stent to the L common iliac artery, 2006/2016 cardiac caths w/ stents Past Anesthesia/Blood Transfusion Reactions: No Reported Reaction, Motion Sickness Additional Past Anesthesia/Blood Transfusion Reaction / Comment(s): Pt recently received blood without reaction. Smoking Status: Former smoker - Past Family History Daughter(s) Family Medical History: Diabetes Mellitus Son(s) Family Medical History: Hyperlipidemia, Hypertension Mother Family Medical History: No Reported History Additional Family Medical History / Comment(s): Mother was healthy Father Family Medical History: Cancer Additional Family Medical History / Comment(s): Father of some form of canc er prior to pt being born. She does not know type of cancer. Medications and Allergies Home Medications Medication Instructions Recorded Confirmed Type Atorvastatin [Lipitor] 80 mg PO HS #30 tab 10/23/16 01/03/19 Rx Nitroglycerin Sl Tabs [Nitrostat] 0.4 mg SUBLINGUAL Q5M PRN #25 tab 10/23/16 01/03/19 Rx Albuterol Inhaler [Ventolin Hfa 2 puff INHALATION RT-Q6H PRN 12/16/18 01/03/19 History Inhaler] Biotin 5,000 mcg PO DAILY 12/16/18 01/03/19 History Ipratropium/Albuterol Sulfate 1 puff INHALATION RT-DAILY 12/16/18 01/03/19 History [Combivent Respimat Inhaler] diphenhydrAMINE [Benadryl] 25 mg PO HS PRN 12/16/18 01/03/19 History Acetaminophen-Codeine 300-30mg 1 tab PO Q6H PRN #12 tab 12/24/18 01/03/19 Rx [Tylenol w/codeine #3] Adaptic 1 applic TOPICAL BID 01/03/19 01/03/19 History Aspirin 81 mg PO HS 01/03/19 01/03/19 History Clopidogrel [Plavix] 75 mg PO HS 01/03/19 01/03/19 History Gabapentin [Neurontin] 300 mg PO TID@0700,1300,1900 01/03/19 01/03/19 History LORazepam [Ativan] 0.5 mg PO TID PRN 01/03/19 01/03/19 History Lisinopril-Hctz 10-12.5 mg 1 tab PO BID@0700,1600 01/03/19 01/03/19 History [Zestoretic 10-12.5] Metoprolol Tartrate [Lopressor] 50 mg PO BID@0700,1600 01/03/19 01/03/19 History Multivitamins, Thera [Multivitamin 1 tab PO HS 01/03/19 01/03/19 History (formulary)] Nicotine 14Mg/24Hr Patch [Habitrol 1 patch TRANSDERM DAILY 01/03/19 01/03/19 History 14Mg/24Hr Patch] Polyethylene Glycol 3350 [Miralax] 17 gm PO HS 01/03/19 01/03/19 History Rivaroxaban [Xarelto] 20 mg PO DAILY@199901/03/19 01/03/19 History Saliva Stimulant Agents Comb.3 3 spray MUCOUS MEM 01/03/19 01/03/19 History [Biotene Moisturizing Mouth] TID@0700,1300,1900 Spironolactone [Aldactone] 25 mg PO DAILY 01/03/19 01/03/19 History Sulfamethoxazole/Trimethoprim 1 tab PO BID 01/03/19 01/03/19 History [Bactrim DS 800-160 mg] Allergies Allergy/AdvReac Type Severity Reaction Status Date / Time No Known Allergies Allergy Verified 01/03/19 11:41 Physical Exam Vitals: Vital Signs Temp Pulse Pulse Resp BP BP Pulse Ox 01/03/19 17:30 97.6 F 74 16 112/63 92 L 01/03/19 16:40 64 16 99/49 100 01/03/19 16:00 65 16 89/49 98 01/03/19 11:43 98.3 F 66 16 108/44 100 Intake and Output 01/03/19 01/03/19 01/03/19 06:59 14:59 22:59 Intake Total 540 Balance 540 Intake: Oral 540 Other: # Voids 2 # Bowel Movements 1 Weight 54.794 kg Results CBC & Chem 7: 01/03/19 12:20 01/03/19 12:20 Labs: Abnormal Lab Results - Last 24 Hours (Table) 01/03/19 01/03/19 01/03/19 Range/Units 12:20 12:20 12:20 RBC 2.39 L (3.80-5.40) m/uL Hgb 7.3 L (11.4-16.0) gm/dL Hct 22.5 L (34.0-46.0) % RDW 17.7 H (11.5-15.5) % Plt Count 608 H (150-450) k/uL Sodium 130 L (137-145) mmol/L Potassium 5.4 H (3.5-5.1) mmol/L Chloride 96 L (98-107) mmol/L BUN 30 H (7-17) mg/dL Glucose 130 H (74-99) mg/dL AST 51 H (14-36) U/L ALT 61 H (9-52) U/L Alkaline Phosphatase 156 H (38-126) U/L Total Protein 6.1 L (6.3-8.2) g/dL Albumin 2.6 L (3.5-5.0) g/dL Stool Occult Blood (Negative) Crossmatch See Detail 01/03/19 Range/Units 13:10 RBC (3.80-5.40) m/uL Hgb (11.4-16.0) gm/dL Hct (34.0-46.0) % RDW (11.5-15.5) % Plt Count (150-450) k/uL Sodium (137-145) mmol/L Potassium (3.5-5.1) mmol/L Chloride (98-107) mmol/L BUN (7-17) mg/dL Glucose (74-99) mg/dL AST (14-36) U/L ALT (9-52) U/L Alkaline Phosphatase (38-126) U/L Total Protein (6.3-8.2) g/dL Albumin (3.5-5.0) g/dL Stool Occult Blood Positive H (Negative) Crossmatch Thrombosis Risk Factor Assmnt - Choose All That Apply Any of the Below Risk Factors Present?: Yes Each Factor Represents 1 point: Abnormal pulmonary function (COPD) Other Risk Factors: Yes Each Risk Factor Represents 3 Points: Age 75 years or older Other congenital or acquired thrombophilia - If yes, enter type in comment: No Thrombosis Risk Factor Assessment Total Risk Factor Score: 4 Thrombosis Risk Factor Assessment Level: Moderate Risk
[2019-01-03] MEDS: NICOTINE 14MG/24HR PATCH TRANSDERM SCH (22:08)
[2019-01-03] MEDS: MULTIVITAMINS, THERA 1 EACH TAB PO SCH (22:08)
[2019-01-03] MEDS: ATORVASTATIN 80 MG TAB PO SCH (22:08)
[2019-01-04] MEDS: GABAPENTIN 300 MG CAP PO SCH ×3 (06:24→19:23)
[2019-01-04] MEDS: SODIUM CHLORIDE 0.9% 1,000 ML IV SCH ×2 (06:24→21:03)
[2019-01-04] MEDS: NICOTINE 14MG/24HR PATCH TRANSDERM SCH (07:06)
[2019-01-04] MEDS: IPRATROPIUM-ALBUTEROL 3 ML NEB INHALATION SCH (07:37)
[2019-01-04 09:00] LABS: Anisocytosis Slight; HCT 24.9 % (34.0-46.0); HGB 8.3 gm/dL (11.4-16.0); Hypochromasia Slight; MCH 31.7 pg (25.0-35.0); MCHC 33.4 g/dL (31.0-37.0); MCV 95.1 fL (80.0-100.0); Macrocytosis Slight; Mean Platelet Volume 6.1; Platelet Count 482 k/uL (150-450); Poikilocytosis Slight; RBC 2.62 m/uL (3.80-5.40); RDW 17.2 % (11.5-15.5)
[2019-01-04] MEDS ORDERED: NON FORMULARY DRUG (Biotin [Biotin] 5,000 MCG) PO SCH (09:00)
[2019-01-04] MEDS: Acetaminophen-Codeine 300-30mg TAB PO PRN ×2 (10:17→19:23)
--- NOTE | 2019-01-04 10:47 | P.GSCN ---
<GorgeFarhana - Last Filed: 01/04/19 12:48> History of Present Illness Consult date: 01/04/19 Reason for Consult: Gangrene left toes, chronic peripheral arterial disease with intermittent cla udication History of present illness: Patient's a 78-year-old pleasant white female. Patient was brought in from [facility] where she was receiving physical therapy status post left lower extremity acute limb ischemia, who underwent angioplasty and stent with improvement post thrombolysis earlier in December. We were asked to see patient for left toe ischemia, gangrene. Pt. with complaints of pain in left lower extremity, also has left heel pressure ulcer from prior admission. She was sent to the emergency room for anemia with an outpatient hemoglobin of 6.9. Patient denies any shortness of breath, dizziness, however does state feeling tired and weak. Patient was anemic and transfused December 18 and December 19 this year. Patient was transfused yesterday with 1 unit of packed red blood cells, improved hemoglobin today of 8.3 hematocrit 24.9. Review of Systems 14 point review of systems performed. Pertinent positive and negatives per the HPI Past Medical History Past Medical History: Atrial Fibrillation, Coronary Artery Disease (CAD), COPD, CVA/TIA, Hyperlipidemia, Hypertension, Myocardial Infarction ([place]), Rheumatoid Arthritis (RA), Vascular Disorder Additional Past Medical History / Comment(s): Pt recently admitted to [facility] on 12/16/18 with L lower extremity critical limb ischemia. She had several angiograms/PTBAs and a stent placed. Other hx: PVD, pt's L foot is bandaged-she states her toes on her L foot are blackened and she has a painful h eel, intermittent bilateral claudication, TIA November 2018, 2 MIs-one in 2006 and another in 2016, RA in bilateral hands, incontinent of urine and stool at times, Last Myocardial Infarction Date:: 2016 History of Any Multi-Drug Resistant Organisms: None Reported Past Surgical History: Hysterectomy Additional Past Surgical History / Comment(s): L lower extremity iliofemoral angiogram, aortoiliac angiogram, selective L popliteal tibial peroneal angiogram, multiple PTBAs L leg/thrombolytics and a stent to the L common iliac artery, 2006/2016 cardiac caths w/ stents Past Anesthesia/Blood Transfusion Reactions: No Reported Reaction, Motion Sickness Additional Past Anesthesia/Blood Transfusion Reaction / Comm: Pt recently received blood without reaction. Smoking Status: Former smoker - Past Family History Daughter(s) Family Medical History: Diabetes Mellitus Son(s) Family Medical History: Hyperlipidemia, Hypertension Mother Family Medical History: No Reported History Additional Family Medical History / Comment(s): Mother was healthy Father Family Medical History: Cancer Additional Family Medical History / Comment(s): Father of some form of cancer prior to pt being born. She does not know type of cancer. Medications and Allergies Home Medications Medication Instructions Recorded Confirmed Type Atorvastatin [Lipitor] 80 mg PO HS #30 tab 10/23/16 01/03/19 Rx Nitroglycerin Sl Tabs [Nitrostat] 0.4 mg SUBLINGUAL Q5M PRN #25 tab 10/23/16 01/03/19 Rx Albuterol Inhaler [Ventolin Hfa 2 puff INHALATION RT-Q6H PRN 12/16/18 01/03/19 History Inhaler] Biotin 5,000 mcg PO DAILY 12/16/18 01/03/19 History Ipratropium/Albuterol Sulfate 1 puff INHALATION RT-DAILY 12/16/18 01/03/19 History [Combivent Respimat Inhaler] diphenhydrAMINE [Benadryl] 25 mg PO HS PRN 12/16/18 01/03/19 History Acetaminophen-Codeine 300-30mg 1 tab PO Q6H PRN #12 tab 12/24/18 01/03/19 Rx [Tylenol w/codeine #3] Adaptic 1 applic TOPICAL BID 01/03/19 01/03/19 History Aspirin 81 mg PO HS 01/03/19 01/03/19 History Clopidogrel [Plavix] 75 mg PO HS 01/03/19 01/03/19 History Gabapentin [Neurontin] 300 mg PO TID@0700,1300,1900 01/03/19 01/03/19 History LORazepam [Ativan] 0.5 mg PO TID PRN 01/03/19 01/03/19 History Lisinopril-Hctz 10-12.5 mg 1 tab PO BID@0700,1600 01/03/19 01/03/19 History [Zestoretic 10-12.5] Metoprolol Tartrate [Lopressor] 50 mg PO BID@0700,1600 01/03/19 01/03/19 History Multivitamins, Thera [Multivitamin 1 tab PO HS 01/03/19 01/03/19 History (formulary)] Nicotine 14Mg/24Hr Patch [Habitrol 1 patch TRANSDERM DAILY 01/03/19 01/03/19 History 14Mg/24Hr Patch] Polyethylene Glycol 3350 [Miralax] 17 gm PO HS 01/03/19 01/03/19 History Rivaroxaban [Xarelto] 20 mg PO DAILY@199901/03/19 01/03/19 History Saliva Stimulant Agents Comb.3 3 spray MUCOUS MEM 01/03/19 01/03/19 History [Biotene Moisturizing Mouth] TID@0700,1300,1900 Spironolactone [Aldactone] 25 mg PO DAILY 01/03/19 01/03/19 History Sulfamethoxazole/Trimethoprim 1 tab PO BID 01/03/19 01/03/19 History [Bactrim DS 800-160 mg] Allergies Allergy/AdvReac Type Severity Reaction Status Date / Time No Known Allergies Allergy Verified 01/03/19 11:41 Surgical - Exam Vital Signs Temp Pulse Resp BP Pulse Ox 98.3 F 66 16 108/44 100 01/03/19 11:43 01/03/19 11:43 01/03/19 11:43 01/03/19 11:43 01/03/19 11:43 General appearance: The patient is alert, oriented, in no acute distress. HET: Head is normocephalic and atraumatic. Pupils are equal and reactive. Oropharynx is clear without lesions. Neck: Supple without lymphadenopathy. Trachea midline. Heart: S1 S2. Regular rate and rhythm. Lungs: No crackles or wheezes are heard. Abdomen: Soft, nontender, nondistended with bowel sounds. No peritoneal signs. No palpable organomegaly or masses. Extremities: Right lower extremity normal skin color and turgor. No cyanosis, rash, ulceration, clubbing, or edema. Positive right dorsalis pedis. Bilateral radial pulses +2. Left lower extremity warm to touch, +1 edema. Multiphasic DP and PT pulses, positive capillary refill left lower extremity up to demarcation. Black necrotic tissue of first through fifth toes, with fluctuation of plantar surface. Left heel with marked black pressure ulcer. Neurological: No focal deficits. Strength and sensation are grossly intact. Results - Labs 01/04/19 08:13 01/03/19 12:20 Abnormal Lab Results - Last 24 Hours (Table) 01/03/19 01/03/19 01/03/19 Range/Units 12:20 12:20 12:20 RBC 2.39 L (3.80-5.40) m/uL Hgb 7.3 L (11.4-16.0) gm/dL Hct 22.5 L (34.0-46.0) % RDW 17.7 H (11.5-15.5) % Plt Count 608 H (150-450) k/uL Sodium 130 L (137-145) mmol/L Potassium 5.4 H (3.5-5.1) mmol/L Chloride 96 L (98-107) mmol/L BUN 30 H (7-17) mg/dL Glucose 130 H (74-99) mg/dL AST 51 H (14-36) U/L ALT 61 H (9-52) U/L Alkaline Phosphatase 156 H (38-126) U/L Total Protein 6.1 L (6.3-8.2) g/dL Albumin 2.6 L (3.5-5.0) g/dL Stool Occult Blood (Negative) Crossmatch See Detail 01/03/19 01/04/19 Range/Units 13:10 08:13 RBC 2.62 L (3.80-5.40) m/uL Hgb 8.3 L (11.4-16.0) gm/dL Hct 24.9 L (34.0-46.0) % RDW 17.2 H (11.5-15.5) % Plt Count 482 H (150-450) k/uL Sodium (137-145) mmol/L Potassium (3.5-5.1) mmol/L Chloride (98-107) mmol/L BUN (7-17) mg/dL Glucose (74-99) mg/dL AST (14-36) U/L ALT (9-52) U/L Alkaline Phosphatase (38-126) U/L Total Protein (6.3-8.2) g/dL Albumin (3.5-5.0) g/dL Stool Occult Blood Positive H (Negative) Crossmatch Diabetes panel 01/03/19 Range/Units 12:20 Sodium 130 L (137-145) mmol/L Potassium 5.4 H (3.5-5.1) mmol/L Chloride 96 L (98-107) mmol/L Carbon Dioxide 25 (22-30) mmol/L BUN 30 H (7-17) mg/dL Creatinine 0.85 (0.52-1.04) mg/dL Glucose 130 H (74-99) mg/dL Calcium 8.5 (8.4-10.2) mg/dL AST 51 H (14-36) U/L ALT 61 H (9-52) U/L Alkaline Phosphatase 156 H (38-126) U/L Total Protein 6.1 L (6.3-8.2) g/dL Albumin 2.6 L (3.5-5.0) g/dL Calcium panel 01/03/19 Range/Units 12:20 Calcium 8.5 (8.4-10.2) mg/dL Albumin 2.6 L (3.5-5.0) g/dL Pituitary panel 01/03/19 Range/Units 12:20 Sodium 130 L (137-145) mmol/L Potassium 5.4 H (3.5-5.1) mmol/L Chloride 96 L (98-107) mmol/L Carbon Dioxide 25 (22-30) mmol/L BUN 30 H (7-17) mg/dL Creatinine 0.85 (0.52-1.04) mg/dL Glucose 130 H (74-99) mg/dL Calcium 8.5 (8.4-10.2) mg/dL Adrenal panel 01/03/19 Range/Units 12:20 Sodium 130 L (137-145) mmol/L Potassium 5.4 H (3.5-5.1) mmol/L Chloride 96 L (98-107) mmol/L Carbon Dioxide 25 (22-30) mmol/L BUN 30 H (7-17) mg/dL Creatinine 0.85 (0.52-1.04) mg/dL Glucose 130 H (74-99) mg/dL Calcium 8.5 (8.4-10.2) mg/dL Total Bilirubin 0.8 (0.2-1.3) mg/dL AST 51 H (14-36) U/L ALT 61 H (9-52) U/L Alkaline Phosphatase 156 H (38-126) U/L Total Protein 6.1 L (6.3-8.2) g/dL Albumin 2.6 L (3.5-5.0) g/dL Assessment and Plan Assessment: 1. Gangrene left lower extremity first through fifth toes 2. Crititcal ischemia on chronic peripheral artery disease of the lower left extremity 3. History of revascularization left lower extremity 4. Anemia 5. Tobacco abuse Plan: Discussed with patient plan for left transmetatarsal amputation due to wet gangrene, scheduled with Dr. Rondon this afternoon. Continue to monitor hemoglobin. <Nancy Pace - Last Filed: 01/04/19 13:09> Surgical - Exam Vital Signs Temp Pulse Resp BP Pulse Ox 98.3 F 66 16 108/44 100 01/03/19 11:43 01/03/19 11:43 01/03/19 11:43 01/03/19 11:43 01/03/19 11:43 Results - Labs 01/04/19 08:13 01/03/19 12:20 Abnormal Lab Results - Last 24 Hours (Table) 01/03/19 01/03/19 01/03/19 Range/Units 12:20 12:20 13:10 RBC 2.39 L (3.80-5.40) m/uL Hgb 7.3 L (11.4-16.0) gm/dL Hct 22.5 L (34.0-46.0) % RDW 17.7 H (11.5-15.5) % Plt Count 608 H (150-450) k/uL Stool Occult Blood Positive H (Negative) Crossmatch See Detail 01/04/19 Range/Units 08:13 RBC 2.62 L (3.80-5.40) m/uL Hgb 8.3 L (11.4-16.0) gm/dL Hct 24.9 L (34.0-46.0) % RDW 17.2 H (11.5-15.5) % Plt Count 482 H (150-450) k/uL Stool Occult Blood (Negative) Crossmatch Assessment and Plan Plan: Discussed patient and plan with [employer], Dr Rondon. As above. Planning for transmetatarsal amputation today.
[2019-01-04] MEDS ORDERED: IV FLUID CONTINUATION 1,000 ML IV ONE (12:41)
--- NOTE | 2019-01-04 13:08 | P.PN ---
Progress Note - Text Progress Note Date: 01/04/19 Had discussion with patient in the preoperative area regarding code status. She is in agreement with full code in the OR. Orders to be changed currently and returned to DNR upon completion of procedure and anesthetic
[2019-01-04] MEDS ORDERED: MIDAZOLAM 2 MG/2 ML VIAL IVP ONE (13:11)
[2019-01-04] MEDS ORDERED: ROPIVACAINE 5 MG/ML 30 ML VIAL ONE (13:22)
[2019-01-04] MEDS ORDERED: MIDAZOLAM 2 MG/2 ML VIAL ONE (13:22)
[2019-01-04] MEDS ORDERED: ONDANSETRON 4 MG/2 ML VIAL IVP ONE (13:26)
[2019-01-04 13:35] VITALS: BMI 21.2
--- NOTE | 2019-01-04 14:03 | P.ANPRN ---
Procedure Note - Anesthesia - Nerve Block Performed Left Adductor Canal Single Time Out Performed: Yes (1311) Date of Procedure: 01/04/19 Procedure Start Time: 13:11 Procedure Stop Time: :18 Location of Patient: PreOp Indication: Acute Post-Operative Pain, Dx/Pain Location, Requested by Surgeon Sedation Type: Sedate with meaningful contact maintained Preparation: Sterile Prep Position: Supine Catheter: None Needle Types: Pajunk Needle Gauge: 21 Ultrasound used to visualize needle placement: Yes Ultrasound used to observe medication spread: Yes Injectate: 0.5% Ropivacaine (see comment for volume) (10ml) Blood Aspirated: No Pain Paresthesia on Injection Noted: No Resistance on Injection: Normal Image Stored and Saved: Yes Events: Uneventful and Well Tolerated
--- NOTE | 2019-01-04 14:04 | P.ANPRN ---
Procedure Note - Anesthesia - Nerve Block Performed Left Popliteal Single Time Out Performed: Yes (1311) Date of Procedure: 01/04/19 Procedure Start Time: 13:11 Procedure Stop Time: :18 Location of Patient: PreOp Indication: Acute Post-Operative Pain, Dx/Pain Location, Requested by Surgeon Sedation Type: Sedate with meaningful contact maintained Position: Supine Catheter: None Needle Types: Pajunk Needle Gauge: 21 Ultrasound used to visualize needle placement: Yes Ultrasound used to observe medication spread: Yes Injectate: 0.5% Ropivacaine (see comment for volume) (15) Blood Aspirated: No Pain Paresthesia on Injection Noted: No Resistance on Injection: Normal Image Stored and Saved: Yes Events: Uneventful and Well Tolerated
--- NOTE | 2019-01-04 15:00 | P.OP ---
Date of Procedure: 01/04/19 Description of Procedure: Preoperative diagnosis: Wet gangrene left first through fifth toes, previous TPA revascularization Postoperative diagnosis: Same Procedure: Left transmetatarsal amputation, application of wound VAC Surgeon: Nancy Pace D.O. EBL: 50 mL IV fluids: 700 mL Urine output: Not measured Drains: None Complications: None immediately apparent Condition: Stable to PACU Operative indication and findings: The patient is a 70-year-old female who previously had limb salvage thrombolysis in revascularization for an acutely ischemic leg. At that time there was some noted areas of necrosis of the toes but it was dry at the time and the thought was allowing the foot to demarcate further. She was sent to a rehab facility. She was readmitted for anemia along with transition to wet gangrene of her toes. She was taken the operating room for transmetatarsal amputation. The time of the procedure, there was significant tissue loss at the plantar portion of the foot and given this there was a adequate size flap to be made therefore partial closure was performed with a wound VAC placement. Procedure in detail: The patient was taken to the operative suite after regional block in the preoperative area. His patient supine position. She was given IV sedation per anesthesia. A preprocedure timeout was performed and all parties are in agreement. The left lower extremity was prepped and draped in usual sterile fashion. The portions of the necrotic tissue were marked out. An inc ision was made in the previously marked spot and carried down through subcutaneous tissues to the level of the bone electrocautery. The bone was transected with a micropower saw. The plantar portion of the flap was transected with electrocautery. That point there was tissue debulking at the plantar portion of the flap. Also the bones were cut back further to allow for attempted closure of the flap itself. Again this was still unable to be obtained and achieved without significant tension. That point the area was copiously irrigated. Hemostasis was perfected with electrocautery and suture ligation with 3-0 Vicryl. The subcutaneous and deep dermal tissues were reapproximated with 3-0 Vicryl. Initial attempts were made to reapproximate the skin with interrupted sutures of 3-0 nylon but there was significant amount of tension on the skin and blanching of the flap therefore they were removed. A wound VAC was placed. There was good seal without any evidence of a leak. The patient was allowed awaken from anesthesia and transported to PACU in stable condition, having tolerated her procedure well.
--- NOTE | 2019-01-04 19:48 | CONS ---
CONSULTATION DATE OF DICTATION: 01/04/2019 REASON FOR CONSULTATION: Anemia and black tarry stools. HISTORY OF PRESENT ILLNESS: The patient is a 78-year-old pleasant white female who was transferred from the senior living because of anemia that was noted on routine lab testing. The patient was recently admitted to the hospital 10 days ago with the diagnosis of TIA and at that time CT angiogram of the head and neck was negative. She was also diagnosed with severe peripheral arterial disease, for which she was hospitalized a week ago. She received tPA as well as thrombolytics, with no help. She was discharged home on aspirin, Plavix and Xarelto. She came back to the emergency room yesterday with low hemoglobin and was also complaining of pain in her left foot with early signs of gangrene. Hence Vascular Surgery was consulted and she just went for amputation of the toes and returned from surgery. In the emergency room yesterday, hemoglobin was 6.9. She received one unit of blood transfusion. As per the nursing staff she had one episode of black tarry stools this morning. Patient, however, denies any symptoms. She reports no abdominal pain. No nausea, vomiting. Labs did show stool that was Hemoccult-positive. PAST MEDICAL HISTORY: Her past medical history is significant for: 1. Hypertension. 2. Hyperlipidemia. 3. Peripheral vascular disease. 4. Coronary artery disease. 5. Recent TIA. 6. Chronic lower extremity vascular insufficiency. MEDICATIONS: Medications at home include: 1. Nitrostat. 2. Ventolin. 3. Ativan. 4. Benadryl. 5. Neurontin. 6. Tylenol with codeine. 7. Metoprolol. 8. Bactrim. 9. Xarelto. 10.Plavix. 11.Multivitamin. 12.MiraLAX. 13.Lipitor. 14.Aspirin. 15.Aldactone. ALLERGIES: NONE. SOCIAL HISTORY: No smoking. No alcohol use. FAMILY HISTORY: Her daughter has diabetes mellitus and son has hyperlipidemia and hypertension. PAST SURGICAL HISTORY: Hysterectomy and toe amputation today. REVIEW OF SYSTEMS: CARDIOPULMONARY:She denies any chest pain or shortness of breath. GENITOURINARY: No dysuria or hematuria. MUSCULOSKELETAL: Unremarkable. SKIN: Unremarkable. ENDOCRINE: Unremarkable. PSYCHIATRIC: Unremarkable. NEUROLOGY: Unremarkable. ENT/VISION: Unremarkable. CONSTITUTIONAL: No recent weight loss. No fever, chills, night sweats. PHYSICAL EXAMINATION: She appears comfortable. No apparent distress. VITAL SIGNS: Stable. Blood pressure 125/57, pulse rate 66, temperature 97.8. HEENT examination unremarkable. Conjunctivae pink. Sclerae anicteric. Oral cavity no lesions. NECK: No JVD or lymph node enlargement. CHEST: Clear to auscultation. HEART: Regular rate and rhythm. ABDOMEN: Soft. Bowel sounds are positive. No organomegaly. EXTREMITIES: No pedal edema. SKIN: No rashes. NEUROLOGIC: Alert and oriented x3. No focal deficits. LABS: Labs at the time of admission to the hospital showed hemoglobin 7.3, WBC 7.3, platelets 608. She received one unit of blood transfusion. Today hemoglobin 8.3. AST 51, ALT 61, alkaline phosphatase 156, T-bilirubin normal. Stool occult blood was positive. IMPRESSION: 1. Severe symptomatic anemia with a hemoglobin of 7.3 g/dL requiring one unit of blood transfusion and Hemoccult-positive stool. She had one episode of black tarry stools this morning. Patient has no prior history of peptic ulcer disease or recent NSAID use. No history of endoscopy in the past. 2. Severe peripheral vascular disease with gangrene of the left toes, status post amputation today. 3. History of hypertension. 4. Hyperlipidemia. RECOMMENDATIONS: 1. Continue to hold anticoagulation. 2. Continue with Protonix 40 mg twice daily. 3. Repeat CBC in the morning. 4. Will obtain iron studies. 5. Will consider endoscopic workup based on her overall clinical condition tomorrow. Thank you for this consultation. MMODL / IJN: [id number] /
[2019-01-04] MEDS ORDERED: HYDROcodone/APAP 5-325MG 1 EACH TAB PO PRN (20:35)
[2019-01-04] MEDS ORDERED: MORPHINE SULFATE 4 MG/ML SYRINGE IVP PRN (20:37)
[2019-01-04] MEDS: MULTIVITAMINS, THERA 1 EACH TAB PO SCH (20:54)
[2019-01-04] MEDS: PANTOPRAZOLE 40 MG/10 ML VIAL IVP SCH (20:54)
[2019-01-04] MEDS: ATORVASTATIN 80 MG TAB PO SCH (20:54)
[2019-01-04] MEDS: HYDROcodone/APAP 5-325MG 1 EACH TAB PO PRN (20:54)
--- NOTE | 2019-01-04 22:51 | P.PN ---
Progress Note - Text Progress Note Date: 01/04/19 Chief Complaint: Low hemoglobin History of present complaint: This is a pleasant 78-year-old patient of Dr. Mcdaniels. Chronic stable medical conditions include hypertension, hyperlipidemia, coronary artery disease with stent. Patient was here in the hospital on December 07, 2018 with a diagnosis of TIA. Patient then had a CT angiogram of the head and neck that was negative. 2-D echocardiogram was unremarkable. Patient was then admitted from December 16 through 12/24/2018.. Patient presented with acute on chronic peripheral artery disease with CT angiogram demonstrating acute vascular findings. The following day patient had TPA administered. Likely become: No stigmata the or and several angioplasties and thrombolytic was carried out. Patient was discharged on xarelto. Patient was having, pain in the left foot toes with signs of early gangrene when she left the hospital. She gone to rehab. She sent in today with hemoglobin of 6.9. Blood pressures running low in the 90s. Hemoglobin was 7.3. Patient has been feeling weak and tired. 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 Patient's lung significant pain in the left foot toes. Which have been discolored. Patient was positive for guaiac stool. Today-patient was taken down by Dr. Pace for across metatarsal additional left foot. After surgery this evening. Did tolerate some diet. Some pain is present at the operative site. No new issues. Review of systems: Was done for constitutional, cardiovascular, GI, pulmonary. relevant finding as above Active Medications Acetaminophen/Codeine Phosphate (Tylenol #3) 1 each PO Q6H PRN PRN Reason: Pain Last Admin: 01/04/19 19:23 Dose: 1 each Documented by: Hydrocodone Bitart/Acetaminophen (Welch 5-325) 1 each PO Q6HR PRN PRN Reason: Pain Hydrocodone Bitart/Acetaminophen (Welch 5-325) 2 each PO Q6HR PRN PRN Reason: Pain Last Admin: 01/04/19 20:54 Dose: 2 each Documented by: Albuterol Sulfate (Ventolin Nebulized) 2.5 mg INHALATION RT-Q6H PRN PRN Reason: Shortness Of Breath Albuterol/Ipratropium (Duoneb 0.5 Mg-3 Mg/3 Ml Soln) 3 ml INHALATION RT-DAILY SALVATORE Last Admin: 01/04/19 07:37 Dose: 3 ml Documented by: Atorvastatin Calcium (Lipitor) 80 mg PO HS [facility] Last Admin: 01/04/19 20:54 Dose: 80 mg Documented by: Diphenhydramine HCl (Benadryl) 25 mg PO HS PRN PRN Reason: Nasal Congestion Gabapentin (Neurontin) 300 mg PO TID@0700,1300,1900 [facility] Last Admin: 01/04/19 19:23 Dose: 300 mg Documented by: Sodium Chloride (Saline 0.9%) 1,000 mls @ 75 mls/hr IV .[id number] [facility] Last Admin: 01/04/19 21:03 Dose: 75 mls/hr Documented by: Lorazepam (Ativan) 0.5 mg PO TID PRN PRN Reason: Anxiety Morphine Sulfate (Morphine Sulfate (Inj)) 4 mg IVP Q2HR PRN PRN Reason: Pain Multivitamins (Theragran) 1 each PO HS [facility] Last Admin: 01/04/19 20:54 Dose: 1 each Documented by: Nicotine (Habitrol 14mg/24hr Patch) 1 patch TRANSDERM DAILY [facility] Last Admin: 01/04/19 07:06 Dose: 1 patch Documented by: Pantoprazole Sodium (Protonix) 40 mg IVP BID [facility] Last Admin: 01/04/19 20:54 Dose: 40 mg Documented by: Physical examination: VITAL SIGNS: 98.1, 64, 16, 127/54, 97% room air GENERAL: Laying in bed, awake EYES: Pupils equal. Conjunctiva pale HEENT: External appearance of nose and ears normal, oral cavity grossly normal. NECK: JVD not raised; masses not palpable. HEART: First and second heart sounds are normal; no edema. LUNGS: Respiratory rate normal; decreased breath sounds ABDOMEN: Soft, nontender, liver spleen not palpable, no masses palpable. PSYCH: Alert and oriented x3; mood and affect normal. EXTREMITIES: Dressing over the left foot MUSCULOSKELETAL: Evidence of significant evidence of RA in the hands INVESTIGATIONS, reviewed in the clinical context:: White count 8 hemoglobin 8.3 Previous testing White count 7.3 hemoglobin 7.3 pressure 5.4 creatinine 0.85 Patient's hemoglobin on December 24 was 7.7 Assessment: -Acute symptomatic anemia in a patient whose been on Xarelto with guaiac- positive stool -Acute on chronic occlusive disease arterial of the left lower extremity, recently and patient received thrombolytic, angioplasties and thrombus extraction -Hypotension, from recent bleed, symptomatic receive a unit of blood -Hyperlipidemia -Coronary artery disease with stent -Persistent atrial fibrillation for which patient is on Xarelto -Left toes only gangrene from underlying peripheral artery disease-status post auscultation. Patient today on 01/04/2019 Plan: Continue current medication treatment plan. Seen by Dr. Kleber Dixon from GI. We'll decide a endoscopy based on clinical course. Repeat labs in the morning.
[2019-01-05 00:21] LABS: % Iron Saturation 25.91 (12.00-45.00)
[2019-01-05 00:30] LABS: Ferritin 255.3 ng/mL (10.0-291.0)
[2019-01-05 00:32] LABS: Folate, Serum 14.4 ng/mL
[2019-01-05 06:32] LABS: Anisocytosis Slight; Basophils % (A) 1 %; Eosinophils # (A) 0.2 k/uL (0-0.7); Eosinophils % (A) 3 %; HCT 20.3 % (34.0-46.0); Hypochromasia Moderate; Lymphocytes # (A) 1.5 k/uL (1.0-4.8); Lymphocytes % (A) 24 %; MCH 32.1 pg (25.0-35.0); MCHC 33.3 g/dL (31.0-37.0); MCV 96.4 fL (80.0-100.0); Macrocytosis Slight; Mean Platelet Volume 5.9; Monocytes # (A) 0.3 k/uL (0-1.0); Monocytes % (A) 5 %; Neutrophils # (A) 4.1 k/uL (1.3-7.7); Neutrophils % (A) 65 %; Platelet Count 418 k/uL (150-450); Poikilocytosis Slight; RBC 2.11 m/uL (3.80-5.40); RDW 18.4 % (11.5-15.5); WBC 6.4 k/uL (3.8-10.6)
[2019-01-05 06:44] LABS: African American GFR (CKD) >90 (>60 ml/min/1.73 sqM); Anion Gap 3 mmol/L; Blood Urea Nitrogen 23 mg/dL (7-17); Carbon Dioxide 23 mmol/L (22-30); Chloride 106 mmol/L (98-107); Glucose 118 mg/dL (74-99); Non-African American GFR(CKD) 79 (>60 ml/min/1.73 sqM); Potassium 4.6 mmol/L (3.5-5.1); Sodium 132 mmol/L (137-145)
[2019-01-05 06:45] LABS: HGB 6.8 gm/dL (11.4-16.0)
[2019-01-05] MEDS: IPRATROPIUM-ALBUTEROL 3 ML NEB INHALATION SCH (07:17)
[2019-01-05] MEDS: NICOTINE 14MG/24HR PATCH TRANSDERM SCH (07:50)
[2019-01-05] MEDS: PANTOPRAZOLE 40 MG/10 ML VIAL IVP SCH ×2 (07:50→22:11)
[2019-01-05] MEDS: GABAPENTIN 300 MG CAP PO SCH ×3 (07:50→20:20)
[2019-01-05] MEDS: SODIUM CHLORIDE 0.9% 1,000 ML IV SCH ×2 (07:51→22:11)
--- NOTE | 2019-01-05 12:37 | P.PN ---
<Gorge,Renee - Last Filed: 01/05/19 12:37> Subjective Progress Note Date: 01/05/19 Principal diagnosis: Wet gangrene left first through fifth toes, previous TPA revascularization The patient is a 78-year-old pleasant white female. Patient was brought in yesterday from [facility] for outpatient hemoglobin of 6.9. Patient had been receiving physical therapy status post previous left lower extremity acute limb ischemia who underwent angioplasty and stent with improvement post thromboliasis earlier December. Patient underwent a left transmetatarsal amputation of the first through fifth toes yesterday with an application of the wound VAC by Dr. Pace. She is lying in bed with no distress. Patient reports pain is controlled. Denies any shortness of breath or chest pain. Wound VAC is intact and draining. Today's hemoglobin 6.8, hematocrit 20.3, platelets 418. Iron studies were normal. One unit of packed red blood cells ordered to be given today. Objective - Vital Signs Vital signs: Vital Signs Temp 98.2 F 01/05/19 10:46 Pulse 92 01/05/19 10:46 Resp 11 L 01/05/19 10:46 BP 100/55 01/05/19 10:46 Pulse Ox 99 01/05/19 10:46 Intake & Output 01/04/19 01/05/19 01/05/19 18:59 06:59 18:59 Intake Total 800 240 0 Output Total 50 Balance 750 240 0 Weight 49.442 kg Intake: IV 800 Oral 240 Blood Product 0 Rc Pheresis As-3 Unit 0 [id number] Output: Estimated Blood Loss 50 Other: # Voids 1 1 # Bowel Movements 1 - Exam General appearance: The patient is alert, oriented, in no acute distress. Sitting up in bed HET: Head is normocephalic and atraumatic. Pupils are equal and reactive. Neck: Supple without lymphadenopathy. Trachea midline. Heart: S1 S2. Regular rate and rhythm. Lungs: No crackles or wheezes are heard. Abdomen: Soft, nontender, nondistended with bowel sounds. No peritoneal signs. No palpable organomegaly or masses. Extremities: Normal skin color and turgor. Left lower extremity with clear Tegaderm over TMA site with intact wound VAC draining dark red blood, approximately 50 mL. Left lower extremity with +1-2 pitting edema, multiphasic DP and PT signals. Left heel with marked plaque pressure ulcer. Neurological: No focal deficits. Strength and sensation are grossly intact. - Labs CBC & Chem 7: 01/05/19 06:01 01/05/19 06:01 Labs: Abnormal Lab Results - Last 24 Hours (Table) 01/03/19 01/05/19 01/05/19 Range/Units 12:20 06:01 06:01 RBC 2.11 L (3.80-5.40) m/uL Hgb 6.8 L* D (11.4-16.0) gm/dL Hct 20.3 L (34.0-46.0) % RDW 18.4 H (11.5-15.5) % Sodium 132 L (137-145) mmol/L BUN 23 H (7-17) mg/dL Glucose 118 H (74-99) mg/dL Calcium 8.0 L (8.4-10.2) mg/dL Crossmatch See Detail Assessment and Plan Assessment: 1. Gangrene left lower extremity first through fifth toes 2. Post-op day 1, left transmetatarsal amputation 3. Crititcal ischemia on chronic peripheral artery disease of the lower left extremity 4. History of revascularization left lower extremity 5. Anemia 6. Tobacco abuse Plan: Continue to monitor and treat pain. Continue to monitor blood loss from wound. Physical therapy and occupational therapy to see patient. Continue to monitor hemoglobin and transfuse as needed. Patient is scheduled to have EGD and colonoscopy done 01/06/[address] Dixon. The above dictated assessment and findings were discussed with Dr. Pace. The impression and plan of care have been directed as dictated. <Nancy Pace - Last Filed: 01/05/19 13:11> Objective - Vital Signs Vital signs: Vital Signs Temp 98.4 F 01/05/19 13:04 Pulse 75 01/05/19 13:04 Resp 12 01/05/19 13:04 BP 145/65 01/05/19 13:04 Pulse Ox 91 L 01/05/19 13:04 Intake & Output 01/04/19 01/05/19 01/05/19 18:59 06:59 18:59 Intake Total 800 240 310 Output Total 50 Balance 750 240 310 Weight 49.442 kg Intake: IV 800 Oral 240 Blood Product 310 Rc Pheresis As-3 Unit 310 [id number] Output: Estimated Blood Loss 50 Other: # Voids 1 1 # Bowel Movements 1 - Labs CBC & Chem 7: 01/05/19 06:01 01/05/19 06:01 Labs: Abnormal Lab Results - Last 24 Hours (Table) 01/03/19 01/05/19 01/05/19 Range/Units 12:20 06:01 06:01 RBC 2.11 L (3.80-5.40) m/uL Hgb 6.8 L* D (11.4-16.0) gm/dL Hct 20.3 L (34.0-46.0) % RDW 18.4 H (11.5-15.5) % Sodium 132 L (137-145) mmol/L BUN 23 H (7-17) mg/dL Glucose 118 H (74-99) mg/dL Calcium 8.0 L (8.4-10.2) mg/dL Crossmatch See Detail Assessment and Plan Plan: Patient seen and examined. Evaluated with the [employer]. This time attempt to drain the fluid collection on the plantar portion of the foot, the overlying callus was unroofed. No evidence of active bleeding. Replace wound VAC.
[2019-01-05] MEDS ORDERED: ONDANSETRON 4 MG/2 ML VIAL IVP ONE (13:52)
[2019-01-05] MEDS ORDERED: DEXAMETHASONE SOD PHOSPHATE 10 MG/ML 1 ML VIAL IV ONE (13:52)
[2019-01-05] MEDS ORDERED: LIDOCAINE 1% 20 ML VIAL (10MG/ML) FOR IV START INTRADERMA PRN (13:52)
[2019-01-05] MEDS ORDERED: LACTATED RINGERS 1,000 ML IV SCH (14:00)
[2019-01-05] MEDS: HYDROcodone/APAP 5-325MG 1 EACH TAB PO PRN (15:38)
--- NOTE | 2019-01-05 15:51 | PN ---
PROGRESS NOTE DATE OF DICTATION: 01/05/2019 Patient is a 78-year-old pleasant white female admitted to the hospital with severe symptomatic anemia as well as severe peripheral vascular disease with early gangrene of the left toes. She underwent amputation yesterday by Vascular Surgery. The patient is doing much better. She dropped her hemoglobin to 6.8 g/dL, requiring another unit of blood transfusion. She denies any GI symptoms. She did have some dark tarry stools today. She reports no abdominal pain. No nausea or vomiting. PHYSICAL EXAMINATION: She appears comfortable. No apparent distress. VITAL SIGNS: Stable. Blood pressure is 130/67, pulse rate 87, temperature 98.7. HEENT examination unremarkable. Conjunctivae pink. Sclerae anicteric. Oral cavity no lesions. NECK: No JVD or lymph node enlargement. CHEST: Clear to auscultation. HEART: Regular rate and rhythm. ABDOMEN: Soft. Bowel sounds are positive. No organomegaly. EXTREMITIES: No pedal edema. There is some dressing noted on the left foot at the site of amputation. NEUROLOGIC: Alert and oriented x3. No focal deficits. LABS: Labs from today show WBC 6.4, hemoglobin 6.8, platelets 418. BUN is 23, creatinine 0.7. Stool Hemoccult was positive. PT and INR within normal limits. IMPRESSION: 1. Severe symptomatic anemia with intermittent dark black tarry stools. Stool was Hemoccult-positive. Clinically hemodynamically stable. Iron studies did not show any evidence of iron deficiency anemia. 2. Severe peripheral vascular insufficiency with early gangrene of the left toes, status post amputation yesterday. Vascular Surgery following the patient closely. RECOMMENDATIONS: I had a lengthy discussion with the patient regarding workup of anemia and intermittent black tarry stools. At this time I recommended an EGD and colonoscopy, and patient would like to have this done while in the hospital. She is scheduled for endoscopic workup tomorrow morning. She will be given colonoscopy prep this evening. Risks, benefits and complications of the procedure were discussed with the patient. She is agreeable to it. In the meantime, continue to hold aspirin, Plavix and Xarelto. Thank you for this consultation. Will follow her closely during her hospital stay. MMODL / IJN: [id number] /
[2019-01-05] MEDS ORDERED: PEG 3350-NA SULF,BICARB,CL/KCL 4,000 ML BOTTLE PO ONE (17:00)
[2019-01-05 17:37] LABS: Anisocytosis Slight; Basophils % (A) 0 %; Eosinophils # (A) 0.1 k/uL (0-0.7); Eosinophils % (A) 2 %; HCT 26.3 % (34.0-46.0); Hypochromasia Slight; Lymphocytes # (A) 1.1 k/uL (1.0-4.8); Lymphocytes % (A) 14 %; MCH 30.9 pg (25.0-35.0); MCHC 32.6 g/dL (31.0-37.0); MCV 94.7 fL (80.0-100.0); Macrocytosis Slight; Mean Platelet Volume 6.6; Monocytes # (A) 0.4 k/uL (0-1.0); Monocytes % (A) 5 %; Neutrophils % (A) 77 %; Platelet Count 393 k/uL (150-450); Poikilocytosis Slight; RBC 2.77 m/uL (3.80-5.40); RDW 17.3 % (11.5-15.5); WBC 7.8 k/uL (3.8-10.6)
[2019-01-05 17:52] LABS: HGB 8.6 gm/dL (11.4-16.0)
[2019-01-05] MEDS: MULTIVITAMINS, THERA 1 EACH TAB PO SCH (21:20)
[2019-01-05] MEDS: ATORVASTATIN 80 MG TAB PO SCH (21:20)
--- NOTE | 2019-01-05 22:27 | P.PN ---
Progress Note - Text Progress Note Date: 01/05/19 Chief Complaint: Low hemoglobin History of present complaint: This is a pleasant 78-year-old patient of Dr. Mcdaniels. Chronic stable medical conditions include hypertension, hyperlipidemia, coronary artery disease with stent. Patient was here in the hospital on December 07, 2018 with a diagnosis of TIA. Patient then had a CT angiogram of the head and neck that was negative. 2-D echocardiogram was unremarkable. Patient was then admitted from December 16 through 12/24/2018.. Patient presented with acute on chronic peripheral artery disease with CT angiogram demonstrating acute vascular findings. The following day patient had TPA administered. Likely become: No stigmata the or and several angioplasties and thrombolytic was carried out. Patient was discharged on xarelto. Patient was having, pain in the left foot toes with signs of early gangrene when she left the hospital. She gone to rehab. She sent in today with hemoglobin of 6.9. Blood pressures running low in the 90s. Hemoglobin was 7.3. Patient has been feeling weak and tired. Appetite is starting to worm picker and lost to 3 days. Patient's lung significant pain in the left foot toes. Which have been discolored. Patient was positive for guaiac stool. On January 04 patient was taken down to the operating room by Dr. Pace for trans metatarsal amputation of the left foot. Today-is better. Did tolerate her diet. Hemoglobin had dropped down to 7 this morning. I ordered a unit of blood. Patient feeling better. Review of systems: Was done for constitutional, cardiovascular, GI, pulmonary. relevant finding as above Active Medications Acetaminophen/Codeine Phosphate (Tylenol #3) 1 each PO Q6H PRN PRN Reason: Mild Pain Last Admin: 01/04/19 19:23 Dose: 1 each Documented by: Hydrocodone Bitart/Acetaminophen ([place] 5-325) 1 each PO Q6HR PRN PRN Reason: Pain Last Admin: 01/05/19 05:54 Dose: 1 each Documented by: Hydrocodone Bitart/Acetaminophen ([place] 5-325) 2 each PO Q6HR PRN PRN Reason: Pain Last Admin: 01/05/19 15:38 Dose: 2 each Documented by: Albuterol Sulfate (Ventolin Nebulized) 2.5 mg INHALATION RT-Q6H PRN PRN Reason: Shortness Of Breath Albuterol/Ipratropium (Duoneb 0.5 Mg-3 Mg/3 Ml Soln) 3 ml INHALATION RT-DAILY [facility] Last Admin: 01/05/19 07:17 Dose: 3 ml Documented by: Atorvastatin Calcium (Lipitor) 80 mg PO HS [facility] Last Admin: 01/05/19 21:20 Dose: 80 mg Documented by: Diphenhydramine HCl (Benadryl) 25 mg PO HS PRN PRN Reason: Nasal Congestion Gabapentin (Neurontin) 300 mg PO TID@0700,1300,1900 [facility] Last Admin: 01/05/19 20:20 Dose: 300 mg Documented by: Sodium Chloride (Saline 0.9%) 1,000 mls @ 75 mls/hr IV .[id number] [facility] Last Admin: 01/05/19 22:11 Dose: 75 mls/hr Documented by: Lactated Ringer's (Lactated Ringers) 1,000 mls @ 20 mls/hr IV .Q24H [facility] Lidocaine HCl (.Xylocaine 1% Inj (10mg/Ml) For Iv Start) 0.1 ml INTRADERMA PER PROTOCOL PRN PRN Reason: IV Start Lorazepam (Ativan) 0.5 mg PO TID PRN PRN Reason: Anxiety Morphine Sulfate (Morphine Sulfate (Inj)) 4 mg IVP Q2HR PRN PRN Reason: Pain Multivitamins (Theragran) 1 each PO HS [facility] Last Admin: 01/05/19 21:20 Dose: 1 each Documented by: Nicotine (Habitrol 14mg/24hr Patch) 1 patch TRANSDERM DAILY [facility] Last Admin: 01/05/19 07:50 Dose: 1 patch Documented by: Pantoprazole Sodium (Protonix) 40 mg IVP BID [facility] Last Admin: 01/05/19 22:11 Dose: 40 mg Documented by: Physical examination: VITAL SIGNS: 98.4, 75, 12, 145/65, 91% room air GENERAL: Laying in bed, awake, comfortable EYES: Pupils equal. Conjunctiva pale HEENT: External appearance of nose and ears normal, oral cavity grossly normal. NECK: JVD not raised; masses not palpable. HEART: First and second heart sounds are normal; no edema. LUNGS: Respiratory rate normal; decreased breath sounds ABDOMEN: Soft, nontender, liver spleen not palpable, no masses palpable. PSYCH: Alert and oriented x3; mood and affect normal. EXTREMITIES: Wound VAC over the left foot stump MUSCULOSKELETAL: Evidence of significant evidence of RA in the hands INVESTIGATIONS, reviewed in the clinical context:: Hemoglobin 6.8 Previous testing White count 7.3 hemoglobin 7.3 pressure 5.4 creatinine 0.85 Patient's hemoglobin on December 24 was 7.7 Assessment: -Acute symptomatic anemia in a patient whose been on Xarelto with guaiac- positive stool -Transmetatarsal amputation of the left foot, now with a wound VAC in place -Acute postop blood loss anemia as expected from surgery, symptomatic -Acute on chronic occlusive disease arterial of the left lower extremity, recently and patient received thrombolytic, angioplasties and thrombus extraction -Hypotension, from recent bleed, symptomatic receive a unit of blood -Hyperlipidemia -Coronary artery disease with stent -Persistent atrial fibrillation for which patient is on Xarelto -Left toes only gangrene from underlying peripheral artery disease-status post auscultation. Patient today on 01/04/2019 Plan: Ordered unit of blood. EGD colonoscope he is being scheduled for tomorrow by GI. Care was discussed with the patient.
[2019-01-06] MEDS: GABAPENTIN 300 MG CAP PO SCH ×3 (07:40→20:07)
[2019-01-06] MEDS: PANTOPRAZOLE 40 MG TABLET PO SCH (07:40)
[2019-01-06] MEDS: NICOTINE 14MG/24HR PATCH TRANSDERM SCH (07:41)
[2019-01-06] MEDS: IPRATROPIUM-ALBUTEROL 3 ML NEB INHALATION SCH (07:45)
[2019-01-06 08:51] LABS: Anisocytosis Slight; Basophils % (A) 0 %; Eosinophils # (A) 0.2 k/uL (0-0.7); Eosinophils % (A) 2 %; HGB 9.3 gm/dL (11.4-16.0); Hypochromasia Slight; Lymphocytes # (A) 1.2 k/uL (1.0-4.8); Lymphocytes % (A) 16 %; MCHC 33.2 g/dL (31.0-37.0); MCV 96.6 fL (80.0-100.0); Macrocytosis Slight; Mean Platelet Volume 6.6; Monocytes # (A) 0.3 k/uL (0-1.0); Monocytes % (A) 4 %; Neutrophils # (A) 5.7 k/uL (1.3-7.7); Neutrophils % (A) 76 %; Platelet Count 441 k/uL (150-450); Poikilocytosis Slight; WBC 7.5 k/uL (3.8-10.6)
--- NOTE | 2019-01-06 11:46 | P.PN ---
Subjective Progress Note Date: 01/06/19 Patient is evaluated today approximate 48 hour status post transmetatarsal amputation of the left foot. The patient indicates that she is having minimal if any discomfort and generally feels well. She is scheduled for EGD later today because of continued issues relating to anemia. She denies any recent melanotic stools. Physical examination revealed the patient afebrile and her vital signs to be s table. The left leg is free of edema. The wound VAC is in place with good seal noted. Dorsal and plantar surface tissue is well perfused and appears otherwise unremarkable. No significant tenderness to palpation is noted. Impression: Satisfactory progress status post transmetatarsal amputation left foot. Plan: Continue with negative pressure wound VAC therapy at (-)125 mmHg. This can be continued as an outpatient as the patient is scheduled to return to rehab. Office follow-up once discharged from the hospital. Objective - Vital Signs Vital signs: Vital Signs Temp 97.7 F 01/06/19 05:14 Pulse 76 01/06/19 08:00 Resp 16 01/06/19 08:00 BP 121/64 01/06/19 05:14 Pulse Ox 98 01/06/19 05:14 Intake & Output 01/05/19 01/06/19 01/06/19 18:59 06:59 18:59 Intake Total 850 Balance 850 Weight 49.442 kg Intake: Oral 540 Blood Product 310 Rc Pheresis As-3 Unit 310 [id number] Other: Voiding Method Bedpan Bedpan Incontinent Incontinent # Voids 3 3 - Labs CBC & Chem 7: 01/06/19 08:11 01/05/19 06:01 Labs: Abnormal Lab Results - Last 24 Hours (Table) 01/03/19 01/05/19 01/06/19 Range/Units 12:20 17:18 08:11 RBC 2.77 L 2.90 L (3.80-5.40) m/uL Hgb 8.6 L D 9.3 L (11.4-16.0) gm/dL Hct 26.3 L 28.0 L (34.0-46.0) % RDW 17.3 H 18.0 H (11.5-15.5) % Crossmatch See Detail
[2019-01-06] MEDS ORDERED: LIDOCAINE 1% INJ 10MG/ML (20 ML MDV) ONE (12:20)
[2019-01-06] MEDS ORDERED: PROPOFOL 10 MG/ML 20 ML VIAL IV ONE (12:20)
[2019-01-06] MEDS ORDERED: SODIUM CHLORIDE 0.9% 1,000 ML IV ONE ×2 (12:24)
--- NOTE | 2019-01-06 12:35 | P.PCN ---
Date of Procedure: 01/06/19 Procedure(s) Performed: BRIEF HISTORY: Patient is a 78-year-old, pleasant, admitted hospital with severe symptomatic anemia/Hemoccult positive stool and hemoglobin of 6.8 g/dL. She received 2 units of the transition. She is been complaining of intermittent dark colored stools. During this hospitalization she underwent a left toes amputation for early gangrene. She was scheduled for her EGD and colonoscopy today however patient did not tolerate the colon prep.. PROCEDURE PERFORMED: Esophagogastroduodenoscopy with biopsy. PREOPERATIVE DIAGNOSIS: Anemia and black tarry stools. IV sedation per anesthesia. PROCEDURE: After informed consent was obtained, the patient was brought into the endoscopy unit. IV sedation was administered by Anesthesia under continuous monitoring. Initially the Olympus GIF-140 video endoscope was inserted into the mouth. Esophagus intubated without any difficulty. It was gradually advanced into the stomach and duodenum and carefully examined. The bulb and the second part of the duodenum appeared normal. The scope at this time was withdrawn to the stomach, adequately insufflated with air, and upon careful examination, mucosa of the antrum, body, cardia and the fundus appeared normal. The scope was then withdrawn into the esophagus. The GE junction was located at 39 cm from the incisors. The esophagus appeared normal. There were no erosions or ulcerations seen and the patient tolerated the procedure well. IMPRESSION: 1..Mild antral gastritis 2 No evidence of esophagitis or peptic ulcer disease RECOMMENDATIONS: The findings of this examination were discussed with the patient as well as a family. She was advised to follow with the biopsy results. She was advised to have a colonoscopy in outpatient basis following discharge from the hospital .
[2019-01-06] MEDS: SODIUM CHLORIDE 0.9% 1,000 ML IV SCH (12:51)
[2019-01-06] MEDS: ATORVASTATIN 80 MG TAB PO SCH (20:07)
[2019-01-06] MEDS: MULTIVITAMINS, THERA 1 EACH TAB PO SCH (20:07)
--- NOTE | 2019-01-06 22:50 | P.PN ---
Progress Note - Text Progress Note Date: 01/06/19 Chief Complaint: Low hemoglobin Hospital course: This is a pleasant 78-year-old patient of Dr. Mcdaniels. Chronic stable medical conditions include hypertension, hyperlipidemia, coronary artery disease with stent. Patient was here in the hospital on December 07, 2018 with a diagnosis of TIA. Patient then had a CT angiogram of the head and neck that was negative. 2-D echocardiogram was unremarkable. Patient was then admitted from December 16 through 12/24/2018.. Patient presented with acute on chronic peripheral artery disease with CT angiogram demonstrating acute vascular findings. The following day patient had TPA administered. Likely become: No stigmata the or and several angioplasties and thrombolytic was carried out. Patient was discharged on xarelto. Patient was having, pain in the left foot toes with signs of early gangrene when she left the hospital. She gone to rehab. She sent in today with hemoglobin of 6.9. Blood pressures running low in the 90s. Hemoglobin was 7.3. Patient has been feeling weak and tired. Appetite is starting to cloth picker and lost to 3 days. Patient's lung significant pain in the left foot toes. Which have been discolored. Patient was positive for guaiac stool. On January 04 patient was taken down to the operating room by Dr. Pace for trans metatarsal amputation of the left foot. Today-patient cannot do her colonoscopy preparation. Saw the patient before her EGD this morning. Very keen to eat food. Patient is well controlled. Family is visiting. Review of systems: Was done for constitutional, cardiovascular, GI, pulmonary. relevant finding as above Active Medications Acetaminophen/Codeine Phosphate (Tylenol #3) 1 each PO Q6H PRN PRN Reason: Mild Pain Last Admin: 01/04/19 19:23 Dose: 1 each Documented by: Hydrocodone Bitart/Acetaminophen ([place] 5-325) 1 each PO Q6HR PRN PRN Reason: Moderate Pain Last Admin: 01/05/19 05:54 Dose: 1 each Documented by: Hydrocodone Bitart/Acetaminophen ([place] 5-325) 2 each PO Q6HR PRN PRN Reason: Severe Pain Last Admin: 01/05/19 15:38 Dose: 2 each Documented by: Albuterol Sulfate (Ventolin Nebulized) 2.5 mg INHALATION RT-Q6H PRN PRN Reason: Shortness Of Breath Albuterol/Ipratropium (Duoneb 0.5 Mg-3 Mg/3 Ml Soln) 3 ml INHALATION RT-DAILY [facility] Last Admin: 01/06/19 07:45 Dose: 3 ml Documented by: Atorvastatin Calcium (Lipitor) 80 mg PO HS [facility] Last Admin: 01/06/19 20:07 Dose: 80 mg Documented by: Diphenhydramine HCl (Benadryl) 25 mg PO HS PRN PRN Reason: Nasal Congestion Gabapentin (Neurontin) 300 mg PO TID@0700,1300,1900 [facility] Last Admin: 01/06/19 20:07 Dose: 300 mg Documented by: Sodium Chloride (Saline 0.9%) 1,000 mls @ 75 mls/hr IV .[id number] [facility] Last Admin: 01/06/19 12:51 Dose: 75 mls/hr Documented by: Lorazepam (Ativan) 0.5 mg PO TID PRN PRN Reason: Anxiety Morphine Sulfate (Morphine Sulfate (Inj)) 4 mg IVP Q2HR PRN PRN Reason: Pain Multivitamins (Theragran) 1 each PO HS [facility] Last Admin: 01/06/19 20:07 Dose: 1 each Documented by: Nicotine (Habitrol 14mg/24hr Patch) 1 patch TRANSDERM DAILY [facility] Last Admin: 01/06/19 07:41 Dose: 1 patch Documented by: Pantoprazole Sodium (Protonix) 40 mg PO [id number] [facility] Last Admin: 01/06/19 07:40 Dose: 40 mg Documented by: Physical examination: VITAL SIGNS:97.7, 99, 16, 121/64, 98% room air GENERAL:sitting up in a chair, comfortable EYES: Pupils equal. Conjunctiva pale HEENT: External appearance of nose and ears normal, oral cavity grossly normal. NECK: JVD not raised; masses not palpable. HEART: First and second heart sounds are normal; no edema. LUNGS: Respiratory rate normal; decreased breath sounds ABDOMEN: Soft, nontender, liver spleen not palpable, no masses palpable. PSYCH: Alert and oriented x3; mood and affect normal. EXTREMITIES: Wound VAC over the left foot stump MUSCULOSKELETAL: Evidence of significant evidence of RA in the hands INVESTIGATIONS, reviewed in the clinical context:: hemoglobin 9.3 platelets 441 Previous testing White count 7.3 hemoglobin 7.3 pressure 5.4 creatinine 0.85 Patient's hemoglobin on December 24 was 7.7 Assessment: -Acute symptomatic anemia in a patient whose been on Xarelto with guaiac- positive stool -Transmetatarsal amputation of the left foot, now with a wound VAC in place -Acute postop blood loss anemia as expected from surgery, symptomatic -Acute on chronic occlusive disease arterial of the left lower extremity, recently and patient received thrombolytic, angioplasties and thrombus extraction -Hypotension, from recent bleed, symptomatic receive a unit of blood -Hyperlipidemia -Coronary artery disease with stent -Persistent atrial fibrillation for which patient is on Xarelto -Left toes only gangrene from underlying peripheral artery disease-status post auscultation. Patient today on 01/04/2019 Plan: patient could not take a bowel prep. Hence colonoscopy will be canceled. EKG done later today was unremarkable. Otherwise patient doing well. Should be able to be discharged to the rehab tomorrow. anticoagulation to be started to valeri.
[2019-01-07] MEDS: SODIUM CHLORIDE 0.9% 1,000 ML IV SCH ×2 (05:00→12:53)
[2019-01-07] MEDS: IPRATROPIUM-ALBUTEROL 3 ML NEB INHALATION SCH (07:25)
[2019-01-07] MEDS: NICOTINE 14MG/24HR PATCH TRANSDERM SCH (08:58)
[2019-01-07] MEDS: PANTOPRAZOLE 40 MG TABLET PO SCH (08:58)
[2019-01-07] MEDS: GABAPENTIN 300 MG CAP PO SCH ×2 (08:58→12:52)
[2019-01-07 09:05] LABS: Anisocytosis Slight; Basophils % (A) 1 %; Eosinophils # (A) 0.2 k/uL (0-0.7); Eosinophils % (A) 3 %; HCT 24.8 % (34.0-46.0); HGB 7.9 gm/dL (11.4-16.0); Hypochromasia Slight; Lymphocytes # (A) 1.3 k/uL (1.0-4.8); Lymphocytes % (A) 18 %; MCH 31.4 pg (25.0-35.0); MCV 98.2 fL (80.0-100.0); Macrocytosis Slight; Mean Platelet Volume 6.8; Monocytes # (A) 0.3 k/uL (0-1.0); Monocytes % (A) 4 %; Neutrophils % (A) 72 %; Platelet Count 407 k/uL (150-450); Poikilocytosis Slight; RBC 2.52 m/uL (3.80-5.40); RDW 18.7 % (11.5-15.5); WBC 6.9 k/uL (3.8-10.6)
[2019-01-07] MEDS: Acetaminophen-Codeine 300-30mg TAB PO PRN (09:05)
--- NOTE | 2019-01-07 14:07 | P.PN ---
Subjective Progress Note Date: 01/07/19 Principal diagnosis: Wet gangrene left first through fifth toes, previous TPA revascularization The patient is a 78-year-old pleasant female who has been evaluated sitting up in bed comfortably. Today is postop day three status post left transmetatarsal amputation of the first through fifth toes with an application of the wound VAC by Dr. Pace. Patient reports pain is slightly increased but well controlled. Denies any shortness of breath or chest pain. She remains afebrile. Wound VAC is intact and draining. Today's hemoglobin 9.3, hematocrit 28.0, WBC 6.9 Iron studies were normal. Patient received 1 unit of packed red blood cells during hospital stay. Patient had EGD yesterday with Dr. Dixon which showed mild Gastritis without any active bleeding. Patient was unable to do bowel prep so therefore will follow up for outpatient colonoscopy with Dr. Dixon. Objective - Vital Signs Vital signs: Vital Signs Temp 98.0 F 01/07/19 05:57 Pulse 84 01/07/19 07:34 Resp 20 01/07/19 05:57 BP 147/70 01/07/19 05:57 Pulse Ox 97 01/07/19 05:57 Intake & Output 01/06/19 01/07/19 01/07/19 18:59 06:59 18:59 Intake Total 150 Balance 150 Weight 49.442 kg 49.442 kg Intake: IV 150 Other: Voiding Method Bedpan Bedpan Incontinent Incontinent # Voids 2 1 # Bowel Movements 0 - Exam General appearance: The patient is alert, oriented, in no acute distress. Sitting up in bed HET: Head is normocephalic and atraumatic. Pupils are equal and reactive. Neck: Supple without lymphadenopathy. Trachea midline. Heart: S1 S2. Regular rate and rhythm. Lungs: No crackles or wheezes are heard. Abdomen: Soft, nontender, nondistended with bowel sounds. No peritoneal signs. No palpable organomegaly or masses. Extremities: Normal skin color and turgor. Left lower extremity with clear Tegaderm over TMA site with intact wound VAC draining dark red blood, approximately 50 mL. Left lower extremity with improved edema, warm to the touch. Dorsal and plantar surface tissue well perfused. Left heel with marked black pressure ulcer. Neurological: No focal deficits. Strength and sensation are grossly intact. - Labs CBC & Chem 7: 01/07/19 07:32 01/05/19 06:01 Labs: Abnormal Lab Results - Last 24 Hours (Table) 01/07/19 Range/Units 07:32 RBC 2.52 L (3.80-5.40) m/uL Hgb 7.9 L (11.4-16.0) gm/dL Hct 24.8 L (34.0-46.0) % RDW 18.7 H (11.5-15.5) % Assessment and Plan Assessment: 1. Gangrene left lower extremity first through fifth toes 2. Post-op day 3, left transmetatarsal amputation doing well 3. Crititcal ischemia on chronic peripheral artery disease of the lower left extremity 4. History of revascularization left lower extremity 5. anemia 6. Tobacco abuse Plan: Continue to monitor and treat pain. Patient may be discharged to rehab facility, continue would vac care. Order is in chart. Continue with PT/OT non-weight bearing on left foot. Patient to follow up in office with Dr. Pace in 2 weeks. The above dictated assessment and findings were discussed with Dr. Rondon. The impression and plan of care have been directed as dictated.
--- NOTE | 2019-01-07 14:21 | P.DS ---
Providers Date of admission: 01/04/19 13:40 Expected date of discharge: 01/07/19 Attending physician: Wali Victor Consults: 01/03/19 14:41 Consult Physician Urgent Consulting Provider: Gale Dixon Consult Reason/Comments: GI bleed Do you want consulting provider notified?: Yes 01/03/19 20:48 Consult Physician Routine Consulting Provider: Gregorio Rondon Consult Reason/Comments: left toe gangrene Do you want consulting provider notified?: Yes Primary care physician: Josias Mcdaniels [facility] Course: Chief Complaint: Low hemoglobin Hospital course: This is a pleasant 78-year-old patient of Dr. Mcdaniels. Chronic stable medical conditions include hypertension, hyperlipidemia, coronary artery disease with stent. Patient was here in the hospital on December 07, 2018 with a diagnosis of TIA. Patient then had a CT angiogram of the head and neck that was negative. 2-D echocardiogram was unremarkable. Patient was then admitted from December 16 through 12/24/2018.. Patient presented with acute on chronic peripheral artery disease with CT angiogram demonstrating acute vascular findings. The following day patient had TPA administered. Likely become: No stigmata the or and several angioplasties and thrombolytic was carried out. Patient was discharged on xarelto. Patient was having, pain in the left foot toes with signs of early gangrene when she left the hospital. She gone to rehab. She sent in today with hemoglobin of 6.9. Blood pressures running low in the 90s. Hemoglobin was 7.3. Patient has been feeling weak and tired. Appetite is starting to picker and packer and lost to 3 days. Patient's lung significant pain in the left foot toes. Which have been discolored. Patient was positive for guaiac stool. On January 04 patient was taken down to the operating room by Dr. Pace for trans metatarsal amputation of the left foot. EGD was unremarkable. Patient could not do colonoscopy because of poor preparation. She will do this an outpatient. Anticoagulation is being resumed. Pain is well controlled. Consultation: Dr. Lynne Pace from vascular surgery Dr. Kleber Dixon from GI Physical examination: VITAL SIGNS: 98, 92, 20, 147/70, 97% room air GENERAL: Laying in bed,, comfortable EYES: Pupils equal. Conjunctiva pale HEENT: External appearance of nose and ears normal, oral cavity grossly normal. NECK: JVD not raised; masses not palpable. HEART: First and second heart sounds are normal; no edema. LUNGS: Respiratory rate normal; decreased breath sounds ABDOMEN: Soft, nontender, liver spleen not palpable, no masses palpable. PSYCH: Alert and oriented x3; mood and affect normal. EXTREMITIES: Wound VAC over the left foot stump MUSCULOSKELETAL: Evidence of significant evidence of RA in the hands INVESTIGATIONS, reviewed in the clinical context:: Hemoglobin 7.9 Previous testing White count 7.3 hemoglobin 7.3 pressure 5.4 creatinine 0.85 Patient's hemoglobin on December 24 was 7.7 Assessment: -Acute symptomatic anemia in a patient whose been on Xarelto with guaiac- positive stool, EGD negative. 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 - 01/04/2019 Disposition: ECF/[facility] Patient Condition at Discharge: Stable Plan - Discharge Summary Discharge Rx Participant: No New Discharge Prescriptions: Continue Atorvastatin [Lipitor] 80 mg PO HS #30 tab Nitroglycerin Sl Tabs [Nitrostat] 0.4 mg SUBLINGUAL Q5M PRN #25 tab PRN Reason: Chest Pain Albuterol Inhaler [Ventolin Hfa Inhaler] 2 puff INHALATION RT-Q6H PRN PRN Reason: Shortness Of Breath Ipratropium/Albuterol Sulfate [Combivent Respimat Inhaler] 1 puff INHALATION RT-DAILY diphenhydrAMINE [Benadryl] 25 mg PO HS PRN PRN Reason: Nasal Congestion Biotin 5,000 mcg PO DAILY Clopidogrel [Plavix] 75 mg PO HS Metoprolol Tartrate [Lopressor] 50 mg PO BID@0700,1600 Multivitamins, Thera [Multivitamin (formulary)] 1 tab PO HS Nicotine 14Mg/24Hr Patch [Habitrol] 1 patch TRANSDERM DAILY Polyethylene Glycol 3350 [Miralax] 17 gm PO HS Rivaroxaban [Xarelto] 20 mg PO DAILY@2000 Saliva Stimulant Agents Comb.3 [Biotene Moisturizing Mouth] 3 spray MUCOUS MEM TID@0700,1300,1900 LORazepam [Ativan] 0.5 mg PO TID PRN #9 tab PRN Reason: Anxiety Gabapentin [Neurontin] 300 mg PO TID@0700,1300,1900 #9 cap Acetaminophen-Codeine 300-30mg [Tylenol w/codeine #3] 1 tab PO Q6H PRN #12 tab PRN Reason: Pain Discontinued Adaptic 1 applic TOPICAL BID Aspirin 81 mg PO HS Lisinopril-Hctz 10-12.5 mg [Zestoretic 10-12.5] 1 tab PO BID@0700,1600 Spironolactone [Aldactone] 25 mg PO DAILY Sulfamethoxazole/Trimethoprim [Bactrim DS 800-160 mg] 1 tab PO BID Discharge Medication List Atorvastatin [Lipitor] 80 mg PO HS #30 tab 10/23/16 [Rx] Nitroglycerin Sl Tabs [Nitrostat] 0.4 mg SUBLINGUAL Q5M PRN #25 tab 10/23/16 [Rx] Albuterol Inhaler [Ventolin Hfa Inhaler] 2 puff INHALATION RT-Q6H PRN 12/16/18 [History] Biotin 5,000 mcg PO DAILY 12/16/18 [History] Ipratropium/Albuterol Sulfate [Combivent Respimat Inhaler] 1 puff INHALATION RT- DAILY 12/16/18 [History] diphenhydrAMINE [Benadryl] 25 mg PO HS PRN 12/16/18 [History] Clopidogrel [Plavix] 75 mg PO HS 01/03/19 [History] Metoprolol Tartrate [Lopressor] 50 mg PO BID@0700,1600 01/03/19 [History] Multivitamins, Thera [Multivitamin (formulary)] 1 tab PO HS 01/03/19 [History] Nicotine 14Mg/24Hr Patch [Habitrol] 1 patch TRANSDERM DAILY 01/03/19 [History] Polyethylene Glycol 3350 [Miralax] 17 gm PO HS 01/03/19 [History] Rivaroxaban [Xarelto] 20 mg PO DAILY@199901/03/19 [History] Saliva Stimulant Agents Comb.3 [Biotene Moisturizing Mouth] 3 spray MUCOUS MEM TID@0700,1300,1900 01/03/19 [History] Acetaminophen-Codeine 300-30mg [Tylenol w/codeine #3] 1 tab PO Q6H PRN #12 tab 01/07/19 [Rx] Gabapentin [Neurontin] 300 mg PO TID@0700,1300,1900 #9 cap 01/07/19 [Rx] LORazepam [Ativan] 0.5 mg PO TID PRN #9 tab 01/07/19 [Rx] Follow up Appointment(s)/Referral(s): Nancy Pace DO [STAFF PHYSICIAN] - 1 Week Gale Dixon MD [STAFF PHYSICIAN] - 2 Weeks [facility], [NON-STAFF] - Lukas Mcdaniels MD [Primary Care Provider] - As Needed (Once out of ECF) Patient Instructions/Handouts: Gastrointestinal Bleeding (DC), Peripheral Arter y Disease (DC), Anemia (DC), Negative Pressure Wound Therapy (DC), Toe Amputation (DC) Activity/Diet/Wound Care/Special Instructions: Non weight bearing to left foot. Keep elevated at rest and no pressure to heels. Fall precautions Cardiac diet. Wound care orders per Dr. Pace/vascular surgery
[2019-01-07 15:06] VITALS: BP 128/56; PULSE 94; RESP 16; TEMP 98.2
--- NOTE | 2019-01-07 16:20 | PN ---
PROGRESS NOTE DATE OF DICTATION: 01/07/2019 Patient is a 78-year-old pleasant white female admitted to the hospital with gangrene of the right toes, for which she underwent amputation 2 days ago. She also was noted to have severe symptomatic anemia and Hemoccult-positive stool. She had an upper endoscopy done yesterday that showed evidence of mild gastritis, but no source of bleeding noted. She was scheduled for a colonoscopy yesterday but could not tolerate the prep and hence the procedure was canceled. She is doing well today. PHYSICAL EXAMINATION: Appears comfortable. No apparent distress. VITAL SIGNS: Stable. Blood pressure 128/56, pulse rate 94, temperature 98.2. HEENT examination unremarkable. Conjunctivae pink. Sclerae anicteric. Oral cavity no lesions. NECK: No JVD or lymph node enlargement. CHEST: Clear to auscultation. HEART: Regular rate and rhythm. ABDOMEN: Soft. Bowel sounds are positive. No organomegaly. EXTREMITIES: No pedal edema. Wound V.A.C. noted in the right foot area at the site of amputation. SKIN: No rashes. NEUROLOGIC: Alert and oriented x3. No focal deficits. LABS: Labs from today show WBC 6.9, hemoglobin 7.9, platelets normal. IMPRESSION: 1. Severe symptomatic anemia with a hemoglobin of 6.8, needing 2 units of blood transfusion. No clinical evidence of active bleeding. She did have some dark stools at the time of admission to the hospital. EGD done yesterday showed mild gastritis. She did not tolerate the prep for colonoscopy and hence it was not done. 2. Gangrene of the right toes, status post amputation 2 days ago. Presently has a wound V.A.C., doing well. RECOMMENDATIONS: Discussed with the patient upper endoscopy results from yesterday. I did recommend for her to have a colonoscopy on an outpatient basis early next year, and she is agreeable to it. At this time we will sign off. Please call us if needed. Thank you for this consultation. MMODL / IJN: [id number] /
== END 2019-01-07 17:14 | DRG 982 ==
LOC: EC 11:29 → 4MS4W 14:41 → OBSVTOIN 01-04 13:40
PROVIDERS: ADMIT Hospitalist; ATTEND Hospitalist
PROC: 30233N1 Transfusion of Nonautologous Red Blood Cells into Peripheral Vein, Percutaneous Approach (ICD-10-PCS; 2019-01-03)
PROC: 0Y6N0ZB Detachment at Left Foot, Partial 2nd Ray, Open Approach (ICD-10-PCS; 2019-01-04)
PROC: 0Y6N0ZC Detachment at Left Foot, Partial 3rd Ray, Open Approach (ICD-10-PCS; 2019-01-04)
PROC: 0Y6N0ZD Detachment at Left Foot, Partial 4th Ray, Open Approach (ICD-10-PCS; 2019-01-04)
PROC: 0Y6N0ZF Detachment at Left Foot, Partial 5th Ray, Open Approach (ICD-10-PCS; 2019-01-04)
PROC: 0Y6N0Z9 Detachment at Left Foot, Partial 1st Ray, Open Approach (ICD-10-PCS; principal; 2019-01-04 09:05)
PROC: 0DB98ZX Excision of Duodenum, Via Natural or Artificial Opening Endoscopic, Diagnostic (ICD-10-PCS; 2019-01-06)
PROC: 0DB78ZX Excision of Stomach, Pylorus, Via Natural or Artificial Opening Endoscopic, Diagnostic (ICD-10-PCS; 2019-01-06)
DX: D62 Acute posthemorrhagic anemia (principal); I48.19 Other persistent atrial fibrillation; K92.2 Gastrointestinal hemorrhage, unspecified; I77.9 Disorder of arteries and arterioles, unspecified; I95.9 Hypotension, unspecified; J44.9 Chronic obstructive pulmonary disease, unspecified; L89.620 Pressure ulcer of left heel, unstageable; R15.9 Full incontinence of feces; M06.9 Rheumatoid arthritis, unspecified; E78.5 Hyperlipidemia, unspecified; F17.200 Nicotine dependence, unspecified, uncomplicated; I10 Essential (primary) hypertension; I25.10 Atherosclerotic heart disease of native coronary artery without angina pectoris; I25.2 Old myocardial infarction; K29.70 Gastritis, unspecified, without bleeding; R32 Unspecified urinary incontinence; Z66 Do not resuscitate; Z79.01 Long term (current) use of anticoagulants; Z79.82 Long term (current) use of aspirin; Z79.899 Other long term (current) drug therapy; Z95.5 Presence of coronary angioplasty implant and graft; Z90.710 Acquired absence of both cervix and uterus; Z86.73 Personal history of transient ischemic attack (TIA), and cerebral infarction without residual deficits; Z82.49 Family history of ischemic heart disease and other diseases of the circulatory system; Z83.3 Family history of diabetes mellitus
CPT/HCPCS: 36415; 43239; 64450; 76942; 80048; 80053; 82272; 82728; 82746; 83540; 83550; 85025; 85027; 85610; 85730; 86850; 86900; 86901; 86920; 88305; 88311; 94640; 99285

== ENCOUNTER 2019-02-08 23:11 | Emergency (ER) | payer MEDICARE ==
[2019-02-08 23:19] VITALS: BP 134/59; PULSE 78; RESP 18; TEMP 98
[2019-02-08] MEDS ORDERED: GELATIN SPONGE,ABSORB (SMALL) 1 EACH SPONGE TOPICAL STA (23:53)
--- NOTE | 2019-02-09 00:08 | ED ---
Fall HPI - General Chief Complaint: Fall Stated Complaint: Fall Time Seen by Provider: 02/08/19 23:38 Source: patient Mode of arrival: wheelchair - History of Present Illness Initial Comments: Patient is 78-year-old female presenting to the emergency department with a chief complaint of a fall. Patient is weak 6 status post amputation of all left toes. patient was in her wheelchair, when she slid off after she was bending forward to grab something. Patient reports she fell down and injured the foot that was healing. Patient reports after some time she noticed some bleeding through the dressing. Patient reports a nurse come to change the dressing every other day. Patient also reports a deep tissue ulcer on the heel of the left foot. Patient denies any pain at this time. Patient is on xeralto. denies any trauma. Denies any other symptoms. - Related Data Home Medications Medication Instructions Recorded Confirmed Albuterol Inhaler [Ventolin Hfa 2 puff INHALATION RT-Q6H PRN 12/16/18 01/03/19 Inhaler] Biotin 5,000 mcg PO DAILY 12/16/18 01/03/19 Ipratropium/Albuterol Sulfate 1 puff INHALATION RT-DAILY 12/16/18 01/03/19 [Combivent Respimat Inhaler] diphenhydrAMINE [Benadryl] 25 mg PO HS PRN 12/16/18 01/03/19 Clopidogrel [Plavix] 75 mg PO HS 01/03/19 01/03/19 Metoprolol Tartrate [Lopressor] 50 mg PO BID@0700,1600 01/03/19 01/03/19 Multivitamins, Thera [Multivitamin 1 tab PO HS 01/03/19 01/03/19 (formulary)] Nicotine 14Mg/24Hr Patch [Habitrol] 1 patch TRANSDERM DAILY 01/03/19 01/03/19 Polyethylene Glycol 3350 [Miralax] 17 gm PO HS 01/03/19 01/03/19 Rivaroxaban [Xarelto] 20 mg PO DAILY@199901/03/19 01/03/19 Saliva Stimulant Agents Comb.3 3 spray MUCOUS MEM 01/03/19 01/03/19 [Biotene Moisturizing Mouth] TID@0700,1300,1900 Previous Rx's Medication Instructions Recorded Atorvastatin [Lipitor] 80 mg PO HS #30 tab 10/23/16 Nitroglycerin Sl Tabs [Nitrostat] 0.4 mg SUBLINGUAL Q5M PRN #25 tab 10/23/16 Acetaminophen-Codeine 300-30mg 1 tab PO Q6H PRN #12 tab 01/07/19 [Tylenol w/codeine #3] Gabapentin [Neurontin] 300 mg PO TID@0700,1300,1900 #9 cap 01/07/19 LORazepam [Ativan] 0.5 mg PO TID PRN #9 tab 01/07/19 Allergies Allergy/AdvReac Type Severity Reaction Status Date / Time No Known Allergies Allergy Verified 01/03/19 11:41 Review of Systems ROS Statement: Those systems with pertinent positive or pertinent negative responses have been documented in the HPI. ROS Other: All systems not noted in ROS Statement are negative. Past Medical History Past Medical History: Atrial Fibrillation, Coronary Artery Disease (CAD), COPD, CVA/TIA, Hyperlipidemia, Hypertension, Myocardial Infarction (NH), Rheumatoid Arthritis (RA), Vascular Disorder Additional Past Medical History / Comment(s): Pt recently admitted to [facility] on 12/16/18 with L lower extremity critical limb ischemia. She had several angiograms/PTBAs and a stent placed. 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, RA in bilateral hands, incontinent of urine and stool at times, Last Myocardial Infarction Date:: 2016 History of Any Multi-Drug Resistant Organisms: None Reported Past Surgical History: Hysterectomy Additional Past Surgical History / Comment(s): L lower extremity iliofemoral angiogram, aortoiliac angiogram, selective L popliteal tibial peroneal angiogram, multiple PTBAs L leg/thrombolytics and a stent to the L common iliac artery, 2006/2016 cardiac caths w/ stents Past Anesthesia/Blood Transfusion Reactions: No Reported Reaction, Motion Sickness Additional Past Anesthesia/Blood Transfusion Reaction / Comment(s): Pt recently received blood without reaction. Past Psychological History: Anxiety Smoking Status: Former smoker Past Alcohol Use History: None Reported Past Drug Use History: None Reported - Past Family History Daughter(s) Family Medical History: Diabetes Mellitus Son(s) Family Medical History: Hyperlipidemia, Hypertension Mother Family Medical History: No Reported History Additional Family Medical History / Comment(s): Mother was healthy Father Family Medical History: Cancer Additional Family Medical History / Comment(s): Father of some form of cancer prior to pt being born. She does not know type of cancer. General Exam Limitations: no limitations General appearance: alert, in no apparent distress Head exam: Present: atraumatic, normocephalic, normal inspection. Absent: other (no signs of trauma to the head ) Eye exam: Present: normal appearance, PERRL, EOMI Pupils: Present: normal accommodation ENT exam: Present: normal exam, normal oropharynx Neck exam: Present: normal inspection, full ROM. Absent: tenderness Respiratory exam: Present: normal lung sounds bilaterally Cardiovascular Exam: Present: regular rate, normal rhythm, normal heart sounds Extremities exam: Present: full ROM, pedal edema (2 pitting edema bilaterally although this is baseline). Absent: normal inspection (amputation to all toes on the left foot. very mild active bleeding on the anterior lateral aspect of the foot. Indications site does not appear infected. Deep tissue ulcer on the left heel.), tenderness, calf tenderness Back exam: Present: normal inspection, full ROM Neurological exam: Present: alert, oriented X3 Psychiatric exam: Present: normal affect, normal mood Skin exam: Present: warm, dry, intact, normal color Course Vital Signs 02/08/19 23:15 Temperature 98.0 F Pulse Rate 78 Respiratory 18 Rate Blood Pressure 134/59 O2 Sat by Pulse 100 Oximetry Medical Decision Making - Medical Decision Making patient is 78-year-old male with history of PAD presenting to emergency Department with a chief complaint of a fall. No head trauma. Patient is on xeralto. 6 weeks status post all toes amputationof left foot. On exam patient does have some very mild bleeding on the lateral aspect of the irritation site. I suspect this to be secondary to a fall. no signs of infection on the indication site.No head trauma.Gelfoam applied to the region of mild bleeding. wet-to-dry dressing applied on the heel wound and amputation site. krilex wrapping applied.patient has an appointment with the vascular surgeon this Thursday. The nurse will come see the patient in 2 days as well. Strict return parameters were thoroughly discussed the patient is understanding and agreeable. Case discussed with physician. Disposition Clinical Impression: Fall, Postoperative bleeding from incision Disposition: HOME SELF-CARE Condition: Stable Instructions (If sedation given, give patient instructions): Fall Prevention (ED) Additional Instructions: please follow up with a surgeon who performed the operation. Please return to emergency department if symptoms worsen. Is patient prescribed a controlled substance at d/c from ED?: No Referrals: Lukas Mcdaniels MD [Primary Care Provider] - 1-2 days Time of Disposition: 00:10
== END 2019-02-09 00:33 | disposition home or self-care (01) ==
LOC: EC 23:11
DX: M96.830 Postprocedural hemorrhage of a musculoskeletal structure following a musculoskeletal system procedure (principal); I48.91 Unspecified atrial fibrillation; J44.9 Chronic obstructive pulmonary disease, unspecified; I25.2 Old myocardial infarction; I25.10 Atherosclerotic heart disease of native coronary artery without angina pectoris; I10 Essential (primary) hypertension; I73.9 Peripheral vascular disease, unspecified; Z98.890 Other specified postprocedural states; Z86.73 Personal history of transient ischemic attack (TIA), and cerebral infarction without residual deficits; Z95.5 Presence of coronary angioplasty implant and graft; Z87.891 Personal history of nicotine dependence; Z79.02 Long term (current) use of antithrombotics/antiplatelets; Z79.01 Long term (current) use of anticoagulants; Z79.899 Other long term (current) drug therapy; W05.0XXA Fall from non-moving wheelchair, initial encounter
CPT/HCPCS: 99283

== ENCOUNTER 2019-02-18 19:06 | Inpatient (IN) | payer MEDICARE ==
--- NOTE | 2019-02-18 19:25 | ED ---
Chest Pain HPI - General Chief Complaint: Chest Pain Stated Complaint: DIZZY Time Seen by Provider: 02/18/19 19:24 Source: EMS, RN notes reviewed, old records reviewed Mode of arrival: EMS Limitations: physical limitation - History of Present Illness Initial Comments: This is a 70-year-old female here today. Patient does say for evaluation of chest pain as well as shortness of breath. No fevers. She just feels very weak decreased appetite and not feeling herself. No travel history sick contacts multiple recent hospitalizations. No recent change in medications. Patient states she does throat and shortness of breath currently with chest pain here in the ER. She also is having a tremor which he can't get to stop shaking uncontrollably of both upper extremities MD Complaint: chest pain, other (weak tremor) -: days(s) Onset: during rest Pain Location: substernal, left chest Pain Radiation: none Severity: mild Severity scale (1-10): 3 Quality: heaviness Consistency: constant Improves With: nothing Context: recent illness Anginal Symptoms: dyspnea Other Symptoms: palpitations Treatments Prior to Arrival: none - Related Data Home Medications Medication Instructions Recorded Confirmed Albuterol Inhaler [Ventolin Hfa 2 puff INHALATION RT-Q6H PRN 12/16/18 02/18/19 Inhaler] Ipratropium/Albuterol Sulfate 1 puff INHALATION RT-DAILY 12/16/18 02/18/19 [Combivent Respimat Inhaler] Clopidogrel [Plavix] 75 mg PO HS 01/03/19 02/18/19 Metoprolol Tartrate [Lopressor] 50 mg PO BID@0700,1600 01/03/19 02/18/19 Rivaroxaban [Xarelto] 20 mg PO DAILY@199901/03/19 02/18/19 Naproxen Sodium [Aleve] 220 mg PO DAILY PRN 02/18/19 02/18/19 Previous Rx's Medication Instructions Recorded Atorvastatin [Lipitor] 80 mg PO HS #30 tab 10/23/16 Nitroglycerin Sl Tabs [Nitrostat] 0.4 mg SUBLINGUAL Q5M PRN #25 tab 10/23/16 Acetaminophen-Codeine 300-30mg 1 tab PO Q6H PRN #12 tab 01/07/19 [Tylenol w/codeine #3] Gabapentin [Neurontin] 300 mg PO TID@0700,1300,1900 #9 cap 01/07/19 Allergies Allergy/AdvReac Type Severity Reaction Status Date / Time No Known Allergies Allergy Verified 02/18/19 21:17 Review of Systems ROS Statement: Those systems with pertinent positive or pertinent negative responses have been documented in the HPI. ROS Other: All systems not noted in ROS Statement are negative. EKG Findings - EKG Comments: EKG Findings:: EKG shows A. fib of 84, QRS 80, QTC 470 Past Medical History Past Medical History: Atrial Fibrillation, Coronary Artery Disease (CAD), COPD, CVA/TIA, Hyperlipidemia, Hypertension, Myocardial Infarction (NV), Rheumatoid Arthritis (RA), Vascular Disorder Additional Past Medical History / Comment(s): Pt recently admitted to [facility] on 12/16/18 with L lower extremity critical limb ischemia. She had several angiograms/PTBAs and a stent placed. 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, RA in bilateral hands, incontinent of urine and stool at times, Last Myocardial Infarction Date:: 2016 History of Any Multi-Drug Resistant Organisms: None Reported Past Surgical History: Hysterectomy Additional Past Surgical History / Comment(s): L lower extremity iliofemoral angiogram, aortoiliac angiogram, selective L popliteal tibial peroneal angiogram, multiple PTBAs L leg/thrombolytics and a stent to the L common iliac artery, 2006/2016 cardiac caths w/ stents Past Anesthesia/Blood Transfusion Reactions: No Reported Reaction, Motion Sickness Additional Past Anesthesia/Blood Transfusion Reaction / Comment(s): Pt recently received blood without reaction. Past Psychological History: Anxiety Smoking Status: Former smoker Past Alcohol Use History: None Reported Past Drug Use History: None Reported - Past Family History Daughter(s) Family Medical History: Diabetes Mellitus Son(s) Family Medical History: Hyperlipidemia, Hypertension Mother Family Medical History: No Reported History Additional Family Medical History / Comment(s): Mother was healthy Father Family Medical History: Cancer Additional Family Medical History / Comment(s): Father of some form of cancer prior to pt being born. She does not know type of cancer. General Exam Limitations: physical limitation General appearance: alert, in no apparent distress Head exam: Present: atraumatic, normocephalic, normal inspection Eye exam: Present: normal appearance, PERRL, EOMI. Absent: scleral icterus, conjunctival injection, periorbital swelling ENT exam: Present: normal exam, mucous membranes moist Neck exam: Present: normal inspection. Absent: tenderness, meningismus, lymphadenopathy Respiratory exam: Present: normal lung sounds bilaterally. Absent: respiratory distress, wheezes, rales, rhonchi, stridor Cardiovascular Exam: Present: regular rate, normal rhythm, normal heart sounds. Absent: systolic murmur, diastolic murmur, rubs, gallop, clicks GI/Abdominal exam: Present: soft, normal bowel sounds. Absent: distended, tenderness, guarding, rebound, rigid Extremities exam: Present: normal inspection, full ROM, normal capillary refill. Absent: tenderness, pedal edema, joint swelling, calf tenderness Back exam: Present: normal inspection Neurological exam: Present: alert, oriented X3, CN II-XII intact Psychiatric exam: Present: normal affect, normal mood Skin exam: Present: warm, dry, intact, normal color. Absent: rash Course Vital Signs 02/18/19 19:13 Temperature 97.7 F Pulse Rate 74 Respiratory 18 Rate Blood Pressure 137/70 O2 Sat by Pulse 99 Oximetry - Reevaluation(s) Reevaluation #1: 02/18/19 21:00 Medical records reviewed Reevaluation #2: 02/18/19 21:00 All improvement patient symptoms here in the ER - Consultations Consultation #1: Spoke with [facility] was agreeable for admission Chest Pain MDM - MDM 78 male to the ED here for evaluation persistent weakness increasing chest pain. Shortness of breath, patient does have significant anemia or heart disease with chest pain. Disposition Clinical Impression: Chest pain, CAD (coronary artery disease), Anemia, Weakness Disposition: ADMITTED IP TO THIS HOSP Condition: Undetermined
[2019-02-18 20:15] LABS: Anisocytosis Slight; Basophils # (A) 0.1 k/uL (0-0.2); Basophils % (A) 1 %; Eosinophils # (A) 0.2 k/uL (0-0.7); Eosinophils % (A) 3 %; HCT 25.6 % (34.0-46.0); HGB 7.9 gm/dL (11.4-16.0); Hypochromasia Marked; Lymphocytes # (A) 1.7 k/uL (1.0-4.8); Lymphocytes % (A) 20 %; MCH 29.7 pg (25.0-35.0); MCHC 30.9 g/dL (31.0-37.0); MCV 96.1 fL (80.0-100.0); Mean Platelet Volume 8.1; Monocytes # (A) 0.6 k/uL (0-1.0); Monocytes % (A) 7 %; Neutrophils # (A) 5.6 k/uL (1.3-7.7); Neutrophils % (A) 68 %; Platelet Count 460 k/uL (150-450); Poikilocytosis Slight; RBC 2.66 m/uL (3.80-5.40); RDW 16.1 % (11.5-15.5); WBC 8.3 k/uL (3.8-10.6)
[2019-02-18 20:19] LABS: ALT 14 U/L (4-34); AST 28 U/L (14-36); African American GFR (CKD) >90 (>60 ml/min/1.73 sqM); Albumin 2.7 g/dL (3.5-5.0); Alkaline Phosphatase 155 U/L (38-126); Anion Gap 4 mmol/L; Blood Urea Nitrogen 21 mg/dL (7-17); Calcium 8.9 mg/dL (8.4-10.2); Carbon Dioxide 28 mmol/L (22-30); Chloride 109 mmol/L (98-107); Glucose 113 mg/dL (74-99); Magnesium 2.2 mg/dL (1.6-2.3); Non-African American GFR(CKD) 84 (>60 ml/min/1.73 sqM); Potassium 3.8 mmol/L (3.5-5.1); Sodium 141 mmol/L (137-145); Total Bilirubin 0.6 mg/dL (0.2-1.3); Total Protein 6.2 g/dL (6.3-8.2)
[2019-02-18 20:33] LABS: INR 1.5 (<1.2); Partial Thromboplastin Time 29.3 sec (22.0-30.0); Prothrombin Time 14.8 sec (9.0-12.0)
--- NOTE | 2019-02-18 20:36 | XR ---
EXAMINATION TYPE: XR chest 2V DATE OF EXAM: 02/18/2019 COMPARISON: 12/06/2018 INDICATION: Chest pain TECHNIQUE: Frontal and lateral views of the chest are obtained. FINDINGS: The heart size is large. The pulmonary vasculature is prominent. Small bilateral pleural effusions are present greater on the left.. IMPRESSION: 1. Clinical correlation recommended for congestive heart failure. 2. Small left pleural effusion
[2019-02-18] MEDS ORDERED: DIAZEPAM 5 MG/ML 2 ML INJ IVP STA (20:57)
[2019-02-18] MEDS ORDERED: DIAZEPAM 5 MG/ML 2 ML INJ IVP PRN (20:57)
[2019-02-18] MEDS ORDERED: ASPIRIN 81 MG PO STA (20:58)
[2019-02-18] MEDS ORDERED: MORPHINE SULFATE 4 MG/ML SYRINGE IV PRN (20:58)
[2019-02-18 22:34] LABS: Amorphous Sediment,Urine Rare /hpf; Appearance,Urine Cloudy (Clear); Bilirubin,Urine Negative (Negative); Blood,Urine Negative (Negative); Color,Urine Yellow; Glucose,Urine (UA) Negative (Negative); Ketones,Urine Negative (Negative); Leukocyte Esterase,Urine Negative (Negative); Mucus,Urine Rare /hpf; Nitrite,Urine Negative (Negative); PH, Urine 6.5 (5.0-8.0); Protein,Urine Trace (Negative); RBC,Urine <1 /hpf (0-5); Specific Gravity,Urine 1.017 (1.001-1.035); WBC,Urine 2 /hpf (0-5)
[2019-02-19 07:46] LABS: Cholesterol 98 mg/dL (<200); HDL Cholesterol 37 mg/dL (40-60); LDL Cholesterol,Calculated 45 mg/dL (0-99); Triglycerides 82 mg/dL (<150)
[2019-02-19] MEDS: ASPIRIN 325 MG TAB PO SCH (10:47)
[2019-02-19] MEDS ORDERED: LORazepam 2 MG/ML INJ IV STA (13:12)
[2019-02-19] MEDS ORDERED: SODIUM CHLORIDE 0.9% 500 ML 500 ML IV ONE (13:12)
[2019-02-19] MEDS ORDERED: NITROGLYCERIN SL TABS 0.4 MG TAB SUBLINGUAL PRN (15:04)
[2019-02-19] MEDS ORDERED: NAPROXEN 250 MG TAB PO PRN (15:04)
[2019-02-19] MEDS ORDERED: Acetaminophen-Codeine 300-30mg TAB PO PRN (15:04)
[2019-02-19] MEDS: NICOTINE 21MG/24HR PATCH TRANSDERM SCH (15:05)
[2019-02-19] MEDS ORDERED: IPRATROPIUM-ALBUTEROL 3 ML NEB INHALATION PRN (15:05)
[2019-02-19] MEDS ORDERED: HYDROcodone/APAP 5-325MG 1 EACH TAB PO PRN (15:06)
[2019-02-19] MEDS ORDERED: ACETAMINOPHEN TAB 500 MG TAB PO PRN (15:06)
--- NOTE | 2019-02-19 15:32 | US ---
EXAMINATION TYPE: US venous doppler duplex LE LT DATE OF EXAM: 02/19/2019 2:36 PM COMPARISON: NONE CLINICAL HISTORY: 78-year-old female swelling . Left leg swelling SIDE PERFORMED: Left TECHNIQUE: The lower extremity deep venous system is examined utilizing real time linear array sonog stella with graded compression, doppler sonography and color-flow sonography. FINDINGS: VESSELS IMAGED: External Iliac Vein (EIV) Common Femoral Vein Deep Femoral Vein Greater Saphenous Vein * Femoral Vein Popliteal Vein Small Saphenous Vein * Proximal Calf Veins (* superficial vessels) Left Leg: Negative for DVT IMPRESSION: No evidence for DVT within the left lower extremity imaged from the groin to the upper calves.
--- NOTE | 2019-02-19 16:00 | HP ---
HISTORY AND PHYSICAL . CHIEF COMPLAINTS: Chest pain, dizziness, shortness of breath. HISTORY OF PRESENT ILLNESS: This 78-year-old woman with a past medical history of multiple medical problems including history of atrial fibrillation, history of CAD, COPD, CVA, TIA, hypertension, hyperlipidemia, history of myocardial infarction, rheumatoid arthritis, history of hysterectomy, being followed by Dr. Mcdaniels in the outpatient setting was complaining of shortness of breath. The patient was not feeling well over the past several days. Patient also had some chest pain. The patient also found to have ejection fraction 45 to 50% on the most recently done 2D echo. Chest x-ray which was reviewed personally by me showed evidence of some fluid overload and small left pleural effusion. Patient admitted to the hospital for further evaluation and treatment. Patient continued to smoke according to the family. The patient also had significant emaciation. There is no history of fever, rigors or chills. No history of headache, loss of consciousness, seizures at this time. PAST MEDICAL HISTORY: History of atrial ablation, CAD, COPD, CVA, TIA, hypertension, hyperlipidemia, myocardial infarction, rheumatoid arthritis. MEDICATIONS: Prior to admission include home medications are: 1. Tylenol No.3 1 tablet p.o. daily p.r.n. 2. Xarelto 20 mg p.o. daily. 3. Nitrostat 0.4 sublingual p.r.n. 4. Aleve 220 mg p.o. daily. 5. Lopressor 50 mg p.o. b.i.d. 6. Combivent 1 puff daily. 7. Neurontin 300 mg p.o. t.i.d. 8. Plavix 75 mg p.o. q.h.s. 9. Lipitor 80 mg q.h.s. 10.Ventolin HFA 2 puffs q.6h p.r.n. ALLERGIES: None. FAMILY HISTORY: History of diabetes in the family. SOCIAL HISTORY: History of smoking, continued ongoing. REVIEW OF SYSTEMS: ENT: Diminished vision. Diminished hearing. CARDIOVASCULAR SYSTEM: As mentioned earlier. RESPIRATORY: As mentioned earlier. GI no nausea or vomiting. no dysuria. Central nervous system: No numbness or weakness. ALLERGY/IMMUNOLOGY: No asthma or hayfever. MUSCULOSKELETAL as mentioned earlier. HEMATOLOGY/ONCOLOGY: No history of anemia. ENDOCRINE: No history of diabetes or hypothyroidism. CONSTITUTIONAL: As mentioned earlier. DERMATOLOGY: Negative. RHEUMATOLOGY negative. PSYCHIATRY as mentioned earlier. PHYSICAL EXAMINATION: Alert and oriented times three. Pulse is 88. Blood pressure 113/58, respiration 18, temperature 97.2, pulse ox 93 percent on 8 L. HEENT: Conjunctivae normal. Oral mucosa moist. NECK: Jugular venous distention in the root of the neck. CARDIOVASCULAR: S1, S2 muffled. Ejection systolic murmur. No S3, no S4. RESPIRATORY: Breath sounds diminished in the bases. Bilateral scattered rhonchi and crackles. Expiratory wheezing also present. Baseline crackles also present. ABDOMEN: Soft, nontender. No mass palpable., LEGS: No edema. No swelling. NERVOUS SYSTEM: Higher functions as mentioned earlier. Moves all 4 limbs. No focal deficits. Mild diffuse weakness. LYMPHATICS: No lymph nodes palpable in the neck, axillae or groin. SKIN: No ulcer. No rashes. No bleeding. JOINTS: No active deforming arthropathy. LABS: WBC 8.3, hemoglobin 7.9, sodium 141, potassium 3.8 and otherwise troponins are negative. UA noted. The most recent hemoglobin was 9.3, it was 6.6 also previously. The EKG shows atrial fibrillation, nonspecific ST-T change. Chest x-ray reviewed personally by me. ASSESSMENT: 1. Shortness of breath possibly multifactorial, congestive heart failure acute exacerbation with acute on chronic systolic dysfunction ejection fraction 45% to 50%. 2. Chronic obstructive pulmonary disease acute exacerbation with purulent tracheobronchitis. 3. Anemia, acute on chronic, rule out blood loss anemia. 4. Chronic atrial fibrillation. 5. Anticoagulation, Xarelto. 6. History of coronary artery disease. 7. History of chronic obstructive pulmonary disease. 8. History of cerebrovascular accident, transient ischemic attack. 9. History of hypertension. 10.Hyperlipidemia. 11.Myocardial infarction. 12.History of rheumatoid arthritis. 13.History of recent left lower extremity critical limb ischemia. 14.History of left foot transmetatarsal amputation. 15.History of peripheral vascular disease. 16.History of anxiety. 17.NO CODE, NO CPR, NO VENT. RECOMMENDATIONS AND DISCUSSION: This 78-year-old woman who presented with multiple complex medical issues, at this time, I recommend to continue the current medications, management and symptomatic treatment. Otherwise, we will continue with IV Lasix. Monitor fluid and electrolytes balance closely. I would also recommend bronchodilators as well as a short course of steroids also. Otherwise, continue to monitor. Copy of dictation being forwarded to Dr. Mcdaniels who is the primary physician. MMMARCIANOL / IJN: [id number] /
[2019-02-19] MEDS: IPRATROPIUM-ALBUTEROL 3 ML NEB INHALATION SCH ×3 (16:04→19:40)
[2019-02-19] MEDS: FUROSEMIDE 10 MG/ML 4 ML VIAL IV SCH ×2 (16:27→23:56)
[2019-02-19] MEDS: METOPROLOL TARTRATE 50 MG TAB PO SCH (16:27)
--- NOTE | 2019-02-19 17:51 | CONS ---
CONSULTATION CHIEF COMPLAINT: Chest pain. Betty is a 78-year-old lady with history of coronary artery disease, status post prior angioplasty, atrial fibrillation, hypertension, COPD, who presents to hospital complaining of chest pain. Her chest discomfort is mild in intensity, precordial without definite radiation to neck, arm or back. The patient is mildly tremulous. At the time of my evaluation, she appears comfortable at rest and is free of symptoms. An EKG shows atrial fibrillation with nonspecific ST-T wave changes and evidence of prior anterolateral wall myocardial infarction. The patient has had 3 sets of cardiac enzymes that are negative. Potassium is 3.8 creatinine is 0.6, hemoglobin is low at 7.9. The patient usually runs a low hemoglobin. PAST MEDICAL HISTORY: Significant for CAD, status post angioplasty, permanent atrial fibrillation, hypertension, COPD. ALLERGIES: No known drug allergies. MEDICATIONS: Medications at home included Xarelto 20 mg daily, Aleve, Lopressor 50 b.i.d., Neurontin, Plavix, Lipitor, albuterol. FAMILY HISTORY: Negative for premature coronary artery disease. SOCIAL HISTORY: Negative for smoking, EtOH abuse, or drug abuse. REVIEW OF SYSTEMS: HEENT: Unremarkable. CARDIAC: As described above. RESPIRATORY: As described above. GI: Negative. GENITOURINARY: Negative. PSYCHOSOCIAL: Negative. ENDOCRINE: Negative. DERM: Negative. CONSTITUTIONAL: Negative. Rest of the system review is not relevant. PHYSICAL EXAMINATION: On exam, patient is comfortable at rest. There is no jugular venous distention. Chest exam reveals good air entry bilaterally. Heart exam reveals first and second heart sounds. Systolic murmur at the left lower sternal border. Abdomen is soft. Exam of the extremities revealed left leg edema and distal pulses are diminished. [employer] exam did not reveal focal neurological deficits. LAB: Showed the hemoglobin is 7.9, INR is 1.5, creatinine is 0.6. Chest x-ray showed small left pleural effusion. EKG shows atrial fibrillation. BNP is elevated at 6530. ASSESSMENT: 1. Chest pain. 2. Severe anemia. 3. Permanent atrial fibrillation. 4. Chronic congestive heart failure, probably systolic. PLAN: We will hold the Xarelto at this time. Continue the metoprolol at 25 mg b.i.d. Obtain a 2D echo. I will resume the Plavix. I need to get hold of her old records to see as to when she had a stent put in. MMODL / IJN: [id number] /
[2019-02-19] MEDS: INSULIN ASPART (NovoLOG) 100 UNIT/ML VIAL SQ SCH ×2 (18:03→22:40)
[2019-02-19] MEDS: ALPRAZolam 0.25 MG TAB PO PRN (18:08)
[2019-02-19] MEDS: methylPREDNISolone SOD SUCCI 125 MG/2 ML VIAL IV SCH ×2 (18:09→23:56)
[2019-02-19 20:04] LABS: Glucose,Whole Blood 98 mg/dL (75-99)
[2019-02-19] MEDS: ATORVASTATIN 80 MG TAB PO SCH (22:39)
[2019-02-19] MEDS: CLOPIDOGREL 75 MG TAB PO SCH (22:39)
[2019-02-19] MEDS: RIVAROXABAN 20 MG TAB PO SCH (22:39)
[2019-02-19] MEDS: GABAPENTIN 300 MG CAP PO SCH (22:39)
[2019-02-20 06:23] LABS: Glucose,Whole Blood 189 mg/dL (75-99)
[2019-02-20 06:45] LABS: Anisocytosis Slight; Basophils % (A) 0 %; Eosinophils # (A) 0.1 k/uL (0-0.7); Eosinophils % (A) 1 %; HCT 26.7 % (34.0-46.0); HGB 8.2 gm/dL (11.4-16.0); Hypochromasia Marked; Lymphocytes # (A) 0.5 k/uL (1.0-4.8); Lymphocytes % (A) 9 %; MCH 29.5 pg (25.0-35.0); MCHC 30.8 g/dL (31.0-37.0); MCV 95.7 fL (80.0-100.0); Mean Platelet Volume 7.9; Monocytes # (A) 0.1 k/uL (0-1.0); Monocytes % (A) 2 %; Neutrophils # (A) 5.3 k/uL (1.3-7.7); Neutrophils % (A) 88 %; Platelet Count 455 k/uL (150-450); Poikilocytosis Slight; RBC 2.79 m/uL (3.80-5.40); RDW 16.1 % (11.5-15.5)
[2019-02-20] MEDS: GABAPENTIN 300 MG CAP PO SCH ×3 (06:51→18:17)
[2019-02-20] MEDS: PANTOPRAZOLE 40 MG TABLET PO SCH (06:51)
[2019-02-20] MEDS: METOPROLOL TARTRATE 50 MG TAB PO SCH ×2 (06:52→17:03)
[2019-02-20] MEDS: methylPREDNISolone SOD SUCCI 125 MG/2 ML VIAL IV SCH ×3 (06:52→17:03)
[2019-02-20] MEDS: INSULIN ASPART (NovoLOG) 100 UNIT/ML VIAL SQ SCH ×4 (06:53→20:23)
[2019-02-20 07:02] LABS: African American GFR (CKD) >90 (>60 ml/min/1.73 sqM); Anion Gap 7 mmol/L; Blood Urea Nitrogen 19 mg/dL (7-17); Calcium 8.5 mg/dL (8.4-10.2); Carbon Dioxide 29 mmol/L (22-30); Chloride 105 mmol/L (98-107); Glucose 168 mg/dL (74-99); Non-African American GFR(CKD) 83 (>60 ml/min/1.73 sqM); Potassium 3.6 mmol/L (3.5-5.1); Sodium 141 mmol/L (137-145)
[2019-02-20] MEDS: NICOTINE 21MG/24HR PATCH TRANSDERM SCH (08:30)
[2019-02-20] MEDS: ASPIRIN 325 MG TAB PO SCH (08:30)
[2019-02-20] MEDS: FUROSEMIDE 10 MG/ML 4 ML VIAL IV SCH ×3 (08:30→23:27)
[2019-02-20] MEDS: ALPRAZolam 0.25 MG TAB PO PRN ×2 (08:30→20:23)
[2019-02-20] MEDS: IPRATROPIUM-ALBUTEROL 3 ML NEB INHALATION SCH ×4 (08:58→23:44)
[2019-02-20 11:53] LABS: Glucose,Whole Blood 210 mg/dL (75-99)
[2019-02-20] MEDS ORDERED: POTASSIUM CHLORIDE ER 20 MEQ TAB.ER PO STA (12:09)
[2019-02-20 12:54] VITALS: BMI 20.4
--- NOTE | 2019-02-20 12:54 | P.PN ---
Subjective Progress Note Date: 02/20/19 This is a 78-year-old female with history of coronary artery disease and prior angioplasty, paroxysmal atrial fibrillation, hypertension, COPD, who presented to the hospital with symptoms of chest discomfort. Her EKG showed atrial fibrillation with nonspecific ST-T wave changes. Troponins were negative 3. Her xarelto was placed on hold, echo is pending. We have requested old records to verify patient's prior stenting procedures. Overall the patient feels well today and actually wants to go home, she states that she felt that her pain was just anxiety related and does not want undergo any procedures at this time. White blood cell count is normal, hemoglobin 8.2, platelet count 455. Sodium 141, potassium 3.6, BUN 19 and creatinine 0.7. Objective - Vital Signs Vital signs: Vital Signs Temp 98.2 F 02/20/19 08:25 Pulse 69 02/20/19 12:32 Resp 16 02/20/19 08:25 BP 114/55 02/20/19 08:25 Pulse Ox 99 02/20/19 08:25 Intake & Output 02/19/19 02/20/19 02/20/19 18:59 06:59 18:59 Intake Total 120 Output Total 400 1250 Balance -400 -1130 Weight 45.359 kg 47.5 kg Intake: Oral 120 Output: Urine 400 1250 Other: Voiding Method Toilet Toilet Toilet Bedside Commode Bedside Commode Bedside Commode Bedpan Bedpan # Voids 1 1 # Bowel Movements 1 - Exam PHYSICAL EXAMINATION: GENERAL: 78-year-old female in no acute distress at the time of my examination HEENT: Head is atraumatic, normocephalic. Pupils equal, round. Sclera anicteric. Conjunctiva are clear. Mucous membranes of the mouth are moist. Neck is supple. There is no elevated jugular venous pressure.] bruit is heard. HEART EXAMINATION: Heart S1, S2 systolic murmur is heard . No murmur or gallop heard. CHEST EXAMINATION: Lungs are clear to auscultation and precussion. No chest wall tenderness is noted on palpation or with deep breathing. ABDOMEN: Soft, nontender. Bowel sounds are heard. No organomegaly noted. EXTREMITIES:1+ peripheral pulses with evidence of peripheral edema and no calf tenderness noted. NEUROLOGIC patient is awake, alert and oriented X2. . - Labs CBC & Chem 7: 02/20/19 06:19 02/20/19 06:19 Labs: Abnormal Lab Results - Last 24 Hours (Table) 02/20/19 02/20/19 02/20/19 Range/Units 06:19 06:19 06:22 RBC 2.79 L (3.80-5.40) m/uL Hgb 8.2 L (11.4-16.0) gm/dL Hct 26.7 L (34.0-46.0) % MCHC 30.8 L (31.0-37.0) g/dL RDW 16.1 H (11.5-15.5) % Plt Count 455 H (150-450) k/uL Lymphocytes # 0.5 L (1.0-4.8) k/uL BUN 19 H (7-17) mg/dL Glucose 168 H (74-99) mg/dL POC Glucose (mg/dL) 189 H (75-99) mg/dL 02/20/19 Range/Units 11:42 RBC (3.80-5.40) m/uL Hgb (11.4-16.0) gm/dL Hct (34.0-46.0) % MCHC (31.0-37.0) g/dL RDW (11.5-15.5) % Plt Count (150-450) k/uL Lymphocytes # (1.0-4.8) k/uL BUN (7-17) mg/dL Glucose (74-99) mg/dL POC Glucose (mg/dL) 210 H (75-99) mg/dL Assessment and Plan Plan: Assessment and plan #1 chest pain, atypical features for acute coronary syndrome. Troponins negative. #2 severe anemia #3 persistent atrial fibrillation #4 chronic congestive heart failure #5 hypertension #6 COPD with acute exacerbation of purulent tracheobronchitis #7 history of CVA #8 hyperlipidemia #9 rheumatoid arthritis Plan We will review the echocardiogram with Doppler study. Reduce aspirin 81 mg daily, patient does not wish to undergo any procedures at this time, we'll maximize her medical therapy. DNP note has been reviewed, I agree with a documented findings and plan of care. Patient was seen and examined.
--- NOTE | 2019-02-20 15:01 | ECHOF ---
Referral Reason:chest pain MEASUREMENTS -------- HEIGHT: 152.4 cm WEIGHT: 45.4 kg BP: IVSd: 1.1 cm (0.6 - 1.1) LVIDd: 4.4 cm (3.9 - 5.3) LVPWd: 1.3 cm (0.6 - 1.1) IVSs: 1.3 cm LVIDs: 3.4 cm LVPWs: 1.4 cm LAESV Index (A-L): 47.53 ml/m Ao Diam: 2.5 cm (2.0 - 3.7) AV Cusp: 1.6 cm (1.5 - 2.6) LA Diam: 3.4 cm (2.7 - 3.8) MV EXCURSION: 11.800 mm (> 18.000) MV EF SLOPE: 90 mm/s (70 - 150) EPSS: 1.5 cm MV E Cale: 1.70 m/s MV DecT: 228 ms MV A Cale: 0.95 m/s MV E/A Ratio: 1.79 AR PHT: 237 ms RAP: 5.00 mmHg RVSP: 38.98 mmHg FINDINGS -------- Sinus rhythm with extra systolic beats. This was a technically adequate study. The left ventricular size is normal. Left ventricular wall thickness is normal. Overall left vent ricular systolic function is moderately impaired with, an EF between 35 - 40 %. Inferiorlateral Hyp okinesis The right ventricle is normal in size. LA is severely dilated >40 ml/m2 The right atrial size is normal. Aortic valve is trileaflet and is mildly thickened. There is mild aortic regurgitation. The mitral valve is normal. The mitral valve leaflets are mildly thickened. Severe mitral regurgi tation is present. Mild tricuspid regurgitation present. There is mild pulmonary hypertension. The right ventricular systolic pressure, as measured by Doppler, is 38.98mmHg. Trace/mild (physiologic) pulmonic regurgitation. The aortic root size is normal. Normal inferior vena cava with normal inspiratory collapse consistent with estimated right atrial pre ssure of 5 mmHg. There is a small, generalized pericardial effusion present. CONCLUSIONS -------- 1. Sinus rhythm with extra systolic beats. 2. This was a technically adequate study. 3. The left ventricular size is normal. 4. Left ventricular wall thickness is normal. 5. Overall left ventricular systolic function is moderately impaired with, an EF between 35 - 40 %. 6. Inferiorlateral Hypokinesis 7. The right ventricle is normal in size. 8. LA is severely dilated >40 ml/m2 9. The right atrial size is normal. 10. Aortic valve is trileaflet and is mildly thickened. 11. There is mild aortic regurgitation. 12. The mitral valve is normal. 13. The mitral valve leaflets are mildly thickened. 14. Severe mitral regurgitation is present. 15. Mild tricuspid regurgitation present. 16. There is mild pulmonary hypertension. 17. The right ventricular systolic pressure, as measured by Doppler, is 38.98mmHg. 18. Trace/mild (physiologic) pulmonic regurgitation. 19. The aortic root size is normal. 20. Normal inferior vena cava with normal inspiratory collapse consistent with estimated right atrial pressure of 5 mmHg. 21. There is a small, generalized pericardial effusion present. RESEARCH CHEMIST: Sapna Choi RDCS
[2019-02-20 16:50] LABS: Glucose,Whole Blood 299 mg/dL (75-99)
[2019-02-20 20:21] LABS: Glucose,Whole Blood 266 mg/dL (75-99)
[2019-02-20] MEDS: RIVAROXABAN 20 MG TAB PO SCH (20:22)
[2019-02-20] MEDS: CLOPIDOGREL 75 MG TAB PO SCH (20:22)
[2019-02-20] MEDS: ATORVASTATIN 80 MG TAB PO SCH (20:23)
--- NOTE | 2019-02-20 20:38 | PN ---
PROGRESS NOTE DATE OF SERVICE: 02/20/2019 This 78-year-old woman was admitted with COPD exacerbation, also atrial flutter with rapid ventricular rate and varying block also. The patient was transferred to telemetry. Normal sinus rhythm was restored. No chest pain. No palpitations. No fever. EXAM: Alert and oriented x3. Pulse 82, blood pressure 131/59, respiration 22, temperature 97.6, pulse ox 94% on room air. HEENT: Conjunctivae normal. Oral mucosa moist. NECK: No jugular venous distention. No lymph node enlargement. CARDIOVASCULAR: S1, S2. RESPIRATORY: Diminished breath sounds at the bases. Scattered rhonchi, no crackles. ABDOMEN: Soft, nontender. LEGS: No edema, no swelling. NERVOUS SYSTEM: No focal deficits. LABS: WBC 26.2, hemoglobin 11.2 sodium 140, potassium 4.2 creatinine 1.68. ASSESSMENT: 1. Chronic obstructive pulmonary disease acute exacerbation with acute purulent tracheobronchitis with failure of outpatient treatment. 2. Atrial flutter with rapid ventricular rate, 2:1 with varying block, paroxysmal. 3. Increased random blood sugar. 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 4. Increased creatinine with possible chronic kidney stage III. 5. Increased WBC, leukocytosis, leukemoid reaction. 6. Obesity with body mass index of 40.2. 7. History of chronic obstructive pulmonary disease. 8. Hypertension. 9. History of kidney disease. 10.History of nephrolithiasis. 11.History of tonsillectomy. RECOMMENDATIONS AND DISCUSSION: Recommend to continue current medications, continue symptomatic treatment. Otherwise, continue with bronchodilators. We will continue with beta blockers. Continue with Cardizem, diltiazem. Otherwise, continue the rest of medications. Guarded prognosis. Further recommendations to follow. The patient is on p.o. steroids. MMODL / IJN: [id number] /
--- NOTE | 2019-02-20 22:30 | PN ---
PROGRESS NOTE DATE OF SERVICE: 02/20/2019 This 78-year-old woman was admitted with shortness of breath which is multifactorial, CHF acute exacerbation, also had COPD exacerbation. The patient also had acute purulent tracheobronchitis. Patient being closely monitored at this time. The patient also had left foot surgery. The possibility of ECF rehab is also being considered at this time. A venous Doppler study was done which was negative for DVT at this time. Cardiology following the patient closely. Two-D echo Doppler was done which showed ejection fraction 35-40 percent with inferolateral hypokinesis. The patient being closely monitored. PAST MEDICAL HISTORY: Reviewed. REVIEW OF SYSTEMS: Cardiovascular system: No angina or palpitations. RESPIRATORY: As mentioned earlier. GI: As mentioned earlier. no dysuria or retention. CURRENT MEDICATIONS: Reviewed and include: 1. Tylenol p.r.n. 2. Tylenol. 3. Independence 5 mg. 4. DuoNeb q.i.d. and p.r.n. 5. Xanax. 6. Lipitor. 7. Plavix 75 mg p.o. q.h.s. 8. Valium. 9. Lasix 40 mg IV q.8h. 10.Neurontin. 11.NovoLog. 12.Solu-Medrol 60 IV q.6. 13.Lopressor. 14.Habitrol. 15.Nitrostat. 16.Protonix. 17.Xarelto. PHYSICAL EXAM: Patient is alert, oriented x3. Pulse 73, blood pressure 110/62, respirations 16, temperature 97.9. Pulse ox 100 percent on 2 L. HEENT: Conjunctivae normal. NECK: No JVD. CARDIOVASCULAR: S1, S2 muffled. RESPIRATORY: Breath sounds diminished in the bases. A few scattered rhonchi and crackles. ABDOMEN: Soft. Nontender. LEGS are status post surgery on the left foot. NERVOUS SYSTEM: No focal deficits. LABS: WBC 6.6, hemoglobin is 8.2. Glucose 189, HCT is 37. ASSESSMENT: 1. Shortness of breath possibly multifactorial, congestive heart failure acute exacerbation with acute on chronic systolic dysfunction, ejection fraction 35-40 percent with inferolateral hypokinesia. 2. Chronic obstructive pulmonary disease acute exacerbation with acute purulent tracheobronchitis. 3. Anemia, acute on chronic, rule out acute blood loss anemia. 4. Chronic atrial fibrillation. 5. Anticoagulation, on Xarelto. 6. History of coronary artery disease. 7. History of recent left foot surgery. 8. History of chronic obstructive pulmonary disease. 9. History of cerebrovascular accident, transient ischemic attack. 10.Hypertension. 11.Hyperkalemia. 12.History of myocardial infarction. 13.History of rheumatoid arthritis. 14.History of recent left lower extremity critical limb ischemia. 15.History of peripheral artery disease. 16.History of anxiety. 17.NO CODE, NO CPR, NO VENT. RECOMMENDATIONS AND DISCUSSION: In this 72-year-old woman who presented with multiple complex medical issues, we will monitor the patient closely. Continue the current medications, management and symptomatic treatment. Otherwise, monitor fluid and electrolytes balance closely. The patient is on diuretics. I would recommend to continue IV diuretics for 1 more day. Otherwise, we will continue the bronchodilators. We will taper the steroids and continue the rest of medications. PT/OT evaluation, possible ECF rehab because of the patient's multiple complex medical issues as mentioned earlier in a patient who recently had a transmetatarsal amputation with significant difficulties in walking and social support also. Discussed at length with the family yesterday and today I discussed the diagnosis and prognosis implications with the patient also. The patient will consider possible ECF rehab at this time. Continue to monitor. Further recommendations to follow. BAKARI / CHIKAN: [id number] /
[2019-02-20] MEDS: methylPREDNISolone SOD SUCCI 40 MG/ML 1 ML VIAL IV SCH (23:27)
[2019-02-21 06:00] LABS: Glucose,Whole Blood 204 mg/dL (75-99)
[2019-02-21] MEDS: GABAPENTIN 300 MG CAP PO SCH ×3 (06:00→17:27)
[2019-02-21] MEDS: METOPROLOL TARTRATE 50 MG TAB PO SCH (06:00)
[2019-02-21] MEDS: PANTOPRAZOLE 40 MG TABLET PO SCH (06:00)
[2019-02-21] MEDS: INSULIN ASPART (NovoLOG) 100 UNIT/ML VIAL SQ SCH ×4 (06:06→20:08)
[2019-02-21 08:04] LABS: Anisocytosis Slight; Basophils % (A) 0 %; Eosinophils % (A) 0 %; HCT 25.4 % (34.0-46.0); HGB 7.8 gm/dL (11.4-16.0); Hypochromasia Marked; Lymphocytes # (A) 0.7 k/uL (1.0-4.8); Lymphocytes % (A) 4 %; MCH 29.7 pg (25.0-35.0); MCHC 30.9 g/dL (31.0-37.0); MCV 96.1 fL (80.0-100.0); Mean Platelet Volume 8.4; Monocytes # (A) 0.2 k/uL (0-1.0); Monocytes % (A) 1 %; Neutrophils # (A) 15.7 k/uL (1.3-7.7); Neutrophils % (A) 94 %; Platelet Count 442 k/uL (150-450); Poikilocytosis Slight; RBC 2.64 m/uL (3.80-5.40); RDW 16.2 % (11.5-15.5); WBC 16.7 k/uL (3.8-10.6)
[2019-02-21 08:05] LABS: African American GFR (CKD) >90 (>60 ml/min/1.73 sqM); Anion Gap 6 mmol/L; Blood Urea Nitrogen 30 mg/dL (7-17); Calcium 8.7 mg/dL (8.4-10.2); Carbon Dioxide 33 mmol/L (22-30); Chloride 101 mmol/L (98-107); Glucose 163 mg/dL (74-99); Non-African American GFR(CKD) 83 (>60 ml/min/1.73 sqM); Potassium 4.1 mmol/L (3.5-5.1); Sodium 140 mmol/L (137-145)
[2019-02-21] MEDS: IPRATROPIUM-ALBUTEROL 3 ML NEB INHALATION SCH ×4 (09:12→20:14)
[2019-02-21] MEDS: methylPREDNISolone SOD SUCCI 40 MG/ML 1 ML VIAL IV SCH ×2 (09:43→17:26)
[2019-02-21] MEDS: FUROSEMIDE 10 MG/ML 4 ML VIAL IV SCH (09:43)
[2019-02-21] MEDS: ASPIRIN 325 MG TAB PO SCH (09:43)
[2019-02-21] MEDS: NICOTINE 21MG/24HR PATCH TRANSDERM SCH (09:43)
--- NOTE | 2019-02-21 11:16 | P.CONS ---
History of Present Illness - Reason for Consult Consult date: 02/21/19 - Chief Complaint Nonhealing ulceration to left calcaneus and left foot amputation site - History of Present Illness This is a 78-year-old pleasant female who is known to the wound care center being seen on for nonhealing ulceration to the left forefoot and a pressure ulceration to the left calcaneus. The patient has been seen in the wound care center last . Previously to that appointment she was at an extended care facility utilizing Santyl and a wound VAC to the site. The patient lives alone and does not have someone to consistently help her she also is unable to transfer with the wound VAC in place. At that time the wound VAC was removed and observed to silver was applied to the forefoot ulceration and honey alginate to the calcaneus ulceration. The transmetatarsal indentation site measures approximately 3.6 x 6.4 x 1.5 there is bone and fat layer expo sure, tunneling was noted at 3.6. The area has adherent Slough in granulation seen within the wound bed. Left calcaneus ulceration measures approximate 2 x 2 x 2.6 x 0.1, there is no underlying mining or tunneling noted. No drainage is noted. No granulation is seen within the wound bed a large amount of eschar is noted throughout. Review of Systems Review Of Systems: Constitutional: No fever, no chills, no night sweats. No weight change. No weakness, fatigue or lethargy. No daytime sleepiness. Integumentary:reports wounds, no lesions. No rash or pruritus. No unusual bruising. No change in hair or nails. Past Medical History Past Medical History: Atrial Fibrillation, Coronary Artery Disease (CAD), COPD, CVA/TIA, Hyperlipidemia, Hypertension, Myocardial Infarction ([place]), Rheumatoid Arthritis (RA), Vascular Disorder Additional Past Medical History / Comment(s): Pt recently admitted to [facility] on 12/16/18 with L lower extremity critical limb ischemia. She had several angiograms/PTBAs and a stent placed. 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, RA in bilateral hands, Last Myocardial Infarction Date:: 2016 History of Any Multi-Drug Resistant Organisms: None Reported Past Surgical History: Hysterectomy Additional Past Surgical History / Comment(s): L lower extremity iliofemoral angiogram, aortoiliac angiogram, selective L popliteal tibial peroneal angiogram, multiple PTBAs L leg/thrombolytics and a stent to the L common iliac artery, cardiac caths w/ stents Past Anesthesia/Blood Transfusion Reactions: No Reported Reaction, Motion Sickness Additional Past Anesthesia/Blood Transfusion Reaction / Comm: Pt recently received blood without reaction. Past Psychological History: Anxiety Additional Psychological History / Comment(s): pt living at home alone. per pt daughter she is doing well and can take care of herself. Smoking Status: Current every day smoker Past Alcohol Use History: None Reported Additional Past Alcohol Use History / Comment(s): Pt started smoking in 1956. Past Drug Use History: None Reported - Past Family History Daughter(s) Family Medical History: Diabetes Mellitus Son(s) Family Medical History: Hyperlipidemia, Hypertension Mother Family Medical History: No Reported History Additional Family Medical History / Comment(s): Mother was healthy Father Family Medical History: Cancer Additional Family Medical History / Comment(s): Father of some form of cancer prior to pt being born. She does not know type of cancer. Medications and Allergies Home Medications Medication Instructions Recorded Confirmed Type Atorvastatin [Lipitor] 80 mg PO HS #30 tab 10/23/16 02/18/19 Rx Nitroglycerin Sl Tabs [Nitrostat] 0.4 mg SUBLINGUAL Q5M PRN #25 tab 10/23/16 02/18/19 Rx Albuterol Inhaler [Ventolin Hfa 2 puff INHALATION RT-Q6H PRN 12/16/18 02/18/19 History Inhaler] Ipratropium/Albuterol Sulfate 1 puff INHALATION RT-DAILY 12/16/18 02/18/19 History [Combivent Respimat Inhaler] Clopidogrel [Plavix] 75 mg PO HS 01/03/19 02/18/19 History Metoprolol Tartrate [Lopressor] 50 mg PO BID@0700,1600 01/03/19 02/18/19 History Rivaroxaban [Xarelto] 20 mg PO DAILY@199901/03/19 02/18/19 History Gabapentin [Neurontin] 300 mg PO TID@0700,1300,1900 #9 cap 01/07/19 02/18/19 Rx Naproxen Sodium [Aleve] 220 mg PO DAILY PRN 02/18/19 02/18/19 History Acetaminophen-Codeine 300-30mg 1 tab PO DAILY PRN 02/19/19 02/19/19 History [Tylenol w/codeine #3] Allergies Allergy/AdvReac Type Severity Reaction Status Date / Time No Known Allergies Allergy Verified 02/18/19 21:17 Physical Exam Vitals: Vital Signs Temp Pulse Pulse Resp BP Pulse Ox 02/21/19 09:15 64 96 02/20/19 23:55 91 16 02/20/19 23:00 98.4 F 91 16 92/51 93 L 02/20/19 15:40 97.9 F 73 16 110/62 100 02/20/19 12:32 69 02/20/19 12:23 68 02/20/19 11:10 76 16 122/70 98 Intake and Output 02/20/19 02/21/19 02/21/19 22:59 06:59 14:59 Intake Total 10 120 Output Total 600 Balance -600 10 120 Intake: IV 10 Invasive Line 2 10 Oral 120 Output: Urine 600 Other: Voiding Method Toilet Toilet Bedside Commode Bedside Commode Bedpan # Voids 1 Weight 44.6 kg Physical exam: General Appearance: Alert, cooperative, no distress, appears stated age. Skin: See HPI all other Skin color, texture, tugor normal, no rashes or lesions. Neurologic: Alert oriented x3 Results CBC & Chem 7: 02/21/19 05:51 02/21/19 05:51 Labs: Abnormal Lab Results - Last 24 Hours (Table) 02/20/19 02/20/19 02/20/19 Range/Units 11:42 16:42 20:19 WBC (3.8-10.6) k/uL RBC (3.80-5.40) m/uL Hgb (11.4-16.0) gm/dL Hct (34.0-46.0) % MCHC (31.0-37.0) g/dL RDW (11.5-15.5) % Neutrophils # (1.3-7.7) k/uL Lymphocytes # (1.0-4.8) k/uL Carbon Dioxide (22-30) mmol/L BUN (7-17) mg/dL Glucose (74-99) mg/dL POC Glucose (mg/dL) 210 H 299 H 266 H (75-99) mg/dL 02/21/19 02/21/19 02/21/19 Range/Units 05:51 05:51 05:59 WBC 16.7 H (3.8-10.6) k/uL RBC 2.64 L (3.80-5.40) m/uL Hgb 7.8 L (11.4-16.0) gm/dL Hct 25.4 L (34.0-46.0) % MCHC 30.9 L (31.0-37.0) g/dL RDW 16.2 H (11.5-15.5) % Neutrophils # 15.7 H (1.3-7.7) k/uL Lymphocytes # 0.7 L (1.0-4.8) k/uL Carbon Dioxide 33 H (22-30) mmol/L BUN 30 H (7-17) mg/dL Glucose 163 H (74-99) mg/dL POC Glucose (mg/dL) 204 H (75-99) mg/dL Assessment and Plan (1) Atherosclerosis of ute arteries of left leg with ulceration of other part of foot Current Visit: Yes Status: Acute Code(s): I70.245 - ATHSCL [place] ARTERIES OF LEFT LEG W ULCERATION OTH PRT FOOT SNOMED Code(s): 918421447921754 (2) Pressure ulcer of left heel, unstageable Current Visit: Yes Status: Acute Code(s): L89.620 - PRESSURE ULCER OF LEFT HEEL, UNSTAGEABLE SNOMED Code(s): 608826090 (3) Acquired absence of other left toe(s) Current Visit: Yes Status: Acute Code(s): Z89.422 - ACQUIRED ABSENCE OF OTHER LEFT TOE(S) SNOMED Code(s): 471600956 Plan: Patient is planning to return to the rehab facility therefore we will initiate the wound VAC again at 150 mmHg continuous suction with black foam. Left calcaneus oval have Santyl applied daily. Wound VAC to be changed Thursday, Santyl daily Patient will continue with her appointments to the wound care center next appointment is scheduled for February 24 at 145. Thank you currently for the consultation, any questions please contact the wound care center DNP note has been reviewed and discussed with Dr. Alvarado and the impression and plan of care has been directed as dictated.
--- NOTE | 2019-02-21 11:16 | P.PN ---
Subjective Progress Note Date: 02/21/19 This is a 78-year-old female with history of coronary artery disease and prior angioplasty, paroxysmal atrial fibrillation, hypertension, COPD, who presented to the hospital with symptoms of chest discomfort. Her EKG showed atrial fibrillation with nonspecific ST-T wave changes. Troponins were negative 3. Her xarelto was placed on hold, echo is pending. We have requested old records to verify patient's prior stenting procedures. Overall the patient feels well today and actually wants to go home, she states that she felt that her pain was just anxiety related and does not want undergo any procedures at this time. White blood cell count is normal, hemoglobin 8.2, platelet count 455. Sodium 141, potassium 3.6, BUN 19 and creatinine 0.7. 02/21/2019 Patient seen and examined this morning, denies any chest discomfort. Echocardiogram with Doppler study revealed an ejection fraction of 35-40%. We will decrease the beta cherry and add a small dose of losartan to her medication. Decrease aspirin to 81 mg daily. Patient does not want to have any type of procedures performed , she just wants to go home. Objective - Vital Signs Vital signs: Vital Signs Temp 98.4 F 02/20/19 23:00 Pulse 64 02/21/19 09:15 Resp 16 02/20/19 23:55 BP 92/51 02/20/19 23:00 Pulse Ox 96 02/21/19 09:15 Intake & Output 02/20/19 02/21/19 02/21/19 18:59 06:59 18:59 Intake Total 120 10 120 Output Total 1550 600 Balance -1430 -590 120 Weight 47.5 kg 44.6 kg Intake: IV 10 Invasive Line 2 10 Oral 120 120 Output: Urine 1550 600 Other: Voiding Method Toilet Toilet Bedside Commode Bedside Commode Bedpan # Voids 1 - Exam PHYSICAL EXAMINATION: GENERAL: 78-year-old female in no acute distress at the time of my examination HEENT: Head is atraumatic, normocephalic. Pupils equal, round. Sclera anicteric. Conjunctiva are clear. Mucous membranes of the mouth are moist. Neck is supple. There is no elevated jugular venous pressure.] bruit is heard. HEART EXAMINATION: Heart S1, S2 systolic murmur is heard . No murmur or gallop heard. CHEST EXAMINATION: Lungs are clear to auscultation and precussion. No chest wall tenderness is noted on palpation or with deep breathing. ABDOMEN: Soft, nontender. Bowel sounds are heard. No organomegaly noted. EXTREMITIES:1+ peripheral pulses with evidence of peripheral edema and no calf tenderness noted. NEUROLOGIC patient is awake, alert and oriented X2. . - Labs CBC & Chem 7: 02/21/19 05:51 02/21/19 05:51 Labs: Abnormal Lab Results - Last 24 Hours (Table) 02/20/19 02/20/19 02/20/19 Range/Units 11:42 16:42 20:19 WBC (3.8-10.6) k/uL RBC (3.80-5.40) m/uL Hgb (11.4-16.0) gm/dL Hct (34.0-46.0) % MCHC (31.0-37.0) g/dL RDW (11.5-15.5) % Neutrophils # (1.3-7.7) k/uL Lymphocytes # (1.0-4.8) k/uL Carbon Dioxide (22-30) mmol/L BUN (7-17) mg/dL Glucose (74-99) mg/dL POC Glucose (mg/dL) 210 H 299 H 266 H (75-99) mg/dL 02/21/19 02/21/19 02/21/19 Range/Units 05:51 05:51 05:59 WBC 16.7 H (3.8-10.6) k/uL RBC 2.64 L (3.80-5.40) m/uL Hgb 7.8 L (11.4-16.0) gm/dL Hct 25.4 L (34.0-46.0) % MCHC 30.9 L (31.0-37.0) g/dL RDW 16.2 H (11.5-15.5) % Neutrophils # 15.7 H (1.3-7.7) k/uL Lymphocytes # 0.7 L (1.0-4.8) k/uL Carbon Dioxide 33 H (22-30) mmol/L BUN 30 H (7-17) mg/dL Glucose 163 H (74-99) mg/dL POC Glucose (mg/dL) 204 H (75-99) mg/dL Assessment and Plan Plan: Assessment and plan #1 chest pain, atypical features for acute coronary syndrome. Troponins negative. #2 severe anemia #3 persistent atrial fibrillation #4 chronic congestive heart failure #5 hypertension #6 COPD with acute exacerbation of purulent tracheobronchitis #7 history of CVA #8 hyperlipidemia #9 rheumatoid arthritis Plan echocardiogram with Doppler study was reviewed which reveals a reduced LV function. We will decrease her dose of beta cherry, add some losartan to the medication regime and decrease aspirin to 81 mg daily. Patient does not wish to undergo any procedures, his only medical therapy. DNP note has been reviewed, I agree with a documented findings and plan of care. Patient was seen and examined.
--- NOTE | 2019-02-21 11:51 | P.GSCN ---
History of Present Illness Consult date: 02/21/19 History of present illness: The patient is 78-year-old female who is known to Dr. Pace. Patient underwent a left TMA on 01/04/2019 and patient was discharged to extended care facility with a wound VAC. Patient has been following in the outpatient wound care every week to [address] Alvarado for care to the left lower extremity TMA site and left heel ulcer. Patient was admitted to the hospital with complaints of fatigue and shortness of breath. The patient underwent a Doppler of the left lower extremity which was negative for DVT. The patient states she has no pain to the left lower extremity, does have some increased swelling, no abnormal drainage, and denies any recent fevers. Review of Systems - Constitutional Constitutional Comment(s): No fever, no chills, or night sweats. Patient states she is feeling fatigued and weakness. - Cardiovascular Cardiovascular Comment(s): The patient denies any current chest pain, palpitations, or tachycardia. - Respiratory Respiratory Comment(s): Patient states having shortness of breath, and fatigue. - Integumentary Integumentary Comment(s): Reports having left heel wound and left transmetatarsal wound without significant drainage. Past Medical History Past Medical History: Atrial Fibrillation, Coronary Artery Disease (CAD), COPD, CVA/TIA, Hyperlipidemia, Hypertension, Myocardial Infarction ([place]), Rheumatoid Arthritis ([place]), Vascular Disorder Additional Past Medical History / Comment(s): Pt recently admitted to [facility] on 12/16/18 with L lower extremity critical limb ischemia. She had several angiograms/PTBAs and a stent placed. 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, RA in bilateral hands, Last Myocardial Infarction Date:: 2016 History of Any Multi-Drug Resistant Organisms: None Reported Past Surgical History: Hysterectomy Additional Past Surgical History / Comment(s): L lower extremity iliofemoral angiogram, aortoiliac angiogram, selective L popliteal tibial peroneal angiogram, multiple PTBAs L leg/thrombolytics and a stent to the L common iliac artery, cardiac caths w/ stents Past Anesthesia/Blood Transfusion Reactions: No Reported Reaction, Motion Sickness Additional Past Anesthesia/Blood Transfusion Reaction / Comm: Pt recently received blood without reaction. Past Psychological History: Anxiety Additional Psychological History / Comment(s): pt living at home alone. per pt daughter she is doing well and can take care of herself. Smoking Status: Current every day smoker Past Alcohol Use History: None Reported Additional Past Alcohol Use History / Comment(s): Pt started smoking in 7. Past Drug Use History: None Reported - Past Family History Daughter(s) Family Medical History: Diabetes Mellitus Son(s) Family Medical History: Hyperlipidemia, Hypertension Mother Family Medical History: No Reported History Additional Family Medical History / Comment(s): Mother was healthy Father Family Medical History: Cancer Additional Family Medical History / Comment(s): Father of some form of cancer prior to pt being born. She does not know type of cancer. Medications and Allergies Home Medications Medication Instructions Recorded Confirmed Type Atorvastatin [Lipitor] 80 mg PO HS #30 tab 10/23/16 02/18/19 Rx Nitroglycerin Sl Tabs [Nitrostat] 0.4 mg SUBLINGUAL Q5M PRN #25 tab 10/23/16 02/18/19 Rx Albuterol Inhaler [Ventolin Hfa 2 puff INHALATION RT-Q6H PRN 12/16/18 02/18/19 History Inhaler] Ipratropium/Albuterol Sulfate 1 puff INHALATION RT-DAILY 12/16/18 02/18/19 History [Combivent Respimat Inhaler] Clopidogrel [Plavix] 75 mg PO HS 01/03/19 02/18/19 History Metoprolol Tartrate [Lopressor] 50 mg PO BID@0700,1600 01/03/19 02/18/19 History Rivaroxaban [Xarelto] 20 mg PO DAILY@199901/03/19 02/18/19 History Gabapentin [Neurontin] 300 mg PO TID@0700,1300,1900 #9 cap 01/07/19 02/18/19 Rx Naproxen Sodium [Aleve] 220 mg PO DAILY PRN 02/18/19 02/18/19 History Acetaminophen-Codeine 300-30mg 1 tab PO DAILY PRN 01/04/20 01/04/20 History [Tylenol w/codeine #3] Allergies Allergy/AdvReac Type Severity Reaction Status Date / Time No Known Allergies Allergy Verified 02/18/19 21:17 Surgical - Exam Vital Signs Temp Pulse Resp BP Pulse Ox 97.7 F 74 18 137/70 99 02/18/19 19:13 02/18/19 19:13 02/18/19 19:13 02/18/19 19:13 02/18/19 19:13 General appearance: The patient is alert, oriented, in no acute distress. HET: Head is normocephalic and atraumatic. Heart: S1 S2. Regular rate and rhythm. Lungs: No crackles or wheezes are heard. Extremities: Left lower extremity with +2 edema, PT and DP multiphasic Doppler signal. Transmetatarsal indentation with exposed fat layer, with adherent slou gh and granulation within the wound bed. Left calcaneus ulceration without drainage, with eschar throuhghout wound bed noted. Results - Labs 02/21/19 05:51 02/21/19 05:51 Abnormal Lab Results - Last 24 Hours (Table) 02/20/19 02/20/19 02/20/19 Range/Units 11:42 16:42 20:19 WBC (3.8-10.6) k/uL RBC (3.80-5.40) m/uL Hgb (11.4-16.0) gm/dL Hct (34.0-46.0) % MCHC (31.0-37.0) g/dL RDW (11.5-15.5) % Neutrophils # (1.3-7.7) k/uL Lymphocytes # (1.0-4.8) k/uL Carbon Dioxide (22-30) mmol/L BUN (7-17) mg/dL Glucose (74-99) mg/dL POC Glucose (mg/dL) 210 H 299 H 266 H (75-99) mg/dL 02/21/19 02/21/19 02/21/19 Range/Units 05:51 05:51 05:59 WBC 16.7 H (3.8-10.6) k/uL RBC 2.64 L (3.80-5.40) m/uL Hgb 7.8 L (11.4-16.0) gm/dL Hct 25.4 L (34.0-46.0) % MCHC 30.9 L (31.0-37.0) g/dL RDW 16.2 H (11.5-15.5) % Neutrophils # 15.7 H (1.3-7.7) k/uL Lymphocytes # 0.7 L (1.0-4.8) k/uL Carbon Dioxide 33 H (22-30) mmol/L BUN 30 H (7-17) mg/dL Glucose 163 H (74-99) mg/dL POC Glucose (mg/dL) 204 H (75-99) mg/dL Diabetes panel 02/21/19 Range/Units 05:51 Sodium 140 (137-145) mmol/L Potassium 4.1 (3.5-5.1) mmol/L Chloride 101 (98-107) mmol/L Carbon Dioxide 33 H (22-30) mmol/L BUN 30 H (7-17) mg/dL Creatinine 0.70 (0.52-1.04) mg/dL Glucose 163 H (74-99) mg/dL Calcium 8.7 (8.4-10.2) mg/dL Calcium panel 02/21/19 Range/Units 05:51 Calcium 8.7 (8.4-10.2) mg/dL Pituitary panel 02/21/19 Range/Units 05:51 Sodium 140 (137-145) mmol/L Potassium 4.1 (3.5-5.1) mmol/L Chloride 101 (98-107) mmol/L Carbon Dioxide 33 H (22-30) mmol/L BUN 30 H (7-17) mg/dL Creatinine 0.70 (0.52-1.04) mg/dL Glucose 163 H (74-99) mg/dL Calcium 8.7 (8.4-10.2) mg/dL Adrenal panel 02/21/19 Range/Units 05:51 Sodium 140 (137-145) mmol/L Potassium 4.1 (3.5-5.1) mmol/L Chloride 101 (98-107) mmol/L Carbon Dioxide 33 H (22-30) mmol/L BUN 30 H (7-17) mg/dL Creatinine 0.70 (0.52-1.04) mg/dL Glucose 163 H (74-99) mg/dL Calcium 8.7 (8.4-10.2) mg/dL Assessment and Plan Assessment: Left transmetatarsal amputation wound Pressure ulcer of left heel Chronic Peripheral arterial disease Plan: Patient discussed with Dr. Pace. Patient has been seeing outpatient wound care services, appreciate their continued recommendations during hospital stay. Wound VAC and Santyl per wound care management. Keep pressure off of left heel. Further recommendations to follow. Thank you for this consultation and allowing us to participate in the care of the patient during her hospital stay. The above dictated assessment and findings were discussed with Dr. Pace. The impression and plan of care have been directed as dictated.
[2019-02-21 11:53] LABS: Glucose,Whole Blood 159 mg/dL (75-99)
[2019-02-21 16:51] LABS: Glucose,Whole Blood 243 mg/dL (75-99)
[2019-02-21] MEDS: COLLAGENASE 250 UNIT/GM OINTMENT 30 GM TUBE TOPICAL SCH (17:25)
[2019-02-21] MEDS: METOPROLOL TARTRATE 25 MG TAB PO SCH (17:29)
--- NOTE | 2019-02-21 19:42 | P.PN ---
Progress Note - Text Progress Note Date: 02/21/19 Hospital course: This is a pleasant 78-year-old patient of Dr. Mcdaniels. Chronic stable medical conditions include hypertension, hyperlipidemia, coronary artery disease with stent. on December 07, 2018 had TIA. Patient then had a CT angiogram of the head and neck that was negative. 2-D echocardiogram was unremarkable. Patient was then admitted from December 16 through 12/24/2018.. Patient presented with acute on chronic peripheral artery disease with CT angiogram demonstrating acute vascular findings. The following day patient had TPA administered. Subsequently several angioplasties and thrombolytic was carried out. Patient was discharged on xarelto. Patient was having, pain in the left foot toes with signs of early gangrene when she left the hospital. She gone to rehab.Readmitted and On January 04 patient was taken down to the operating room by Dr. Pace for trans metatarsal amputation of the left foot. EGD was unremarkable. Admitted with COPD exacerbation in atrial flutter with a rapid ventricular rate. Today-feeling better. Feels a bit tired. Slight cough. Has been in sinus rhythm. Did tolerate some diet. Review of systems: Was done for constitutional, cardiovascular, GI, pulmonary. relevant finding as above Physical examination: VITAL SIGNS: 97.5, 96, 12, 107/52, 100% on 3 L GENERAL: Laying in bed,, comfortable EYES: Pupils equal. Conjunctiva pale HEENT: External appearance of nose and ears normal, oral cavity grossly normal. NECK: JVD not raised; masses not palpable. HEART: First and second heart sounds are normal; no edema. LUNGS: Respiratory rate normal; decreased breath sounds ABDOMEN: Soft, nontender, liver spleen not palpable, no masses palpable. PSYCH: Alert and oriented x3; mood and affect tired. EXTREMITIES: Left foot wound, postsurgical, transmetatarsal MUSCULOSKELETAL: Evidence evidence of RA in the hands INVESTIGATIONS, reviewed in the clinical context:: White count 16.7 hemoglobin 7.8 potassium 4.1 creatinine 0.7 Previous testing: Left lower extremity Doppler-negative for DVT 2-D echo-EF 35-40% severe mitral regurgitation, Assessment: -Acute COPD exacerbation -Persistent atrial flutter-fibrillation, rate controlled -Transmetatarsal amputation of the left foot, -Anemia of chronic disease - chronic occlusive disease arterial of the left lower extremity, recently and patient received thrombolytic, angioplasties and thrombus extraction -Hyperlipidemia -Coronary artery disease with stent -status post transmetatarsal amputation. - 01/04/2019 -Medical debility Plan: Discharge plan is a working on patient posteriorly to the rehab. The patient reflecting she was to go home. PTOT is on the case. Wound VAC is being suggested. Possibly discharge tomorrow.
[2019-02-21] MEDS: RIVAROXABAN 15 MG TAB PO SCH (20:02)
[2019-02-21] MEDS: predniSONE 20 MG TAB PO SCH (20:02)
[2019-02-21] MEDS: ATORVASTATIN 80 MG TAB PO SCH (20:02)
[2019-02-21] MEDS: CLOPIDOGREL 75 MG TAB PO SCH (20:02)
[2019-02-21 20:09] LABS: Glucose,Whole Blood 311 mg/dL (75-99)
[2019-02-22 06:10] LABS: Glucose,Whole Blood 192 mg/dL (75-99)
[2019-02-22] MEDS: INSULIN ASPART (NovoLOG) 100 UNIT/ML VIAL SQ SCH ×4 (06:34→20:49)
[2019-02-22] MEDS: METOPROLOL TARTRATE 25 MG TAB PO SCH ×2 (06:34→17:26)
[2019-02-22] MEDS: PANTOPRAZOLE 40 MG TABLET PO SCH (06:34)
[2019-02-22] MEDS: GABAPENTIN 300 MG CAP PO SCH ×3 (06:34→20:49)
[2019-02-22 06:38] LABS: Anisocytosis Slight; Basophils % (A) 0 %; Eosinophils % (A) 0 %; HCT 28.4 % (34.0-46.0); HGB 8.6 gm/dL (11.4-16.0); Hypochromasia Marked; Lymphocytes # (A) 0.7 k/uL (1.0-4.8); Lymphocytes % (A) 5 %; MCH 29.2 pg (25.0-35.0); MCHC 30.3 g/dL (31.0-37.0); MCV 96.2 fL (80.0-100.0); Mean Platelet Volume 8.4; Monocytes # (A) 0.3 k/uL (0-1.0); Monocytes % (A) 3 %; Neutrophils # (A) 12.7 k/uL (1.3-7.7); Neutrophils % (A) 92 %; Platelet Count 456 k/uL (150-450); Poikilocytosis Slight; RBC 2.95 m/uL (3.80-5.40); RDW 16.1 % (11.5-15.5); WBC 13.8 k/uL (3.8-10.6)
[2019-02-22 06:48] LABS: African American GFR (CKD) >90 (>60 ml/min/1.73 sqM); Anion Gap 7 mmol/L; Blood Urea Nitrogen 35 mg/dL (7-17); Carbon Dioxide 32 mmol/L (22-30); Chloride 99 mmol/L (98-107); Glucose 194 mg/dL (74-99); Non-African American GFR(CKD) 88 (>60 ml/min/1.73 sqM); Potassium 3.9 mmol/L (3.5-5.1); Sodium 138 mmol/L (137-145)
[2019-02-22] MEDS: IPRATROPIUM-ALBUTEROL 3 ML NEB INHALATION SCH ×4 (07:27→20:24)
[2019-02-22] MEDS: NICOTINE 21MG/24HR PATCH TRANSDERM SCH (09:10)
[2019-02-22] MEDS: predniSONE 20 MG TAB PO SCH (09:10)
[2019-02-22] MEDS: ASPIRIN 81 MG PO SCH (09:10)
[2019-02-22] MEDS: COLLAGENASE 250 UNIT/GM OINTMENT 30 GM TUBE TOPICAL SCH ×2 (09:11→20:50)
--- NOTE | 2019-02-22 10:35 | P.PN ---
Subjective Progress Note Date: 02/22/19 Patient seen and evaluated lying in bed. Pt. denies any new changes through the night, denies any pain. Wound care has seen and evaluated patient. Wound Vac intact with suction at 150. Objective - Vital Signs Vital signs: Vital Signs Temp 97.5 F L 02/22/19 07:00 Pulse 96 02/22/19 08:00 Resp 16 02/22/19 08:00 BP 118/52 02/22/19 07:00 Pulse Ox 98 02/22/19 07:00 Intake & Output 02/21/19 02/22/19 02/22/19 18:59 06:59 18:59 Intake Total 360 200 480 Output Total 1000 225 Balance 360 -800 255 Weight 43.9 kg Intake: Oral 360 200 480 Output: Urine 1000 225 Other: Voiding Method Toilet Toilet Toilet Bedside Commode Bedside Commode Bedside Commode # Voids 0 1 - Exam General appearance: The patient is alert, oriented, in no acute distress. Heart: S1 S2. Regular rate and rhythm. Lungs: No crackles or wheezes are heard. Extremities: Wound vac intact over left TMA wound site, edema improved, warm to touch. Left heel ulcer without drainage. Neurological: No focal deficits. - Labs CBC & Chem 7: 02/22/19 05:38 02/22/19 05:38 Labs: Abnormal Lab Results - Last 24 Hours (Table) 02/21/19 02/21/19 02/21/19 Range/Units 11:33 16:38 20:07 WBC (3.8-10.6) k/uL RBC (3.80-5.40) m/uL Hgb (11.4-16.0) gm/dL Hct (34.0-46.0) % MCHC (31.0-37.0) g/dL RDW (11.5-15.5) % Plt Count (150-450) k/uL Neutrophils # (1.3-7.7) k/uL Lymphocytes # (1.0-4.8) k/uL Carbon Dioxide (22-30) mmol/L BUN (7-17) mg/dL Glucose (74-99) mg/dL POC Glucose (mg/dL) 159 H 243 H 311 H (75-99) mg/dL 02/22/19 02/22/19 02/22/19 Range/Units 05:38 05:38 06:09 WBC 13.8 H (3.8-10.6) k/uL RBC 2.95 L (3.80-5.40) m/uL Hgb 8.6 L (11.4-16.0) gm/dL Hct 28.4 L (34.0-46.0) % MCHC 30.3 L (31.0-37.0) g/dL RDW 16.1 H (11.5-15.5) % Plt Count 456 H (150-450) k/uL Neutrophils # 12.7 H (1.3-7.7) k/uL Lymphocytes # 0.7 L (1.0-4.8) k/uL Carbon Dioxide 32 H (22-30) mmol/L BUN 35 H (7-17) mg/dL Glucose 194 H (74-99) mg/dL POC Glucose (mg/dL) 192 H (75-99) mg/dL Assessment and Plan Assessment: Left transmetatarsal amputation wound Pressure ulcer of left heel Chronic Peripheral arterial disease Plan: Continue with wound vac and wound care management. Patient to follow up as scheduled when discharged with Dr. Pace. Further recommendations to follow. The above dictated assessment and findings were discussed with Dr. Pace. The impression and plan of care have been directed as dictated.
--- NOTE | 2019-02-22 11:32 | CDI ---
Documentation Clarification Form Date: 02/22/2009 1128 CDS: Carli Kenny RN, CCDS Admit Date:02/19/2019 1435 Patient Name: Betty Domínguez ATTENTION: The Clinical Documentation Specialists (CDI) and [facility] Coding Staff appreciate your assistance in clarifying documentation. Please respond to the clarification below the line at the bottom and electronically sign. The CDI & [facility] Coding staff will review the response and follow-up if needed. Please note: Queries are made part of the Legal Health Record. If you have any questions, please contact the author of this message via ITS. Dr. Victor A low BMI with emaciation has been noted, please provide further specificity. History/Risk Factors: chronic systolic CHF, COPD, Anemia, Chronic atrial Fib on Xarelto, CVA, hx of left lower limb ischemia Clinical Indicators: 02/19 H&P: "The patient also had significant emaciation." Labs: Total protein 6.2 Albumin 2.7 Current BMI:18.9 Increased metabolic demands with and unstageable pressure ulcer on left heel and trans metatarsal amputation wound. Treatment: Dietary Consult: Consult 02/20/19 completed Supplements: Ensure Enlive BID Lab monitoring: Am Daily In your professional opinion, can you please clarify if these findings signify one of the following conditions? Mild Protein-Calorie Malnutrition Moderate Protein-Calorie Malnutrition Severe Protein-Calorie Malnutrition Other condition, please specify Unable to determine (Last Revision: August 2018) Mild protein calorie medication from decreased oral intake MTDD
[2019-02-22 11:45] LABS: Glucose,Whole Blood 316 mg/dL (75-99)
--- NOTE | 2019-02-22 12:20 | P.PN ---
Subjective Progress Note Date: 02/22/19 This is a 78-year-old female with history of coronary artery disease and prior angioplasty, paroxysmal atrial fibrillation, hypertension, COPD, who presented to the hospital with symptoms of chest discomfort. Her EKG showed atrial fibrillation with nonspecific ST-T wave changes. Troponins were negative 3. Her xarelto was placed on hold, echo is pending. We have requested old records to verify patient's prior stenting procedures. Overall the patient feels well today and actually wants to go home, she states that she felt that her pain was just anxiety related and does not want undergo any procedures at this time. White blood cell count is normal, hemoglobin 8.2, platelet count 455. Sodium 141, potassium 3.6, BUN 19 and creatinine 0.7. 02/21/2019 Patient seen and examined this morning, denies any chest discomfort. Echocardiogram with Doppler study revealed an ejection fraction of 35-40%. We will decrease the beta cherry and add a small dose of losartan to her medication. Decrease aspirin to 81 mg daily. Patient does not want to have any type of procedures performed , she just wants to go home. 02/22/2019 Patient seen and examined this morning, denies any chest discomfort, breathing is overall stable.I pressure 118/50 with a heart rate in the 80s, 90% on 2 L of oxygen.White blood cell count 13.8, hemoglobin 8.6, platelet count 456. Sodium 138, potassium 3.9, BUN 35 and creatinine 0.6. Objective - Vital Signs Vital signs: Vital Signs Temp 97.5 F L 02/22/19 07:00 Pulse 96 02/22/19 08:00 Resp 16 02/22/19 08:00 BP 118/52 02/22/19 07:00 Pulse Ox 98 02/22/19 07:00 Intake & Output 02/21/19 02/22/19 02/22/19 18:59 06:59 18:59 Intake Total 360 200 480 Output Total 1000 225 Balance 360 -800 255 Weight 43.9 kg Intake: Oral 360 200 480 Output: Urine 1000 225 Other: Voiding Method Toilet Toilet Toilet Bedside Commode Bedside Commode Bedside Commode # Voids 0 1 - Exam PHYSICAL EXAMINATION: GENERAL: 78-year-old female in no acute distress at the time of my examination HEENT: Head is atraumatic, normocephalic. Pupils equal, round. Sclera anicteric. Conjunctiva are clear. Mucous membranes of the mouth are moist. Neck is supple. There is no elevated jugular venous pressure.] bruit is heard. HEART EXAMINATION: Heart S1, S2 systolic murmur is heard . No murmur or gallop heard. CHEST EXAMINATION: Lungs are clear to auscultation and precussion. No chest wall tenderness is noted on palpation or with deep breathing. ABDOMEN: Soft, nontender. Bowel sounds are heard. No organomegaly noted. EXTREMITIES:1+ peripheral pulses with evidence of peripheral edema and no calf tenderness noted. NEUROLOGIC patient is awake, alert and oriented X2. . - Labs CBC & Chem 7: 02/22/19 05:38 02/22/19 05:38 Labs: Abnormal Lab Results - Last 24 Hours (Table) 02/21/19 02/21/19 02/22/19 Range/Units 16:38 20:07 05:38 WBC 13.8 H (3.8-10.6) k/uL RBC 2.95 L (3.80-5.40) m/uL Hgb 8.6 L (11.4-16.0) gm/dL Hct 28.4 L (34.0-46.0) % MCHC 30.3 L (31.0-37.0) g/dL RDW 16.1 H (11.5-15.5) % Plt Count 456 H (150-450) k/uL Neutrophils # 12.7 H (1.3-7.7) k/uL Lymphocytes # 0.7 L (1.0-4.8) k/uL Carbon Dioxide (22-30) mmol/L BUN (7-17) mg/dL Glucose (74-99) mg/dL POC Glucose (mg/dL) 243 H 311 H (75-99) mg/dL 02/22/19 02/22/19 02/22/19 Range/Units 05:38 06:09 11:42 WBC (3.8-10.6) k/uL RBC (3.80-5.40) m/uL Hgb (11.4-16.0) gm/dL Hct (34.0-46.0) % MCHC (31.0-37.0) g/dL RDW (11.5-15.5) % Plt Count (150-450) k/uL Neutrophils # (1.3-7.7) k/uL Lymphocytes # (1.0-4.8) k/uL Carbon Dioxide 32 H (22-30) mmol/L BUN 35 H (7-17) mg/dL Glucose 194 H (74-99) mg/dL POC Glucose (mg/dL) 192 H 316 H (75-99) mg/dL Assessment and Plan Plan: Assessment and plan #1 chest pain, atypical features for acute coronary syndrome. Troponins negative. #2 severe anemia #3 persistent atrial fibrillation #4 chronic congestive heart failure #5 hypertension #6 COPD with acute exacerbation of purulent tracheobronchitis #7 history of CVA #8 hyperlipidemia #9 rheumatoid arthritis Plan From Cardiology's perspective, we'll continue this patient on her current medications.we will follow along with you now on an as-needed basis only, please don't hesitate to call with any questions. DNP note has been reviewed, I agree with a documented findings and plan of care. Patient was seen and examined.
[2019-02-22 17:01] LABS: Glucose,Whole Blood 239 mg/dL (75-99)
[2019-02-22] MEDS: LOSARTAN 25 MG TAB PO SCH (17:26)
--- NOTE | 2019-02-22 20:05 | P.PN ---
Progress Note - Text Progress Note Date: 02/22/19 Interval history: This is a pleasant 78-year-old patient of Dr. Mcdaniels. Chronic stable medical conditions include hypertension, hyperlipidemia, coronary artery disease with stent. on December 07, 2018 had TIA. Patient then had a CT angiogram of the head and neck that was negative. 2-D echocardiogram was unremarkable. Patient was then admitted from December 16 through 12/24/2018.. Patient presented with acute on chronic peripheral artery disease with CT angiogram demonstrating acute vascular findings. The following day patient had TPA administered. Subsequently several angioplasties and thrombolytic was carried out. Patient was discharged on xarelto. Patient was having, pain in the left foot toes with signs of early gangrene when she left the hospital. She gone to rehab.Readmitted and On January 04 patient was taken down to the operating room by Dr. Pace for trans metatarsal amputation of the left foot. EGD was unremarkable. Admitted with COPD exacerbation in atrial flutter with a rapid ventricular rate. Today-heart rate is well controlled. Laying in bed. Breathing is stable. Tolerated diet. Review of systems: Was done for constitutional, cardiovascular, GI, pulmonary. relevant finding as above Active Medications Acetaminophen (Tylenol Tab) 500 mg PO Q6HR PRN PRN Reason: Fever and/ or Pain Acetaminophen/Codeine Phosphate (Tylenol #3) 1 each PO DAILY PRN PRN Reason: Pain Hydrocodone Bitart/Acetaminophen ([place] 5-325) 1 each PO Q6HR PRN PRN Reason: Pain Albuterol/Ipratropium (Duoneb 0.5 Mg-3 Mg/3 Ml Soln) 3 ml INHALATION RT-QID [facility] Last Admin: 02/22/19 15:10 Dose: Not Given Documented by: Albuterol/Ipratropium (Duoneb 0.5 Mg-3 Mg/3 Ml Soln) 3 ml INHALATION RT-QID PRN PRN Reason: Shortness Of Breath Or Wheezing Alprazolam (Xanax) 0.25 mg PO TID PRN PRN Reason: Anxiety Last Admin: 02/20/19 20:23 Dose: 0.25 mg Documented by: Aspirin (Aspirin) 81 mg PO DAILY [facility] Last Admin: 02/22/19 09:10 Dose: 81 mg Documented by: Atorvastatin Calcium (Lipitor) 80 mg PO HS [facility] Last Admin: 02/21/19 20:02 Dose: 80 mg Documented by: Clopidogrel Bisulfate (Plavix) 75 mg PO [facility] Last Admin: 02/21/19 20:02 Dose: 75 mg Documented by: Collagenase (Santyl) 1 applic TOPICAL [facility] Diazepam (Valium) 5 mg IVP Q4H PRN PRN Reason: Muscle Spasm Gabapentin (Neurontin) 300 mg PO TID@0700,1300,1900 [facility] Last Admin: 02/22/19 12:16 Dose: 300 mg Documented by: Insulin Aspart (Novolog) 0 unit SQ [facility]; Protocol Last Admin: 02/22/19 17:26 Dose: 3 unit Documented by: Losartan Potassium (Cozaar) 25 mg PO Q24H [facility] Last Admin: 02/22/19 17:26 Dose: 25 mg Documented by: Metoprolol Tartrate (Lopressor) 25 mg PO BID@0700,1600 [facility] Last Admin: 02/22/19 17:26 Dose: 25 mg Documented by: Morphine Sulfate (Morphine Sulfate (Inj)) 4 mg IV Q4HR PRN PRN Reason: Chest Pain Naproxen (Naprosyn) 250 mg PO DAILY PRN PRN Reason: Pain Last Admin: 02/22/19 09:10 Dose: 250 mg Documented by: Nicotine (Habitrol 21mg/24hr Patch) 1 patch TRANSDERM DAILY [facility] Last Admin: 02/22/19 09:10 Dose: 1 patch Documented by: Nitroglycerin (Nitrostat) 0.4 mg SUBLINGUAL Q5M PRN PRN Reason: Chest Pain Pantoprazole Sodium (Protonix) 40 mg PO AC-BRKFST [facility] Last Admin: 02/22/19 06:34 Dose: 40 mg Documented by: Prednisone () 40 mg PO DAILY [facility] Last Admin: 02/22/19 09:10 Dose: 40 mg Documented by: Rivaroxaban (Xarelto) 15 mg PO DAILY@1999 [facility] Last Admin: 02/21/19 20:02 Dose: 15 mg Documented by: Physical examination: VITAL SIGNS: 97.5, 96, 16, 108/52, 98% on 2 L GENERAL: Laying in bed,, comfortable EYES: Pupils equal. Conjunctiva pale NECK: JVD not raised; masses not palpable. HEART: First and second heart sounds are normal; no edema. LUNGS: Respiratory rate normal; decreased breath sounds ABDOMEN: Soft, nontender, liver spleen not palpable, no masses palpable. PSYCH: Alert and oriented x3; mood and affect tired. EXTREMITIES: Left foot wound, postsurgical, transmetatarsal MUSCULOSKELETAL: Evidence evidence of RA in the hands INVESTIGATIONS, reviewed in the clinical context:: White count 13.8 hemoglobin 8.6 which is 456 potassium 3.9 creatinine 0.6 Previous testing: White count 16.7 hemoglobin 7.8 potassium 4.1 creatinine 0.7 Left lower extremity Doppler-negative for DVT 2-D echo-EF 35-40% severe mitral regurgitation, Assessment: -Acute COPD exacerbation, improved -Persistent atrial flutter-fibrillation, rate controlled -Transmetatarsal amputation of the left foot, -Anemia of chronic disease - chronic occlusive disease arterial of the left lower extremity, recently and patient received thrombolytic, angioplasties and thrombus extraction -Hyperlipidemia -Coronary artery disease with stent -status post transmetatarsal amputation. - 01/04/2019 -Medical debility Plan: Patient stable for discharge. Insurance authorization pending so patient can go to the ECF. Care discussed with the patient.
[2019-02-22 20:44] LABS: Glucose,Whole Blood 226 mg/dL (75-99)
[2019-02-22] MEDS: ATORVASTATIN 80 MG TAB PO SCH (20:49)
[2019-02-22] MEDS: RIVAROXABAN 15 MG TAB PO SCH (20:49)
[2019-02-22] MEDS: CLOPIDOGREL 75 MG TAB PO SCH (20:49)
[2019-02-22] MEDS: ALPRAZolam 0.25 MG TAB PO PRN (23:09)
[2019-02-23 06:19] LABS: Glucose,Whole Blood 122 mg/dL (75-99)
[2019-02-23] MEDS: INSULIN ASPART (NovoLOG) 100 UNIT/ML VIAL SQ SCH ×4 (06:27→21:25)
[2019-02-23] MEDS: PANTOPRAZOLE 40 MG TABLET PO SCH (06:28)
[2019-02-23] MEDS: GABAPENTIN 300 MG CAP PO SCH ×3 (06:28→17:13)
[2019-02-23] MEDS: METOPROLOL TARTRATE 25 MG TAB PO SCH ×2 (06:28→17:08)
[2019-02-23] MEDS: ASPIRIN 81 MG PO SCH (08:25)
[2019-02-23] MEDS: NICOTINE 21MG/24HR PATCH TRANSDERM SCH (08:25)
[2019-02-23] MEDS: predniSONE 20 MG TAB PO SCH (08:25)
[2019-02-23] MEDS: IPRATROPIUM-ALBUTEROL 3 ML NEB INHALATION SCH ×4 (08:49→19:50)
[2019-02-23 11:53] LABS: Glucose,Whole Blood 223 mg/dL (75-99)
--- NOTE | 2019-02-23 12:11 | P.PN ---
Subjective Progress Note Date: 02/23/19 Patient seen and evaluated lying in bed. Pt. denies any new changes through the night. Wound care has seen and evaluated patient. Wound Vac intact with suction at 150. The patient states has some discomfort in left lower extremity. Denies any fever, still feels fatigued and SOB at times. Objective - Vital Signs Vital signs: Vital Signs Temp 97.9 F 02/23/19 07:00 Pulse 76 02/23/19 09:01 Resp 18 02/23/19 07:00 BP 117/60 02/23/19 07:00 Pulse Ox 96 02/23/19 07:00 Intake & Output 02/22/19 02/23/19 02/23/19 18:59 06:59 18:59 Intake Total 1320 300 20 Output Total 625 Balance 695 300 20 Weight 45.1 kg Intake: Oral 1320 300 20 Output: Urine 625 Other: Voiding Method Toilet Toilet Bedside Commode Bedside Commode # Voids 1 - Exam General appearance: The patient is alert, oriented, in no acute distress. Heart: S1 S2. Regular rate and rhythm. Lungs: No crackles or wheezes are heard. Extremities: Wound vac intact over left TMA wound site, edema improved, warm to touch. Left heel ulcer without drainage. Neurological: No focal deficits. - Labs CBC & Chem 7: 02/22/19 05:38 02/22/19 05:38 Labs: Abnormal Lab Results - Last 24 Hours (Table) 02/22/19 02/22/19 02/22/19 Range/Units 11:42 16:44 20:36 POC Glucose (mg/dL) 316 H 239 H 226 H (75-99) mg/dL 02/23/19 Range/Units 06:01 POC Glucose (mg/dL) 122 H (75-99) mg/dL Assessment and Plan Assessment: Left transmetatarsal amputation wound Pressure ulcer of left heel Chronic Peripheral arterial disease Plan: No plans for vascular interventions at this time. Patient to follow up as scheduled when discharged with Dr. Pace. Wound care to continue management of wound vac and appreciate their further recommendations and follow up. The above dictated assessment and findings were discussed with Dr. Pace. The impression and plan of care have been directed as dictated.
[2019-02-23 16:56] LABS: Glucose,Whole Blood 362 mg/dL (75-99)
[2019-02-23] MEDS: LOSARTAN 25 MG TAB PO SCH (17:08)
[2019-02-23 20:13] LABS: Glucose,Whole Blood 288 mg/dL (75-99)
[2019-02-23] MEDS: RIVAROXABAN 15 MG TAB PO SCH (21:24)
[2019-02-23] MEDS: ALPRAZolam 0.25 MG TAB PO PRN (21:24)
[2019-02-23] MEDS: ATORVASTATIN 80 MG TAB PO SCH (21:24)
[2019-02-23] MEDS: CLOPIDOGREL 75 MG TAB PO SCH (21:24)
[2019-02-23] MEDS: COLLAGENASE 250 UNIT/GM OINTMENT 30 GM TUBE TOPICAL SCH (21:25)
--- NOTE | 2019-02-24 00:05 | P.PN ---
Progress Note - Text Progress Note Date: 02/23/19 Interval history: This is a pleasant 78-year-old patient of Dr. Mcdaniels. Chronic stable medical conditions include hypertension, hyperlipidemia, coronary artery disease with stent. on December 07, 2018 had TIA. Patient then had a CT angiogram of the head and neck that was negative. 2-D echocardiogram was unremarkable. Patient was then admitted from December 16 through 12/24/2018.. Patient presented with acute on chronic peripheral artery disease with CT angiogram demonstrating acute vascular findings. The following day patient had TPA administered. Subsequently several angioplasties and thrombolytic was carried out. Patient was discharged on xarelto. Patient was having, pain in the left foot toes with signs of early gangrene when she left the hospital. She gone to rehab.Readmitted and On January 04 patient was taken down to the operating room by Dr. Pace for trans metatarsal amputation of the left foot. EGD was unremarkable. Admitted with COPD exacerbation in atrial flutter with a rapid ventricular rate. Today-feels a bit tired. Laying in bed. No new issues. Authorization for ECF has not come through. Did tolerate her diet. Remains in A. fib. Heart rate controlled. Review of systems: Was done for constitutional, cardiovascular, GI, pulmonary. relevant finding as above Active Medications Acetaminophen (Tylenol Tab) 500 mg PO Q6HR PRN PRN Reason: Fever and/ or Pain Acetaminophen/Codeine Phosphate (Tylenol #3) 1 each PO DAILY PRN PRN Reason: Pain Hydrocodone Bitart/Acetaminophen ([place] 5-325) 1 each PO Q6HR PRN PRN Reason: Pain Albuterol/Ipratropium (Duoneb 0.5 Mg-3 Mg/3 Ml Soln) 3 ml INHALATION RT-QID [facility] Last Admin: 02/23/19 19:50 Dose: 3 ml Documented by: Albuterol/Ipratropium (Duoneb 0.5 Mg-3 Mg/3 Ml Soln) 3 ml INHALATION RT-QID PRN PRN Reason: Shortness Of Breath Or Wheezing Alprazolam (Xanax) 0.25 mg PO TID PRN PRN Reason: Anxiety Last Admin: 02/23/19 21:24 Dose: 0.25 mg Documented by: Aspirin (Aspirin) 81 mg PO DAILY [facility] Last Admin: 02/23/19 08:25 Dose: 81 mg Documented by: Atorvastatin Calcium (Lipitor) [address] [facility] Last Admin: 02/23/19 21:24 Dose: 80 mg Documented by: Clopidogrel Bisulfate (Plavix) [address] [facility] Last Admin: 02/23/19 21:24 Dose: 75 mg Documented by: Collagenase (Santyl) [address] [facility] Last Admin: 02/23/19 21:25 Dose: 1 applic Documented by: Diazepam (Valium) 5 mg IVP Q4H PRN PRN Reason: Muscle Spasm Gabapentin (Neurontin) 300 mg PO TID@0700,1300,1900 [facility] Last Admin: 02/23/19 17:13 Dose: 300 mg Documented by: Insulin Aspart (Novolog) 0 unit SQ [facility]; Protocol Last Admin: 02/23/19 21:25 Dose: 5 unit Documented by: Losartan Potassium (Cozaar) 25 mg PO Q24H [facility] Last Admin: 02/23/19 17:08 Dose: 25 mg Documented by: Metoprolol Tartrate (Lopressor) 25 mg PO BID@0700,1600 [facility] Last Admin: 02/23/19 17:08 Dose: 25 mg Documented by: Morphine Sulfate (Morphine Sulfate (Inj)) 4 mg IV Q4HR PRN PRN Reason: Chest Pain Naproxen (Naprosyn) 250 mg PO DAILY PRN PRN Reason: Pain Last Admin: 02/22/19 09:10 Dose: 250 mg Documented by: Nicotine (Habitrol 21mg/24hr Patch) 1 patch TRANSDERM DAILY [facility] Last Admin: 02/23/19 08:25 Dose: 1 patch Documented by: Nitroglycerin (Nitrostat) 0.4 mg SUBLINGUAL Q5M PRN PRN Reason: Chest Pain Pantoprazole Sodium (Protonix) 40 mg PO AC-BRKFST [facility] Last Admin: 02/23/19 06:28 Dose: 40 mg Documented by: Prednisone () 40 mg PO DAILY [facility] Last Admin: 02/23/19 08:25 Dose: 40 mg Documented by: Rivaroxaban (Xarelto) 15 mg PO DAILY@2000 [facility] Last Admin: 02/23/19 21:24 Dose: 15 mg Documented by: Physical examination: VITAL SIGNS: 98.2, 84, 18, 109/69, 97% on 2 L GENERAL: Laying in bed,, comfortable EYES: Pupils equal. Conjunctiva pale NECK: JVD not raised; masses not palpable. HEART: First and second heart sounds are normal; no edema. LUNGS: Respiratory rate normal; decreased breath sounds ABDOMEN: Soft, nontender, liver spleen not palpable, no masses palpable. PSYCH: Alert and oriented x3; mood and affect tired. EXTREMITIES: Left foot wound, postsurgical, transmetatarsal MUSCULOSKELETAL: Evidence evidence of RA in the hands INVESTIGATIONS, reviewed in the clinical context:: White count 13.8 hemoglobin 8.6 which is 456 potassium 3.9 creatinine 0.6 Previous testing: White count 16.7 hemoglobin 7.8 potassium 4.1 creatinine 0.7 Left lower extremity Doppler-negative for DVT 2-D echo-EF 35-40% severe mitral regurgitation, Assessment: -Acute COPD exacerbation, improved -Persistent atrial flutter-fibrillation, rate controlled -Transmetatarsal amputation of the left foot, -Anemia of chronic disease - chronic occlusive disease arterial of the left lower extremity, recently and patient received thrombolytic, angioplasties and thrombus extraction -Hyperlipidemia -Coronary artery disease with stent -status post transmetatarsal amputation. - 01/04/2019 -Medical debility Plan: Insurance authorization still pending. Discussed with Hilary clinical case manager. Patient should be discharged tomorrow.
[2019-02-24 07:07] LABS: Glucose,Whole Blood 174 mg/dL (75-99)
[2019-02-24] MEDS: IPRATROPIUM-ALBUTEROL 3 ML NEB INHALATION SCH ×2 (07:21→11:03)
[2019-02-24] MEDS: ASPIRIN 81 MG PO SCH (07:51)
[2019-02-24] MEDS: predniSONE 20 MG TAB PO SCH (07:51)
[2019-02-24] MEDS: INSULIN ASPART (NovoLOG) 100 UNIT/ML VIAL SQ SCH ×2 (07:51→12:51)
[2019-02-24] MEDS: PANTOPRAZOLE 40 MG TABLET PO SCH (07:51)
[2019-02-24] MEDS: GABAPENTIN 300 MG CAP PO SCH (07:51)
[2019-02-24] MEDS: METOPROLOL TARTRATE 25 MG TAB PO SCH (07:51)
[2019-02-24] MEDS ORDERED: ONDANSETRON 4 MG/2 ML VIAL IVP PRN (08:48)
[2019-02-24] MEDS: NICOTINE 21MG/24HR PATCH TRANSDERM SCH (08:49)
[2019-02-24 11:39] LABS: Glucose,Whole Blood 173 mg/dL (75-99)
[2019-02-24 11:48] VITALS: BP 133/62; PULSE 88; RESP 17; TEMP 98.1
--- NOTE | 2019-02-25 00:08 | P.DS ---
Providers Date of admission: 02/19/19 14:35 Expected date of discharge: 02/24/19 Attending physician: Wali Victor Consults: 02/18/19 20:58 Consult Physician Urgent Consulting Provider: Dany Fofana Consult Reason/Comments: cp Do you want consulting provider notified?: Yes Primary care physician: [facility] Course: Hospital course: This is a pleasant 78-year-old patient of Dr. Mcdaniels. Chronic stable medical conditions include hypertension, hyperlipidemia, coronary artery disease with stent. on December 07, 2018 had TIA. Patient then had a CT angiogram of the head and neck that was negative. 2-D echocardiogram was unremarkable. Patient was then admitted from December 16 through 12/24/2018.. Patient presented with acute on chronic peripheral artery disease with CT angiogram demonstrating acute vascular findings. The following day patient had TPA administered. Subsequently several angioplasties and thrombolytic was carried out. Patient wa s discharged on xarelto. Patient was having, pain in the left foot toes with signs of early gangrene when she left the hospital. She gone to rehab.Readmitted and On January 04 patient was taken down to the operating room by Dr. Pace for trans metatarsal amputation of the left foot. EGD was unremarkable. Admitted with COPD exacerbation in atrial flutter with a rapid ventricular rate. Breathing stabilized. He remained in atrial flutter fibrillation do with a controlled rate. It was determined. The surgeon that patient does not really need a wound VAC. Today-Care was discussed with the patient at length. Patient doing well. Comfortable. Discussion and discharge planning more than 35 minutes Consultation: -Dr. Rome Dixon from cardiology Dr. Lynne Pace from vascular Physical examination: VITAL SIGNS: GENERAL: Laying in bed,, comfortable EYES: Pupils equal. Conjunctiva pale NECK: JVD not raised; masses not palpable. HEART: First and second heart sounds are normal; no edema. LUNGS: Respiratory rate normal; decreased breath sounds ABDOMEN: Soft, nontender, liver spleen not palpable, no masses palpable. PSYCH: Alert and oriented x3; mood and affect tired. EXTREMITIES: Left foot wound, postsurgical, transmetatarsal MUSCULOSKELETAL: Evidence evidence of RA in the hands INVESTIGATIONS, reviewed in the clinical context:: White count 13.8 hemoglobin 8.6 which is 456 potassium 3.9 creatinine 0.6 Previous testing: White count 16.7 hemoglobin 7.8 potassium 4.1 creatinine 0.7 Left lower extremity Doppler-negative for DVT 2-D echo-EF 35-40% severe mitral regurgitation, Assessment: -Acute COPD exacerbation, improved -Persistent atrial flutter-fibrillation, rate controlled -Transmetatarsal amputation of the left foot, -Anemia of chronic disease - chronic occlusive disease arterial of the left lower extremity, recently and patient received thrombolytic, angioplasties and thrombus extraction -Hyperlipidemia -Coronary artery disease with stent -status post transmetatarsal amputation. - 01/04/2019 -Medical debility Disposition: Home with family Patient Condition at Discharge: Fair Plan - Discharge Summary Discharge Rx Participant: No New Discharge Prescriptions: New Losartan [Cozaar] 25 mg PO Q24H #30 tab Nicotine 21Mg/24Hr Patch [Habitrol] 1 patch TRANSDERM DAILY #14 patch predniSONE 0 mg PO DIRECTED #20 tab Continue Atorvastatin [Lipitor] 80 mg PO HS #30 tab Nitroglycerin Sl Tabs [Nitrostat] 0.4 mg SUBLINGUAL Q5M PRN #25 tab PRN Reason: Chest Pain Albuterol Inhaler [Ventolin Hfa Inhaler] 2 puff INHALATION RT-Q6H PRN PRN Reason: Shortness Of Breath Ipratropium/Albuterol Sulfate [Combivent Respimat Inhaler] 1 puff INHALATION RT-DAILY Clopidogrel [Plavix] 75 mg PO HS Metoprolol Tartrate [Lopressor] 50 mg PO BID@0700,1600 Rivaroxaban [Xarelto] 20 mg PO DAILY@2000 Gabapentin [Neurontin] 300 mg PO TID@0700,1300,1900 #9 cap Naproxen Sodium [Aleve] 220 mg PO DAILY PRN PRN Reason: Pain Acetaminophen-Codeine 300-30mg [Tylenol w/codeine #3] 1 tab PO DAILY PRN PRN Reason: Pain Discharge Medication List Atorvastatin [Lipitor] 80 mg PO HS #30 tab 10/23/16 [Rx] Nitroglycerin Sl Tabs [Nitrostat] 0.4 mg SUBLINGUAL Q5M PRN #25 tab 10/23/16 [Rx] Albuterol Inhaler [Ventolin Hfa Inhaler] 2 puff INHALATION RT-Q6H PRN 12/16/18 [History] Ipratropium/Albuterol Sulfate [Combivent Respimat Inhaler] 1 puff INHALATION RT- DAILY 12/16/18 [History] Clopidogrel [Plavix] 75 mg PO HS 01/03/19 [History] Metoprolol Tartrate [Lopressor] 50 mg PO BID@0700,1600 01/03/19 [History] Rivaroxaban [Xarelto] 20 mg PO DAILY@2000 01/03/19 [History] Gabapentin [Neurontin] 300 mg PO TID@0700,1300,1900 #9 cap 01/07/19 [Rx] Naproxen Sodium [Aleve] 220 mg PO DAILY PRN 02/18/19 [History] Acetaminophen-Codeine 300-30mg [Tylenol w/codeine #3] 1 tab PO DAILY PRN 02/19/19 [History] Losartan [Cozaar] 25 mg PO Q24H #30 tab 02/24/19 [Rx] Nicotine 21Mg/24Hr Patch [Habitrol] 1 patch TRANSDERM DAILY #14 patch 02/24/19 [Rx] predniSONE 0 mg PO DIRECTED #20 tab 02/24/19 [Rx] Follow up Appointment(s)/Referral(s): Lukas Mcdaniels MD [Primary Care Provider] - 02/28/19 2:40 pm Nancy Pace DO [STAFF PHYSICIAN] - 03/09/19 9:00 am (patient will be seen in the [place] office) [facility], [NON-STAFF] - Activity/Diet/Wound Care/Special Instructions: Wound care orders per Dr. Alvarado and follow-up Discharge Disposition: HOME WITH HOME HEALTH SERVICES
--- NOTE | 2019-02-28 01:41 | CDI ---
Documentation Clarification Form Date: 02/28/2019 From: Johnson Jacinto Phone: If you have a question about this query, please contact Kayley Moe, Grape Picker at [phone] between 8am and 5pm. Admit Date: 02/19/2019 Discharge Date: 02/24/2019 Patient Name: Betty Spain Visit Number: [id number] ATTENTION: The Clinical Documentation Specialists (CDI) and [facility] Coding Staff appreciate your assistance in clarifying documentation. Please respond to the clarification below the line at the bottom and electronically sign. The CDI & [facility] Coding staff will review the response and follow-up if needed. Please note: Queries are made part of the Legal Health Record. If you have any questions, please contact the author of this message via ITS. Dear Wali Hooks., CHF is documented in 02/20 Dr. Tommie Meek Progress note as "Shortness of breath possibly multifactorial, congestive heart failure acuteexacerbation with acute on chronic systolic dysfunction, ejection [id number]". History/Risk Factors:COPD , Systolic CHF, Pleural effusion VS/Pulse OX: 94% on Room air. BNP: 6530 Echocardiogram Results: Overall left ventricular systolic function is moderately impaired with, an EF between 35 -40% Chest X Ray:1.Clinical correlation recommended for congestive heart failure.2.Small left pleural effusion Treatment: IV Lasix. In your professional opinion, can you please clarify the acuity and type of CHF if known? Systolic Heart Failure: Acute Chronic Acute on Chronic Unable to Determine Other, please specify Chronic congestive heart failure from systolic dysfunction EF 35-40% MTDD
== END 2019-02-24 13:43 | disposition home health service (06) | DRG 191 ==
LOC: EC 19:06 → 1SOBS 20:58 → OBSVTOIN 02-19 14:35 → 3SCARD 02-19 18:29 → 6NMEDSUR 02-21 18:14 → 3SCARD 02-21 18:15 → 5NMEDONC 02-23 22:15
PROVIDERS: ADMIT Hospitalist; ATTEND Hospitalist
DX: J44.1 Chronic obstructive pulmonary disease with (acute) exacerbation (principal); I48.92 Unspecified atrial flutter; I50.22 Chronic systolic (congestive) heart failure; R64 Cachexia; E44.1 Mild protein-calorie malnutrition; I48.20 Chronic atrial fibrillation, unspecified; D63.8 Anemia in other chronic diseases classified elsewhere; E78.5 Hyperlipidemia, unspecified; E87.5 Hyperkalemia; F17.200 Nicotine dependence, unspecified, uncomplicated; F41.9 Anxiety disorder, unspecified; I11.0 Hypertensive heart disease with heart failure; Z66 Do not resuscitate; I25.10 Atherosclerotic heart disease of native coronary artery without angina pectoris; R53.81 Other malaise; L97.529 Non-pressure chronic ulcer of other part of left foot with unspecified severity; M06.9 Rheumatoid arthritis, unspecified; L89.620 Pressure ulcer of left heel, unstageable; I70.245 Atherosclerosis of native arteries of left leg with ulceration of other part of foot; I25.2 Old myocardial infarction; Z79.01 Long term (current) use of anticoagulants; Z79.899 Other long term (current) drug therapy; Z82.49 Family history of ischemic heart disease and other diseases of the circulatory system; Z86.73 Personal history of transient ischemic attack (TIA), and cerebral infarction without residual deficits; Z83.3 Family history of diabetes mellitus; Z87.442 Personal history of urinary calculi; Z89.432 Acquired absence of left foot; Z90.710 Acquired absence of both cervix and uterus; Z95.5 Presence of coronary angioplasty implant and graft
CPT/HCPCS: 36415; 71046; 80048; 80053; 80061; 81001; 83690; 83735; 83880; 84484; 85025; 85610; 85730; 93005; 93306; 94640; 94760; 96374; 96375; 99285

== ENCOUNTER 2019-03-04 22:43 | Inpatient (IN) | payer MEDICARE ==
[2019-03-04] MEDS ORDERED: IPRATROPIUM-ALBUTEROL 3 ML NEB INHALATION STA (23:17)
[2019-03-04 23:30] LABS: Basophils % (A) 0 %; Eosinophils # (A) 0.1 k/uL (0-0.7); Eosinophils % (A) 1 %; HCT 23.6 % (34.0-46.0); HGB 7.3 gm/dL (11.4-16.0); Hypochromasia Marked; Lymphocytes # (A) 1.3 k/uL (1.0-4.8); Lymphocytes % (A) 11 %; MCH 28.7 pg (25.0-35.0); MCV 92.6 fL (80.0-100.0); Mean Platelet Volume 8.5; Monocytes # (A) 0.6 k/uL (0-1.0); Monocytes % (A) 5 %; Neutrophils # (A) 9.9 k/uL (1.3-7.7); Neutrophils % (A) 83 %; Platelet Count 357 k/uL (150-450); Poikilocytosis Slight; RBC 2.55 m/uL (3.80-5.40); RDW 15.6 % (11.5-15.5)
[2019-03-04 23:43] LABS: ALT 21 U/L (4-34); AST 28 U/L (14-36); African American GFR (CKD) >90 (>60 ml/min/1.73 sqM); Albumin 2.7 g/dL (3.5-5.0); Alkaline Phosphatase 200 U/L (38-126); Anion Gap 5 mmol/L; Blood Urea Nitrogen 12 mg/dL (7-17); C Reactive Protein 86.5 mg/L (<10.0); Calcium 8.5 mg/dL (8.4-10.2); Carbon Dioxide 26 mmol/L (22-30); Chloride 105 mmol/L (98-107); Glucose 152 mg/dL (74-99); Non-African American GFR(CKD) 88 (>60 ml/min/1.73 sqM); Potassium 3.7 mmol/L (3.5-5.1); Sodium 136 mmol/L (137-145); Total Bilirubin 0.5 mg/dL (0.2-1.3); Total Protein 5.8 g/dL (6.3-8.2)
--- NOTE | 2019-03-04 23:43 | XR ---
EXAMINATION TYPE: XR chest 2V DATE OF EXAM: 03/04/2019 COMPARISON: 02/18/2019 HISTORY: Chest pain TECHNIQUE: FINDINGS: Heart is enlarged. There is pulmonary vascular congestion. There is bilateral pleural effus ions and fluid in the left major fissure. There are chest leads. IMPRESSION: Congestive heart failure with pleural effusions unchanged.
[2019-03-04 23:46] LABS: INR 1.1 (<1.2); Partial Thromboplastin Time 22.8 sec (22.0-30.0); Prothrombin Time 11.3 sec (9.0-12.0)
[2019-03-05 00:07] LABS: D-Dimer 1.27 mg/L FEU (<0.60)
--- NOTE | 2019-03-05 00:12 | XR ---
EXAMINATION TYPE: XR foot complete LT DATE OF EXAM: 03/05/2019 COMPARISON: 01/27/2019 HISTORY: Nonhealing wound TECHNIQUE: 3 views FINDINGS: There is amputation of the left foot at the level of the base of the metatarsals.. There is 2.5 cm large ulcer greater over the posterior aspect of the calcaneus. I see no focal bone destructi on. IMPRESSION: Large ulcer crater over the posterior calcaneus is new compared to old exam. No specific sign of osteomyelitis. Soft tissue swelling.
--- NOTE | 2019-03-05 01:01 | CT ---
EXAMINATION TYPE: CT chest angio for PE DATE OF EXAM: 03/05/2019 COMPARISON: 12/16/2018 HISTORY: R/O PE CT DLP: 226.80 mGycm Automated exposure control for dose reduction was used. CONTRAST: Performed with IV Contrast, patient injected with 50 mL of Isovue 370. There are 3-D post processed images. There are moderate bilateral pleural effusions. Heart is enlarged. There is basilar pulmonary atelect asis. There is small pericardial effusion. There are no hilar masses. There are a few paratracheal lymph nodes up to 1 cm. Thoracic aorta is ath eromatous. There is no aneurysm or dissection. There is normal contrast opacification of the pulmonar y arteries. There are no filling defects. The bony thorax is intact. There is mild thoracic dextrosco liosis. IMPRESSION: No evidence of pulmonary embolism. Cardiomegaly with pleural effusions and basilar atelectasis consistent with congestive heart failure that is a change compared to old exam.
--- NOTE | 2019-03-05 01:40 | ED ---
Chest Pain HPI - General Chief Complaint: Chest Pain Stated Complaint: CHEST PAIN Time Seen by Provider: 03/04/19 22:45 Source: patient, EMS Mode of arrival: EMS Limitations: no limitations - History of Present Illness Initial Comments: The patient is a 78-year-old female with past medical history of A. fib, COPD, hypertension and hyperlipidemia presents the emergency room with reported chest pain. It is extremely poor historian. She is unsure of her medical problems or medications. States that she is coming to the emergency room and after she ca lled EMS for chest pain. The chest pain started just prior to arrival. Reports that it is sharp in nature. Worse with coughing and deep breath. States that her cough is chronic. It is nonproductive. Does admit to increased nasal congestion and chills without fevers. Denies any sick contacts or recent travel. She does not wear oxygen at home. Does not use a nebulizer or inhalers. She is unsure if she has coronary disease. She was given 324 mg of aspirin and 1 nitro by EMS. States that it did not help her symptoms. She feels shaky and cold. As the patient cannot provide much history did review her record. He does demonstrate that the patient was recently hospitalized because of the lower extremity arterial occlusion. She did have transmetatarsal resection on the left. States that she has a home nurse which changes or bandage. It was last changed 2 days ago. She has noted some increased drainage. The remainder of the HPI is limited because of the patient's inability to provide information - Related Data Home Medications Medication Instructions Recorded Confirmed Albuterol Inhaler [Ventolin Hfa 2 puff INHALATION RT-Q6H PRN 12/16/18 03/05/19 Inhaler] Ipratropium/Albuterol Sulfate 1 puff INHALATION RT-DAILY 12/16/18 03/05/19 [Combivent Respimat Inhaler] Clopidogrel [Plavix] 75 mg PO HS 01/03/19 03/05/19 Metoprolol Tartrate [Lopressor] 50 mg PO BID@0700,1600 01/03/19 03/05/19 Rivaroxaban [Xarelto] 20 mg PO DAILY@199901/03/19 03/05/19 Acetaminophen-Codeine 300-30mg 1 tab PO DAILY PRN 02/19/19 03/05/19 [Tylenol w/codeine #3] Previous Rx's Medication Instructions Recorded Atorvastatin [Lipitor] 80 mg PO HS #30 tab 10/23/16 Nitroglycerin Sl Tabs [Nitrostat] 0.4 mg SUBLINGUAL Q5M PRN #25 tab 10/23/16 Gabapentin [Neurontin] 300 mg PO TID@0700,1300,1900 #9 cap 01/07/19 Losartan [Cozaar] 25 mg PO Q24H #30 tab 02/24/19 Nicotine 21Mg/24Hr Patch [Habitrol] 1 patch TRANSDERM DAILY #14 patch 02/24/19 Furosemide [Lasix] 40 mg PO DAILY #30 tab 03/07/19 Furosemide [Lasix] 40 mg PO DAILY #30 tablet 03/07/19 Omeprazole [PriLOSEC] 20 mg PO AC-BID #60 cap 03/07/19 Allergies Allergy/AdvReac Type Severity Reaction Status Date / Time No Known Allergies Allergy Verified 03/05/19 10:28 Review of Systems ROS Statement: Those systems with pertinent positive or pertinent negative responses have been documented in the HPI. ROS Other: All systems not noted in ROS Statement are negative. EKG Findings - EKG Comments: EKG Findings:: EKG demonstrates atrial fibrillation with a controlled rate of 93. NV interval 114. QRS 96. QTC of 427. No acute ST segment elevations or depressions with history of ischemic changes Past Medical History Past Medical History: Atrial Fibrillation, Coronary Artery Disease (CAD), COPD, CVA/TIA, Hyperlipidemia, Hypertension, Myocardial Infarction ([place]), Rheumatoid Arthritis (RA), Vascular Disorder Additional Past Medical History / Comment(s): Pt recently admitted to [facility] on 12/16/18 with L lower extremity critical limb ischemia. She had several angiograms/PTBAs and a stent placed. 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, RA in bilateral hands, Last Myocardial Infarction Date:: 2016 History of Any Multi-Drug Resistant Organisms: None Reported Past Surgical History: Hysterectomy Additional Past Surgical History / Comment(s): L lower extremity iliofemoral angiogram, aortoiliac angiogram, selective L popliteal tibial peroneal angiogram, multiple PTBAs L leg/thrombolytics and a stent to the L common iliac artery, cardiac caths w/ stents Past Anesthesia/Blood Transfusion Reactions: No Reported Reaction, Motion Sickness Additional Past Anesthesia/Blood Transfusion Reaction / Comment(s): Pt recently received blood without reaction. Past Psychological History: Anxiety Smoking Status: Current every day smoker Past Alcohol Use History: None Reported Past Drug Use History: None Reported - Past Family History Daughter(s) Family Medical History: Diabetes Mellitus Son(s) Family Medical History: Hyperlipidemia, Hypertension Mother Family Medical History: No Reported History Additional Family Medical History / Comment(s): Mother was healthy Father Family Medical History: Cancer Additional Family Medical History / Comment(s): Father of some form of cancer prior to pt being born. She does not know type of cancer. General Exam Limitations: no limitations General appearance: alert, in no apparent distress Head exam: Present: atraumatic, normocephalic, normal inspection Eye exam: Present: normal appearance, PERRL, EOMI. Absent: scleral icterus, conjunctival injection, periorbital swelling ENT exam: Present: normal exam, mucous membranes moist Neck exam: Present: normal inspection. Absent: tenderness, meningismus, lymphadenopathy Respiratory exam: Present: normal lung sounds bilaterally. Absent: respiratory distress, wheezes, rales, rhonchi, stridor Cardiovascular Exam: Present: regular rate, irregular rhythm, normal heart sounds. Absent: systolic murmur, diastolic murmur, rubs, gallop, clicks GI/Abdominal exam: Present: soft, normal bowel sounds. Absent: distended, tenderness, guarding, rebound, rigid Extremities exam: Present: full ROM, normal capillary refill, other (transmetatarsal resection. Distal stump has tillman, oozing discharge. The patient also has a pressure ulcer to the left heel. It is unstagable. No drainage or bleeding present). Absent: tenderness, pedal edema, joint swelling, calf tenderness Back exam: Present: normal inspection Neurological exam: Present: alert, oriented X3, CN II-XII intact Psychiatric exam: Present: normal affect, normal mood Skin exam: Present: warm, dry, intact, normal color. Absent: rash Course Vital Signs 03/04/19 03/04/19 03/04/19 22:44 22:49 23:14 Temperature 97.7 F Pulse Rate 70 89 Respiratory 22 24 26 H Rate Blood Pressure 130/70 121/94 O2 Sat by Pulse 95 96 Oximetry 03/04/19 03/04/19 03/04/19 23:39 23:47 23:49 Temperature Pulse Rate 96 98 90 Respiratory 24 Rate Blood Pressure 125/88 O2 Sat by Pulse 97 Oximetry 03/05/19 03/05/19 03/05/19 00:48 01:00 02:00 Temperature 98.1 F Pulse Rate 90 88 84 Respiratory 24 24 24 Rate Blood Pressure 156/69 129/88 117/52 O2 Sat by Pulse 97 97 98 Oximetry 03/05/19 03:00 Temperature Pulse Rate 81 Respiratory 24 Rate Blood Pressure 118/76 O2 Sat by Pulse 97 Oximetry Chest Pain MDM - MDM Upon arrival the patient is placed in room 11. A thorough history and physical exam was performed. Peripheral IV was established. The patient was given a DuoNeb breathing treatment. EKG was performed which does demonstrate significant be artifact however does appear to be in A. fib. Laboratory studies were conducted. Hemoglobin is 7.3 which has fallen from the patient's last value of 8.6 on the seventh. D-dimer elevated at 1.2. C-reactive protein is 86.5. BNP is 7500. Influenza AB are negative. I did perform a chest x-ray and a foot x-ray. Chest x-ray demonstrates congestive heart failure with pleural effusions. Left foot x-ray done inserts large ulcer over the posterior calcaneus which is new. No signs of osteomyelitis. Because the patient's elevated d-dimer with reported shortness of breath I did perform a CT of the patient's chest. She cannot tell me if she is taking her anticoagulation. It demonstrates no evidence of pulmonary embolus and. Cardio mother with pleural effusions and basilar atelectasis consistent with congestive heart failure. I discussed diagnosis, differential treatment options. I did obtain a blood culture and initiated patient on Zosyn as her previous wound cultures were sensitive to this. The patient does have active pustular drainage from her wound. I also provided the patient with a dose of Lasix. I recommended hospital admission for cardiology consultation and vascular consultation. The patient did agree to this. Bridging orders were placed and the patient was transferred to floor in stable condition Disposition Clinical Impression: Pressure ulcer of left heel, unstageable, Chest pain, Anemia, CHF (congestive heart failure), Respiratory insufficiency, Afib, Foot ulcer Disposition: ADMITTED IP TO THIS [facility] Condition: Stable Is patient prescribed a controlled substance at d/c from ED?: No Decision to Admit Reason: Admit from EC Decision Date: 03/05/19 Decision Time: 01:47
[2019-03-05] MEDS ORDERED: PIPERACILLIN-TAZOBACTAM 3.375 GM in SODIUM CHLORIDE 0.9% 100 ML IVPB STA (01:41)
[2019-03-05] MEDS ORDERED: FUROSEMIDE 10 MG/ML 4 ML VIAL IV STA (01:42)
[2019-03-05] MEDS ORDERED: NALOXONE 0.4 MG/ML 1 ML VIAL IV PRN (01:48)
[2019-03-05] MEDS ORDERED: ALBUTEROL NEBULIZED 2.5 MG/3 ML INHALATION PRN (01:50)
[2019-03-05] MEDS ORDERED: Acetaminophen-Codeine 300-30mg TAB PO PRN (01:50)
[2019-03-05 02:49] LABS: Appearance,Urine Cloudy (Clear); Bilirubin,Urine Negative (Negative); Blood,Urine Negative (Negative); Color,Urine Yellow; Glucose,Urine (UA) Negative (Negative); Ketones,Urine Trace (Negative); Leukocyte Esterase,Urine Moderate (Negative); Mucus,Urine Occasional /hpf; Nitrite,Urine Negative (Negative); Protein,Urine Trace (Negative); RBC,Urine 3 /hpf (0-5); Specific Gravity,Urine 1.034 (1.001-1.035); Squamous Epithelial Cell,Urine 32 /hpf (0-4); Urobilinogen,Urine <2.0 mg/dL (<2.0); WBC,Urine 9 /hpf (0-5)
[2019-03-05] MEDS: LOSARTAN 25 MG TAB PO SCH (04:41)
[2019-03-05 06:34] LABS: Anisocytosis Slight; Basophils % (A) 0 %; Eosinophils # (A) 0.1 k/uL (0-0.7); Eosinophils % (A) 1 %; HGB 7.6 gm/dL (11.4-16.0); Hypochromasia Marked; Lymphocytes # (A) 1.7 k/uL (1.0-4.8); Lymphocytes % (A) 17 %; MCH 28.1 pg (25.0-35.0); MCHC 30.5 g/dL (31.0-37.0); MCV 92.2 fL (80.0-100.0); Mean Platelet Volume 8.2; Monocytes # (A) 0.7 k/uL (0-1.0); Monocytes % (A) 7 %; Neutrophils # (A) 7.7 k/uL (1.3-7.7); Neutrophils % (A) 74 %; Platelet Count 353 k/uL (150-450); Poikilocytosis Slight; RBC 2.71 m/uL (3.80-5.40); RDW 16.2 % (11.5-15.5); WBC 10.4 k/uL (3.8-10.6)
[2019-03-05] MEDS: GABAPENTIN 300 MG CAP PO SCH ×3 (06:52→21:14)
[2019-03-05] MEDS: METOPROLOL TARTRATE 50 MG TAB PO SCH ×2 (06:52→16:36)
[2019-03-05 07:04] LABS: African American GFR (CKD) >90 (>60 ml/min/1.73 sqM); Anion Gap 6 mmol/L; Blood Urea Nitrogen 11 mg/dL (7-17); Calcium 8.2 mg/dL (8.4-10.2); Carbon Dioxide 28 mmol/L (22-30); Chloride 103 mmol/L (98-107); Glucose 144 mg/dL (74-99); Non-African American GFR(CKD) 85 (>60 ml/min/1.73 sqM); Potassium 3.1 mmol/L (3.5-5.1); Sodium 137 mmol/L (137-145)
[2019-03-05] MEDS ORDERED: Potassium Replacement Protocol 1 EACH MISC MISCELLANE PRN (07:59)
[2019-03-05] MEDS: POTASSIUM CHLORIDE ER 20 MEQ TAB.ER PO SCH ×4 (08:45→22:43)
[2019-03-05] MEDS: NICOTINE 21MG/24HR PATCH TRANSDERM SCH (08:45)
[2019-03-05] MEDS: IPRATROPIUM-ALBUTEROL 3 ML NEB INHALATION SCH (09:07)
[2019-03-05] MEDS ORDERED: FUROSEMIDE 10 MG/ML 4 ML VIAL IV SCH (10:30)
[2019-03-05 10:40] LABS: Anisocytosis Slight; HCT 22.3 % (34.0-46.0); Hypochromasia Marked; MCH 27.5 pg (25.0-35.0); MCHC 29.8 g/dL (31.0-37.0); MCV 92.3 fL (80.0-100.0); Mean Platelet Volume 8.1; Platelet Count 313 k/uL (150-450); Poikilocytosis Slight; RBC 2.42 m/uL (3.80-5.40); RDW 16.2 % (11.5-15.5); WBC 8.2 k/uL (3.8-10.6)
[2019-03-05 10:46] LABS: HGB 6.7 gm/dL (11.4-16.0)
--- NOTE | 2019-03-05 10:55 | CONS ---
CONSULTATION DATE OF CONSULTATION: March 05, 2019 REASON FOR THE CONSULTATION: Shortness of breath/chest pain. HISTORY OF PRESENT ILLNESS: This is a 78-year-old female patient who is a somewhat poor historian with history of amputation of the toes on the right side, currently the patient does have dressing on the right foot, as well as history of hypertension and dyslipidemia who presented to the hospital because she was not feeling well. The patient stated that for the last 24 to 48 hours she was experiencing increasing shortness of breath. No symptoms of chest pain or chest discomfort. No dizziness or lightheadedness. No feeling of heart racing or fluttering. The troponin came in to be unremarkable. The EKG showed sinus rhythm with ST changes, seems to be concerning for left ventricular hypertrophy. On examination, the patient does have bilateral rhonchi. No lower extremities edema noted. The BNP came in around 7500. The chest x-ray showed bilateral pleural effusion. She was given a dose of Lasix yesterday, but currently she is not on any Lasix. PAST MEDICAL HISTORY: Past medical history includes: 1. Hypertension. 2. Dyslipidemia. PAST SURGICAL HISTORY: Amputation of the right toe. The exact etiology is unknown. PHYSICAL EXAMINATION: VITALS: Appeared to be stable. GENERAL APPEARANCE: She is not in any pain or distress. Blood work was reviewed and showed normal troponin. The chest x-ray showed bilateral pleural effusion. The BNP came in to be at 7500. ASSESSMENT: 1. Congestive heart failure exacerbation of unknown etiology at this point. 2. Hypertension. 3. Dyslipidemia. PLAN: 1. Start the patient on Lasix IV at 40 mg daily. 2. Continue monitoring the kidney function and electrolytes. 3. Obtain an echocardiogram with Doppler. 4. Follow up with the patient. MMODL / IJN: [id number] /
[2019-03-05 14:40] VITALS: BMI 19.1
--- NOTE | 2019-03-05 20:00 | P.HPIM ---
History of Present Illness H&P Date: 03/05/19 Chief Complaint: Chest pain, shortness of breath History of present complaint: This is a pleasant 78-year-old patient of Dr. Mcdaniels. Chronic stable medical conditions include hypertension, COPD, atrial flutter hyperlipidemia, cognitive impairment, coronary artery disease with stent. on December 07, 2018 had TIA. Patient then had a CT angiogram of the head and neck that was negative. 2-D echocardiogram was unremarkable. Patient was then admitted from December 16 through 12/24/2018.. Patient presented with acute on chronic peripheral artery disease with CT angiogram demonstrating acute vascular findings. The following day patient had TPA administered. Subsequently several angioplasties and thrombolytic was carried out. Patient was discharged on xarelto. Patient was having, pain in the left foot toes with signs of early gangrene when she left the hospital. She gone to rehab.Readmitted and On January 04 patient was taken down to the operating room by Dr. Pace for trans metatarsal amputation of the left foot. Patient lives alone and has home help. In the ER she stated she had some chest pain. Unclear to the nature and duration. Earlier to the cardiology she had mentioned that she was short of breath. Tired. Patient is of the forgetful. One of patient's daughter the bedside. Appetite has been okay. At baseline weak and tired. Does use a walker. Review of systems: GEN.: Tired EYES: None HEENT: Decreased hearing NECK: None RESPIRATORY: Some shortness of breath CARDIOVASCULAR: Questionable chest pain GASTROINTESTINAL: None GENITOURINARY: None MUSCULOSKELETAL: Occasional joint pains, rest as above LYMPHATICS: None HEMATOLOGICAL: None PSYCHIATRY: Forgetful NEUROLOGICAL: Uses a walker Past medical history to include: Hypertension, hyperlipidemia, coronary artery disease with stent, TIA, acute on chronic lower extremity thrombosis, arterial, with TPA and thrombus extraction and angioplasty., Cognitive impairment, atrial flutter, COPD Social history: Patient had been a smoker few weeks ago.. Lives at home with home help Family history: Reviewed, noncontributory to presentation Physical examination: VITAL SIGNS: 97.7, 70, 22, 130/70, 95% room air GENERAL: BMI 19.1, laying in bed awake EYES: Pupils equal. Conjunctiva pale HEENT: External appearance of nose and ears normal, oral cavity grossly normal. NECK: JVD not raised; masses not palpable. HEART: First and second heart sounds are normal; no edema. LUNGS: Respiratory rate normal; decreased breath sounds ABDOMEN: Soft, nontender, liver spleen not palpable, no masses palpable. PSYCH: Awake, able to do simple questions NEUROLOGICAL: Cranial nerves grossly intact; no facial asymmetry, power and sensation grossly intact. EXTREMITIES: Dressing over the left foot MUSCULOSKELETAL: Evidence of significant evidence of RA in the hands INVESTIGATIONS, reviewed in the clinical context:: White count 12 hemoglobin 7.3 progression 3.7 bun 12 creatinine 0.5 9 repeat hemoglobin 6.7 ProBNP 7500 albumin 2.7 Influenza both type A and type B negative EKG tracing personally reviewed by me-normal sinus rhythm nonspecific T-wave changes Chest x-ray film personally reviewed by me-pulmonary edema with fluid in the fissure Assessment: -Acute congestive heart failure exacerbation, EF not known -Symptomatic anemia, requiring blood transfusion - COPD in her ex-smoker -Paroxysmal atrial flutter-fibrillation, rate controlled -Anemia of chronic disease - chronic occlusive disease arterial of the left lower extremity, recently and patient received thrombolytic, angioplasties and thrombus extraction -Hyperlipidemia -Coronary artery disease with stent -status post transmetatarsal amputation. Left foot - 01/04/2019 -Medical debility -Mild cognitive impairment Plan: Patient started on IV Lasix. We'll transfuse 1 unit of blood. Home medications resumed. Cardiology was consulted. Prognosis guarded. Follow electrolytes Past Medical History Past Medical History: Atrial Fibrillation, Coronary Artery Disease (CAD), COPD, CVA/TIA, Hyperlipidemia, Hypertension, Myocardial Infarction ([place]), Rheumatoid Arthritis (RA), Vascular Disorder Additional Past Medical History / Comment(s): Pt recently admitted to [facility] on 12/16/18 with L lower extremity critical limb ischemia. She had several angiograms/PTBAs and a stent placed. 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, RA in bilateral hands, Last Myocardial Infarction Date:: 2016 History of Any Multi-Drug Resistant Organisms: None Reported Past Surgical History: Hysterectomy Additional Past Surgical History / Comment(s): L lower extremity iliofemoral angiogram, aortoiliac angiogram, selective L popliteal tibial peroneal angiogra m, multiple PTBAs L leg/thrombolytics and a stent to the L common iliac artery, cardiac caths w/ stents Past Anesthesia/Blood Transfusion Reactions: No Reported Reaction, Motion Sickness Additional Past Anesthesia/Blood Transfusion Reaction / Comment(s): Pt recently received blood without reaction. Past Psychological History: Anxiety Additional Psychological History / Comment(s): pt living at home alone. per pt daughter she is doing well and can take care of herself. Smoking Status: Current every day smoker Past Alcohol Use History: None Reported Additional Past Alcohol Use History / Comment(s): Pt started smoking in 7. Past Drug Use History: None Reported - Past Family History Daughter(s) Family Medical History: Diabetes Mellitus Son(s) Family Medical History: Hyperlipidemia, Hypertension Mother Family Medical History: No Reported History Additional Family Medical History / Comment(s): Mother was healthy Father Family Medical History: Cancer Additional Family Medical History / Comment(s): Father of some form of cancer prior to pt being born. She does not know type of cancer. Medications and Allergies Home Medications Medication Instructions Recorded Confirmed Type Atorvastatin [Lipitor] 80 mg PO HS #30 tab 10/23/16 03/05/19 Rx Nitroglycerin Sl Tabs [Nitrostat] 0.4 mg SUBLINGUAL Q5M PRN #25 tab 10/23/16 03/05/19 Rx Albuterol Inhaler [Ventolin Hfa 2 puff INHALATION RT-Q6H PRN 12/16/18 03/05/19 History Inhaler] Ipratropium/Albuterol Sulfate 1 puff INHALATION RT-DAILY 12/16/18 03/05/19 History [Combivent Respimat Inhaler] Clopidogrel [Plavix] 75 mg PO HS 01/03/19 03/05/19 History Metoprolol Tartrate [Lopressor] 50 mg PO BID@0700,1600 01/03/19 03/05/19 History Rivaroxaban [Xarelto] 20 mg PO DAILY@199901/03/19 03/05/19 History Gabapentin [Neurontin] 300 mg PO TID@0700,1300,1900 #9 cap 11/22/19 01/18/20 Rx Naproxen Sodium [Aleve] 220 mg PO DAILY PRN 02/18/19 03/05/19 History Acetaminophen-Codeine 300-30mg 1 tab PO DAILY PRN 02/19/19 03/05/19 History [Tylenol w/codeine #3] Losartan [Cozaar] 25 mg PO Q24H #30 tab 02/24/19 03/05/19 Rx Nicotine 21Mg/24Hr Patch [Habitrol] 1 patch TRANSDERM DAILY #14 patch 02/24/19 03/05/19 Rx Allergies Allergy/AdvReac Type Severity Reaction Status Date / Time No Known Allergies Allergy Verified 03/05/19 10:28 Physical Exam Vitals: Vital Signs Temp Pulse Pulse Resp BP BP Pulse Ox 03/05/19 08:49 97.7 F 81 16 124/57 98 03/05/19 04:45 97.7 F 71 20 120/50 98 03/05/19 03:00 81 24 118/76 97 03/05/19 02:00 98.1 F 84 24 117/52 98 03/05/19 01:00 88 24 129/88 97 03/05/19 00:48 90 24 156/69 97 03/04/19 23:49 90 24 125/88 97 03/04/19 23:47 98 03/04/19 23:39 96 03/04/19 23:14 26 H 03/04/19 22:49 89 24 121/94 96 03/04/19 22:44 97.7 F 70 22 130/70 95 Intake and Output 03/04/19 03/05/19 03/05/19 22:59 06:59 14:59 Output Total 1475 Balance -1475 Output: Urine 1475 Other: Voiding Method Bedpan Bedpan # Voids 1 Weight 47.491 kg 47.491 kg Results CBC & Chem 7: 03/05/19 10:25 03/05/19 16:58 Labs: Abnormal Lab Results - Last 24 Hours (Table) 03/04/19 03/04/19 03/04/19 Range/Units 23:08 23:08 23:08 WBC 12.0 H (3.8-10.6) k/uL RBC 2.55 L (3.80-5.40) m/uL Hgb 7.3 L (11.4-16.0) gm/dL Hct 23.6 L (34.0-46.0) % MCHC (31.0-37.0) g/dL RDW 15.6 H (11.5-15.5) % Neutrophils # 9.9 H (1.3-7.7) k/uL D-Dimer 1.27 H (<0.60) mg/L FEU Sodium 136 L (137-145) mmol/L Potassium (3.5-5.1) mmol/L Glucose 152 H (74-99) mg/dL Calcium (8.4-10.2) mg/dL Alkaline Phosphatase 200 H (38-126) U/L C-Reactive Protein 86.5 H (<10.0) mg/L Total Protein 5.8 L (6.3-8.2) g/dL Albumin 2.7 L (3.5-5.0) g/dL Urine Appearance (Clear) Urine Protein (Negative) Urine Ketones (Negative) Ur Leukocyte Esterase (Negative) Urine WBC (0-5) /hpf Ur Squamous Epith Cells (0-4) /hpf Urine Mucus (None) /hpf 03/05/19 03/05/19 03/05/19 Range/Units 02:35 05:29 06:48 WBC (3.8-10.6) k/uL RBC 2.71 L (3.80-5.40) m/uL Hgb 7.6 L (11.4-16.0) gm/dL Hct 25.0 L (34.0-46.0) % MCHC 30.5 L (31.0-37.0) g/dL RDW 16.2 H (11.5-15.5) % Neutrophils # (1.3-7.7) k/uL D-Dimer (<0.60) mg/L FEU Sodium (137-145) mmol/L Potassium 3.1 L (3.5-5.1) mmol/L Glucose 144 H (74-99) mg/dL Calcium 8.2 L (8.4-10.2) mg/dL Alkaline Phosphatase (38-126) U/L C-Reactive Protein (<10.0) mg/L Total Protein (6.3-8.2) g/dL Albumin (3.5-5.0) g/dL Urine Appearance Cloudy H (Clear) Urine Protein Trace H (Negative) Urine Ketones Trace H (Negative) Ur Leukocyte Esterase Moderate H (Negative) Urine WBC 9 H (0-5) /hpf Ur Squamous Epith Cells 32 H (0-4) /hpf Urine Mucus Occasional H (None) /hpf 03/05/19 Range/Units 10:25 WBC (3.8-10.6) k/uL RBC 2.42 L (3.80-5.40) m/uL Hgb 6.7 L* (11.4-16.0) gm/dL Hct 22.3 L (34.0-46.0) % MCHC 29.8 L (31.0-37.0) g/dL RDW 16.2 H (11.5-15.5) % Neutrophils # (1.3-7.7) k/uL D-Dimer (<0.60) mg/L FEU Sodium (137-145) mmol/L Potassium (3.5-5.1) mmol/L Glucose (74-99) mg/dL Calcium (8.4-10.2) mg/dL Alkaline Phosphatase (38-126) U/L C-Reactive Protein (<10.0) mg/L Total Protein (6.3-8.2) g/dL Albumin (3.5-5.0) g/dL Urine Appearance (Clear) Urine Protein (Negative) Urine Ketones (Negative) Ur Leukocyte Esterase (Negative) Urine WBC (0-5) /hpf Ur Squamous Epith Cells (0-4) /hpf Urine Mucus (None) /hpf Microbiology - Last 24 Hours (Table) 03/04/19 23:08 Gram Stain - Preliminary Foot - Left Wound Culture - Preliminary 03/05/19 23:52 Anaerobic Culture - Preliminary Foot - Left Thrombosis Risk Factor Assmnt - Choose All That Apply Each Factor Represents 1 point: Abnormal pulmonary function (COPD), Medical pt on bed rest Each Risk Factor Represents 3 Points: Age 75 years or older Thrombosis Risk Factor Assessment Total Risk Factor Score: 5 Thrombosis Risk Factor Assessment Level: High Risk
[2019-03-05] MEDS: RIVAROXABAN 20 MG TAB PO SCH (20:48)
[2019-03-05] MEDS: CLOPIDOGREL 75 MG TAB PO SCH (21:14)
[2019-03-05] MEDS: ATORVASTATIN 80 MG TAB PO SCH (21:15)
[2019-03-05] MEDS: FUROSEMIDE 10 MG/ML 4 ML VIAL IV SCH (21:15)
[2019-03-06] MEDS: LOSARTAN 25 MG TAB PO SCH (06:11)
[2019-03-06] MEDS: GABAPENTIN 300 MG CAP PO SCH ×3 (06:11→16:58)
[2019-03-06] MEDS: METOPROLOL TARTRATE 50 MG TAB PO SCH ×2 (06:11→16:58)
[2019-03-06 06:35] LABS: Anisocytosis Slight; Basophils % (A) 0 %; Eosinophils # (A) 0.2 k/uL (0-0.7); Eosinophils % (A) 2 %; HCT 30.2 % (34.0-46.0); Hypochromasia Marked; Lymphocytes # (A) 2.1 k/uL (1.0-4.8); Lymphocytes % (A) 25 %; MCH 27.7 pg (25.0-35.0); MCHC 31.4 g/dL (31.0-37.0); MCV 88.4 fL (80.0-100.0); Monocytes # (A) 0.6 k/uL (0-1.0); Monocytes % (A) 7 %; Neutrophils # (A) 5.2 k/uL (1.3-7.7); Neutrophils % (A) 63 %; Platelet Count 320 k/uL (150-450); Poikilocytosis Moderate; RBC 3.42 m/uL (3.80-5.40); RDW 17.6 % (11.5-15.5); WBC 8.2 k/uL (3.8-10.6)
[2019-03-06 06:43] LABS: African American GFR (CKD) >90 (>60 ml/min/1.73 sqM); Anion Gap 4 mmol/L; Blood Urea Nitrogen 9 mg/dL (7-17); Calcium 8.3 mg/dL (8.4-10.2); Carbon Dioxide 29 mmol/L (22-30); Chloride 104 mmol/L (98-107); Glucose 104 mg/dL (74-99); HGB 9.5 gm/dL (11.4-16.0); Non-African American GFR(CKD) 87 (>60 ml/min/1.73 sqM); Potassium 4.3 mmol/L (3.5-5.1); Sodium 137 mmol/L (137-145)
[2019-03-06] MEDS: IPRATROPIUM-ALBUTEROL 3 ML NEB INHALATION SCH (08:18)
[2019-03-06] MEDS: NICOTINE 21MG/24HR PATCH TRANSDERM SCH (08:45)
[2019-03-06] MEDS: FUROSEMIDE 10 MG/ML 4 ML VIAL IV SCH ×2 (08:45→21:45)
--- NOTE | 2019-03-06 12:25 | P.PN ---
Subjective Progress Note Date: 03/06/19 Principal diagnosis: Long-standing persistent atrial fibrillation This is a 78-year-old female patient with a past medical history significant for long-standing persistent atrial fibrillation on oral anticoagulation, hypertension, dyslipidemia, and history of amputation of the right metatarsal for unknown etiology at this point, presented to the hospital because she was not feeling well. The patient somewhat is a poor historian. Apparently she was feeling tired and fatigued and has no energy. Also she was experiencing symptoms of increasing in the shortness of breath. She was diagnosed with congestive heart failure and started on Lasix. Subsequently her hemoglobin is dropped to 6.3 and she received one unit of packed RBC. She stated that she never had any blood in the stool or any black stool. The patient currently is on oral anticoagulation with Xarelto and also she is on antiplatelet with Plavix. She was seen this morning. She continues to feel weak. She denies any symptoms of chest pain or chest discomfort. She continues to be on Lasix IV. The crea tinine continues to be stable. She underwent an echocardiogram which will follow-up with. Objective - Vital Signs Vital signs: Vital Signs Temp 97.8 F 03/06/19 08:52 Pulse 72 03/06/19 08:52 Resp 16 03/06/19 08:52 BP 109/56 03/06/19 08:52 Pulse Ox 98 03/06/19 08:52 Intake & Output 03/05/19 03/06/19 03/06/19 18:59 06:59 18:59 Intake Total 480 310 237 Output Total 850 2150 551 Balance -370 -6851 -314 Weight 47.491 kg 45.2 kg Intake: Oral 480 237 Blood Product 0 310 Rc As-1 Unit 0 310 [id number] Output: Urine 850 2150 551 Other: Voiding Method Bedpan Bedpan Bedpan # Voids 3 1 400 # Bowel Movements 1 - Constitutional General appearance: Present: no acute distress - Respiratory Respiratory: bilateral: diminished - Cardiovascular Rhythm: irregularly irregular Heart sounds: normal: S1, S2 - Labs CBC & Chem 7: 03/06/19 05:59 03/06/19 05:59 Labs: Abnormal Lab Results - Last 24 Hours (Table) 03/04/19 03/06/19 03/06/19 Range/Units 23:08 05:59 05:59 RBC 3.42 L (3.80-5.40) m/uL Hgb 9.5 L D (11.4-16.0) gm/dL Hct 30.2 L (34.0-46.0) % RDW 17.6 H (11.5-15.5) % Glucose 104 H (74-99) mg/dL Calcium 8.3 L (8.4-10.2) mg/dL Crossmatch See Detail Microbiology - Last 24 Hours (Table) 03/05/19 02:08 Blood Culture - Preliminary Blood No Growth after 24 hours 03/04/19 23:08 Gram Stain - Preliminary Foot - Left Wound Culture - Preliminary Presumptive Staph aureus Strep agalactiae - (group b) Assessment and Plan Assessment: Assessment #1 long-standing persistent atrial fibrillation was controlled heart rate #2 congestive heart failure exacerbation, mild, of unknown etiology at this point #3 anemia, of unknown etiology, rule out blood loss anemia and GI bleeding Plan #1 I would suggest obtain a GI consult #2 continue IV Lasix for additional 24 hours #3 continue monitoring the kidney function and electrolytes #4 follow-up on the echocardiogram
--- NOTE | 2019-03-06 18:48 | P.CONS ---
History of Present Illness - Reason for Consult Consult date: 03/06/19 Anemia Requesting physician: Wali Victor - Chief Complaint Weakness, shortness of breath - History of Present Illness 78-year-old female with a medical history significant for hypertension, COPD, atrial flutter, hyperlipidemia, cognitive impairment, coronary artery disease with stent placement, chronic peripheral artery disease with prior amputation who presented to the hospital with complaints of weakness and shortness of breath. Patient was previously seen and had an EGD on 01/06/19. The patient was offered colonoscopy at that time but refused to perform the prep. She reported that she would follow-up for the procedure but has failed to do so. She is currently on dual antiplatelet therapy with Plavix and anticoagulation therapy with Xarelto. The patient has had oozing of blood from her recent wound. She also continues to report intermittent bright red blood per rectum mainly with wiping. She has tolerated her diet. No nausea or vomiting. No abdominal pain reported. She continues to reiterate that she is unwilling to perform a colon prep. On presentation hemoglobin found to be 7.3 subsequently fell to 6.7 and is 9.5 today after 1 unit of PRBCs. Review of Systems REVIEW OF SYSTEMS: CONSTITUTIONAL: Denies any fevers, chills, weight change but she has reported generalized weakness and fatigue. CARDIOVASCULAR: Denies any chest pain, palpitations high or low blood pressures, but she does have a known history of cardiac bladder. RESPIRATORY: Denies any hemoptysis or cough has had some shortness of breath. GENITOURINARY: No dysuria or hematuria. MUSCULOSKELETAL: No focal weakness reported. SKIN: Denies any new rashes or lesions, jaundice or pallor. PSYCHIATRIC: Denies any depression or anxiety. NEUROLOGY: Denies headache, denies any new focal deficits, but does have memory impairment at baseline. EARS/NOSE/THROAT: No recent hearing change, congestion, nasal discharge or sore throat. EYES: No pain in eyes, discharge or change in vision. GASTROINTESTINAL: As per HPI. Past Medical History Past Medical History: Atrial Fibrillation, Coronary Artery Disease (CAD), COPD, CVA/TIA, Hyperlipidemia, Hypertension, Myocardial Infarction ([place]), Rheumatoid Arthritis ([place]), Vascular Disorder Additional Past Medical History / Comment(s): Pt recently admitted to [facility] on 12/16/18 with L lower extremity critical limb ischemia. She had several angiograms/PTBAs and a stent placed. 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, RA in bilateral hands, Last Myocardial Infarction Date:: 2016 History of Any Multi-Drug Resistant Organisms: None Reported Past Surgical History: Hysterectomy Additional Past Surgical History / Comment(s): L lower extremity iliofemoral angiogram, aortoiliac angiogram, selective L popliteal tibial peroneal angiogram, multiple PTBAs L leg/thrombolytics and a stent to the L common iliac artery, 2006/2016 cardiac caths w/ stents Past Anesthesia/Blood Transfusion Reactions: No Reported Reaction, Motion Sickness Additional Past Anesthesia/Blood Transfusion Reaction / Comm: Pt recently received blood without reaction. Past Psychological History: Anxiety Additional Psychological History / Comment(s): pt living at home alone. per pt daughter she is doing well and can take care of herself. Smoking Status: Current every day smoker Past Alcohol Use History: None Reported Additional Past Alcohol Use History / Comment(s): Pt started smoking in 1957. Past Drug Use History: None Reported - Past Family History Daughter(s) Family Medical History: Diabetes Mellitus Son(s) Family Medical History: Hyperlipidemia, Hypertension Mother Family Medical History: No Reported History Additional Family Medical History / Comment(s): Mother was healthy Father Family Medical History: Cancer Additional Family Medical History / Comment(s): Father of some form of cancer prior to pt being born. She does not know type of cancer. Medications and Allergies Home Medications Medication Instructions Recorded Confirmed Type Atorvastatin [Lipitor] 80 mg PO HS #30 tab 10/23/16 03/05/19 Rx Nitroglycerin Sl Tabs [Nitrostat] 0.4 mg SUBLINGUAL Q5M PRN #25 tab 10/23/16 03/05/19 Rx Albuterol Inhaler [Ventolin Hfa 2 puff INHALATION RT-Q6H PRN 12/16/18 03/05/19 History Inhaler] Ipratropium/Albuterol Sulfate 1 puff INHALATION RT-DAILY 12/16/18 03/05/19 History [Combivent Respimat Inhaler] Clopidogrel [Plavix] 75 mg PO HS 01/03/19 03/05/19 History Metoprolol Tartrate [Lopressor] 50 mg PO BID@0700,1600 01/03/19 03/05/19 History Rivaroxaban [Xarelto] 20 mg PO DAILY@199901/03/19 03/05/19 History Gabapentin [Neurontin] 300 mg PO TID@0700,1300,1900 #9 cap 01/07/19 03/05/19 Rx Naproxen Sodium [Aleve] 220 mg PO DAILY PRN 02/18/19 03/05/19 History Acetaminophen-Codeine 300-30mg 1 tab PO DAILY PRN 02/19/19 03/05/19 History [Tylenol w/codeine #3] Losartan [Cozaar] 25 mg PO Q24H #30 tab 02/24/19 03/05/19 Rx Nicotine 21Mg/24Hr Patch [Habitrol] 1 patch TRANSDERM DAILY #14 patch 02/24/19 03/05/19 Rx Allergies Allergy/AdvReac Type Severity Reaction Status Date / Time No Known Allergies Allergy Verified 03/05/19 10:28 Physical Exam Vitals: Vital Signs Temp Pulse Pulse Resp BP BP Pulse Ox 03/06/19 08:52 97.8 F 72 16 109/56 98 03/06/19 05:00 98.7 F 92 16 122/58 97 03/05/19 23:00 98.2 F 90 16 110/72 99 03/05/19 20:30 97.7 F 79 16 132/68 95 03/05/19 20:00 98.3 F 93 18 130/60 98 03/05/19 17:13 97.8 F 81 16 121/64 99 03/05/19 16:43 97.7 F 76 16 123/87 96 03/05/19 16:33 97.9 F 78 16 117/56 98 03/05/19 16:00 97.9 F 76 16 123/87 96 Intake and Output 03/05/19 03/06/19 03/06/19 22:59 06:59 14:59 Intake Total 550 237 Output Total 2300 700 551 Balance -9536 -700 -225 Intake: Oral 240 237 Blood Product 310 Rc As-1 Unit 310 [id number] Output: Urine 2300 700 551 Other: Voiding Method Bedpan Bedpan Bedpan # Voids 1 1 400 # Bowel Movements 1 Weight 45.2 kg On physical examination, patient appears comfortable in no apparent distress. HEAD: Normocephalic, atraumatic. EYES: No scleral icterus. No conjunctival injection. MOUTH: No lesions, tongue midline. NECK: Trachea midline, no gross abnormalities. CHEST: Decreased air entry in all lung trevino. HEART: S1-S2 appreciated. ABDOMEN: Soft, thin and nontender to palpation. Bowel sounds are positive. No organomegaly. No guarding or rigidity. EXTREMITIES: No pedal edema. SKIN: No rashes, no jaundice. NEUROLOGIC: Alert and oriented to person and place. Results CBC & Chem 7: 03/06/19 05:59 03/06/19 05:59 Labs: Abnormal Lab Results - Last 24 Hours (Table) 03/04/19 03/06/19 03/06/19 Range/Units 23:08 05:59 05:59 RBC 3.42 L (3.80-5.40) m/uL Hgb 9.5 L D (11.4-16.0) gm/dL Hct 30.2 L (34.0-46.0) % RDW 17.6 H (11.5-15.5) % Glucose 104 H (74-99) mg/dL Calcium 8.3 L (8.4-10.2) mg/dL Crossmatch See Detail Microbiology - Last 24 Hours (Table) 03/05/19 02:08 Blood Culture - Preliminary Blood No Growth after 24 hours 03/04/19 23:08 Gram Stain - Preliminary Foot - Left Wound Culture - Preliminary Presumptive Staph aureus Strep agalactiae - (group b) CT scan - chest: report reviewed (No evidence of PE on chest CTA.) Assessment and Plan (1) Normocytic hypochromic anemia Narrative/Plan: 78-year-old female with multiple medical comorbidities currently on antiplatelet therapy with Plavix and anticoagulation therapy was Xarelto presented to the hospital with weakness and shortness of breath. Previously the patient was found to be anemic and underwent an EGD with findings of mild antritis. Colonoscopy had been offered at that time the patient had refused colon prep. Currently she is denying any significant GI bleeding with no hematemesis, coffee-ground emesis or copious bright red blood per rectum. She does occasionally note some right red blood with wiping on the toilet paper. She was again offered colonoscopic evaluation but is refusing to do the prep. Will order full laboratory evaluation of anemia. Current Visit: Yes Status: Acute Code(s): D50.9 - IRON DEFICIENCY ANEMIA, UNSPECIFIED SNOMED Code(s): 39337754 (2) Mild chronic gastritis Current Visit: Yes Status: Acute Code(s): K29.50 - UNSPECIFIED CHRONIC GASTRITIS WITHOUT BLEEDING SNOMED Code(s): 6439036 Plan: Supportive care Monitor hemoglobin and hematocrit and transfuse as needed Continue to monitor for signs or symptoms of GI bleeding Iron studies, vitamin B12, folate and reticulocyte counts ordered Patient off for colonoscopy during current hospital stay but is refusing Protonix daily added given gastritis on prior EGD Thank you for allowing us to participate in the care of the patient
--- NOTE | 2019-03-06 20:00 | P.PN ---
Progress Note - Text Progress Note Date: 03/06/19 Chief Complaint: Chest pain, shortness of breath Interval history: This is a pleasant 78-year-old patient of Dr. Mcdaniels. Chronic stable medical conditions include hypertension, COPD, atrial flutter hyperlipidemia, cognitive impairment, coronary artery disease with stent. on December 07, 2018 had TIA. Patient then had a CT angiogram of the head and neck that was negative. 2-D echocardiogram was unremarkable. Patient was then admitted from December 16 through 12/24/2018.. Patient presented with acute on chronic peripheral artery disease with CT angiogram demonstrating acute vascular findings. The following day patient had TPA administered. Subsequently several angioplasties and thrombolytic was carried out. Patient was discharged on xarelto. Patient was having, pain in the left foot toes with signs of early gangrene when she left the hospital. She gone to rehab.Readmitted and On January 04 patient was taken down to the operating room by Dr. Pace for trans metatarsal amputation of the left foot. Patient lives alone and has home help. In the ER she stated she had some chest pain. Unclear to the nature and duration. Earlier to the cardiology she had mentioned that she was short of breath. Tired. Patient is of the forgetful. One of patient's daughter the bedside. Appetite has been okay. At baseline weak and tired. Does use a walker. Admitted with CHF exacerbation. Also found to have significant anemia. Given IV Lasix. Transfuse 1 units of blood. Today-laying in bed. Daughter at the bedside. Feeling better. Breathing improved. Review of systems: Was done for constitutional, cardiovascular, GI, pulmonary. relevant finding as above Active Medications Acetaminophen/Codeine Phosphate (Tylenol #3) 1 each PO DAILY PRN PRN Reason: Pain Albuterol Sulfate (Ventolin Nebulized) 2.5 mg INHALATION RT-Q6H PRN PRN Reason: Shortness Of Breath Albuterol/Ipratropium (Duoneb 0.5 Mg-3 Mg/3 Ml Soln) 3 ml INHALATION RT-DAILY [facility] Last Admin: 03/06/19 08:18 Dose: Not Given Documented by: Atorvastatin Calcium (Lipitor) 80 mg PO [facility] Last Admin: 03/05/19 21:15 Dose: 80 mg Documented by: Clopidogrel Bisulfate (Plavix) 75 mg PO [facility] Last Admin: 03/05/19 21:14 Dose: 75 mg Documented by: Furosemide (Lasix) 40 mg IV Q12HR [facility] Last Admin: 03/06/19 08:45 Dose: 40 mg Documented by: Gabapentin (Neurontin) 300 mg PO TID@0700,1300,1900 [facility] Last Admin: 03/06/19 16:58 Dose: 300 mg Documented by: Losartan Potassium (Cozaar) 25 mg PO Q24H [facility] Last Admin: 03/06/19 06:11 Dose: 25 mg Documented by: Metoprolol Tartrate (Lopressor) 50 mg PO BID@0700,1600 [facility] Last Admin: 03/06/19 16:58 Dose: 50 mg Documented by: Miscellaneous Information (Potassium Per Protocol) 1 each MISCELLANE DAILY PRN; Protocol PRN Reason: Per Protocol Naloxone HCl (Narcan) 0.2 mg IV Q2M PRN PRN Reason: Opioid Reversal Nicotine (Habitrol 21mg/24hr Patch) 1 patch TRANSDERM DAILY [facility] Last Admin: 03/06/19 08:45 Dose: 1 patch Documented by: Pantoprazole Sodium (Protonix) 40 mg PO AC-BRKFST [facility] Rivaroxaban (Xarelto) 20 mg PO DAILY@1999 [facility] Last Admin: 03/05/19 20:48 Dose: Not Given Documented by: Physical examination: VITAL SIGNS: 97.9, 79, 16, 100/52, 97% room air GENERAL: Laying bed, comfortable EYES: Pupils equal. Conjunctiva pale HEENT: External appearance of nose and ears normal, oral cavity grossly normal. NECK: JVD not raised; masses not palpable. HEART: First and second heart sounds are normal; no edema. LUNGS: Respiratory rate normal; decreased breath sounds ABDOMEN: Soft, nontender, liver spleen not palpable, no masses palpable. PSYCH: Awake, able to do simple questions EXTREMITIES: Dressing over the left foot MUSCULOSKELETAL: Evidence of significant evidence of RA in the hands INVESTIGATIONS, reviewed in the clinical context:: Hemoglobin 9.5 creatinine 0.61 Previous testing White count 12 hemoglobin 7.3 progression 3.7 bun 12 creatinine 0.5 9 repeat hemoglobin 6.7 ProBNP 7500 albumin 2.7 Influenza both type A and type B negative EKG tracing personally reviewed by me-normal sinus rhythm nonspecific T-wave changes Chest x-ray film personally reviewed by me-pulmonary edema with fluid in the fissure Assessment: -Acute congestive heart failure exacerbation, EF not known, much improved -Symptomatic anemia, requiring one unit blood transfusion - COPD in her ex-smoker -Paroxysmal atrial flutter-fibrillation, rate controlled -Anemia of chronic disease - chronic occlusive disease arterial of the left lower extremity, recently and patient received thrombolytic, angioplasties and thrombus extraction -Hyperlipidemia -Coronary artery disease with stent -status post transmetatarsal amputation. Left foot - 01/04/2019 -Medical debility -Mild cognitive impairment Plan: Patient should be able to be switched over to oral Lasix tomorrow. GI was consulted. Patient did have a EGD in December. Patient has declined colonoscopy. Continue with PPI.
[2019-03-06] MEDS: RIVAROXABAN 20 MG TAB PO SCH (21:45)
[2019-03-06] MEDS: CLOPIDOGREL 75 MG TAB PO SCH (21:45)
[2019-03-06] MEDS: ATORVASTATIN 80 MG TAB PO SCH (21:45)
[2019-03-07 05:47] LABS: Reticulocyte % 2.7 % (0.5-2.0)
[2019-03-07 05:55] LABS: African American GFR (CKD) >90 (>60 ml/min/1.73 sqM); Anion Gap 5 mmol/L; Blood Urea Nitrogen 12 mg/dL (7-17); Calcium 8.8 mg/dL (8.4-10.2); Carbon Dioxide 31 mmol/L (22-30); Chloride 100 mmol/L (98-107); Glucose 124 mg/dL (74-99); Non-African American GFR(CKD) 86 (>60 ml/min/1.73 sqM); Potassium 3.6 mmol/L (3.5-5.1); Sodium 136 mmol/L (137-145)
[2019-03-07] MEDS: PANTOPRAZOLE 40 MG TABLET PO SCH (06:38)
[2019-03-07] MEDS: LOSARTAN 25 MG TAB PO SCH ×2 (06:38→09:30)
[2019-03-07] MEDS: GABAPENTIN 300 MG CAP PO SCH ×3 (06:38→18:18)
[2019-03-07 08:23] LABS: Anisocytosis Slight; HCT 32.8 % (34.0-46.0); Hypochromasia Marked; MCH 27.1 pg (25.0-35.0); MCHC 30.5 g/dL (31.0-37.0); Mean Platelet Volume 8.3; Platelet Count 320 k/uL (150-450); Poikilocytosis Slight; RBC 3.68 m/uL (3.80-5.40); RDW 17.8 % (11.5-15.5); WBC 9.4 k/uL (3.8-10.6)
[2019-03-07] MEDS: FUROSEMIDE 10 MG/ML 4 ML VIAL IV SCH (08:50)
[2019-03-07] MEDS: METOPROLOL TARTRATE 50 MG TAB PO SCH ×2 (08:50→16:13)
[2019-03-07] MEDS: NICOTINE 21MG/24HR PATCH TRANSDERM SCH (08:52)
[2019-03-07] MEDS: IPRATROPIUM-ALBUTEROL 3 ML NEB INHALATION SCH (09:55)
--- NOTE | 2019-03-07 11:25 | P.GSCN ---
History of Present Illness Consult date: 03/07/19 History of present illness: The patient is a 70-year-old female with medical history significant for hypertension, COPD, atrial flutter, hyperlipidemia, cognitive impairment, coronary artery disease with stent placement, chronic peripheral arterial disease with prior left transmetatarsal amputation for by Dr. Pace in December 2018, and a left calcaneal pressure ulcer. The patient came by EMS to the emergency department 3 days ago with complaints of chest pain. The patient was recently discharged from the hospital, and went home despite recommendations for extended care facility treatment. Patient was to follow-up with outpatient wound care with Dr. Alvarado, however patient states that she has not gone to wound care since being discharged. The patient reports increased pain and drainage from the left heel pressure ulcer. Cultures have been obtained from the left heel pressure ulcer, with preliminary report showing MRSA infection. She denies chest pain at this time,does state that she has some mild shortness of breath. The patient denies any fever or chills, and has remained afebrile. Review of Systems Review of systems completed, all pertinent positives and negatives as stated in HPI. Past Medical History Past Medical History: Atrial Fibrillation, Coronary Artery Disease (CAD), COPD, CVA/TIA, Hyperlipidemia, Hypertension, Myocardial Infarction (NV), Rheumatoid A rthritis (RA), Vascular Disorder Additional Past Medical History / Comment(s): Pt recently admitted to [facility] on 12/16/18 with L lower extremity critical limb ischemia. She had several angiograms/PTBAs and a stent placed. 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, RA in bilateral hands, Last Myocardial Infarction Date:: 2016 History of Any Multi-Drug Resistant Organisms: None Reported Past Surgical History: Hysterectomy Additional Past Surgical History / Comment(s): L lower extremity iliofemoral angiogram, aortoiliac angiogram, selective L popliteal tibial peroneal angiogram, multiple PTBAs L leg/thrombolytics and a stent to the L common iliac artery, 2006/2016 cardiac caths w/ stents Past Anesthesia/Blood Transfusion Reactions: No Reported Reaction, Motion Sickness Additional Past Anesthesia/Blood Transfusion Reaction / Comm: Pt recently received blood without reaction. Past Psychological History: Anxiety Additional Psychological History / Comment(s): pt living at home alone. per pt daughter she is doing well and can take care of herself. Smoking Status: Current every day smoker Past Alcohol Use History: None Reported Additional Past Alcohol Use History / Comment(s): Pt started smoking in 1956. Past Drug Use History: None Reported - Past Family History Daughter(s) Family Medical History: Diabetes Mellitus Son(s) Family Medical History: Hyperlipidemia, Hypertension Mother Family Medical History: No Reported History Additional Family Medical History / Comment(s): Mother was healthy Father Family Medical History: Cancer Additional Family Medical History / Comment(s): Father of some form of cancer prior to pt being born. She does not know type of cancer. Medications and Allergies Home Medications Medication Instructions Recorded Confirmed Type Atorvastatin [Lipitor] 80 mg PO HS #30 tab 10/23/16 03/05/19 Rx Nitroglycerin Sl Tabs [Nitrostat] 0.4 mg SUBLINGUAL Q5M PRN #25 tab 10/23/16 03/05/19 Rx Albuterol Inhaler [Ventolin Hfa 2 puff INHALATION RT-Q6H PRN 12/16/18 03/05/19 History Inhaler] Ipratropium/Albuterol Sulfate 1 puff INHALATION RT-DAILY 12/16/18 03/05/19 History [Combivent Respimat Inhaler] Clopidogrel [Plavix] 75 mg PO HS 01/03/19 03/05/19 History Metoprolol Tartrate [Lopressor] 50 mg PO BID@0700,1600 01/03/19 03/05/19 History Rivaroxaban [Xarelto] 20 mg PO DAILY@199901/03/19 03/05/19 History Gabapentin [Neurontin] 300 mg PO TID@0700,1300,1900 #9 cap 01/07/19 03/05/19 Rx Naproxen Sodium [Aleve] 220 mg PO DAILY PRN 02/18/19 03/05/19 History Acetaminophen-Codeine 300-30mg 1 tab PO DAILY PRN 02/19/19 03/05/19 History [Tylenol w/codeine #3] Losartan [Cozaar] 25 mg PO Q24H #30 tab 02/24/19 03/05/19 Rx Nicotine 21Mg/24Hr Patch [Habitrol] 1 patch TRANSDERM DAILY #14 patch 02/24/19 03/05/19 Rx Allergies Allergy/AdvReac Type Severity Reaction Status Date / Time No Known Allergies Allergy Verified 03/05/19 10:28 Surgical - Exam Vital Signs Temp Pulse Resp BP Pulse Ox 97.7 F 70 22 130/70 95 03/04/19 22:44 03/04/19 22:44 03/04/19 22:44 03/04/19 22:44 03/04/19 22:44 General appearance: The patient is alert, oriented, in no acute distress. HET: Head is normocephalic and atraumatic. Neck: Supple Heart: S1 S2. Regular rate and rhythm. Lungs: No crackles or wheezes are heard. Extremities: Normal skin color and turgor. No edema bilaterally, warm to the touch. Left lower extremity with monophasic DP and PT doppler signals, transmetarsal amputation with slough in granulation seen within the wound bed. Left calcaneus ulceration with purulent drainage. Neurological: No focal deficits. Results - Labs 03/07/19 05:10 03/07/19 05:15 Abnormal Lab Results - Last 24 Hours (Table) 03/07/19 03/07/19 03/07/19 Range/Units 05:10 05:10 05:15 RBC 3.68 L (3.80-5.40) m/uL Hgb 10.0 L (11.4-16.0) gm/dL Hct 32.8 L (34.0-46.0) % MCHC 30.5 L (31.0-37.0) g/dL RDW 17.8 H (11.5-15.5) % Retic Count 2.7 H (0.5-2.0) % Sodium 136 L (137-145) mmol/L Carbon Dioxide 31 H (22-30) mmol/L Glucose 124 H (74-99) mg/dL Microbiology - Last 24 Hours (Table) 03/05/19 02:08 Blood Culture - Preliminary Blood No Growth after 48 hours 03/04/19 23:08 Gram Stain - Preliminary Foot - Left Wound Culture - Preliminary Presumptive MRSA Strep agalactiae - (group b) Diabetes panel 03/07/19 Range/Units 05:15 Sodium 136 L (137-145) mmol/L Potassium 3.6 (3.5-5.1) mmol/L Chloride 100 (98-107) mmol/L Carbon Dioxide 31 H (22-30) mmol/L BUN 12 (7-17) mg/dL Creatinine 0.65 (0.52-1.04) mg/dL Glucose 124 H (74-99) mg/dL Calcium 8.8 (8.4-10.2) mg/dL Calcium panel 03/07/19 Range/Units 05:15 Calcium 8.8 (8.4-10.2) mg/dL Pituitary panel 03/07/19 Range/Units 05:15 Sodium 136 L (137-145) mmol/L Potassium 3.6 (3.5-5.1) mmol/L Chloride 100 (98-107) mmol/L Carbon Dioxide 31 H (22-30) mmol/L BUN 12 (7-17) mg/dL Creatinine 0.65 (0.52-1.04) mg/dL Glucose 124 H (74-99) mg/dL Calcium 8.8 (8.4-10.2) mg/dL Adrenal panel 03/07/19 Range/Units 05:15 Sodium 136 L (137-145) mmol/L Potassium 3.6 (3.5-5.1) mmol/L Chloride 100 (98-107) mmol/L Carbon Dioxide 31 H (22-30) mmol/L BUN 12 (7-17) mg/dL Creatinine 0.65 (0.52-1.04) mg/dL Glucose 124 H (74-99) mg/dL Calcium 8.8 (8.4-10.2) mg/dL Assessment and Plan Assessment: Pressure ulcer of left heel Status post left transmetatarsal amputation Chronic peripheral vascular disease Tobacco abuse Plan: Recommend consult to infectious disease for antibiotic therapy for presumptive MRSA infection. Continue with recommendations per wound care management. Offload pressure to left heel. Further recommendations to follow. Thank you for this consultation, and allowing us to participate in the care of the patient during her hospital stay. The above dictated assessment and findings were discussed with Dr. Martin. The impression and plan of care have been directed as dictated.
[2019-03-07 11:35] LABS: Ferritin 82.6 ng/mL (10.0-291.0)
[2019-03-07 11:48] LABS: Folate, Serum 12.8 ng/mL; Iron 25 ug/dL (50-170); Total Iron Binding Capacity 284 ug/dL (228-460)
--- NOTE | 2019-03-07 12:16 | P.PN ---
Subjective Progress Note Date: 03/07/19 This is a 78-year-old female patient with a past medical history significant for long-standing persistent atrial fibrillation on oral anticoagulation, hypertension, dyslipidemia, and history of amputation of the right metatarsal for unknown etiology at this point, presented to the hospital because she was not feeling well. The patient somewhat is a poor historian. Apparently she was feeling tired and fatigued and has no energy. Also she was experiencing symptoms of increasing in the shortness of breath. She was diagnosed with congestive heart failure and started on Lasix. Subsequently her hemoglobin is dropped to 6.3 and she received one unit of packed RBC. She stated that she never had any blood in the stool or any black stool. The patient currently is on oral anticoagulation with Xarelto and also she is on antiplatelet with Plavix. This morning patient states that she started to have some diarrhea stools and she was feeling quite nauseated. Breathing overall is stable, she's lying flat in bed at the time of my examination with no evidence of any shortness of breath. Her echocardiogram remains pending. I pressure 108/60 with a heart rate in the 80s, 97% on room air. Sodium 136, potassium 3.6, BUN 12, creatinine 0.6. Objective - Vital Signs Vital signs: Vital Signs Temp 98.2 F 03/07/19 07:25 Pulse 77 03/07/19 11:51 Resp 16 03/07/19 11:51 BP 108/63 03/07/19 07:25 Pulse Ox 97 03/07/19 07:25 Intake & Output 03/06/19 03/07/19 03/07/19 18:59 06:59 18:59 Intake Total 711 160 Output Total 1153 600 400 Balance -442 -600 -240 Weight 43 kg Intake: IV 20 Invasive Line 2 20 Oral 711 140 Output: Urine 1153 600 400 Other: Voiding Method Bedpan Bedpan Bedpan # Voids 1 1 # Bowel Movements 1 - Exam PHYSICAL EXAMINATION: GENERAL: 78-year-old female in no acute distress at the time of my examination HEENT: Head is atraumatic, normocephalic. Pupils equal, round. Sclera anicteric. Conjunctiva are clear. Mucous membranes of the mouth are moist. Neck is supple. There is no elevated jugular venous pressure.No carotid bruit is heard. HEART EXAMINATION: Heart S1, S2 irregularly irregular . No murmur or gallop heard. CHEST EXAMINATION: Lungs are clear to auscultation and precussion. No chest wall tenderness is noted on palpation or with deep breathing. ABDOMEN: Soft, nontender. Bowel sounds are heard. No organomegaly noted. EXTREMITIES: 2+ peripheral pulses with no evidence of peripheral edema and no calf tenderness noted. Dressing on the left foot NEUROLOGIC patient is awake, alert and oriented 3 . . - Labs CBC & Chem 7: 03/07/19 05:10 03/07/19 05:15 Labs: Abnormal Lab Results - Last 24 Hours (Table) 03/07/19 03/07/19 03/07/19 Range/Units 05:10 05:10 05:14 RBC 3.68 L (3.80-5.40) m/uL Hgb 10.0 L (11.4-16.0) gm/dL Hct 32.8 L (34.0-46.0) % MCHC 30.5 L (31.0-37.0) g/dL RDW 17.8 H (11.5-15.5) % Retic Count 2.7 H (0.5-2.0) % Sodium (137-145) mmol/L Carbon Dioxide (22-30) mmol/L Glucose (74-99) mg/dL Iron (50-170) ug/dL % Saturation (12.00-45.00) Transferrin 197.0 L (204.0-354.0) mg/dL 03/07/19 Range/Units 05:15 RBC (3.80-5.40) m/uL Hgb (11.4-16.0) gm/dL Hct (34.0-46.0) % MCHC (31.0-37.0) g/dL RDW (11.5-15.5) % Retic Count (0.5-2.0) % Sodium 136 L (137-145) mmol/L Carbon Dioxide 31 H (22-30) mmol/L Glucose 124 H (74-99) mg/dL Iron 25 L (50-170) ug/dL % Saturation 8.80 L (12.00-45.00) Transferrin (204.0-354.0) mg/dL Microbiology - Last 24 Hours (Table) 03/05/19 02:08 Blood Culture - Preliminary Blood No Growth after 48 hours 03/04/19 23:08 Gram Stain - Preliminary Foot - Left Wound Culture - Preliminary Presumptive MRSA Strep agalactiae - (group b) Assessment and Plan Plan: Assessment and plan #1 long-standing persistent atrial fibrillation with controlled heart rate #2 congestive heart failure exacerbation, mild, of unknown etiology at this point, echo pending #3 anemia, of unknown etiology, rule out blood loss anemia and GI bleeding, hemoglobin 10 this morning #4 hypertension #5 hyperlipidemia #6 history of amputation of the right metatarsal Plan We will review the patient's echocardiogram with Doppler study. Discontinue the IV Lasix and start the patient over to oral diuretics. DNP note has been reviewed, I agree with a documented findings and plan of care. Patient was seen and examined.
[2019-03-07 12:47] LABS: Amorphous Sediment,Urine Rare /hpf; Appearance,Urine Cloudy (Clear); Bacteria,Urine Occasional /hpf; Bilirubin,Urine Negative (Negative); Blood,Urine Small (Negative); Color,Urine Light Yellow; Glucose,Urine (UA) Negative (Negative); Ketones,Urine Negative (Negative); Leukocyte Esterase,Urine Small (Negative); Mucus,Urine Rare /hpf; Nitrite,Urine Negative (Negative); Protein,Urine Negative (Negative); RBC,Urine 5 /hpf (0-5); Specific Gravity,Urine 1.007 (1.001-1.035); Squamous Epithelial Cell,Urine 1 /hpf (0-4); Urobilinogen,Urine <2.0 mg/dL (<2.0); WBC,Urine 1 /hpf (0-5)
--- NOTE | 2019-03-07 13:10 | P.CONS ---
History of Present Illness - Reason for Consult Consult date: 03/07/19 Wound care - History of Present Illness This is a 78-year-old pleasant female who is known to the wound care center being seen on for nonhealing ulceration to the left forefoot and a pressor ulceration to the left calcaneus. Patient is seen on the wound care center weekly she however she has not been seen since her last admission. Patient previously had an amputation to the left foot metatarsal and a wound VAC in place. The patient is now at home on her own is unable to have the wound VAC. Utilizing absorptive silver to the site and honey alginate to the calcaneus ulceration. The patient will be discharged today and instructed to follow up in the wound care center on . Review of Systems Review Of Systems: Constitutional: No fever, no chills, no night sweats. No weight change. No weakness, fatigue or lethargy. No daytime sleepiness. Integumentary:reports wounds, no lesions. No rash or pruritus. No unusual bruising. No change in hair or nails. Past Medical History Past Medical History: Atrial Fibrillation, Coronary Artery Disease (CAD), COPD, CVA/TIA, Hyperlipidemia, Hypertension, Myocardial Infarction (HI), Rheumatoid Arthritis (RA), Vascular Disorder Additional Past Medical History / Comment(s): Pt recently admitted to [facility] on 12/16/18 with L lower extremity critical limb ischemia. She had several angiograms/PTBAs and a stent placed. 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, RA in bilateral hands, Last Myocardial Infarction Date:: 2016 History of Any Multi-Drug Resistant Organisms: None Reported Past Surgical History: Hysterectomy Additional Past Surgical History / Comment(s): L lower extremity iliofemoral angiogram, aortoiliac angiogram, selective L popliteal tibial peroneal angiogram, multiple PTBAs L leg/thrombolytics and a stent to the L common iliac artery, 2006/2016 cardiac caths w/ stents Past Anesthesia/Blood Transfusion Reactions: No Reported Reaction, Motion Sickness Additional Past Anesthesia/Blood Transfusion Reaction / Comm: Pt recently received blood without reaction. Past Psychological History: Anxiety Additional Psychological History / Comment(s): pt living at home alone. per pt daughter she is doing well and can take care of herself. Smoking Status: Current every day smoker Past Alcohol Use History: None Reported Additional Past Alcohol Use History / Comment(s): Pt started smoking in 1956. Past Drug Use History: None Reported - Past Family History Daughter(s) Family Medical History: Diabetes Mellitus Son(s) Family Medical History: Hyperlipidemia, Hypertension Mother Family Medical History: No Reported History Additional Family Medical History / Comment(s): Mother was healthy Father Family Medical History: Cancer Additional Family Medical History / Comment(s): Father of some form of cancer prior to pt being born. She does not know type of cancer. Medications and Allergies Home Medications Medication Instructions Recorded Confirmed Type Atorvastatin [Lipitor] 80 mg PO HS #30 tab 10/23/16 03/05/19 Rx Nitroglycerin Sl Tabs [Nitrostat] 0.4 mg SUBLINGUAL Q5M PRN #25 tab 10/23/16 03/05/19 Rx Albuterol Inhaler [Ventolin Hfa 2 puff INHALATION RT-Q6H PRN 12/16/18 03/05/19 History Inhaler] Ipratropium/Albuterol Sulfate 1 puff INHALATION RT-DAILY 12/16/18 03/05/19 History [Combivent Respimat Inhaler] Clopidogrel [Plavix] 75 mg PO HS 01/03/19 03/05/19 History Metoprolol Tartrate [Lopressor] 50 mg PO BID@0700,1600 01/03/19 03/05/19 History Rivaroxaban [Xarelto] 20 mg PO DAILY@199901/03/19 03/05/19 History Gabapentin [Neurontin] 300 mg PO TID@0700,1300,1900 #9 cap 01/07/19 03/05/19 Rx Naproxen Sodium [Aleve] 220 mg PO DAILY PRN 02/18/19 03/05/19 History Acetaminophen-Codeine 300-30mg 1 tab PO DAILY PRN 02/19/19 03/05/19 History [Tylenol w/codeine #3] Losartan [Cozaar] 25 mg PO Q24H #30 tab 02/24/19 03/05/19 Rx Nicotine 21Mg/24Hr Patch [Habitrol] 1 patch TRANSDERM DAILY #14 patch 02/24/19 03/05/19 Rx Allergies Allergy/AdvReac Type Severity Reaction Status Date / Time No Known Allergies Allergy Verified 03/05/19 10:28 Physical Exam Vitals: Vital Signs Temp Pulse Pulse Resp BP Pulse Ox 03/07/19 12:00 97.9 F 72 16 113/55 98 03/07/19 11:51 77 16 03/07/19 10:05 88 03/07/19 09:55 88 03/07/19 08:00 87 16 03/07/19 07:25 98.2 F 87 16 108/63 97 03/07/19 04:00 97.3 F L 76 16 90/42 97 03/07/19 00:00 98.1 F 88 16 138/72 98 03/06/19 20:00 98.0 F 85 16 116/55 98 03/06/19 16:00 97.8 F 76 16 116/68 95 Intake and Output 03/06/19 03/07/19 03/07/19 22:59 06:59 14:59 Intake Total 237 160 Output Total 600 600 400 Balance -363 -600 -240 Intake: IV 20 Invasive Line 2 20 Oral 237 140 Output: Urine 600 600 400 Other: Voiding Method Bedpan Bedpan Bedpan # Voids 1 1 # Bowel Movements 1 Weight 43 kg Physical exam: General Appearance: Alert, cooperative, no distress, appears stated age. Skin: The transmetatarsal ulceration site measures approximately 3.6 x 6.4 x 1.5 with fat layer exposure. There is adherent Slough and minimal granulation seen throughout the wound bed. Left calcaneus ulceration measures approximately 2 x 2.6 by 0.[address] all other Skin color, texture, tugor normal, no rashes or lesions. Neurologic: Alert oriented x3 Results CBC & Chem 7: 03/07/19 05:10 03/07/19 05:15 Labs: Abnormal Lab Results - Last 24 Hours (Table) 03/07/19 03/07/19 03/07/19 Range/Units 05:10 05:10 05:14 RBC 3.68 L (3.80-5.40) m/uL Hgb 10.0 L (11.4-16.0) gm/dL Hct 32.8 L (34.0-46.0) % MCHC 30.5 L (31.0-37.0) g/dL RDW 17.8 H (11.5-15.5) % Retic Count 2.7 H (0.5-2.0) % Sodium (137-145) mmol/L Carbon Dioxide (22-30) mmol/L Glucose (74-99) mg/dL Iron (50-170) ug/dL % Saturation (12.00-45.00) Transferrin 197.0 L (204.0-354.0) mg/dL Urine Appearance (Clear) Urine Blood (Negative) Ur Leukocyte Esterase (Negative) Amorphous Sediment (None) /hpf Urine Bacteria (None) /hpf Urine Mucus (None) /hpf 03/07/19 03/07/19 Range/Units 05:15 11:18 RBC (3.80-5.40) m/uL Hgb (11.4-16.0) gm/dL Hct (34.0-46.0) % MCHC (31.0-37.0) g/dL RDW (11.5-15.5) % Retic Count (0.5-2.0) % Sodium 136 L (137-145) mmol/L Carbon Dioxide 31 H (22-30) mmol/L Glucose 124 H (74-99) mg/dL Iron 25 L (50-170) ug/dL % Saturation 8.80 L (12.00-45.00) Transferrin (204.0-354.0) mg/dL Urine Appearance Cloudy H (Clear) Urine Blood Small H (Negative) Ur Leukocyte Esterase Small H (Negative) Amorphous Sediment Rare H (None) /hpf Urine Bacteria Occasional H (None) /hpf Urine Mucus Rare H (None) /hpf Microbiology - Last 24 Hours (Table) 03/05/19 02:08 Blood Culture - Preliminary Blood No Growth after 48 hours 03/04/19 23:08 Gram Stain - Preliminary Foot - Left Wound Culture - Preliminary Presumptive MRSA Strep agalactiae - (group b) Assessment and Plan (1) Pressure ulcer of left heel, unstageable Current Visit: Yes Status: Acute Code(s): L89.620 - PRESSURE ULCER OF LEFT HEEL, UNSTAGEABLE SNOMED Code(s): 859941651 (2) Acquired absence of other left toe(s) Current Visit: No Status: Acute Code(s): Z89.422 - ACQUIRED ABSENCE OF OTHER LEFT TOE(S) SNOMED Code(s): 677060225 (3) Atherosclerosis of [place] arteries of left leg with ulceration of other part of foot Current Visit: No Status: Acute Code(s): I70.245 - ATHSCL [place] ARTERIES OF LEFT LEG W ULCERATION OTH PRT FOOT SNOMED Code(s): 820779982779333 Plan: Continue with absorptive silver to amputation site and honey alginate to calcaneus. Continue to keep weekly wound care appointments. Next appointment is 03/10/2019 @ 1:45. Instructed patient that extended care facility for rehab would be a better option than going home alone socially with her nonweightbearing status patient unagreeable at this time. Patient will be returning home. Thank you, for the consultation. Any questions please contact the wound care center DNP note has been reviewed and discussed with Dr. Alvarado and the impression and plan of care has been directed as dictated.
[2019-03-07] MEDS ORDERED: VANCOMYCIN IV PER PHARMACY 1 EACH MISC MISCELLANE PRN (15:15)
[2019-03-07] MEDS ORDERED: VANCOMYCIN 750 MG in SODIUM CHLORIDE 0.9% 250 ML IVPB ONE (16:00)
[2019-03-07] MEDS: FUROSEMIDE 40 MG TAB PO SCH (16:13)
--- NOTE | 2019-03-07 16:57 | PN ---
PROGRESS NOTE DATE OF DICTATION: 03/07/2019 The patient is a 78-year-old pleasant white female admitted to the hospital because of chest pain and was noted to have anemia during this hospitalization. She also has a nonhealing ulceration of the left forefoot, for which she follows with the wound care center. She was seen by Dr. Berman in consultation and was recommended a colonoscopy because of anemia. She had an upper endoscopy done in December of 2018 that showed mild gastritis. The patient at this time continues to refuse a colonoscopy. PHYSICAL EXAMINATION: She appears comfortable, in no apparent distress. Her vital signs are stable. Blood pressure is 133/55, pulse rate 72, temperature 97.9. HEENT examination unremarkable. Conjunctivae pink. Sclerae anicteric. Oral cavity no lesions. NECK: No JVD or lymph node enlargement. CHEST: Clear to auscultation. HEART: Regular rate and rhythm. ABDOMEN: Soft. Bowel sounds are positive. No organomegaly. EXTREMITIES: No pedal edema. Left foot ulcer noted. NEUROLOGIC: Alert and oriented x3. No focal deficits. LABS: Labs from today show WBC 9.4, hemoglobin 10, platelets 320. BUN and creatinine are within normal limits. IMPRESSION: 1. Normocytic anemia with a hemoglobin of 6.7 at the time of admission to the hospital requiring a unit of blood transfusion. Last hemoglobin is 10 g/dL. Clinically no evidence of active ongoing bleeding. Iron indices were done that showed a ferritin of 82, not consistent with iron deficiency anemia. She never had a colonoscopy in the past. Last EGD in April of 2018 showed gastritis. 2. Left foot ulcer, followed at Wound Care. 3. History of congestive heart failure. 4. Atrial fibrillation, on Xarelto. RECOMMENDATIONS: In regard to the anemia, I did recommend to the patient to have an outpatient colonoscopy. At this time she refuses to have this done, but she wants to think about it. In the meantime, monitor CBC on a daily basis. She was advised to follow up with Dr. Berman in case she is discharged home from the hospital. Thank you for this consultation. BAKARI / KASIA: [id number] /
[2019-03-07] MEDS: RIVAROXABAN 20 MG TAB PO SCH (20:58)
[2019-03-07] MEDS: ATORVASTATIN 80 MG TAB PO SCH (20:58)
[2019-03-07] MEDS: CLOPIDOGREL 75 MG TAB PO SCH (20:58)
--- NOTE | 2019-03-07 21:36 | P.PN ---
Progress Note - Text Progress Note Date: 03/07/19 Chief Complaint: Chest pain, shortness of breath Interval history: This is a pleasant 78-year-old patient of Dr. Mcdaniels. Chronic stable medical conditions include hypertension, COPD, atrial flutter hyperlipidemia, cognitive impairment, coronary artery disease with stent. on December 07, 2018 had TIA. Patient then had a CT angiogram of the head and neck that was negative. 2-D echocardiogram was unremarkable. Patient was then admitted from December 16 through 12/24/2018.. Patient presented with acute on chronic peripheral artery disease with CT angiogram demonstrating acute vascular findings. The following day patient had TPA administered. Subsequently several angioplasties and thrombolytic was carried out. Patient was discharged on xarelto. Patient was having, pain in the left foot toes with signs of early gangrene when she left the hospital. She gone to rehab.Readmitted and On January 04 patient was taken down to the operating room by Dr. Pace for trans metatarsal amputation of the left foot. Patient lives alone and has home help. In the ER she stated she had some chest pain. Unclear to the nature and duration. Earlier to the cardiology she had mentioned that she was short of breath. Tired. Patient is of the forgetful. One of patient's daughter the bedside. Appetite has been okay. At baseline weak and tired. Does use a walker. Admitted with CHF exacerbation. Also found to have significant anemia. Given IV Lasix. Transfuse 1 units of blood. Today-no new issues. Patient also is comfortable. Patient's foot wound no different than before. Patient has not kept up appointments of the wound care center. Review of systems: Was done for constitutional, cardiovascular, GI, pulmonary. relevant finding as above Active Medications Acetaminophen/Codeine Phosphate (Tylenol #3) 1 each PO DAILY PRN PRN Reason: Pain Albuterol Sulfate (Ventolin Nebulized) 2.5 mg INHALATION RT-Q6H PRN PRN Reason: Shortness Of Breath Albuterol/Ipratropium (Duoneb 0.5 Mg-3 Mg/3 Ml Soln) 3 ml INHALATION RT-DAILY [facility] Last Admin: 03/07/19 09:55 Dose: 3 ml Documented by: Atorvastatin Calcium (Lipitor) 80 mg PO HS [facility] Last Admin: 03/07/19 20:58 Dose: 80 mg Documented by: Clopidogrel Bisulfate (Plavix) 75 mg PO HS [facility] Last Admin: 03/07/19 20:58 Dose: 75 mg Documented by: Furosemide (Lasix) 40 mg PO BID@0900,1600 [facility] Last Admin: 03/07/19 16:13 Dose: Not Given Documented by: Gabapentin (Neurontin) 300 mg PO TID@0700,1300,1900 [facility] Last Admin: 03/07/19 18:18 Dose: Not Given Documented by: Vancomycin HCl 750 mg/ Sodium (Chloride) 250 mls @ 125 mls/hr IVPB Q16H [facility] Losartan Potassium (Cozaar) 25 mg PO Q24H [facility] Last Admin: 03/07/19 06:38 Dose: 25 mg Documented by: Metoprolol Tartrate (Lopressor) 50 mg PO BID@0700,1600 [facility] Last Admin: 03/07/19 16:13 Dose: 50 mg Documented by: Miscellaneous Information (Potassium Per Protocol) 1 each MISCELLANE DAILY PRN; Protocol PRN Reason: Per Protocol Naloxone HCl (Narcan) 0.2 mg IV Q2M PRN PRN Reason: Opioid Reversal Nicotine (Habitrol 21mg/24hr Patch) 1 patch TRANSDERM DAILY [facility] Last Admin: 03/07/19 08:52 Dose: Not Given Documented by: Pantoprazole Sodium (Protonix) 40 mg PO AC-BRKFST [facility] Last Admin: 03/07/19 06:38 Dose: 40 mg Documented by: Rivaroxaban (Xarelto) 20 mg PO DAILY@2000 [facility] Last Admin: 03/07/19 20:58 Dose: 20 mg Documented by: Physical examination: VITAL SIGNS: 97, 77, 16, 142/78, Ativan percent room air GENERAL: Laying bed, comfortable EYES: Pupils equal. Conjunctiva pale HEENT: External appearance of nose and ears normal, oral cavity grossly normal. NECK: JVD not raised; masses not palpable. HEART: First and second heart sounds are normal; no edema. LUNGS: Respiratory rate normal; decreased breath sounds ABDOMEN: Soft, nontender, liver spleen not palpable, no masses palpable. PSYCH: Awake, able to do simple questions EXTREMITIES: Left foot stump wound MUSCULOSKELETAL: Evidence of significant evidence of RA in the hands INVESTIGATIONS, reviewed in the clinical context:: White count 9.4 hemoglobin 10 progression 3.6 creatinine 0.65 Previous testing White count 12 hemoglobin 7.3 progression 3.7 bun 12 creatinine 0.5 9 repeat hemoglobin 6.7 ProBNP 7500 albumin 2.7 Influenza both type A and type B negative EKG tracing personally reviewed by me-normal sinus rhythm nonspecific T-wave changes Chest x-ray film personally reviewed by me-pulmonary edema with fluid in the fissure Assessment: -Acute congestive heart failure exacerbation, EF not known, compensated -Symptomatic anemia, requiring one unit blood transfusion - COPD in ex-smoker -Paroxysmal atrial flutter-fibrillation, rate controlled -Anemia of chronic disease - chronic occlusive disease arterial of the left lower extremity, recently and patient received thrombolytic, angioplasties and thrombus extraction -Hyperlipidemia -Coronary artery disease with stent -status post transmetatarsal amputation. Left foot - 01/04/2019. Stump looks no different than recent. Present cultures of likely colonization. -Medical debility -Mild cognitive impairment Plan: Does speak to Soledad Torres NP for wound care. Also spoke to Dr. mcfadden from infectious disease. Do not feel the need for any further antibiotics at this point as the wound is rather stable. Patient will follow up at the wound care center. Discharge planning was done for today. Late in the day a was called the daughter wishes to speak about patient's overall status like the patient to not be discharged. Total time spent today was about 45 minutes including 30 minutes of discussion. Advanced care planning: Spoke to the patient's daughter Maria Antonia about the patient. Patient is well- known to me from previous few admissions no. It was agreeable that patient's quality of life not very comfortable.. Patient has not been wanting to keep her appointments. Maria Antonia is patient's DPOAE. Patient is becoming rather forgetful. At this point Maria Antonia would like to proceed with hospice information. She plans to take the patient home tomorrow. And then after she's talked to hospice tomorrow she'll then decide down the road went to enroll in the same. She wishes to engage [facility] hospice. Several questions were answered. Total time spent for this was about 25 minutes
--- NOTE | 2019-03-07 22:41 | P.CONS ---
History of Present Illness - Reason for Consult Consult date: 03/07/19 left heel wound cultures MRSA Requesting physician: Richy Martin - Chief Complaint left heel wound and pain x days - History of Present Illness Patient is a 78-year-old female with a past medical history significant for peripheral arterial disease in this patient who continues to smoke patient is status post left transmetatarsal amputation done by Dr. Pace done in December 2018 and the patient did have subsequent nonhealing wound at the surgical site, patient has also developed a wound on her left heel area, patient not very sure for how long she has this however the patient has been complaining of more pain to the left heel wound to be more of a throbbing almost 70 8 out of 10 and no radiation patient did have slight drainage from that wound from which culture has been obtained which are now growing MRSA that prompted this infectious disease consultation patient since presentation the hospital has been afebrile and patient do not have any elevated white count except on admission with a white count was at 12,000 creatinine is normal at 0.65. She did have x-rays completed of the left foot did not show any changes suspicious for osteomyelitis of the left heel Review of Systems Positive point has been mentioned in HPI rest of the systems are negative Past Medical History Past Medical History: Atrial Fibrillation, Coronary Artery Disease (CAD), COPD, CVA/TIA, Hyperlipidemia, Hypertension, Myocardial Infarction (SC), Rheumatoid Arthritis (RA), Vascular Disorder Additional Past Medical History / Comment(s): Pt recently admitted to [facility] on 12/16/18 with L lower extremity critical limb ischemia. She had several angiograms/PTBAs and a stent placed. 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, RA in bilateral hands, Last Myocardial Infarction Date:: 2016 History of Any Multi-Drug Resistant Organisms: None Reported Past Surgical History: Hysterectomy Additional Past Surgical History / Comment(s): L lower extremity iliofemoral angiogram, aortoiliac angiogram, selective L popliteal tibial peroneal angiogram, multiple PTBAs L leg/thrombolytics and a stent to the L common iliac artery, cardiac caths w/ stents Past Anesthesia/Blood Transfusion Reactions: No Reported Reaction, Motion Sickness Additional Past Anesthesia/Blood Transfusion Reaction / Comm: Pt recently received blood without reaction. Past Psychological History: Anxiety Additional Psychological History / Comment(s): pt living at home alone. per pt daughter she is doing well and can take care of herself. Smoking Status: Current every day smoker Past Alcohol Use History: None Reported Additional Past Alcohol Use History / Comment(s): Pt started smoking in 1956. Past Drug Use History: None Reported - Past Family History Daughter(s) Family Medical History: Diabetes Mellitus Son(s) Family Medical History: Hyperlipidemia, Hypertension Mother Family Medical History: No Reported History Additional Family Medical History / Comment(s): Mother was healthy Father Family Medical History: Cancer Additional Family Medical History / Comment(s): Father of some form of cancer prior to pt being born. She does not know type of cancer. Medications and Allergies Home Medications Medication Instructions Recorded Confirmed Type Atorvastatin [Lipitor] 80 mg PO HS #30 tab 10/23/16 03/05/19 Rx Nitroglycerin Sl Tabs [Nitrostat] 0.4 mg SUBLINGUAL Q5M PRN #25 tab 10/23/16 03/05/19 Rx Albuterol Inhaler [Ventolin Hfa 2 puff INHALATION RT-Q6H PRN 12/16/18 03/05/19 History Inhaler] Ipratropium/Albuterol Sulfate 1 puff INHALATION RT-DAILY 12/16/18 03/05/19 History [Combivent Respimat Inhaler] Clopidogrel [Plavix] 75 mg PO HS 01/03/19 03/05/19 History Metoprolol Tartrate [Lopressor] 50 mg PO BID@0700,1600 01/03/19 03/05/19 History Rivaroxaban [Xarelto] 20 mg PO DAILY@199901/03/19 03/05/19 History Gabapentin [Neurontin] 300 mg PO TID@0700,1300,1900 #9 cap 01/07/19 03/05/19 Rx Acetaminophen-Codeine 300-30mg 1 tab PO DAILY PRN 02/19/19 03/05/19 History [Tylenol w/codeine #3] Losartan [Cozaar] 25 mg PO Q24H #30 tab 02/24/19 03/05/19 Rx Nicotine 21Mg/24Hr Patch [Habitrol] 1 patch TRANSDERM DAILY #14 patch 02/24/19 03/05/19 Rx Furosemide [Lasix] 40 mg PO DAILY #30 tab 03/07/19 Rx Furosemide [Lasix] 40 mg PO DAILY #30 tablet 03/07/19 Rx Omeprazole [PriLOSEC] 20 mg PO AC-BID #60 cap 03/07/19 Rx Allergies Allergy/AdvReac Type Severity Reaction Status Date / Time No Known Allergies Allergy Verified 03/05/19 10:28 Physical Exam Vitals: Vital Signs Temp Pulse Pulse Resp BP Pulse Ox 03/07/19 12:00 97.9 F 72 16 113/55 98 03/07/19 11:51 77 16 03/07/19 10:05 88 03/07/19 09:55 88 03/07/19 08:00 87 16 03/07/19 07:25 98.2 F 87 16 108/63 97 03/07/19 04:00 97.3 F L 76 16 90/42 97 03/07/19 00:00 98.1 F 88 16 138/72 98 03/06/19 20:00 98.0 F 85 16 116/55 98 03/06/19 16:00 97.8 F 76 16 116/68 95 Intake and Output 03/07/19 03/07/19 03/07/19 06:59 14:59 22:59 Intake Total 160 Output Total 600 400 Balance -600 -240 Intake: IV 20 Invasive Line 2 20 Oral 140 Output: Urine 600 400 Other: Voiding Method Bedpan Bedpan # Voids 1 Weight 43 kg GENERAL DESCRIPTION: Elderly female lying in bed, no distress. No tachypnea or accessory muscle of respiration use. HEENT: Shows Pallor , no scleral icterus. Oral mucous membrane is dry. NECK: Trachea central, no thyromegaly. LUNGS: Unlabored breathing. Clear to auscultation anteriorly. No wheeze or crackle. HEART: S1, S2, regular rate and rhythm. ABDOMEN: Soft, no tenderness , guarding or rigidity EXTREMITIES: Left foot transmetatarsal amputation site did have minimal slough tissue there is no surrounding swelling redness or any foul-smelling drainage however the patient wound on the left heel is tender to touch did have slough tissue but no foul-smelling drainage sKIN: No rash, no masses palpable. NEUROLOGICAL: The patient is awake, alert, oriented x3, mood and affect normal. Results CBC & Chem 7: 03/07/19 05:10 03/07/19 05:15 Labs: Abnormal Lab Results - Last 24 Hours (Table) 03/07/19 03/07/19 03/07/19 Range/Units 05:10 05:10 05:14 RBC 3.68 L (3.80-5.40) m/uL Hgb 10.0 L (11.4-16.0) gm/dL Hct 32.8 L (34.0-46.0) % MCHC 30.5 L (31.0-37.0) g/dL RDW 17.8 H (11.5-15.5) % Retic Count 2.7 H (0.5-2.0) % Sodium (137-145) mmol/L Carbon Dioxide (22-30) mmol/L Glucose (74-99) mg/dL Iron (50-170) ug/dL % Saturation (12.00-45.00) Transferrin 197.0 L (204.0-354.0) mg/dL Urine Appearance (Clear) Urine Blood (Negative) Ur Leukocyte Esterase (Negative) Amorphous Sediment (None) /hpf Urine Bacteria (None) /hpf Urine Mucus (None) /hpf 03/07/19 03/07/19 Range/Units 05:15 11:18 RBC (3.80-5.40) m/uL Hgb (11.4-16.0) gm/dL Hct (34.0-46.0) % MCHC (31.0-37.0) g/dL RDW (11.5-15.5) % Retic Count (0.5-2.0) % Sodium 136 L (137-145) mmol/L Carbon Dioxide 31 H (22-30) mmol/L Glucose 124 H (74-99) mg/dL Iron 25 L (50-170) ug/dL % Saturation 8.80 L (12.00-45.00) Transferrin (204.0-354.0) mg/dL Urine Appearance Cloudy H (Clear) Urine Blood Small H (Negative) Ur Leukocyte Esterase Small H (Negative) Amorphous Sediment Rare H (None) /hpf Urine Bacteria Occasional H (None) /hpf Urine Mucus Rare H (None) /hpf Microbiology - Last 24 Hours (Table) 03/05/19 02:08 Blood Culture - Preliminary Blood No Growth after 48 hours 03/04/19 23:08 Gram Stain - Preliminary Foot - Left Wound Culture - Preliminary Presumptive MRSA Strep agalactiae - (group b) Assessment and Plan Assessment: 1-patient with nonhealing wound to the left foot transmetatarsal amputation site that wound looks clean with no evidence of any surrounding cellulitis wound base did have some slough tissue 2-Patient wound on the left heel which is a pressure ulcer stage III did have slough tissue and the patient been complaining of pain and was tender to touch underlying infection not entirely excluded however x-rays were negative for any bony changes Plan: 1-vancomycin pharmacy to dose her with a target trough of 15 while watching her kidney function and Vanco trough closely. 2-I received a call from admitting physician and per his opinion patient wound looks clean and would like the patient to be discharged and the patient to follow with the wound care center with Dr. Amaya , patient with no fever or elevated white count may consider local wound care only however as mentioned previously infection of the left heel is not entirely excluded in view of the features explained above Time with Patient: Greater than 30
[2019-03-08 00:49] VITALS: RESP 18
[2019-03-08] MEDS ORDERED: VANCOMYCIN 750 MG in SODIUM CHLORIDE 0.9% 250 ML IVPB SCH (06:00)
[2019-03-08] MEDS: PANTOPRAZOLE 40 MG TABLET PO SCH (06:26)
[2019-03-08] MEDS: GABAPENTIN 300 MG CAP PO SCH (06:26)
[2019-03-08] MEDS: LOSARTAN 25 MG TAB PO SCH (06:26)
[2019-03-08] MEDS: METOPROLOL TARTRATE 50 MG TAB PO SCH (06:26)
[2019-03-08] MEDS: NICOTINE 21MG/24HR PATCH TRANSDERM SCH (09:12)
[2019-03-08] MEDS: FUROSEMIDE 40 MG TAB PO SCH (09:17)
[2019-03-08 09:23] VITALS: PULSE 70; TEMP 97.7
[2019-03-08 09:25] VITALS: BP 97/36
--- NOTE | 2019-03-08 09:46 | P.PN ---
Subjective Progress Note Date: 03/08/19 Patient seen and evaluated lying in bed, upset she was being woken up. States she wants to go home versus extended care facility. Yesterday they were discussions between medicine and patient's daughter who has [employer]IE[employer], that they are considering hospice care at this point in time. Patient denies any changes through the night, denies any fever or chills. Wound caare saw patient yesterday and will follow during hospital stay and outpatient in clinic. Objective - Vital Signs Vital signs: Vital Signs Temp 97.7 F 03/08/19 08:15 Pulse 70 03/08/19 08:15 Resp 18 03/08/19 08:15 BP 97/36 03/08/19 08:15 Pulse Ox 99 03/08/19 08:15 Intake & Output 03/07/19 03/08/19 03/08/19 18:59 06:59 18:59 Intake Total 260 Output Total 700 1400 Balance -440 -1400 Weight 42.5 kg Intake: IV 20 Invasive Line 2 20 Oral 240 Output: Urine 700 1400 Other: Voiding Method Bedpan Bedpan # Voids 1 1 # Bowel Movements 1 - Exam Asleep but easy to arouse, in no acute distress. Extremities: bilateral extremities with no edema, warm to the touch. Left lower extremity with dressings CDI. - Labs CBC & Chem 7: 03/07/19 05:10 03/07/19 05:15 Labs: Abnormal Lab Results - Last 24 Hours (Table) 03/07/19 03/07/19 03/07/19 Range/Units 05:14 05:15 11:18 Iron 25 L (50-170) ug/dL % Saturation 8.80 L (12.00-45.00) Transferrin 197.0 L (204.0-354.0) mg/dL Urine Appearance Cloudy H (Clear) Urine Blood Small H (Negative) Ur Leukocyte Esterase Small H (Negative) Amorphous Sediment Rare H (None) /hpf Urine Bacteria Occasional H (None) /hpf Urine Mucus Rare H (None) /hpf Microbiology - Last 24 Hours (Table) 03/05/19 02:08 Blood Culture - Preliminary Blood No Growth after 72 hours 03/05/19 23:52 Anaerobic Culture - Final Foot - Left Anaerobic Gm Negative Bacilli 03/04/19 23:08 Gram Stain - Final Foot - Left Wound Culture - Final Methicillin resist S. aureus Strep agalactiae - (group b) Assessment and Plan Assessment: Pressure ulcer of left heel Status post left transmetatarsal amputation Chronic peripheral vascular disease Tobacco abuse Plan: Continue with recommendations per wound care management. Offload pressure to left heel. Follow up with wound care in clinic after discharge as scheduled. No surgical interventions recommended at this time, patient may be discharged home when medically cleared. The above dictated assessment and findings were discussed with Dr. Rondon. The impression and plan of care have been directed as dictated.
--- NOTE | 2019-03-08 14:42 | P.PN ---
Subjective Progress Note Date: 03/08/19 This is a 78-year-old female patient with a past medical history significant for long-standing persistent atrial fibrillation on oral anticoagulation, hypertension, dyslipidemia, and history of amputation of the right metatarsal for unknown etiology at this point, presented to the hospital because she was not feeling well. The patient somewhat is a poor historian. Apparently she was feeling tired and fatigued and has no energy. Also she was experiencing symptoms of increasing in the shortness of breath. She was diagnosed with congestive heart failure and started on Lasix. Subsequently her hemoglobin is dropped to 6.3 and she received one unit of packed RBC. She stated that she never had any blood in the stool or any black stool. The patient currently is on oral anticoagulation with Xarelto and also she is on antiplatelet with Plavix. This morning patient states that she started to have some diarrhea stools and she was feeling quite nauseated. Breathing overall is stable, she's lying flat in bed at the time of my examination with no evidence of any shortness of breath. Her echocardiogram remains pending. I pressure 108/60 with a heart rate in the 80s, 97% on room air. Sodium 136, potassium 3.6, BUN 12, creatinine 0.6. 03/08/2019 Patient was seen and examined today, overall doing well. Hemodynamically stable. Objective - Vital Signs Vital signs: Vital Signs Temp 97.7 F 03/08/19 08:15 Pulse 70 03/08/19 08:15 Resp 18 03/08/19 08:15 BP 97/36 03/08/19 08:15 Pulse Ox 99 03/08/19 08:15 Intake & Output 03/07/19 03/08/19 03/08/19 18:59 06:59 18:59 Intake Total 260 Output Total 700 1400 100 Balance -440 -1400 -100 Weight 42.5 kg Intake: IV 20 Invasive Line 2 20 Oral 240 Output: Urine 700 1400 100 Other: Voiding Method Bedpan Bedpan # Voids 1 1 # Bowel Movements 1 - Exam PHYSICAL EXAMINATION: GENERAL: 78-year-old female in no acute distress at the time of my examination HEENT: Head is atraumatic, normocephalic. Pupils equal, round. Sclera anicteric. Conjunctiva are clear. Mucous membranes of the mouth are moist. Neck is supple. There is no elevated jugular venous pressure.No carotid bruit is heard. HEART EXAMINATION: Heart S1, S2 irregularly irregular . No murmur or gallop heard. CHEST EXAMINATION: Lungs are clear to auscultation and precussion. No chest wall tenderness is noted on palpation or with deep breathing. ABDOMEN: Soft, nontender. Bowel sounds are heard. No organomegaly noted. EXTREMITIES: 2+ peripheral pulses with no evidence of peripheral edema and no calf tenderness noted. Dressing on the left foot NEUROLOGIC patient is awake, alert and oriented 3 . . - Labs CBC & Chem 7: 03/07/19 05:10 03/07/19 05:15 Labs: Microbiology - Last 24 Hours (Table) 03/04/19 23:08 Gram Stain - Final Foot - Left Wound Culture - Final Methicillin resist S. aureus Strep agalactiae - (group b) 03/05/19 02:08 Blood Culture - Preliminary Blood No Growth after 72 hours 03/05/19 23:52 Anaerobic Culture - Final Foot - Left Anaerobic Gm Negative Bacilli Assessment and Plan Plan: Assessment and plan #1 long-standing persistent atrial fibrillation with controlled heart rate #2 congestive heart failure exacerbation, mild, of unknown etiology at this point, echo pending #3 anemia, of unknown etiology, rule out blood loss anemia and GI bleeding, hemoglobin 10 this morning #4 hypertension #5 hyperlipidemia #6 history of amputation of the right metatarsal Plan From cardiology's perspective, patient may be able to be discharged home today, we'll make her a follow-up appointment in the office post discharge. DNP note has been reviewed, I agree with a documented findings and plan of care. Patient was seen and examined.
--- NOTE | 2019-03-11 18:30 | P.DS ---
Providers Date of admission: 03/05/19 01:51 Expected date of discharge: 03/08/19 Attending physician: Wali Victor Consults: 03/05/19 01:49 Consult Physician Urgent Consulting Provider: [facility] Consult Reason/Comments: acute chest pain, aechf Do you want consulting provider notified?: Yes 03/05/19 01:58 Consult Physician Urgent Consulting Provider: Nancy Pace Consult Reason/Comments: left foot wound Do you want consulting provider notified?: Yes, Notify in am 03/05/19 20:01 Consult Physician Routine Consulting Provider: Joni Berman Consult Reason/Comments: Anemia Do you want consulting provider notified?: Yes 03/07/19 09:39 Consult Physician Urgent Consulting Provider: Fiorella Mcfadden Consult Reason/Comments: multiple left foot wounds; cultures- presumptive mrsa Do you want consulting provider notified?: Yes [facility] Course: Chief Complaint: Chest pain, shortness of breath Hospital course: This is a pleasant 78-year-old patient of Dr. Mcdaniels. Chronic stable medical conditions include hypertension, COPD, atrial flutter hyperlipidemia, cognitive impairment, coronary artery disease with stent. on December 07, 2018 had TIA. Patient then had a CT angiogram of the head and neck that was negative. 2-D echocardiogram was unremarkable. Patient was then admitted from December 16 through 12/24/2018.. Patient presented with acute on chronic peripheral artery disease with CT angiogram demonstrating acute vascular findings. The following day patient had TPA administered. Subsequently several angioplasties and thrombolytic was carried out. Patient was discharged on xarelto. Patient was having, pain in the left foot toes with signs of early gangrene when she left the hospital. She gone to rehab.Readmitted and On January 04 patient was taken down to the operating room by Dr. Pace for trans metatarsal amputation of the left foot. Patient lives alone and has home help. In the ER she stated she had some chest pain. Unclear to the nature and duration. Earlier to the cardiology she had mentioned that she was short of breath. Tired. Patient is of the forgetful. One of patient's daughter the bedside. Appetite has been okay. At baseline weak and tired. Does use a walker. Admitted with CHF exacerbation. Also found to have significant anemia. Given IV Lasix. Transfuse 1 units of blood. Patient's had a recent EGD. Patient declined colonoscopy. Patient's foot wound is doing fine. To follow up at the wound care center. Patient wound appears to be due to baseline. Hence no need for antibiotics. Spoke at length to patient's daughter. Forgetful. Often times not keen to go to her appointments. Her quality of life is not good. She got in touch with the hospice company and patient will most likely be starting hospice at home. Today-discuss this wrapper caser. Discussed with patient. Discussed with Dr. mcfadden from ID. Discussed with the vascular team. Discussion and discharge planning more than 35 minutes Consultation: Dr. Rondon from vascular Dr. Sheppard from cardiology Dr. Mcfadden from infectious disease Dr. Gunn from GI Review of systems: Was done for constitutional, cardiovascular, GI, pulmonary. relevant finding as above Physical examination: VITAL SIGNS: The 7.7, 70, 18, 97/36, 99% room air GENERAL: Laying bed, comfortable EYES: Pupils equal. Conjunctiva pale HEENT: External appearance of nose and ears normal, oral cavity grossly normal. NECK: JVD not raised; masses not palpable. HEART: First and second heart sounds are normal; no edema. LUNGS: Respiratory rate normal; decreased breath sounds ABDOMEN: Soft, nontender, liver spleen not palpable, no masses palpable. PSYCH: Awake, able to do simple questions EXTREMITIES: Left foot stump wound MUSCULOSKELETAL: Evidence of significant evidence of RA in the hands INVESTIGATIONS, reviewed in the clinical context:: White count 9.4 hemoglobin 10 progression 3.6 creatinine 0.65 Previous testing White count 12 hemoglobin 7.3 progression 3.7 bun 12 creatinine 0.5 9 repeat hemoglobin 6.7 ProBNP 7500 albumin 2.7 Influenza both type A and type B negative EKG tracing personally reviewed by me-normal sinus rhythm nonspecific T-wave changes Chest x-ray film personally reviewed by me-pulmonary edema with fluid in the fissure Assessment: -Acute congestive heart failure exacerbation, systolic dysfunction EF 35% [from cardiac cath report October 2018] -Symptomatic anemia, requiring one unit blood transfusion - COPD in ex-smoker -Paroxysmal atrial flutter-fibrillation, rate controlled -Anemia of chronic disease - chronic occlusive disease arterial of the left lower extremity, recently and patient received thrombolytic, angioplasties and thrombus extraction -Hyperlipidemia -Coronary artery disease with stent -status post transmetatarsal amputation. Left foot - 01/04/2019. Stump looks no different than recent. Present cultures of likely colonization. -Medical debility -Mild cognitive impairment Disposition: Home with possible hospice Plan - Discharge Summary Discharge Rx Participant: No New Discharge Prescriptions: New Furosemide [Lasix] 40 mg PO DAILY #30 tab Omeprazole [PriLOSEC] 20 mg PO AC-BID #60 cap Furosemide [Lasix] 40 mg PO DAILY #30 tablet Continue Atorvastatin [Lipitor] 80 mg PO HS #30 tab Nitroglycerin Sl Tabs [Nitrostat] 0.4 mg SUBLINGUAL Q5M PRN #25 tab PRN Reason: Chest Pain Albuterol Inhaler [Ventolin Hfa Inhaler] 2 puff INHALATION RT-Q6H PRN PRN Reason: Shortness Of Breath Ipratropium/Albuterol Sulfate [Combivent Respimat Inhaler] 1 puff INHALATION RT-DAILY Clopidogrel [Plavix] 75 mg PO HS Metoprolol Tartrate [Lopressor] 50 mg PO BID@0700,1600 Rivaroxaban [Xarelto] 20 mg PO DAILY@2000 Gabapentin [Neurontin] 300 mg PO TID@0700,1300,1900 #9 cap Acetaminophen-Codeine 300-30mg [Tylenol w/codeine #3] 1 tab PO DAILY PRN PRN Reason: Pain Losartan [Cozaar] 25 mg PO Q24H #30 tab Nicotine 21Mg/24Hr Patch [Habitrol] 1 patch TRANSDERM DAILY #14 patch Discontinued Naproxen Sodium [Aleve] 220 mg PO DAILY PRN PRN Reason: Pain Discharge Medication List Atorvastatin [Lipitor] 80 mg PO HS #30 tab 10/23/16 [Rx] Nitroglycerin Sl Tabs [Nitrostat] 0.4 mg SUBLINGUAL Q5M PRN #25 tab 10/23/16 [Rx] Albuterol Inhaler [Ventolin Hfa Inhaler] 2 puff INHALATION RT-Q6H PRN 12/16/18 [History] Ipratropium/Albuterol Sulfate [Combivent Respimat Inhaler] 1 puff INHALATION RT- DAILY 12/16/18 [History] Clopidogrel [Plavix] 75 mg PO HS 01/03/19 [History] Metoprolol Tartrate [Lopressor] 50 mg PO BID@0700,1600 01/03/19 [History] Rivaroxaban [Xarelto] 20 mg PO DAILY@199901/03/19 [History] Gabapentin [Neurontin] 300 mg PO TID@0700,1300,1900 #9 cap 01/07/19 [Rx] Acetaminophen-Codeine 300-30mg [Tylenol w/codeine #3] 1 tab PO DAILY PRN 02/19/19 [History] Losartan [Cozaar] 25 mg PO Q24H #30 tab 02/24/19 [Rx] Nicotine 21Mg/24Hr Patch [Habitrol] 1 patch TRANSDERM DAILY #14 patch 02/24/19 [Rx] Furosemide [Lasix] 40 mg PO DAILY #30 tab 03/07/19 [Rx] Furosemide [Lasix] 40 mg PO DAILY #30 tablet 03/07/19 [Rx] Omeprazole [PriLOSEC] 20 mg PO AC-BID #60 cap 03/07/19 [Rx] Follow up Appointment(s)/Referral(s): [facility] [Other] - 03/10/19 1:45 pm (appt 03/10 1:45PM) Dany Fofana MD [STAFF PHYSICIAN] - 03/18/19 3:15 pm (Thursday at [facility] (by [place])) Lukas Mcdaniels MD [Primary Care Provider] - 1-2 days [facility], [NON-STAFF] - Activity/Diet/Wound Care/Special Instructions: cbc/bmp - 5 days Wound care Left institution site: Absorptive silver, saline moistened gauze, dry gauze, rolled gauze secured tape. Left calcaneus honey alginate, saline moistened gauze, dry gauze, rolled gauze secured with paper tape. Change Thursday. Continue nonweightbearing status to the left foot. Home after hospice informational visit Discharge Disposition: HOME WITH HOME HEALTH SERVICES
--- NOTE | 2019-03-14 09:55 | CDI ---
Documentation Clarification Form Date: 03/14/19 From: Norma Herring CCS Phone: If you have a question about this query, please contact Kayley Moe, Art History Professor at [phone] between 8am and 5pm. Admit Date: 03/05/19 Discharge Date: 03/08/19 Patient Name: Betty Jarrett Visit Number: [id number] ATTENTION: The Clinical Documentation Specialists (CDI) and [facility] Coding Staff appreciate your assistance in clarifying documentation. Please respond to the clarification below the line at the bottom and electronically sign. The CDI & [facility] Coding staff will review the response and follow-up if needed. Please note: Queries are made part of the Legal Health Record. If you have any questions, please contact the author of this message via ITS. Dear Dr. Victor, Patient has been described as thin, underweight, medical debility, weakness. History/Risk Factors: HHD, PAD, Pressure Ulcer, CAD, Cognitive impairment, CHF Patients weight is: 47.491 kg Patients height is: 5ft 2inCalculated BMI is:19.1 Albumin: 2.7 Total Protein: 5.8 Treatments: Ensure Enlive BID, calories, protein, vitamin C, zinc Dietary Consult: 03/05/19 In order to capture the severity of condition associated with patient BMI of 19, a clinical diagnosis needs to be documented by the physician. Please clarify: Cachexia Underweight Malnutrition Mild Moderate Severe Other Unable to determine Protein calorie malnutrition, moderate, due to decreased oral intake, POA MTDD
== END 2019-03-08 12:15 | disposition home health service (06) | DRG 291 ==
LOC: EC 22:43 → 3SCARD 03-05 01:51
PROVIDERS: ADMIT Hospitalist; ATTEND Hospitalist
PROC: 30233N1 Transfusion of Nonautologous Red Blood Cells into Peripheral Vein, Percutaneous Approach (ICD-10-PCS; principal; 2019-03-05)
DX: I11.0 Hypertensive heart disease with heart failure (principal); L89.623 Pressure ulcer of left heel, stage 3; I48.92 Unspecified atrial flutter; I48.11 Longstanding persistent atrial fibrillation; E44.0 Moderate protein-calorie malnutrition; Z68.1 Body mass index [BMI] 19.9 or less, adult; D63.8 Anemia in other chronic diseases classified elsewhere; I50.23 Acute on chronic systolic (congestive) heart failure; J44.9 Chronic obstructive pulmonary disease, unspecified; E78.5 Hyperlipidemia, unspecified; I25.10 Atherosclerotic heart disease of native coronary artery without angina pectoris; G31.84 Mild cognitive impairment of uncertain or unknown etiology; R53.81 Other malaise; M06.9 Rheumatoid arthritis, unspecified; I70.212 Atherosclerosis of native arteries of extremities with intermittent claudication, left leg; F41.9 Anxiety disorder, unspecified; K29.50 Unspecified chronic gastritis without bleeding; F17.210 Nicotine dependence, cigarettes, uncomplicated; B95.62 Methicillin resistant Staphylococcus aureus infection as the cause of diseases classified elsewhere; I25.2 Old myocardial infarction; Z71.6 Tobacco abuse counseling; Z71.3 Dietary counseling and surveillance; Z53.29 Procedure and treatment not carried out because of patient's decision for other reasons; Z79.899 Other long term (current) drug therapy; Z79.01 Long term (current) use of anticoagulants; Z95.5 Presence of coronary angioplasty implant and graft; Z89.432 Acquired absence of left foot; Z86.73 Personal history of transient ischemic attack (TIA), and cerebral infarction without residual deficits; Z90.710 Acquired absence of both cervix and uterus; Z95.820 Peripheral vascular angioplasty status with implants and grafts; Z83.3 Family history of diabetes mellitus; Z82.49 Family history of ischemic heart disease and other diseases of the circulatory system; Z80.9 Family history of malignant neoplasm, unspecified; Z83.438 Family history of other disorder of lipoprotein metabolism and other lipidemia
CPT/HCPCS: 36415; 71046; 71275; 80048; 80053; 81001; 82607; 82728; 82746; 83540; 83550; 83605; 83735; 83880; 84132; 84466; 84484; 85025; 85027; 85045; 85379; 85610; 85730; 86140; 86850; 86900; 86901; 86920; 87040; 87070; 87075; 87077; 87186; 87205; 87502; 93005; 94640; 96365; 96375; 99285

== ENCOUNTER 2019-03-21 20:57 | Emergency (ER) | payer MEDICARE ==
[2019-03-21 21:11] VITALS: RESP 18
[2019-03-21] MEDS ORDERED: ONDANSETRON ODT 4 MG TAB PO STA (21:16)
--- NOTE | 2019-03-21 21:16 | ED ---
Nausea/Vomiting/Diarrhea HPI - General Chief complaint: Nausea/Vomiting/Diarrhea Stated complaint: Nausea Time Seen by Provider: 03/21/19 21:14 Source: EMS Mode of arrival: EMS Limitations: no limitations - History of Present Illness Initial comments: This patient is 78-year-old woman coming by ambulance for nausea and vomiting. The patient reportedly is on hospice care at home. She had reportedly developed nausea starting from the morning and has continued to have vomiting. It is not clear to me whether there has been any home medication, but it it appears the hospice personnel had not seen the patient before ambulance arrived to bring her here. Patient did receive Zofran and vomiting has slowed. Nursing staff has contacted hospice and family and they are working to get the patient back home with adequate medication. Patient with no further complaints then of vomiting. MD complaint: nausea, vomiting -: hour(s) Description of Vomiting: food contents Associated Abdominal Pain: No Improves with: medication Worsens with: none - Related Data Home Medications Medication Instructions Recorded Confirmed Albuterol Inhaler [Ventolin Hfa 2 puff INHALATION RT-Q6H PRN 12/16/18 03/21/19 Inhaler] Ipratropium/Albuterol Sulfate 1 puff INHALATION RT-DAILY 12/16/18 03/21/19 [Combivent Respimat Inhaler] Clopidogrel [Plavix] 75 mg PO HS 01/03/19 03/21/19 Metoprolol Tartrate [Lopressor] 50 mg PO BID@0700,1600 01/03/19 03/21/19 Rivaroxaban [Xarelto] 20 mg PO DAILY@199901/03/19 03/21/19 Losartan [Cozaar] 25 mg PO DAILY 03/21/19 03/21/19 Previous Rx's Medication Instructions Recorded Atorvastatin [Lipitor] 80 mg PO HS #30 tab 10/23/16 Nitroglycerin Sl Tabs [Nitrostat] 0.4 mg SUBLINGUAL Q5M PRN #25 tab 10/23/16 Gabapentin [Neurontin] 300 mg PO TID@0700,1300,1900 #9 cap 01/07/19 Nicotine 21Mg/24Hr Patch [Habitrol] 1 patch TRANSDERM DAILY #14 patch 02/24/19 Furosemide [Lasix] 40 mg PO DAILY #30 tab 03/07/19 Omeprazole [PriLOSEC] 20 mg PO AC-BID #60 cap 03/07/19 Allergies Allergy/AdvReac Type Severity Reaction Status Date / Time No Known Allergies Allergy Verified 03/21/19 21:47 Review of Systems ROS Statement: Those systems with pertinent positive or pertinent negative responses have been documented in the HPI. ROS Other: All systems not noted in ROS Statement are negative. Limitations: ROS unobtainable due to patients medical condition Gastrointestinal: Reports: nausea, vomiting. Denies: abdominal pain Past Medical History Past Medical History: Atrial Fibrillation, Coronary Artery Disease (CAD), COPD, CVA/TIA, Hyperlipidemia, Hypertension, Myocardial Infarction (LA), Rheumatoid Arthritis (RA), Vascular Disorder Additional Past Medical History / Comment(s): Pt recently admitted to [facility] on 12/16/18 with L lower extremity critical limb ischemia. She had several angiograms/PTBAs and a stent placed. 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, RA in bilateral hands, Last Myocardial Infarction Date:: 2016 History of Any Multi-Drug Resistant Organisms: None Reported Date of last positivie culture/infection: 03/04/19 MDRO Source:: Left Foot Past Surgical History: Hysterectomy Additional Past Surgical History / Comment(s): L lower extremity iliofemoral angiogram, aortoiliac angiogram, selective L popliteal tibial peroneal angiogram, multiple PTBAs L leg/thrombolytics and a stent to the L common iliac artery, cardiac caths w/ stents Past Anesthesia/Blood Transfusion Reactions: No Reported Reaction, Motion Sickness Additional Past Anesthesia/Blood Transfusion Reaction / Comment(s): Pt recently received blood without reaction. Past Psychological History: Anxiety Smoking Status: Current every day smoker Past Alcohol Use History: None Reported Past Drug Use History: None Reported - Past Family History Daughter(s) Family Medical History: Diabetes Mellitus Son(s) Family Medical History: Hyperlipidemia, Hypertension Mother Family Medical History: No Reported History Additional Family Medical History / Comment(s): Mother was healthy Father Family Medical History: Cancer Additional Family Medical History / Comment(s): Father of some form of cancer prior to pt being born. She does not know type of cancer. General Exam Limitations: no limitations General appearance: alert, cachectic Head exam: Present: atraumatic, normocephalic Eye exam: Present: normal appearance Respiratory exam: Present: wheezes. Absent: respiratory distress, rales, rhonchi, stridor Cardiovascular Exam: Present: regular rate (Rate 100 at my exam), normal rhythm, normal heart sounds. Absent: systolic murmur, diastolic murmur, rubs, gallop GI/Abdominal exam: Present: soft. Absent: distended, tenderness, guarding, rebound Extremities exam: Present: normal inspection Neurological exam: Present: alert Skin exam: Present: warm, dry, intact, normal color. Absent: rash Course Vital Signs 03/21/19 03/21/19 03/21/19 20:58 21:11 23:07 Temperature 97.5 F L 98.2 F 98.6 F Pulse Rate 102 H 104 H 99 Respiratory 18 18 18 Rate Blood Pressure 155/76 146/65 114/60 O2 Sat by Pulse 99 98 98 Oximetry Medical Decision Making - Medical Decision Making Patient is 78-year-old woman who is on hospice care. EMS had been activated as the patient had nausea all day and then was vomiting a number of times. The patient did have relief with Zofran that was administered en route. After family discussion with hospice personnel they're okay with her going back home. Disposition Clinical Impression: Nausea & vomiting Disposition: HOME SELF-CARE Condition: Undetermined Instructions (If sedation given, give patient instructions): Acute Nausea and Vomiting (ED) Is patient prescribed a controlled substance at d/c from ED?: No Referrals: Lukas Mcdaniels MD [Primary Care Provider] - 1-2 days
[2019-03-21] MEDS ORDERED: ONDANSETRON 4 MG/2 ML VIAL IVP STA (21:20)
[2019-03-21 23:09] VITALS: BP 114/60; PULSE 99; TEMP 98.6
== END 2019-03-21 23:08 | disposition home or self-care (01) ==
LOC: EC 20:57
DX: R11.2 Nausea with vomiting, unspecified (principal); I10 Essential (primary) hypertension; I25.10 Atherosclerotic heart disease of native coronary artery without angina pectoris; I25.2 Old myocardial infarction; I48.91 Unspecified atrial fibrillation; J44.9 Chronic obstructive pulmonary disease, unspecified; M06.9 Rheumatoid arthritis, unspecified; F17.200 Nicotine dependence, unspecified, uncomplicated; Z79.02 Long term (current) use of antithrombotics/antiplatelets; Z79.01 Long term (current) use of anticoagulants; Z79.51 Long term (current) use of inhaled steroids; Z79.899 Other long term (current) drug therapy; Z86.73 Personal history of transient ischemic attack (TIA), and cerebral infarction without residual deficits; Z95.5 Presence of coronary angioplasty implant and graft
CPT/HCPCS: 99284; 96374; J2405